=== PATIENT | male | born 1955 | race Caucasian/White ===

== ENCOUNTER 2020-08-16 08:10 | Inpatient (IN) | payer MEDICARE, OTHER ==
[2020-08-16] MEDS ORDERED: SODIUM CHLORIDE 0.9% 1,000 ML IV STA ×2 (08:22)
--- NOTE | 2020-08-16 08:26 | ED ---
General Adult HPI - General Chief complaint: Weakness Stated complaint: Weakness Time Seen by Provider: 08/16/20 08:11 Source: RN notes reviewed, old records reviewed - History of Present Illness Initial comments: 64-year-old male presents to return today for evaluation for progressive weakness. Patient has had significant left leg edema for the past few months and some developing more edema to the right. He states that he is on an unintentional 30 pound weight loss in the past few months. He has had workups including CAT scans colonoscopies ultrasounds with no evidence of possible cancer. He reports he has a significantly poor appetite. Patient states that he is having a difficult time with walking short distances without getting very winded and fatigued. Patient's family called EMS today for further evaluation. Patient and pain besides his legs. He does report some occasional diarrhea recently. - Related Data Home Medications Medication Instructions Recorded Confirmed Zolpidem [Ambien] 5 mg PO HS PRN 08/16/20 08/16/20 Zolpidem [Ambien] 10 mg PO HS PRN 08/16/20 08/16/20 amLODIPine BESYLATE/BENAZEPRIL 1 cap PO DAILY 08/16/20 08/16/20 [amLODIPine BESYLATE/BENAZEPRIL 5-10 MG] Allergies Allergy/AdvReac Type Severity Reaction Status Date / Time No Known Allergies Allergy Verified 08/16/20 08:50 Review of Systems ROS Statement: Those systems with pertinent positive or pertinent negative responses have been documented in the HPI. ROS Other: All systems not noted in ROS Statement are negative. General Exam - General Exam Comments Initial Comments: 64 -year-old male. . General appearance: alert, in no apparent distress Head exam: Present: atraumatic, normocephalic, normal inspection Eye exam: Present: normal appearance, PERRL, EOMI. Absent: scleral icterus, conjunctival injection, periorbital swelling ENT exam: Present: normal exam, mucous membranes moist Neck exam: Present: normal inspection. Absent: tenderness, meningismus, lymphadenopathy Respiratory exam: Present: normal lung sounds bilaterally. Absent: respiratory distress, wheezes, rales, rhonchi, stridor Cardiovascular Exam: Present: regular rate, normal rhythm, normal heart sounds. Absent: systolic murmur, diastolic murmur, rubs, gallop, clicks GI/Abdominal exam: Present: soft, normal bowel sounds. Absent: distended, tenderness, guarding, rebound, rigid Extremities exam: Present: normal inspection, full ROM, normal capillary refill, pedal edema, other (Patient has significant left lower extremity edema.). Absent: tenderness, joint swelling, calf tenderness Back exam: Present: normal inspection, full ROM Neurological exam: Present: alert, oriented X3, CN II-XII intact Psychiatric exam: Present: normal affect, normal mood Skin exam: Present: warm, dry, intact, normal color. Absent: rash Course Vital Signs 08/16/20 08/16/20 08/16/20 08:12 08:13 08:30 Temperature 97.6 F Pulse Rate 117 H 114 H Respiratory 18 16 Rate Blood Pressure 122/87 122/87 122/87 O2 Sat by Pulse 95 96 Oximetry 08/16/20 09:30 Temperature Pulse Rate 112 H Respiratory 14 Rate Blood Pressure 123/86 O2 Sat by Pulse 99 Oximetry Medical Decision Making - Medical Decision Making 64-year-old male presents emergency department today for evaluation for general weakness, left leg swelling. He presents today with unintentional weight loss or past few months of 30 pounds. Patient appears frail and cachectic. Patient at this time Has Acute Renal Failure. has elevated BUN of 93 creatinine 3.5. No previous labs to compare from. Asians on have a mildly elevated troponin 0.047. Denies chest pain. Is likely secondary to acute renal failure. Potassium 5.9. Patient signed be tachycardic. With the left leg swelling ultrasound was completed and shows positive for DVT. Patient cannot receive CT contrast due to renal function but is placed on high-dose heparin at this time. Discussed case with Dr. Coon who will discuss case with patient's PCP Dr. Alcala for admission. We'll have consult to nephrology. - Lab Data Result diagrams: 08/16/20 08:46 08/16/20 08:45 Lab Results 08/16/20 08/16/20 08/16/20 Range/Units 08:45 08:45 08:45 WBC (3.8-10.6) k/uL RBC (4.30-5.90) m/uL Hgb (13.0-17.5) gm/dL Hct (39.0-53.0) % MCV (80.0-100.0) fL MCH (25.0-35.0) pg MCHC (31.0-37.0) g/dL RDW (11.5-15.5) % Plt Count (150-450) k/uL Neutrophils % % Lymphocytes % % Monocytes % % Eosinophils % % Basophils % % Neutrophils # (1.3-7.7) k/uL Lymphocytes # (1.0-4.8) k/uL Monocytes # (0-1.0) k/uL Eosinophils # (0-0.7) k/uL Basophils # (0-0.2) k/uL Sodium 135 L (137-145) mmol/L Potassium 5.9 H (3.5-5.1) mmol/L Chloride 102 (98-107) mmol/L Carbon Dioxide 19 L (22-30) mmol/L Anion Gap 14 mmol/L BUN 93 H (9-20) mg/dL Creatinine 3.55 H (0.66-1.25) mg/dL Est GFR (CKD-EPI)AfAm 20 (>60 ml/min/1.73 sqM) Est GFR (CKD-EPI)NonAf 17 (>60 ml/min/1.73 sqM) Glucose 139 H (74-99) mg/dL Plasma Lactic Acid Vijay 1.7 (0.7-2.0) mmol/L Calcium 10.2 (8.4-10.2) mg/dL Magnesium 2.9 H (1.6-2.3) mg/dL Total Bilirubin 0.6 (0.2-1.3) mg/dL AST 45 (17-59) U/L ALT 31 (4-49) U/L Alkaline Phosphatase 201 H (38-126) U/L Troponin I 0.047 H* (0.000-0.034) ng/mL Total Protein 7.4 (6.3-8.2) g/dL Albumin 3.8 (3.5-5.0) g/dL 08/16/20 Range/Units 08:46 WBC 15.7 H (3.8-10.6) k/uL RBC 4.10 L (4.30-5.90) m/uL Hgb 11.6 L (13.0-17.5) gm/dL Hct 36.3 L (39.0-53.0) % MCV 88.6 (80.0-100.0) fL MCH 28.3 (25.0-35.0) pg MCHC 31.9 (31.0-37.0) g/dL RDW 13.6 (11.5-15.5) % Plt Count 547 H (150-450) k/uL Neutrophils % 92 % Lymphocytes % 4 % Monocytes % 2 % Eosinophils % 1 % Basophils % 0 % Neutrophils # 14.4 H (1.3-7.7) k/uL Lymphocytes # 0.6 L (1.0-4.8) k/uL Monocytes # 0.4 (0-1.0) k/uL Eosinophils # 0.1 (0-0.7) k/uL Basophils # 0.0 (0-0.2) k/uL Sodium (137-145) mmol/L Potassium (3.5-5.1) mmol/L Chloride (98-107) mmol/L Carbon Dioxide (22-30) mmol/L Anion Gap mmol/L BUN (9-20) mg/dL Creatinine (0.66-1.25) mg/dL Est GFR (CKD-EPI)AfAm (>60 ml/min/1.73 sqM) Est GFR (CKD-EPI)NonAf (>60 ml/min/1.73 sqM) Glucose (74-99) mg/dL Plasma Lactic Acid Vijay (0.7-2.0) mmol/L Calcium (8.4-10.2) mg/dL Magnesium (1.6-2.3) mg/dL Total Bilirubin (0.2-1.3) mg/dL AST (17-59) U/L ALT (4-49) U/L Alkaline Phosphatase (38-126) U/L Troponin I (0.000-0.034) ng/mL Total Protein (6.3-8.2) g/dL Albumin (3.5-5.0) g/dL 08/16/20 08:27 EKG shows sinus tachycardia, right atrial enlargement. EKG. Ventricular rate of 118 beats were minute. MN interval is 122 ms. Frustration a 70 ms. QT QTc is 338/473 ms. - Radiology Data Radiology results: report reviewed S x-ray shows correlate for COPD. Findings compatible with acute left lower DVT. Disposition Clinical Impression: ARF (acute renal failure), Left leg DVT, Weight loss, Weakness Disposition: ADMITTED IP TO THIS HOSP Condition: Stable Is patient prescribed a controlled substance at d/c from ED?: No Referrals: Syed Alcala MD [Primary Care Provider] - 1-2 days Time of Disposition: 10:41
[2020-08-16 09:05] LABS: Basophils % (A) 0 %; Eosinophils # (A) 0.1 k/uL (0-0.7); Eosinophils % (A) 1 %; HCT 36.3 % (39.0-53.0); HGB 11.6 gm/dL (13.0-17.5); Lymphocytes # (A) 0.6 k/uL (1.0-4.8); Lymphocytes % (A) 4 %; MCH 28.3 pg (25.0-35.0); MCHC 31.9 g/dL (31.0-37.0); MCV 88.6 fL (80.0-100.0); Mean Platelet Volume 7.9; Monocytes # (A) 0.4 k/uL (0-1.0); Monocytes % (A) 2 %; Neutrophils # (A) 14.4 k/uL (1.3-7.7); Neutrophils % (A) 92 %; Platelet Count 547 k/uL (150-450); RDW 13.6 % (11.5-15.5); WBC 15.7 k/uL (3.8-10.6)
--- NOTE | 2020-08-16 09:11 | XR ---
EXAMINATION TYPE: XR chest 2V DATE OF EXAM: 08/16/2020 COMPARISON: NONE TECHNIQUE: PA and lateral views submitted. HISTORY: Weakness FINDINGS: The lungs are clear and there is no pneumothorax, pleural effusion, or focal pneumonia. Hyperinflati on. Hypertrophic change of the spine. No overt failure. Heart size normal. Atherosclerotic change aor ta. Portions of the right lateral rib cage and lower lung field not entirely included on the exam. IMPRESSION: 1. Correlate for COPD.
[2020-08-16 09:17] LABS: D-Dimer 2.64 mg/L FEU (<0.60); Partial Thromboplastin Time 29.6 sec (22.0-30.0); Prothrombin Time 10.2 sec (9.0-12.0)
[2020-08-16 09:19] LABS: Albumin 3.8 g/dL (3.5-5.0); Calcium 10.2 mg/dL (8.4-10.2); Magnesium 2.9 mg/dL (1.6-2.3); Potassium 5.9 mmol/L (3.5-5.1); Total Bilirubin 0.6 mg/dL (0.2-1.3); Total Protein 7.4 g/dL (6.3-8.2)
--- NOTE | 2020-08-16 10:09 | US ---
EXAMINATION TYPE: US venous doppler duplex LE LT DATE OF EXAM: 08/16/2020 9:53 AM COMPARISON: NONE CLINICAL HISTORY: dvt. Extensive swelling within left leg SIDE PERFORMED: Left TECHNIQUE: The lower extremity deep venous system is examined utilizing real time linear array sonog filomena with graded compression, doppler sonography and color-flow sonography. VESSELS IMAGED: External Iliac Vein (EIV) Common Femoral Vein Deep Femoral Vein Greater Saphenous Vein * Femoral Vein Popliteal Vein Small Saphenous Vein * Proximal Calf Veins (* superficial vessels) Left Leg: Appearance of acute thrombus within proximal calf veins extending up through proximal popi teal veins, internal echoes that are not compressible with no flow, otherwise femoral vein had roulea ux flow seen throughout vessel but they were compressible. IMPRESSION: 1. Findings compatible with acute left lower extremity DVT.
[2020-08-16] MEDS ORDERED: HEPARIN SODIUM,PORCINE 10,000 UNIT/ML 1 ML VIAL IV ONE (10:22)
[2020-08-16] MEDS ORDERED: INSULIN REGULAR 100 UNIT/ML VIAL IV ONE (10:40)
[2020-08-16] MEDS ORDERED: DEXTROSE 50% SYRINGE 50 ML IVP ONE (10:40)
[2020-08-16] MEDS ORDERED: SODIUM POLYSTYRENE SULFONATE 15 GM/60 ML BOTTLE PO ONE (10:40)
[2020-08-16] MEDS ORDERED: ALBUTEROL NEB (CONC) 2.5 MG/0.5 ML INHALATION ONE (10:40)
[2020-08-16] MEDS ORDERED: NALOXONE 0.4 MG/ML 1 ML VIAL IV PRN (10:42)
[2020-08-16] MEDS ORDERED: IBUPROFEN 400 MG TAB PO PRN (10:42)
[2020-08-16] MEDS ORDERED: KETOROLAC 15 MG/ML 1 ML VIAL IVP PRN (10:42)
[2020-08-16] MEDS ORDERED: MORPHINE SULFATE 4 MG/ML SYRINGE IV PRN (10:42)
[2020-08-16] MEDS ORDERED: CALCIUM GLUCONATE 1 GM in SODIUM CHLORIDE 0.9% 100 ML IVPB ONE (11:00)
[2020-08-16] MEDS: HEPARIN SOD,PORK IN 0.45% NACL 25,000 UNIT in 0.45% NACL 1 250ML.BAG IV SCH (11:20)
--- NOTE | 2020-08-16 15:36 | P.CRDCN ---
History of Present Illness Consult date: 08/16/20 Chief complaint: Left leg swelling, shortness of breath History of present illness: This is a pleasant 64-year-old gentleman with history of nicotine dependence, he quit smoking in April, used to smoke about a pack of cigarettes per day, history of hypertension, he is a nondiabetic, no hyperlipidemia, he states that he quit drinking several months ago, he used to drink 5 or 6 beers a day. He presented to the emergency room with significant swelling in his left lower extremity, shortness of breath, and weakness. According to the patient he has lost at least 25-30 pounds in the past 3 months. He also had a colonoscopy performed, was told by the physician that he had a tumor that was not cancerous. We don't have details of this information at present. Patient admits to feeling very short of breath, states he cannot walk to the bathroom without getting extremely short of breath. He is having some pain and discomfort in his left lower extremity. The patient appears extremely frail and thin. His chest x-ray showed COPD. Venous duplex study showed findings compatible with acute left lower extremity DVT. EKG shows a sinus tachycardia. Blood pressure 120/80 with a heart rate in the 1 teens to 120, 97% on 2 L of oxygen. White blood cell count 15.7, hemoglobin 11.6, platelet count 547. D-dimer 2.6, sodium 135, pot assium 5.9, BUN 93, creatinine 3.5. Troponin 0.047, 0.033. Past Medical History Past Medical History: Hypertension History of Any Multi-Drug Resistant Organisms: None Reported Past Surgical History: Appendectomy Past Psychological History: No Psychological Hx Reported Smoking Status: Former smoker Past Alcohol Use History: None Reported Past Drug Use History: Marijuana Medications and Allergies Home Medications Medication Instructions Recorded Confirmed Type Zolpidem [Ambien] 5 mg PO HS PRN 08/16/20 08/16/20 History Zolpidem [Ambien] 10 mg PO HS PRN 08/16/20 08/16/20 History amLODIPine BESYLATE/BENAZEPRIL 1 cap PO DAILY 08/16/20 08/16/20 History [amLODIPine BESYLATE/BENAZEPRIL 5-10 MG] Allergies Allergy/AdvReac Type Severity Reaction Status Date / Time No Known Allergies Allergy Verified 08/16/20 08:50 Physical Exam Vitals: Vital Signs Temp Pulse Resp BP Pulse Ox 08/16/20 15:13 123 H 16 121/84 97 08/16/20 11:29 112 H 16 117/81 95 08/16/20 11:24 95 08/16/20 11:13 92 08/16/20 11:00 110 H 20 133/94 100 08/16/20 10:00 112 H 25 H 138/98 08/16/20 09:30 112 H 14 123/86 99 08/16/20 08:30 114 H 16 122/87 96 08/16/20 08:13 122/87 08/16/20 08:12 97.6 F 117 H 18 122/87 95 Intake and Output 08/16/20 08/16/20 08/16/20 06:59 14:59 22:59 Other: Weight 54.431 kg PHYSICAL EXAMINATION: GENERAL: 64-year-old thin, frail gentleman in no acute distress at the time of my examination HEENT: Head is atraumatic, normocephalic. Pupils equal, round. Sclera anicteric. Conjunctiva are clear. Mucous membranes of the mouth are moist. Neck is supple. There is no elevated jugular venous pressure. No carotid bruit is heard. HEART EXAMINATION: Heart S1, S2 normal. No murmur or gallop heard. CHEST EXAMINATION: Lungs are clear to auscultation and precussion. No chest wall tenderness is noted on palpation or with deep breathing. ABDOMEN: Soft, nontender. Bowel sounds are heard. No organomegaly noted. EXTREMITIES:[ 2+ peripheral pulses with 2-3+ edema to the left lower extremity, 1+ edema to the right lower extremity NEUROLOGIC patient is awake, alert and oriented 3 . Results 08/16/20 08:46 08/16/20 12:02 Cardiac Enzymes 08/16/20 08/16/20 08/16/20 Range/Units 08:45 08:45 12:02 AST 45 (17-59) U/L Troponin I 0.047 H* 0.033 (0.000-0.034) ng/mL Coagulation 08/16/20 Range/Units 08:46 PT 10.2 (9.0-12.0) sec APTT 29.6 (22.0-30.0) sec CBC 08/16/20 Range/Units 08:46 WBC 15.7 H (3.8-10.6) k/uL RBC 4.10 L (4.30-5.90) m/uL Hgb 11.6 L (13.0-17.5) gm/dL Hct 36.3 L (39.0-53.0) % Plt Count 547 H (150-450) k/uL Comprehensive Metabolic Panel 08/16/20 08/16/20 Range/Units 08:45 12:02 Sodium 135 L (137-145) mmol/L Potassium 5.9 H 4.6 (3.5-5.1) mmol/L Chloride 102 (98-107) mmol/L Carbon Dioxide 19 L (22-30) mmol/L BUN 93 H (9-20) mg/dL Creatinine 3.55 H (0.66-1.25) mg/dL Glucose 139 H (74-99) mg/dL Calcium 10.2 (8.4-10.2) mg/dL AST 45 (17-59) U/L ALT 31 (4-49) U/L Alkaline Phosphatase 201 H (38-126) U/L Total Protein 7.4 (6.3-8.2) g/dL Albumin 3.8 (3.5-5.0) g/dL Current Medications Generic Name Dose Route Start Last Admin Trade Name Freq PRN Reason Stop Dose Admin Acetaminophen 650 mg 08/16/20 10:42 Acetaminophen Tab 325 Mg Tab PO Q6HR PRN Mild Pain or Fever > 100.5 Heparin Sodium (Porcine) 0 unit 08/16/20 10:22 Heparin Sodium,Porcine 5,000 Unit/Ml 1 Ml Vial IV PER PROTOCOL PRN Low PTT Protocol Sodium Chloride 1,000 mls @ 130 mls/hr 08/16/20 08:22 08/16/20 08:53 Saline 0.9% IV 08/16/20 16:03 130 mls/hr .Q7H42M STA Administration Heparin Sodium/Sodium Chloride 250 mls @ 9.798 mls/hr 08/16/20 10:30 08/16/20 11:20 25,000 unit/ Sodium Chloride IV 18 units/kg/hr .Q24H XUAN 9.798 mls/hr Administration Protocol 18 UNITS/KG/HR Ibuprofen 400 mg 08/16/20 10:42 Ibuprofen 400 Mg Tab PO Q6HR PRN Mild Pain or Fever > 100.5 Ketorolac Tromethamine 15 mg 08/16/20 10:42 Ketorolac 15 Mg/Ml 1 Ml Vial IVP 08/19/20 10:43 Q6HR PRN Moderate Pain Morphine Sulfate 4 mg 08/16/20 10:42 Morphine Sulfate 4 Mg/Ml Syringe IV Q4HR PRN Severe Pain Naloxone HCl 0.2 mg 08/16/20 10:42 Naloxone 0.4 Mg/Ml 1 Ml Vial IV Q2M PRN Opioid Reversal Pantoprazole Sodium 40 mg 08/17/20 09:00 Pantoprazole 40 Mg/10 Ml Vial IV DAILY XUAN Intake and Output 08/16/20 08/16/20 08/16/20 06:59 14:59 22:59 Other: Weight 54.431 kg Patient Weight 08/17/20 06:59 Weight 54.431 kg 08/16/20 08:46 08/16/20 12:02 EKG Interpretations (text) EKG shows a sinus tachycardia with nonspecific ST-T wave changes Assessment and Plan Plan: Assessment and plan #1 left leg pain and swelling, evidence of acute DVT in the left lower extremity #2 abnormality in troponin, likely secondary to abnormal renal function. EKG shows a sinus tachycardia. Rule out possibility of pulmonary embolism. #3 hypertension #4 history of nicotine dependence #5 history of EtOH use, 5-6 beers a day #6 recent weight loss of 25-30 pounds #7 recent colon mass found on colonoscopy, according to the patient he was told it was benign, consult Dr. henry, obtain results of the colonoscopy #8 acute on chronic renal failure #9 hyperkalemia Plan Patient is currently on IV heparin which we will continue, we will also request a VQ scan to rule out possibility of pulmonary embolism. Obtain echocardiogram with Doppler study. Consult Dr. henry and obtain results of colonoscopy. Further recommendations to follow. DNP note has been reviewed, I agree with a documented findings and plan of care. Patient was seen and examined.
--- NOTE | 2020-08-16 17:22 | ECHOF ---
Referral Reason:abn trop MEASUREMENTS -------- HEIGHT: 170.2 cm WEIGHT: 54.4 kg BP: 121/84 IVSd: 1.0 cm (0.6 - 1.1) LVIDd: 3.3 cm (3.9 - 5.3) LVPWd: 1.1 cm (0.6 - 1.1) IVSs: 1.2 cm LVIDs: 1.9 cm LVPWs: 1.3 cm Ao Diam: 3.1 cm (2.0 - 3.7) AV Cusp: 1.2 cm (1.5 - 2.6) RAP: 5.00 mmHg RVSP: 15.84 mmHg FINDINGS -------- This was a technically difficult study with suboptimal views. Pt. not able to turn due to pain. The left ventricular size is normal. There is mild concentric left ventricular hypertrophy. Overa ll left ventricular systolic function is normal with, an EF between 55 - 60 %. The RV was not well visualized. The left atrium was not well visualized. The right atrium was not well visualized. 5.0mg of Lumason was utilized for enhancement of images The aortic valve was not well visualized. There is no evidence of aortic regurgitation. The mitral valve was not well visualized. No mitral regurgitation. Mild tricuspid regurgitation present. There is no evidence of pulmonary hypertension. The right v entricular systolic pressure, as measured by Doppler, is 15.84mmHg. The pulmonic valve was not well visualized. The aortic root size is normal. IVC Not well visulized. There is a trivial pericardial effusion present. CONCLUSIONS -------- 1. The left ventricular size is normal. 2. There is mild concentric left ventricular hypertrophy. 3. Overall left ventricular systolic function is normal with, an EF between 55 - 60 %. 4. Mild tricuspid regurgitation present. 5. There is a trivial pericardial effusion present. STEAM PIPE FITTER: Jennifer Armenta, IKE
--- NOTE | 2020-08-16 23:07 | P.HPIM ---
History of Present Illness H&P Date: 08/16/20 Chief Complaint: Generalized weakness. This is a history of physical a 64-year-old white male with known history of rectal mass with supposed high-grade dysplasia. Colonoscopy was done recently and he has had increasing weight loss over the last several months totaling at l east 30 pound weight loss. The patient comes in complaining of weeks long history of left lower extremity edema which was getting worse. DVT was then diagnosed on admission and he is hospitalized for this with associated acute renal failure. Question element of hypercoagulable state. Review of Systems Constitutional: Reports fatigue, Reports weakness Eyes: denies blurred vision, denies pain Ears, nose, mouth and throat: Denies headache, Denies sore throat Cardiovascular: Denies chest pain, Denies shortness of breath Respiratory: Denies cough Gastrointestinal: Denies belching, Denies bloating, Denies melena Integumentary: Denies pruritus, Denies rash Neurological: Denies numbness, Denies weakness Past Medical History Past Medical History: Hypertension History of Any Multi-Drug Resistant Organisms: None Reported Past Surgical History: Appendectomy Additional Past Surgical History / Comment(s): colonoscopy 6 weeks ago Past Anesthesia/Blood Transfusion Reactions: No Reported Reaction Past Psychological History: No Psychological Hx Reported Smoking Status: Former smoker Past Alcohol Use History: None Reported Additional Past Alcohol Use History / Comment(s): pt started smoking when he was 15 years old. pt quit smoking 1 month ago. Past Drug Use History: Marijuana Additional Drug Use History / Comment(s): smokes 1-2 joints per day Medications and Allergies Home Medications Medication Instructions Recorded Confirmed Type Zolpidem [Ambien] 5 mg PO HS PRN 08/16/20 08/16/20 History Zolpidem [Ambien] 10 mg PO HS PRN 08/16/20 08/16/20 History amLODIPine BESYLATE/BENAZEPRIL 1 cap PO DAILY 08/16/20 08/16/20 History [amLODIPine BESYLATE/BENAZEPRIL 5-10 MG] Allergies Allergy/AdvReac Type Severity Reaction Status Date / Time No Known Allergies Allergy Verified 08/16/20 08:50 Physical Exam Vitals: Vital Signs Temp Pulse Pulse Resp BP BP Pulse Ox 08/16/20 21:35 97.9 F 114 H 18 145/84 100 08/16/20 21:34 97.9 F 114 H 18 145/84 100 08/16/20 20:43 98.0 F 112 H 18 127/80 97 08/16/20 15:13 123 H 16 121/84 97 08/16/20 11:29 112 H 16 117/81 95 08/16/20 11:24 95 08/16/20 11:13 92 08/16/20 11:00 110 H 20 133/94 100 08/16/20 10:00 112 H 25 H 138/98 08/16/20 09:30 112 H 14 123/86 99 08/16/20 08:30 114 H 16 122/87 96 08/16/20 08:13 122/87 08/16/20 08:12 97.6 F 117 H 18 122/87 95 Intake and Output 08/16/20 08/16/20 08/17/20 14:59 22:59 06:59 Other: Weight 54.431 kg 54.5 kg - Constitutional General appearance: thin - EENT Eyes: no abnormal pupil - Neck Neck: no lymphadenopathy - Respiratory Respiratory: bilateral: diminished - Cardiovascular Rhythm: regular Heart sounds: normal: S1, S2 Abnormal Heart Sounds: no S3 Gallop - Gastrointestinal General gastrointestinal: soft, no tenderness - Musculoskeletal Musculoskeletal: generalized weakness - Psychiatric Psychiatric: A&O x's 3 Results CBC & Chem 7: 08/16/20 08:46 08/16/20 12:02 Labs: Abnormal Lab Results - Last 24 Hours (Table) 08/16/20 08/16/20 08/16/20 Range/Units 08:45 08:45 08:46 WBC 15.7 H (3.8-10.6) k/uL RBC 4.10 L (4.30-5.90) m/uL Hgb 11.6 L (13.0-17.5) gm/dL Hct 36.3 L (39.0-53.0) % Plt Count 547 H (150-450) k/uL Neutrophils # 14.4 H (1.3-7.7) k/uL Lymphocytes # 0.6 L (1.0-4.8) k/uL APTT (22.0-30.0) sec D-Dimer (<0.60) mg/L FEU Sodium 135 L (137-145) mmol/L Potassium 5.9 H (3.5-5.1) mmol/L Carbon Dioxide 19 L (22-30) mmol/L BUN 93 H (9-20) mg/dL Creatinine 3.55 H (0.66-1.25) mg/dL Glucose 139 H (74-99) mg/dL Magnesium 2.9 H (1.6-2.3) mg/dL Alkaline Phosphatase 201 H (38-126) U/L Troponin I 0.047 H* (0.000-0.034) ng/mL 08/16/20 08/16/20 08/16/20 Range/Units 08:46 17:48 17:48 WBC (3.8-10.6) k/uL RBC (4.30-5.90) m/uL Hgb (13.0-17.5) gm/dL Hct (39.0-53.0) % Plt Count (150-450) k/uL Neutrophils # (1.3-7.7) k/uL Lymphocytes # (1.0-4.8) k/uL APTT 64.3 H (22.0-30.0) sec D-Dimer 2.64 H (<0.60) mg/L FEU Sodium (137-145) mmol/L Potassium (3.5-5.1) mmol/L Carbon Dioxide (22-30) mmol/L BUN (9-20) mg/dL Creatinine (0.66-1.25) mg/dL Glucose (74-99) mg/dL Magnesium (1.6-2.3) mg/dL Alkaline Phosphatase (38-126) U/L Troponin I 0.039 H* (0.000-0.034) ng/mL Thrombosis Risk Factor Assmnt - Choose All That Apply Any of the Below Risk Factors Present?: No Other Risk Factors: Yes Each Risk Factor Represents 2 Points: Age 61-74 years, Patient confined to bed Other congenital or acquired thrombophilia - If yes, enter type in comment: No Thrombosis Risk Factor Assessment Total Risk Factor Score: 4 Thrombosis Risk Factor Assessment Level: Moderate Risk Assessment and Plan (1) Rectal mass Current Visit: Yes Status: Acute Code(s): K62.89 - OTHER SPECIFIED DISEASES OF ANUS AND RECTUM SNOMED Code(s): 169179608 (2) ARF (acute renal failure) Current Visit: Yes Status: Acute Code(s): N17.9 - ACUTE KIDNEY FAILURE, UNSPECIFIED SNOMED Code(s): 28676210 (3) Left leg DVT Current Visit: Yes Status: Acute Code(s): I82.402 - ACUTE EMBOLISM AND THOMBOS UNSP DEEP VEINS OF L LOW EXTREM SNOMED Code(s): 295941498 (4) Weakness Current Visit: Yes Status: Acute Code(s): R53.1 - WEAKNESS SNOMED Code(s): 18578697 (5) Weight loss Current Visit: Yes Status: Acute Code(s): R63.4 - ABNORMAL WEIGHT LOSS SNOMED Code(s): 82058463 Plan: Check CBC and CMP in a.m. Appreciate multiple consultants input. I do suspect this rectal mass could be why he is in a hypercoagulable state versus his element of weakness causing DVT. Will await evaluation by the multiple consultants. We will hydrate for renal failure. At this point prognosis is guarded secondary to multiple comorbidities. Time with Patient: Greater than 30
--- NOTE | 2020-08-16 23:49 | P.GSCN ---
History of Present Illness Consult date: 08/16/20 History of present illness: Mr. Cummings is a 64 year old male who is previously known to me. He presented to the ER with a complaint of leg swelling and was found to have DVT. Patient is known to me because I performed a colonoscopy on him over one month ago now 06/21/20. At that time he was found to have a large rectal mass which was highly suspicious for rectal cancer. Multiple biopsies of this mass were taken and the area was tattooed for later surgical removal. The biopsies showed high grade dysplasia. I had lengthy discussions with the patient in the office informing him that this does not mean that he does not have cancer and that he likely has cancer within the tumor. He was informed that he would need a further workup and surgery. Due to location of the tumor being at only 5cm from the anal verge I recommended to him that he be evaluated by a colorectal surgeon. My office actually set him up with an appointment with a colorectal surgeon that same week however the patient declined that appointment and stated he wanted to see the colorectal surgeon in 3-4 weeks instead. I did inform him at that time that I recommend he not wait to see colorectal. Today the patient has lost significant weight. He has DVT and a CT was performed during a workup by vascular surgery earlier this month that showed highly suspicious thickening in the rectum with lymphadenopathy in the pelvis along with suspicious lesions in the liver and hydronephrosis which was suspected to be obstructive. He denies any abdominal pain. He is being worked up by vascular surgery. This likely represents metastatic disease. He denies any pain he denies any nausea and vomiting. He is tolerating his diet. Past Medical History Past Medical History: Hypertension History of Any Multi-Drug Resistant Organisms: None Reported Past Surgical History: Appendectomy Additional Past Surgical History / Comment(s): colonoscopy 6 weeks ago Past Anesthesia/Blood Transfusion Reactions: No Reported Reaction Past Psychological History: No Psychological Hx Reported Smoking Status: Former smoker Past Alcohol Use History: None Reported Additional Past Alcohol Use History / Comment(s): pt started smoking when he was 15 years old. pt quit smoking 1 month ago. Past Drug Use History: Marijuana Additional Drug Use History / Comment(s): smokes 1-2 joints per day Medications and Allergies Home Medications Medication Instructions Recorded Confirmed Type Zolpidem [Ambien] 5 mg PO HS PRN 08/16/20 08/16/20 History Zolpidem [Ambien] 10 mg PO HS PRN 08/16/20 08/16/20 History amLODIPine BESYLATE/BENAZEPRIL 1 cap PO DAILY 08/16/20 08/16/20 History [amLODIPine BESYLATE/BENAZEPRIL 5-10 MG] Allergies Allergy/AdvReac Type Severity Reaction Status Date / Time No Known Allergies Allergy Verified 08/16/20 08:50 Surgical - Exam Osteopathic Statement: *. No significant issues noted on an osteopathic structural exam other than those noted in the History and Physical/Consult. Vital Signs Temp Pulse Resp BP Pulse Ox 97.6 F 117 H 18 122/87 95 08/16/20 08:12 08/16/20 08:12 08/16/20 08:12 08/16/20 08:12 08/16/20 08:12 - General cachectic - Eyes PERRL - Neck no masses, trachea midline - Cardiovascular Rhythm: regular - Abdomen Abdomen: soft, non tender - Psychiatric oriented to time, oriented to person, oriented to place Results - Labs 08/16/20 08:46 08/16/20 12:02 Abnormal Lab Results - Last 24 Hours (Table) 08/16/20 08/16/20 08/16/20 Range/Units 08:45 08:45 08:46 WBC 15.7 H (3.8-10.6) k/uL RBC 4.10 L (4.30-5.90) m/uL Hgb 11.6 L (13.0-17.5) gm/dL Hct 36.3 L (39.0-53.0) % Plt Count 547 H (150-450) k/uL Neutrophils # 14.4 H (1.3-7.7) k/uL Lymphocytes # 0.6 L (1.0-4.8) k/uL APTT (22.0-30.0) sec D-Dimer (<0.60) mg/L FEU Sodium 135 L (137-145) mmol/L Potassium 5.9 H (3.5-5.1) mmol/L Carbon Dioxide 19 L (22-30) mmol/L BUN 93 H (9-20) mg/dL Creatinine 3.55 H (0.66-1.25) mg/dL Glucose 139 H (74-99) mg/dL Magnesium 2.9 H (1.6-2.3) mg/dL Alkaline Phosphatase 201 H (38-126) U/L Troponin I 0.047 H* (0.000-0.034) ng/mL 08/16/20 08/16/20 08/16/20 Range/Units 08:46 17:48 17:48 WBC (3.8-10.6) k/uL RBC (4.30-5.90) m/uL Hgb (13.0-17.5) gm/dL Hct (39.0-53.0) % Plt Count (150-450) k/uL Neutrophils # (1.3-7.7) k/uL Lymphocytes # (1.0-4.8) k/uL APTT 64.3 H (22.0-30.0) sec D-Dimer 2.64 H (<0.60) mg/L FEU Sodium (137-145) mmol/L Potassium (3.5-5.1) mmol/L Carbon Dioxide (22-30) mmol/L BUN (9-20) mg/dL Creatinine (0.66-1.25) mg/dL Glucose (74-99) mg/dL Magnesium (1.6-2.3) mg/dL Alkaline Phosphatase (38-126) U/L Troponin I 0.039 H* (0.000-0.034) ng/mL Diabetes panel 08/16/20 08/16/20 Range/Units 08:45 12:02 Sodium 135 L (137-145) mmol/L Potassium 5.9 H 4.6 (3.5-5.1) mmol/L Chloride 102 (98-107) mmol/L Carbon Dioxide 19 L (22-30) mmol/L BUN 93 H (9-20) mg/dL Creatinine 3.55 H (0.66-1.25) mg/dL Glucose 139 H (74-99) mg/dL Calcium 10.2 (8.4-10.2) mg/dL AST 45 (17-59) U/L ALT 31 (4-49) U/L Alkaline Phosphatase 201 H (38-126) U/L Total Protein 7.4 (6.3-8.2) g/dL Albumin 3.8 (3.5-5.0) g/dL Calcium panel 08/16/20 Range/Units 08:45 Calcium 10.2 (8.4-10.2) mg/dL Albumin 3.8 (3.5-5.0) g/dL Pituitary panel 08/16/20 08/16/20 Range/Units 08:45 12:02 Sodium 135 L (137-145) mmol/L Potassium 5.9 H 4.6 (3.5-5.1) mmol/L Chloride 102 (98-107) mmol/L Carbon Dioxide 19 L (22-30) mmol/L BUN 93 H (9-20) mg/dL Creatinine 3.55 H (0.66-1.25) mg/dL Glucose 139 H (74-99) mg/dL Calcium 10.2 (8.4-10.2) mg/dL Adrenal panel 08/16/20 08/16/20 Range/Units 08:45 12:02 Sodium 135 L (137-145) mmol/L Potassium 5.9 H 4.6 (3.5-5.1) mmol/L Chloride 102 (98-107) mmol/L Carbon Dioxide 19 L (22-30) mmol/L BUN 93 H (9-20) mg/dL Creatinine 3.55 H (0.66-1.25) mg/dL Glucose 139 H (74-99) mg/dL Calcium 10.2 (8.4-10.2) mg/dL Total Bilirubin 0.6 (0.2-1.3) mg/dL AST 45 (17-59) U/L ALT 31 (4-49) U/L Alkaline Phosphatase 201 H (38-126) U/L Total Protein 7.4 (6.3-8.2) g/dL Albumin 3.8 (3.5-5.0) g/dL Assessment and Plan Assessment: DVT, rectal mass highly suspicious for rectal cancer with metastatic disease. Plan: Patient is on anticoagulation per primary and vascular. Unsure of if patient followed up with his colorectal appointment and will attempt to obtain records a s he is unsure of what the outcome of that appointment was. Patient may benefit from metastatic workup with CT chest abdomen and pelvis along with liver biopsy if there is suspicion of liver metastasis.
--- NOTE | 2020-08-17 08:00 | P.PN ---
Subjective Progress Note Date: 08/17/20 Principal diagnosis: Rectal mass and weakness Objective - Vital Signs Vital signs: Vital Signs Temp 98.4 F 08/17/20 03:58 Pulse 116 H 08/17/20 04:00 Resp 16 08/17/20 04:00 BP 124/74 08/17/20 03:58 Pulse Ox 100 08/17/20 03:58 Intake & Output 08/16/20 08/17/20 08/17/20 18:59 06:59 18:59 Intake Total 600 Output Total 100 Balance 500 Weight 54.431 kg 58.8 kg Intake: IV 600 0.9@75ml/hr 600 Output: Urine 100 Other: Voiding Method Urinal # Voids 1 - Constitutional General appearance: Present: thin - EENT Eyes: Absent: abnormal pupil - Neck Neck: Absent: lymphadenopathy - Respiratory Respiratory: bilateral: CTA - Cardiovascular Rhythm: regular Heart sounds: normal: S1, S2 Abnormal Heart Sounds: Absent: S3 Gallop - Gastrointestinal General gastrointestinal: Present: soft - Neurologic Neurologic: Present: CNII-XII intact - Labs CBC & Chem 7: 08/16/20 08:46 08/16/20 12:02 Labs: Abnormal Lab Results - Last 24 Hours (Table) 08/16/20 08/16/20 08/16/20 Range/Units 08:45 08:45 08:46 WBC 15.7 H (3.8-10.6) k/uL RBC 4.10 L (4.30-5.90) m/uL Hgb 11.6 L (13.0-17.5) gm/dL Hct 36.3 L (39.0-53.0) % Plt Count 547 H (150-450) k/uL Neutrophils # 14.4 H (1.3-7.7) k/uL Lymphocytes # 0.6 L (1.0-4.8) k/uL APTT (22.0-30.0) sec D-Dimer (<0.60) mg/L FEU Sodium 135 L (137-145) mmol/L Potassium 5.9 H (3.5-5.1) mmol/L Carbon Dioxide 19 L (22-30) mmol/L BUN 93 H (9-20) mg/dL Creatinine 3.55 H (0.66-1.25) mg/dL Glucose 139 H (74-99) mg/dL Magnesium 2.9 H (1.6-2.3) mg/dL Alkaline Phosphatase 201 H (38-126) U/L Troponin I 0.047 H* (0.000-0.034) ng/mL 08/16/20 08/16/20 08/16/20 Range/Units 08:46 17:48 17:48 WBC (3.8-10.6) k/uL RBC (4.30-5.90) m/uL Hgb (13.0-17.5) gm/dL Hct (39.0-53.0) % Plt Count (150-450) k/uL Neutrophils # (1.3-7.7) k/uL Lymphocytes # (1.0-4.8) k/uL APTT 64.3 H (22.0-30.0) sec D-Dimer 2.64 H (<0.60) mg/L FEU Sodium (137-145) mmol/L Potassium (3.5-5.1) mmol/L Carbon Dioxide (22-30) mmol/L BUN (9-20) mg/dL Creatinine (0.66-1.25) mg/dL Glucose (74-99) mg/dL Magnesium (1.6-2.3) mg/dL Alkaline Phosphatase (38-126) U/L Troponin I 0.039 H* (0.000-0.034) ng/mL 08/17/20 Range/Units 07:04 WBC (3.8-10.6) k/uL RBC (4.30-5.90) m/uL Hgb (13.0-17.5) gm/dL Hct (39.0-53.0) % Plt Count (150-450) k/uL Neutrophils # (1.3-7.7) k/uL Lymphocytes # (1.0-4.8) k/uL APTT 62.7 H (22.0-30.0) sec D-Dimer (<0.60) mg/L FEU Sodium (137-145) mmol/L Potassium (3.5-5.1) mmol/L Carbon Dioxide (22-30) mmol/L BUN (9-20) mg/dL Creatinine (0.66-1.25) mg/dL Glucose (74-99) mg/dL Magnesium (1.6-2.3) mg/dL Alkaline Phosphatase (38-126) U/L Troponin I (0.000-0.034) ng/mL Assessment and Plan (1) Rectal mass Current Visit: Yes Status: Acute Code(s): K62.89 - OTHER SPECIFIED DISEASES OF ANUS AND RECTUM SNOMED Code(s): 540768859 (2) ARF (acute renal failure) Current Visit: Yes Status: Acute Code(s): N17.9 - ACUTE KIDNEY FAILURE, UNSPECIFIED SNOMED Code(s): 60403880 (3) Left leg DVT Current Visit: Yes Status: Acute Code(s): I82.402 - ACUTE EMBOLISM AND THOMBOS UNSP DEEP VEINS OF L LOW EXTREM SNOMED Code(s): 738873881 (4) Weakness Current Visit: Yes Status: Acute Code(s): R53.1 - WEAKNESS SNOMED Code(s): 87167692 (5) Weight loss Current Visit: Yes Status: Acute Code(s): R63.4 - ABNORMAL WEIGHT LOSS SNOMED Code(s): 95217516 Plan: Check CBC and CMP in a.m. Appreciate multiple consultants input. I do suspect this rectal mass could be why he is in a hypercoagulable state versus his element of weakness causing DVT. Will await evaluation by the multiple consultants. We will hydrate for renal failure. At this point prognosis is guarded secondary to multiple comorbidities. I suspect patient will need metastatic workup Time with Patient: Greater than 30
[2020-08-17 08:02] LABS: Basophils % (A) 0 %; Eosinophils # (A) 0.1 k/uL (0-0.7); Eosinophils % (A) 0 %; HCT 31.2 % (39.0-53.0); HGB 10.5 gm/dL (13.0-17.5); Lymphocytes # (A) 0.8 k/uL (1.0-4.8); Lymphocytes % (A) 5 %; MCH 30.3 pg (25.0-35.0); MCHC 33.8 g/dL (31.0-37.0); MCV 89.7 fL (80.0-100.0); Mean Platelet Volume 8.2; Monocytes # (A) 0.5 k/uL (0-1.0); Monocytes % (A) 3 %; Neutrophils # (A) 15.1 k/uL (1.3-7.7); Neutrophils % (A) 91 %; Platelet Count 448 k/uL (150-450); RBC 3.47 m/uL (4.30-5.90); RDW 13.8 % (11.5-15.5); WBC 16.5 k/uL (3.8-10.6)
[2020-08-17 08:09] LABS: Potassium 4.6 mmol/L (3.5-5.1)
[2020-08-17 08:10] LABS: Albumin 3.1 g/dL (3.5-5.0); Calcium 8.9 mg/dL (8.4-10.2); Total Bilirubin 0.5 mg/dL (0.2-1.3); Total Protein 6.3 g/dL (6.3-8.2)
[2020-08-17] MEDS: PANTOPRAZOLE 40 MG/10 ML VIAL IV SCH (08:38)
[2020-08-17] MEDS: HEPARIN SOD,PORK IN 0.45% NACL 25,000 UNIT in 0.45% NACL 1 250ML.BAG IV SCH (12:52)
--- NOTE | 2020-08-17 12:57 | P.PN ---
Subjective Progress Note Date: 08/17/20 This is a pleasant 64-year-old gentleman with history of nicotine dependence, he quit smoking in April, used to smoke about a pack of cigarettes per day, history of hypertension, he is a nondiabetic, no hyperlipidemia, he states that he quit drinking several months ago, he used to drink 5 or 6 beers a day. He presented to the emergency room with significant swelling in his left lower extremity, shortness of breath, and weakness. According to the patient he has lost at least 25-30 pounds in the past 3 months. He also had a colonoscopy performed, was told by the physician that he had a tumor that was not cancerous. We don't have details of this information at present. Patient admits to feeling very short of breath, states he cannot walk to the bathroom without getting extremely short of breath. He is having some pain and discomfort in his left lower extremity. The patient appears extremely frail and thin. His chest x-ray showed COPD. Venous duplex study showed findings compatible with acute left lower extremity DVT. EKG shows a sinus tachycardia. Blood pressure 120/80 with a heart rate in the 1 teens to 120, 97% on 2 L of oxygen. White blood cell count 15.7, hemoglobin 11.6, platelet count 547. D-dimer 2.6, sodium 135, potassium 5.9, BUN 93, creatinine 3.5. Troponin 0.047, 0.033. 08/17/2020 Patient was seen and examined this morning, up ambulating in the room today with physical therapy. He does state overall he's feeling somewhat better. They were unable to do the VQ scan because the patient could not lie flat. The patient was seen in consultation by Dr. henry, who mentioned that the patient had a CT performed by vascular surgery earlier this month which revealed highly suspicious thickening in the rectum with lymphadenopathy in the pelvis along w ith a suspicious lesion in the liver and hydronephrosis which was suspected to be obstructive. Likely representing metastatic disease. Blood pressure 138/80, heart rate 110, afebrile. 100% on room air. White blood cell count 16.5, hemoglobin 10.5, platelet count 448. Sodium 136, potassium 4.6, BUN 88, creatinine 3.4. Echocardiogram with Doppler study revealed an ejection fraction of 55-60%. Objective - Vital Signs Vital signs: Vital Signs Temp 97.5 F L 08/17/20 11:42 Pulse 115 H 08/17/20 11:42 Resp 17 08/17/20 11:42 BP 138/82 08/17/20 11:42 Pulse Ox 100 08/17/20 11:42 Intake & Output 08/16/20 08/17/20 08/17/20 18:59 06:59 18:59 Intake Total 600 Output Total 100 0 Balance 500 0 Weight 54.431 kg 58.8 kg Intake: IV 600 0.9@75ml/hr 600 Output: Urine 100 0 Other: Voiding Method Urinal Urinal # Voids 1 0 - Exam PHYSICAL EXAMINATION: GENERAL: 64-year-old thin, frail gentleman in no acute distress at the time of my examination HEENT: Head is atraumatic, normocephalic. Pupils equal, round. Sclera anicteric. Conjunctiva are clear. Mucous membranes of the mouth are moist. Neck is supple. There is no elevated jugular venous pressure. No carotid bruit is heard. HEART EXAMINATION: Heart S1, S2 normal. No murmur or gallop heard. CHEST EXAMINATION: Lungs are clear to auscultation and precussion. No chest wall tenderness is noted on palpation or with deep breathing. ABDOMEN: Soft, nontender. Bowel sounds are heard. No organomegaly noted. EXTREMITIES:[ 2+ peripheral pulses with 2-3+ edema to the left lower extremity, 1+ edema to the right lower extremity NEUROLOGIC patient is awake, alert and oriented 3 - Labs CBC & Chem 7: 08/17/20 07:04 08/17/20 07:04 Labs: Abnormal Lab Results - Last 24 Hours (Table) 08/16/20 08/16/20 08/17/20 Range/Units 17:48 17:48 07:04 WBC 16.5 H (3.8-10.6) k/uL RBC 3.47 L (4.30-5.90) m/uL Hgb 10.5 L (13.0-17.5) gm/dL Hct 31.2 L (39.0-53.0) % Neutrophils # 15.1 H (1.3-7.7) k/uL Lymphocytes # 0.8 L (1.0-4.8) k/uL APTT 64.3 H (22.0-30.0) sec Sodium (137-145) mmol/L Carbon Dioxide (22-30) mmol/L BUN (9-20) mg/dL Creatinine (0.66-1.25) mg/dL Glucose (74-99) mg/dL Alkaline Phosphatase (38-126) U/L Troponin I 0.039 H* (0.000-0.034) ng/mL Albumin (3.5-5.0) g/dL 08/17/20 08/17/20 Range/Units 07:04 07:04 WBC (3.8-10.6) k/uL RBC (4.30-5.90) m/uL Hgb (13.0-17.5) gm/dL Hct (39.0-53.0) % Neutrophils # (1.3-7.7) k/uL Lymphocytes # (1.0-4.8) k/uL APTT 62.7 H (22.0-30.0) sec Sodium 136 L (137-145) mmol/L Carbon Dioxide 21 L (22-30) mmol/L BUN 88 H (9-20) mg/dL Creatinine 3.46 H (0.66-1.25) mg/dL Glucose 102 H (74-99) mg/dL Alkaline Phosphatase 168 H (38-126) U/L Troponin I (0.000-0.034) ng/mL Albumin 3.1 L (3.5-5.0) g/dL Microbiology - Last 24 Hours (Table) 08/16/20 08:45 Blood Culture - Preliminary Blood No Growth after 24 hours Assessment and Plan Plan: Assessment and plan #1 left leg pain and swelling, evidence of acute DVT in the left lower extremity #2 abnormality in troponin, likely secondary to abnormal renal function. EKG shows a sinus tachycardia. Rule out possibility of pulmonary embolism. #3 hypertension #4 history of nicotine dependence #5 history of EtOH use, 5-6 beers a day #6 recent weight loss of 25-30 pounds #7 recent colon mass found on colonoscopy, according to the patient he was told it was benign, consult Dr. henry, obtain results of the colonoscopy #8 acute on chronic renal failure #9 hyperkalemia Plan Patient is currently on IV heparin which will need to be transitioned over to oral anticoagulation for the DVT, patient was unable to lie flat for the VQ scan. Echocardiogram with Doppler study revealed a normal left ventricular systolic function. DNP note has been reviewed, I agree with a documented findings and plan of care. Patient was seen and examined.
--- NOTE | 2020-08-17 19:45 | CONS ---
CONSULTATION REASON FOR CONSULT: Renal failure. HISTORY OF PRESENT ILLNESS: Patient is a 64-year-old male who was admitted to the hospital yesterday with complaints of weakness and significant edema in his left lower extremity. Patient did have some shortness of breath. He denied any fever or chills. No nausea, vomiting or abdominal pain. Patient has a history of unintentional weight loss. He denies any prior history of kidney diseases. Doppler of the left lower extremity was positive for DVT. Patient's serum creatinine was noted to be 3.5 mg/dL. No previous labs are available for comparison. Currently patient is voiding in a urinal. I do see Toradol on his med list. He was also maintained on IV fluids at 130 mL/hour. At home patient was not on any NSAIDs. I do see INEZ inhibitors on his home medication list. Echocardiogram done this admission shows ejection fraction 55% to 60%. The patient has just returned from a V/Q scan. PAST MEDICAL HISTORY: Significant for hypertension. PAST SURGICAL HISTORY: Appendectomy. SOCIAL HISTORY: Patient is a former smoker. He does have a history of use of marijuana. MEDICATIONS: Medications at home prior to admission included Ambien, amlodipine/benazepril. ALLERGIES: NONE. REVIEW OF SYSTEMS: As per HPI. Other systems negative. PHYSICAL EXAMINATION: Patient is comfortable, awake. He is not in any acute distress. Blood pressure was 138/82, heart rate 115 per minute. Patient is afebrile. EXAMINATION OF THE HEART: S1 and S2. EXAMINATION OF LUNGS: Bilateral breath sounds are heard. Decreased breath sounds at bases. ABDOMEN: Soft, non-tender. Examination of lower extremities shows trace edema, right lower extremity, 2+ edema left lower extremity. [employer] exam is grossly intact. LABS: Labs show sodium 136, potassium 4.6, chloride 105. CO2 is 21, BUN 88, serum creatinine 3.46. Calcium is 8.9. Troponin 0.039. UA is not available. Hemoglobin was 10.5 g/dL. Venous Doppler done yesterday was positive for left lower extremity DVT which is acute. ASSESSMENT: 1. Acute kidney injury versus chronic kidney disease. Etilogy for ANGELICA, NSAIDs. Previous labs not available for comparison. I will discontinue the NSAIDs. Given his advanced renal failure, we need to discontinue the Toradol as well as the Motrin. Check a urinalysis. I will also check a post-void bladder scan. Rule out any underlying urine retention. Patient is maintained on IV fluids, which we can continue for now. 2. Acute left lower extremity deep venous thrombosis. 3. History of rectal mass with high-grade dysplasia. Details not available. 4. Hyperkalemia secondary to ANGELICA, NSAIDs, s/p kayexalate, improved. PLAN: Check urinalysis. Discontinue Toradol. Discontinue Motrin. Check post-void bladder scan. Repeat labs in a.m. Ultrasound of the kidneys was done in May of 2020 with no evidence of hydronephrosis; therefore I will hold off on imaging of the kidneys at this point. Thank you for this consultation. Will continue to follow the patient with you during his hospitalization. MMODL / IJN: [id number] / [email or web address]
[2020-08-18 03:55] LABS: Appearance,Urine Cloudy (Clear); Bacteria,Urine Rare /hpf; Bilirubin,Urine Negative (Negative); Blood,Urine Large (Negative); Color,Urine Yellow; Glucose,Urine (UA) Negative (Negative); Ketones,Urine Negative (Negative); Leukocyte Esterase,Urine Negative (Negative); Nitrite,Urine Negative (Negative); Protein,Urine Trace (Negative); RBC,Urine 18 /hpf (0-5); Specific Gravity,Urine 1.013 (1.001-1.035); Urobilinogen,Urine <2.0 mg/dL (<2.0); WBC,Urine 2 /hpf (0-5)
--- NOTE | 2020-08-18 08:05 | P.PN ---
Subjective Principal diagnosis: Rectal mass and weakness area the patient is complaining of insomnia as well. The patient is a 65-year-old white male essentially admitted for significant weakness. All overt rectal masses noted with left lower 70 DVT. The patient is continued on heparin and appreciate multiple consultants input. Patient states poor sleep yesterday. He also states back pain when trying to lay flat. Objective - Vital Signs Vital signs: Vital Signs Temp 98.5 F 08/18/20 03:50 Pulse 117 H 08/18/20 03:52 Resp 18 08/18/20 03:52 BP 126/62 08/18/20 03:50 Pulse Ox 96 08/18/20 03:50 Intake & Output 08/17/20 08/18/20 08/18/20 18:59 06:59 18:59 Intake Total 370 Output Total 1125 400 Balance -755 -400 Weight 58.8 kg 57.5 kg Intake: Intake, IV Titration 250 Amount Heparin Sod,Pork in 0.45% 250 NaCl 25,000 unit In 0.45 % NaCl 1 250ml.bag @ 18 UNITS/KG/HR 9.798 mls/hr IV .Q24H [facility] Rx#: [id number] Oral 120 Output: Urine 1125 400 Other: Voiding Method Urinal Urinal # Voids 1 # Bowel Movements 1 1 - Constitutional General appearance: Present: thin. Absent: no acute distress - EENT Eyes: Absent: abnormal pupil - Neck Neck: Absent: lymphadenopathy - Respiratory Respiratory: bilateral: diminished - Cardiovascular Rhythm: irregularly irregular Heart sounds: normal: S1, S2 Abnormal Heart Sounds: Absent: S3 Gallop - Gastrointestinal General gastrointestinal: Present: soft. Absent: tenderness - Integumentary Integumentary: Absent: cyanotic - Musculoskeletal Musculoskeletal: Present: generalized weakness - Psychiatric Psychiatric: Present: A&O x's 3 - Labs CBC & Chem 7: 08/17/20 07:04 08/17/20 07:04 Labs: Abnormal Lab Results - Last 24 Hours (Table) 08/17/20 08/17/20 08/18/20 Range/Units 07:04 07:04 03:25 WBC 16.5 H (3.8-10.6) k/uL RBC 3.47 L (4.30-5.90) m/uL Hgb 10.5 L (13.0-17.5) gm/dL Hct 31.2 L (39.0-53.0) % Neutrophils # 15.1 H (1.3-7.7) k/uL Lymphocytes # 0.8 L (1.0-4.8) k/uL Sodium 136 L (137-145) mmol/L Carbon Dioxide 21 L (22-30) mmol/L BUN 88 H (9-20) mg/dL Creatinine 3.46 H (0.66-1.25) mg/dL Glucose 102 H (74-99) mg/dL Alkaline Phosphatase 168 H (38-126) U/L Albumin 3.1 L (3.5-5.0) g/dL Urine Protein Trace H (Negative) Urine Blood Large H (Negative) Urine RBC 18 H (0-5) /hpf Urine Bacteria Rare H (None) /hpf Microbiology - Last 24 Hours (Table) 08/16/20 08:45 Blood Culture - Preliminary Blood No Growth after 24 hours Assessment and Plan (1) Rectal mass Current Visit: Yes Status: Acute Code(s): K62.89 - OTHER SPECIFIED DISEASES OF ANUS AND RECTUM SNOMED Code(s): 848616236 (2) ARF (acute renal failure) Current Visit: Yes Status: Acute Code(s): N17.9 - ACUTE KIDNEY FAILURE, UNSPECIFIED SNOMED Code(s): 52215342 (3) Left leg DVT Current Visit: Yes Status: Acute Code(s): I82.402 - ACUTE EMBOLISM AND THOMBOS UNSP DEEP VEINS OF L LOW EXTREM SNOMED Code(s): 275334235 (4) Weakness Current Visit: Yes Status: Acute Code(s): R53.1 - WEAKNESS SNOMED Code(s): 65529739 (5) Weight loss Current Visit: Yes Status: Acute Code(s): R63.4 - ABNORMAL WEIGHT LOSS SNOMED Code(s): 79306858 Plan: Check CBC and CMP in a.m. Continue DVT treatment We'll go ahead and increase pain medication for worsening back pain. Rectal mass workup is pending. Appreciate multiple consultants input. See orders otherwise
[2020-08-18 08:58] LABS: Basophils % (A) 0 %; Eosinophils # (A) 0.1 k/uL (0-0.7); Eosinophils % (A) 1 %; HCT 33.6 % (39.0-53.0); HGB 10.3 gm/dL (13.0-17.5); Lymphocytes # (A) 0.8 k/uL (1.0-4.8); Lymphocytes % (A) 5 %; MCH 27.9 pg (25.0-35.0); MCHC 30.8 g/dL (31.0-37.0); MCV 90.5 fL (80.0-100.0); Mean Platelet Volume 7.7; Monocytes # (A) 0.4 k/uL (0-1.0); Monocytes % (A) 3 %; Neutrophils % (A) 91 %; Platelet Count 433 k/uL (150-450); RBC 3.71 m/uL (4.30-5.90); RDW 13.8 % (11.5-15.5); WBC 15.3 k/uL (3.8-10.6)
[2020-08-18] MEDS: PANTOPRAZOLE 40 MG/10 ML VIAL IV SCH (09:09)
[2020-08-18 09:25] LABS: Albumin 3.3 g/dL (3.5-5.0); Calcium 9.1 mg/dL (8.4-10.2); Potassium 5.1 mmol/L (3.5-5.1); Total Bilirubin 0.5 mg/dL (0.2-1.3); Total Protein 6.4 g/dL (6.3-8.2)
[2020-08-18] MEDS: HEPARIN SOD,PORK IN 0.45% NACL 25,000 UNIT in 0.45% NACL 1 250ML.BAG IV SCH (11:34)
--- NOTE | 2020-08-18 11:43 | P.PN ---
Subjective Progress Note Date: 08/18/20 This is a pleasant 64-year-old gentleman with history of nicotine dependence, he quit smoking in April, used to smoke about a pack of cigarettes per day, history of hypertension, he is a nondiabetic, no hyperlipidemia, he states that he quit drinking several months ago, he used to drink 5 or 6 beers a day. He presented to the emergency room with significant swelling in his left lower extremity, shortness of breath, and weakness. According to the patient he has lost at least 25-30 pounds in the past 3 months. He also had a colonoscopy performed, was told by the physician that he had a tumor that was not cancerous. We don't have details of this information at present. Patient admits to feeling very short of breath, states he cannot walk to the bathroom without getting extremely short of breath. He is having some pain and discomfort in his left lower extremity. The patient appears extremely frail and thin. His chest x-ray showed COPD. Venous duplex study showed findings compatible with acute left lower extremity DVT. EKG shows a sinus tachycardia. Blood pressure 120/80 with a heart rate in the 1 teens to 120, 97% on 2 L of oxygen. White blood cell count 15.7, hemoglobin 11.6, platelet count 547. D-dimer 2.6, sodium 135, potassium 5.9, BUN 93, creatinine 3.5. Troponin 0.047, 0.033. 08/17/2020 Patient was seen and examined this morning, up ambulating in the room today with physical therapy. He does state overall he's feeling somewhat better. They were unable to do the VQ scan because the patient could not lie flat. The patient was seen in consultation by Dr. henry, who mentioned that the patient had a CT performed by vascular surgery earlier this month which revealed highly suspicious thickening in the rectum with lymphadenopathy in the pelvis along w ith a suspicious lesion in the liver and hydronephrosis which was suspected to be obstructive. Likely representing metastatic disease. Blood pressure 138/80, heart rate 110, afebrile. 100% on room air. White blood cell count 16.5, hemoglobin 10.5, platelet count 448. Sodium 136, potassium 4.6, BUN 88, creatinine 3.4. Echocardiogram with Doppler study revealed an ejection fraction of 55-60%. 08/18/2020 Patient was seen and examined this morning, he states he did not sleep too well through the night last night, breathing is overall stable. He did undergo a CAT scan of the abdomen and pelvis this morning, results of which are yet pending. Blood pressure 108/60 with a heart rate in the 1 teens, 100% on 2 L of oxygen. White blood cell count 15.3, hemoglobin 10.3, platelet count 433. Sodium 134, potassium 5.1, BUN 86, creatinine 3.2. Objective - Vital Signs Vital signs: Vital Signs Temp 98.4 F 08/18/20 11:27 Pulse 120 H 08/18/20 11:27 Resp 15 08/18/20 11:27 BP 108/68 08/18/20 11:27 Pulse Ox 100 08/18/20 11:27 Intake & Output 08/17/20 08/18/20 08/18/20 18:59 06:59 18:59 Intake Total 370 222.415 Output Total 1125 400 Balance -755 -400 222.415 Weight 58.8 kg 57.5 kg Intake: Intake, IV Titration 250 222.415 Amount Heparin Sod,Pork in 0.45% 250 222.415 NaCl 25,000 unit In 0.45 % NaCl 1 250ml.bag @ 18 UNITS/KG/HR 9.798 mls/hr IV .Q24H [facility] Rx#: [id number] Oral 120 Output: Urine 1125 400 Other: Voiding Method Urinal Urinal Urinal # Voids 1 # Bowel Movements 1 1 - Exam PHYSICAL EXAMINATION: GENERAL: 64-year-old thin, frail gentleman in no acute distress at the time of my examination HEENT: Head is atraumatic, normocephalic. Pupils equal, round. Sclera anicteric. Conjunctiva are clear. Mucous membranes of the mouth are moist. Neck is supple. There is no elevated jugular venous pressure. No carotid bruit is heard. HEART EXAMINATION: Heart S1, S2 normal. No murmur or gallop heard. CHEST EXAMINATION: Lungs are clear to auscultation and precussion. No chest wall tenderness is noted on palpation or with deep breathing. ABDOMEN: Soft, nontender. Bowel sounds are heard. No organomegaly noted. EXTREMITIES:[ 2+ peripheral pulses with 1-2+ edema to the left lower extremity, caroline to 1+ edema to the right lower extremity NEUROLOGIC patient is awake, alert and oriented 3 - Labs CBC & Chem 7: 08/18/20 08:25 08/18/20 08:25 Labs: Abnormal Lab Results - Last 24 Hours (Table) 08/18/20 08/18/20 08/18/20 Range/Units 03:25 08:25 08:25 WBC 15.3 H (3.8-10.6) k/uL RBC 3.71 L (4.30-5.90) m/uL Hgb 10.3 L (13.0-17.5) gm/dL Hct 33.6 L (39.0-53.0) % MCHC 30.8 L (31.0-37.0) g/dL Neutrophils # 14.0 H (1.3-7.7) k/uL Lymphocytes # 0.8 L (1.0-4.8) k/uL APTT (22.0-30.0) sec Sodium 134 L (137-145) mmol/L Carbon Dioxide 21 L (22-30) mmol/L BUN 86 H (9-20) mg/dL Creatinine 3.29 H (0.66-1.25) mg/dL Glucose 127 H (74-99) mg/dL Alkaline Phosphatase 184 H (38-126) U/L Albumin 3.3 L (3.5-5.0) g/dL Urine Protein Trace H (Negative) Urine Blood Large H (Negative) Urine RBC 18 H (0-5) /hpf Urine Bacteria Rare H (None) /hpf 08/18/20 Range/Units 08:25 WBC (3.8-10.6) k/uL RBC (4.30-5.90) m/uL Hgb (13.0-17.5) gm/dL Hct (39.0-53.0) % MCHC (31.0-37.0) g/dL Neutrophils # (1.3-7.7) k/uL Lymphocytes # (1.0-4.8) k/uL APTT 61.2 H (22.0-30.0) sec Sodium (137-145) mmol/L Carbon Dioxide (22-30) mmol/L BUN (9-20) mg/dL Creatinine (0.66-1.25) mg/dL Glucose (74-99) mg/dL Alkaline Phosphatase (38-126) U/L Albumin (3.5-5.0) g/dL Urine Protein (Negative) Urine Blood (Negative) Urine RBC (0-5) /hpf Urine Bacteria (None) /hpf Microbiology - Last 24 Hours (Table) 08/16/20 08:45 Blood Culture - Preliminary Blood No Growth after 48 hours Assessment and Plan Plan: Assessment and plan #1 left leg pain and swelling, evidence of acute DVT in the left lower extremity #2 abnormality in troponin, likely secondary to abnormal renal function. EKG shows a sinus tachycardia. Rule out possibility of pulmonary embolism. #3 hypertension #4 history of nicotine dependence #5 history of EtOH use, 5-6 beers a day #6 recent weight loss of 25-30 pounds #7 recent colon mass found on colonoscopy, according to the patient he was told it was benign, consult Dr. henry, obtain results of the colonoscopy #8 acute on chronic renal failure #9 hyperkalemia Plan At this point we will continue the IV heparin, if the patient is not going to undergo any procedures we will discontinue the heparin and transitioned over to oral anticoagulation. DNP note has been reviewed, I agree with a documented findings and plan of care. Patient was seen and examined.
--- NOTE | 2020-08-18 11:49 | CT ---
EXAMINATION TYPE: CT abdomen pelvis wo con DATE OF EXAM: 08/18/2020 COMPARISON: None INDICATION: rectal mass/metastatic workup DLP: 416.9 mGycm, Automated exposure control for dose reduction was used. CONTRAST: 0 mL of Isovue 300. Study performed without Oral Contrast TECHNIQUE: Axial images were obtained from above the diaphragm to the pubic rami in the axial plane a t 5 mm thick sections. Reconstructed images are reviewed on the computer in the coronal plane. FINDINGS: Limited CT sections are obtained the lung bases. There is a 0.6 cm nodule within the right lower lob e laterally on the initial image.. Lung bases are otherwise clear. CT ABDOMEN: Stomach is distended. Moderate fecal debris is through the colon. Appears to be diffuse s ubcutaneous edema present. Liver: Normal Spleen: Normal Pancreas: Normal Adrenal glands: The adrenal glands are normal. Gallbladder: Normal Kidneys: Appear to be at least 8 calcifications scattered within the right kidney measuring 1 to 3 mm each. The largest measuring 0.3 cm is in the medial mid right kidney. Mild hydronephrosis may be pre sent. There is hydroureter to the pelvis. The distal ureters not clearly identified. No obstructing r enal or ureteral stones on the right are evident. There are at least 5 nonobstructing renal stones wi thin the left kidney. The largest measuring 0.5 cm is in the mid anterior pole with additional superi or and inferior pole renal calcifications measuring between 2 and 5 mm. There is a moderate left hydr onephrosis and hydroureter. Hydroureter extends to the pelvic inlet. Distal obstructing renal stone i s not identified. Aorta: Vascular calcification is within the aorta. Inferior vena cava: Normal. CT PELVIS: Loops of bowel within the abdomen and pelvis are normal. This study is without oral contrast limi ting bowel evaluation. Appendix: What appears to be the appendix is Normal as visualized. Urinary bladder: Normal. Genitourinary structures: Prostate is somewhat prominent. Osseous structures: No suspicious lytic or sclerotic lesions. Both: There is an enlarged left inguinal lymph node. Some smaller bilateral inguinal lymphadenopathy may be present. IMPRESSIONS: 1. Multiple nonobstructing bilateral renal stones. 2. Mild left and moderate right hydronephrosis. There is proximal ureteral prominence. Obstructing ur eteral stone however is not identified. 3. Enlarged left inguinal lymphadenopathy. 4. Diffuse subcutaneous edema. Left lower extremity may be swollen compared to the right as well.
--- NOTE | 2020-08-18 17:03 | PN ---
PROGRESS NOTE Patient is seen for followup for acute kidney injury. Patient's renal function is slightly improved, with creatinine down from 3.46 to 3.29. We do not have any previous labs available for comparison. Patient has had good urine output. A post-void residual was not elevated. He is currently not on any IV fluids. Patient was on NSAIDs, which are now discontinued. An abdominal CT was done which shows right renal calcifications and hydroureter. There were also renal stones on the left side with moderate left hydronephrosis and hydroureter. Enlarged left inguinal lymphadenopathy was also noted. Oral intake is fair. PHYSICAL EXAMINATION: On examination today, blood pressure was 108/68, heart rate 120 per minute. He is afebrile. EXAMINATION OF THE HEART: S1 and S2. EXAMINATION OF LUNGS: Bilateral breath sounds are heard. ABDOMEN: Soft, non-tender. Examination of lower extremities shows edema, left leg 2+, and trace edema, right leg. [employer] exam is grossly intact. LABS: Labs show sodium of 134, potassium 5.1, chloride 104. CO2 is 21, BUN 86, serum creatinine 3.29, hemoglobin 10.3 g/dL. UA shows trace protein, large blood, WBCs 2. ASSESSMENT: 1. Acute kidney injury associated with some degree of hypoperfusion as well as obstructive uropathy with CT scan showing bilateral mild to moderate hydronephrosis and bilateral nephrolithiasis. An ultrasound done in May of 2020 did not show any hydronephrosis. Patient was also on NSAIDs, which probably contributed to his acute kidney injury injury as well, and these are now discontinued. 2. Acute left lower extremity deep venous thrombosis. 3. History of rectal mass with high-grade dysplasia. 4. Hyperkalemia associated with acute kidney injury, NSAIDs, status post Kayexalate. PLAN: Continue off of NSAIDs. Consult Urology. Encourage increased oral intake. Add IV fluids if the patient is not eating well. MMODL / IJN: [id number] /
[2020-08-18] MEDS: ZOLPIDEM 5 MG TAB PO PRN (23:10)
--- NOTE | 2020-08-19 07:55 | P.GSCN ---
History of Present Illness Consult date: 08/19/20 History of present illness: The patient is a 65-year-old gentleman who presented to the hospital because of persistent lower leg left swelling. He is found to have a deep venous thrombosis. The patient has a 25 pound weight loss in the last 6 weeks. In this evaluation there is some concern for a rectal carcinoma. He had a colonoscopy that showed a suspicious lesion. He has had bloody stool. During this admission and evaluation is found to have renal insufficiency with a creatinine was 3.65. His repeated at 3.25. The numbers consistent with prerenal disease. The patient had an ultrasound in the summer that did not show any evidence of hydronephrosis. He had a CAT scan yesterday that shows bilateral mild hydronephrosis but a very full bladder at the time of the CAT scan. The patient had a postvoid residual yesterday that was about 75 mL. He denies any urinary tract problems. He denies difficulty voiding. He does have some slowing of stream. There is no incontinence. There is no previous urologic care. He does have tiny stones bilaterally but there is no evidence of ureteral stone and is asymptomatic. Review of Systems - Constitutional Reports anorexia, Reports weight loss - Gastrointestinal Reports abdominal pain, Reports change in bowel habits, Reports hematochezia - Genitourinary Reports as per HPI Past Medical History Past Medical History: Hypertension History of Any Multi-Drug Resistant Organisms: None Reported Past Surgical History: Appendectomy Additional Past Surgical History / Comment(s): colonoscopy 6 weeks ago Past Anesthesia/Blood Transfusion Reactions: No Reported Reaction Past Psychological History: No Psychological Hx Reported Smoking Status: Former smoker Past Alcohol Use History: None Reported Additional Past Alcohol Use History / Comment(s): pt started smoking when he was 15 years old. pt quit smoking 1 month ago. Past Drug Use History: Marijuana Additional Drug Use History / Comment(s): smokes 1-2 joints per day Medications and Allergies Home Medications Medication Instructions Recorded Confirmed Type Zolpidem [Ambien] 5 mg PO HS PRN 08/16/20 08/16/20 History Zolpidem [Ambien] 10 mg PO HS PRN 08/16/20 08/16/20 History amLODIPine BESYLATE/BENAZEPRIL 1 cap PO DAILY 08/16/20 08/16/20 History [amLODIPine BESYLATE/BENAZEPRIL 5-10 MG] Allergies Allergy/AdvReac Type Severity Reaction Status Date / Time No Known Allergies Allergy Verified 08/16/20 08:50 Surgical - Exam Vital Signs Temp Pulse Resp BP Pulse Ox 97.6 F 117 H 18 122/87 95 08/16/20 08:12 08/16/20 08:12 08/16/20 08:12 08/16/20 08:12 08/16/20 08:12 - General well developed, cachectic - Eyes PERRL - ENT no hearing loss - Neck trachea midline - Respiratory normal expansion, normal respiratory effort - Cardiovascular Rhythm: regular - Abdomen Abdomen: soft, non tender - Genitourinary normal penis with no external lesions, testicles non-tender - Integumentary no rash - Neurologic normal coordination, normal sensation - Musculoskeletal normal posture - Psychiatric oriented to time, oriented to person, oriented to place, speech is normal, memory intact Results - Labs 08/18/20 08:25 08/18/20 08:25 Abnormal Lab Results - Last 24 Hours (Table) 08/18/20 08/18/20 08/18/20 Range/Units 08:25 08:25 08:25 WBC 15.3 H (3.8-10.6) k/uL RBC 3.71 L (4.30-5.90) m/uL Hgb 10.3 L (13.0-17.5) gm/dL Hct 33.6 L (39.0-53.0) % MCHC 30.8 L (31.0-37.0) g/dL Neutrophils # 14.0 H (1.3-7.7) k/uL Lymphocytes # 0.8 L (1.0-4.8) k/uL APTT 61.2 H (22.0-30.0) sec Sodium 134 L (137-145) mmol/L Carbon Dioxide 21 L (22-30) mmol/L BUN 86 H (9-20) mg/dL Creatinine 3.29 H (0.66-1.25) mg/dL Glucose 127 H (74-99) mg/dL Alkaline Phosphatase 184 H (38-126) U/L Albumin 3.3 L (3.5-5.0) g/dL Microbiology - Last 24 Hours (Table) 08/16/20 08:45 Blood Culture - Preliminary Blood No Growth after 48 hours Diabetes panel 08/18/20 Range/Units 08:25 Sodium 134 L (137-145) mmol/L Potassium 5.1 (3.5-5.1) mmol/L Chloride 104 (98-107) mmol/L Carbon Dioxide 21 L (22-30) mmol/L BUN 86 H (9-20) mg/dL Creatinine 3.29 H (0.66-1.25) mg/dL Glucose 127 H (74-99) mg/dL Calcium 9.1 (8.4-10.2) mg/dL AST 56 (17-59) U/L ALT 31 (4-49) U/L Alkaline Phosphatase 184 H (38-126) U/L Total Protein 6.4 (6.3-8.2) g/dL Albumin 3.3 L (3.5-5.0) g/dL Calcium panel 08/18/20 Range/Units 08:25 Calcium 9.1 (8.4-10.2) mg/dL Albumin 3.3 L (3.5-5.0) g/dL Pituitary panel 08/18/20 Range/Units 08:25 Sodium 134 L (137-145) mmol/L Potassium 5.1 (3.5-5.1) mmol/L Chloride 104 (98-107) mmol/L Carbon Dioxide 21 L (22-30) mmol/L BUN 86 H (9-20) mg/dL Creatinine 3.29 H (0.66-1.25) mg/dL Glucose 127 H (74-99) mg/dL Calcium 9.1 (8.4-10.2) mg/dL Adrenal panel 08/18/20 Range/Units 08:25 Sodium 134 L (137-145) mmol/L Potassium 5.1 (3.5-5.1) mmol/L Chloride 104 (98-107) mmol/L Carbon Dioxide 21 L (22-30) mmol/L BUN 86 H (9-20) mg/dL Creatinine 3.29 H (0.66-1.25) mg/dL Glucose 127 H (74-99) mg/dL Calcium 9.1 (8.4-10.2) mg/dL Total Bilirubin 0.5 (0.2-1.3) mg/dL AST 56 (17-59) U/L ALT 31 (4-49) U/L Alkaline Phosphatase 184 H (38-126) U/L Total Protein 6.4 (6.3-8.2) g/dL Albumin 3.3 L (3.5-5.0) g/dL - Imaging CT scan - abdomen: report reviewed, image reviewed CT scan - pelvis: report reviewed, image reviewed Assessment and Plan Assessment: Impression: Deep venous thrombosis. Possible rectal mass with metastasis. Bilateral mild hydronephrosis with questionable incomplete bladder emptying. Renal insufficiency with a prerenal pattern. Weight loss or Recommendations: I will repeat his postvoid residual. It is my immediate impression that his hydronephrosis is due to a very full bladder at the time of the CAT scan. I see no evidence of obvious intraluminal obstruction. If the creatinine remains elevated with appropriate hydration and I may have to consider cystoscopy and retrogrades. I will follow this patient with you.
--- NOTE | 2020-08-19 08:26 | P.PN ---
Subjective Principal diagnosis: Rectal mass and weakness. The patient is a 65-year-old white male essentially admitted for significant weakness. All overt rectal masses noted with left lower DVT. The patient is continued on heparin and appreciate multiple consultants input. Patient states poor sleep yesterday. He also states back pain when trying to lay flat. Computed tomography scan without contrast did not show significant metastatic disease however. The patient however has significant hydronephrosis with acute renal failure. The patient will continue to be hydrated but seemingly's seems slightly improved since yesterday. Appreciate multiple consultants input. Objective - Vital Signs Vital signs: Vital Signs Temp 99 F 08/18/20 23:00 Pulse 126 H 08/18/20 23:00 Resp 18 08/18/20 23:00 BP 112/76 08/18/20 23:00 Pulse Ox 96 08/18/20 23:00 Intake & Output 08/18/20 08/19/20 08/19/20 18:59 06:59 18:59 Intake Total 492.415 240 Output Total 0 450 Balance 492.415 -210 Intake: IV 30 0.9 30 Intake, IV Titration 222.415 Amount Heparin Sod,Pork in 0.45% 222.415 NaCl 25,000 unit In 0.45 % NaCl 1 250ml.bag @ 18 UNITS/KG/HR 9.798 mls/hr IV .Q24H [facility] Rx#: [id number] Oral 240 240 Output: Urine 0 450 Other: Voiding Method Urinal # Voids 2 1 # Bowel Movements 1 1 - Constitutional General appearance: Present: thin - EENT Eyes: Absent: abnormal pupil - Respiratory Respiratory: bilateral: CTA - Cardiovascular Heart sounds: normal: S1, S2 Abnormal Heart Sounds: Absent: S3 Gallop - Gastrointestinal General gastrointestinal: Present: soft. Absent: tenderness - Neurologic Neurologic: Present: CNII-XII intact - Musculoskeletal Musculoskeletal: Present: generalized weakness - Psychiatric Psychiatric: Present: A&O x's 3 - Labs CBC & Chem 7: 08/18/20 08:25 08/18/20 08:25 Labs: Abnormal Lab Results - Last 24 Hours (Table) 08/18/20 08/18/20 08/18/20 Range/Units 08:25 08:25 08:25 WBC 15.3 H (3.8-10.6) k/uL RBC 3.71 L (4.30-5.90) m/uL Hgb 10.3 L (13.0-17.5) gm/dL Hct 33.6 L (39.0-53.0) % MCHC 30.8 L (31.0-37.0) g/dL Neutrophils # 14.0 H (1.3-7.7) k/uL Lymphocytes # 0.8 L (1.0-4.8) k/uL APTT 61.2 H (22.0-30.0) sec Sodium 134 L (137-145) mmol/L Carbon Dioxide 21 L (22-30) mmol/L BUN 86 H (9-20) mg/dL Creatinine 3.29 H (0.66-1.25) mg/dL Glucose 127 H (74-99) mg/dL Alkaline Phosphatase 184 H (38-126) U/L Albumin 3.3 L (3.5-5.0) g/dL Microbiology - Last 24 Hours (Table) 08/16/20 08:45 Blood Culture - Preliminary Blood No Growth after 48 hours Assessment and Plan (1) Rectal mass Current Visit: Yes Status: Acute Code(s): K62.89 - OTHER SPECIFIED DISEASES OF ANUS AND RECTUM SNOMED Code(s): 972259242 (2) ARF (acute renal failure) Current Visit: Yes Status: Acute Code(s): N17.9 - ACUTE KIDNEY FAILURE, UNSPECIFIED SNOMED Code(s): 99886179 (3) Left leg DVT Current Visit: Yes Status: Acute Code(s): I82.402 - ACUTE EMBOLISM AND THOMBOS UNSP DEEP VEINS OF L LOW EXTREM SNOMED Code(s): 493015991 (4) Weakness Current Visit: Yes Status: Acute Code(s): R53.1 - WEAKNESS SNOMED Code(s): 94611122 (5) Weight loss Current Visit: Yes Status: Acute Code(s): R63.4 - ABNORMAL WEIGHT LOSS SNOMED Code(s): 39795265 (6) Hydronephrosis Current Visit: Yes Status: Acute Code(s): N13.30 - UNSPECIFIED HYDRONEPHROSIS SNOMED Code(s): 07710154 Plan: Check CBC and CMP in a.m. Continue DVT treatment We'll go ahead and increase pain medication for worsening back pain. Computed tomography scan for metastatic disease did not show significant issue at this time. Appreciate urology, nephrology and cardiology input. See orders otherwise Prognosis is guarded
[2020-08-19] MEDS: PANTOPRAZOLE 40 MG/10 ML VIAL IV SCH (08:32)
[2020-08-19 08:45] LABS: Basophils % (A) 0 %; Eosinophils % (A) 0 %; HCT 30.8 % (39.0-53.0); HGB 10.1 gm/dL (13.0-17.5); Lymphocytes # (A) 0.8 k/uL (1.0-4.8); Lymphocytes % (A) 4 %; MCH 29.4 pg (25.0-35.0); MCHC 32.7 g/dL (31.0-37.0); Mean Platelet Volume 8.8; Monocytes # (A) 0.5 k/uL (0-1.0); Monocytes % (A) 3 %; Neutrophils # (A) 17.6 k/uL (1.3-7.7); Neutrophils % (A) 92 %; Platelet Count 417 k/uL (150-450); RBC 3.43 m/uL (4.30-5.90)
--- NOTE | 2020-08-19 10:51 | P.PN ---
Subjective Progress Note Date: 08/19/20 Today the patient is feeling well, tolerating diet. No complaints Objective - Vital Signs Vital signs: Vital Signs Temp 97.8 F 08/19/20 08:43 Pulse 118 H 08/19/20 08:43 Resp 16 08/19/20 08:43 BP 120/69 08/19/20 08:43 Pulse Ox 98 08/19/20 08:43 Intake & Output 08/18/20 08/19/20 08/19/20 18:59 06:59 18:59 Intake Total 492.415 240 Output Total 0 450 Balance 492.415 -210 Weight 57.5 kg Intake: IV 30 0.9 30 Intake, IV Titration 222.415 Amount Heparin Sod,Pork in 0.45% 222.415 NaCl 25,000 unit In 0.45 % NaCl 1 250ml.bag @ 18 UNITS/KG/HR 9.798 mls/hr IV .Q24H [facility] Rx#: [id number] Oral 240 240 Output: Urine 0 450 Other: Voiding Method Urinal Urinal # Voids 2 1 # Bowel Movements 1 1 - Constitutional General appearance: Present: thin - Cardiovascular Rhythm: regular - Gastrointestinal Gastrointestinal Comment(s): s/nt/nd - Labs CBC & Chem 7: 08/19/20 07:55 08/18/20 08:25 Labs: Abnormal Lab Results - Last 24 Hours (Table) 08/19/20 08/19/20 Range/Units 07:55 07:55 WBC 19.0 H (3.8-10.6) k/uL RBC 3.43 L (4.30-5.90) m/uL Hgb 10.1 L (13.0-17.5) gm/dL Hct 30.8 L (39.0-53.0) % Neutrophils # 17.6 H (1.3-7.7) k/uL Lymphocytes # 0.8 L (1.0-4.8) k/uL APTT 62.7 H (22.0-30.0) sec Microbiology - Last 24 Hours (Table) 08/16/20 08:45 Blood Culture - Preliminary Blood No Growth after 48 hours Assessment and Plan Assessment: DVT, rectal mass highly suspicious for rectal cancer with metastatic disease. Plan: Had a discussion with the patient regarding his workup he states he has seen the colorectal surgeon and was in the process of his workup for surgery when he began experiencing the leg swelling and DVT. No plans for general surgical intervention at this time. He should follow up with colorectal to continue his workup and treatment regarding the rectal lesion that likely represents a cancer.
[2020-08-19 11:32] LABS: Calcium 9.1 mg/dL (8.4-10.2); Potassium 5.7 mmol/L (3.5-5.1)
--- NOTE | 2020-08-19 11:36 | P.PN ---
Subjective Progress Note Date: 08/19/20 Today the patient is feeling well, tolerating diet. No complaints Objective - Vital Signs Vital signs: Vital Signs Temp 97.8 F 08/19/20 08:43 Pulse 118 H 08/19/20 08:43 Resp 16 08/19/20 08:43 BP 120/69 08/19/20 08:43 Pulse Ox 98 08/19/20 08:43 Intake & Output 08/18/20 08/19/20 08/19/20 18:59 06:59 18:59 Intake Total 492.415 240 Output Total 0 450 Balance 492.415 -210 Weight 57.5 kg Intake: IV 30 0.9 30 Intake, IV Titration 222.415 Amount Heparin Sod,Pork in 0.45% 222.415 NaCl 25,000 unit In 0.45 % NaCl 1 250ml.bag @ 18 UNITS/KG/HR 9.798 mls/hr IV .Q24H [facility] Rx#: [id number] Oral 240 240 Output: Urine 0 450 Other: Voiding Method Urinal Urinal # Voids 2 1 # Bowel Movements 1 1 - Constitutional General appearance: Present: cooperative, thin - Cardiovascular Rhythm: regular - Gastrointestinal Gastrointestinal Comment(s): S/NT/ND - Labs CBC & Chem 7: 08/19/20 07:55 08/19/20 10:37 Labs: Abnormal Lab Results - Last 24 Hours (Table) 08/19/20 08/19/20 08/19/20 Range/Units 07:55 07:55 10:37 WBC 19.0 H (3.8-10.6) k/uL RBC 3.43 L (4.30-5.90) m/uL Hgb 10.1 L (13.0-17.5) gm/dL Hct 30.8 L (39.0-53.0) % Neutrophils # 17.6 H (1.3-7.7) k/uL Lymphocytes # 0.8 L (1.0-4.8) k/uL APTT 62.7 H (22.0-30.0) sec Sodium 133 L (137-145) mmol/L Potassium 5.7 H (3.5-5.1) mmol/L Carbon Dioxide 20 L (22-30) mmol/L BUN 93 H (9-20) mg/dL Creatinine 3.29 H (0.66-1.25) mg/dL Microbiology - Last 24 Hours (Table) 08/16/20 08:45 Blood Culture - Preliminary Blood No Growth after 72 hours Assessment and Plan Assessment: DVT, rectal mass highly suspicious for rectal cancer with metastatic disease. Plan: Spoke with the patient again today informing him that his rectal tumor is likely and cancer. He states he has seen the colorectal surgeon and plans on followup with him when he is discharged from hospital. He is still hesitant on the idea of surgery or extensive treatment, I recommended to him that he follow the colorectal recommendations.
--- NOTE | 2020-08-19 14:01 | PN ---
PROGRESS NOTE Patient is seen for followup for acute kidney injury. He is currently sitting up in bed, he is comfortable. Denies any significant complaints. PHYSICAL EXAMINATION: Blood pressure 120/69, heart rate 118 per minute, he is afebrile. Examination of the heart S1, S2. Examination of the lungs, bilateral breath sounds are heard. Abdomen is soft, nontender. Examination of lower extremities shows edema 2+ left lower extremity, 1+ right lower extremity. ACCOUNT ANALYST exam grossly intact. LAB: Show sodium 133, potassium 5.7, chloride 105, CO2 is 20, BUN 93, creatinine 3.29. ASSESSMENT: 1. Acute kidney injury, possible element of hypovolemia along with obstructive uropathy as CT scan showed mild to moderate hydronephrosis with bilateral nephrolithiasis, nonobstructive stone was noted. The patient has been evaluated by Urology and if his renal function does not improve further, he may undergo a cystoscopy. The patient had also been on NSAIDs, which are now discontinued. 2. Acute left lower extremity deep venous thrombosis. 3. Rectal mass with high-grade dysplasia. 4. Hyperkalemia associated with acute kidney injury and NSAIDs status post Kayexalate. 5. Hyperkalemia associated with acute kidney injury and possibly obstructive uropathy as well. No evidence of active gastrointestinal bleed noted at this time. 6. Possible chronic kidney disease. Previous labs not available for comparison. PLAN: Treat hyperkalemia with insulin and D50. Repeat chest x-ray tomorrow morning. Renal function has not improved significantly, therefore, patient will most likely need to proceed with cystoscopy. MMODL / IJN: [id number] /
[2020-08-19] MEDS ORDERED: DEXTROSE 50% SYRINGE 50 ML IVP STA (14:09)
[2020-08-19] MEDS ORDERED: INSULIN REGULAR 100 UNIT/ML VIAL IV ONE (14:09)
--- NOTE | 2020-08-19 14:42 | P.PN ---
Progress Note - Text Progress Note Date: 08/19/20 the pqtient has arf. Cr 3.2 ct bilateral hydro witha full bladder PVR today 300ml Will place a kay to see if his arf improves
[2020-08-19] MEDS: HEPARIN SOD,PORK IN 0.45% NACL 25,000 UNIT in 0.45% NACL 1 250ML.BAG IV SCH ×2 (15:19→19:42)
--- NOTE | 2020-08-19 18:12 | P.CONS ---
History of Present Illness - Reason for Consult Consult date: 08/19/20 Rectal Mass Requesting physician: Syed Alcala - Chief Complaint LLE swelling - History of Present Illness Mr. Cummings is a 64 year old male patient who was originally seen for colonoscopy back in June 2020. At that time a large rectal mass was identified and a high suspicion for rectal cancer was determined. Biopsies were performed although resulted as high grade dysplasia. Patient has lost weight, been having difficulty eating, abdominal pain, changes in bowel habits, and increasing fatigue and weakness over the past 4-5 months. At the time of his colonoscopy he was informed that the tumor was still felt to be cancerous, despite the finalized path report and therefore further diagnostics and tissue was reasonable. He was referred to colorectal surgery, however initially declined this recommendations, despite general surgery (Dr. Cavazos) setting him up with an expedited appointment within a week of findings. Patient apparently waited and did not see a colorectal surgeon until 3-4 weeks later at outside hospital. Unfortunetly he now presents with further significant weight loss, acute renal failure, and new findings of a DVT in LLE. CT scan was performed earlier in the month which revealed suspicious thickening of the rectum, increasing lymphadenopathy within the pelvis and suspicious lesions near the liver. These findings are concerning for a metastatic process. He also presents this admission with what appears to be obstructive hydronephrosis. He was initiated on a heparin drip. He states he is feeling ok except he has had a couple reddish stools since the "IV was started". I did speak with nursing who stated she had not been informed of this as of yet, his hemoglobin is also remaining stable. Although closer monitoring of hemoglobin and stool moving forward was advised. Iron studies were also ordered. He appears to be tolerating diet. Dr. Laird examined patient this afternoon and recommendation was for ultrasound directed imaging of the liver, therefore to assess for possible area to biopsy. This will allow us to possibly stage and obtain malignant tissue. Unfortunately, with his renal function a contrasted exam is not able to be performed. Another consideration to the picture of Mr. Justina francis is his new thrombolic event which appears most consistent with hypercoaguable state of malignancy. If he is having rectal bleeding and anticoagulation is unable to be continued an IVC filter will need to be considered. Review of Systems All systems: negative Constitutional: Reports as per HPI Past Medical History Past Medical History: Hypertension History of Any Multi-Drug Resistant Organisms: None Reported Past Surgical History: Appendectomy Additional Past Surgical History / Comment(s): colonoscopy 6 weeks ago Past Anesthesia/Blood Transfusion Reactions: No Reported Reaction Past Psychological History: No Psychological Hx Reported Smoking Status: Former smoker Past Alcohol Use History: None Reported Additional Past Alcohol Use History / Comment(s): pt started smoking when he was 15 years old. pt quit smoking 1 month ago. Past Drug Use History: Marijuana Additional Drug Use History / Comment(s): smokes 1-2 joints per day Medications and Allergies Home Medications Medication Instructions Recorded Confirmed Type Zolpidem [Ambien] 5 mg PO HS PRN 08/16/20 08/16/20 History Zolpidem [Ambien] 10 mg PO HS PRN 08/16/20 08/16/20 History amLODIPine BESYLATE/BENAZEPRIL 1 cap PO DAILY 08/16/20 08/16/20 History [amLODIPine BESYLATE/BENAZEPRIL 5-10 MG] Allergies Allergy/AdvReac Type Severity Reaction Status Date / Time No Known Allergies Allergy Verified 08/16/20 08:50 Physical Exam Vitals: Vital Signs Temp Pulse Resp BP Pulse Ox 08/19/20 11:55 16 08/19/20 08:43 97.8 F 118 H 16 120/69 98 08/19/20 08:33 18 08/18/20 23:00 99 F 126 H 18 112/76 96 08/18/20 20:00 98.4 F 118 H 18 115/66 100 08/18/20 16:00 98.4 F 123 H 15 115/73 96 Intake and Output 08/18/20 08/19/20 08/19/20 22:59 06:59 14:59 Intake Total 240 Output Total 250 200 300 Balance -10 -200 -300 Intake: Oral 240 Output: Urine 250 200 Post Void Residual 300 Other: Voiding Method Urinal Urinal # Voids 1 1 # Bowel Movements 1 1 Weight 57.5 kg - Constitutional General appearance: cooperative, no acute distress, thin - EENT Eyes: EOMI, PERRLA ENT: NA/AT, normal oropharynx - Neck Neck: normal ROM - Respiratory Respiratory: bilateral: CTA - Cardiovascular Rhythm: regular Heart sounds: normal: S1, S2 leg Peripheral Edema: left: 3+ - Gastrointestinal General gastrointestinal: soft, tenderness - Integumentary Integumentary: pale - Neurologic Non-focal - Musculoskeletal Musculoskeletal: generalized weakness, strength equal bilaterally - Psychiatric Psychiatric: A&O x's 3, appropriate affect, intact judgment & insight Results CBC & Chem 7: 08/19/20 07:55 08/19/20 10:37 Labs: Abnormal Lab Results - Last 24 Hours (Table) 08/19/20 08/19/20 08/19/20 Range/Units 07:55 07:55 10:37 WBC 19.0 H (3.8-10.6) k/uL RBC 3.43 L (4.30-5.90) m/uL Hgb 10.1 L (13.0-17.5) gm/dL Hct 30.8 L (39.0-53.0) % Neutrophils # 17.6 H (1.3-7.7) k/uL Lymphocytes # 0.8 L (1.0-4.8) k/uL APTT 62.7 H (22.0-30.0) sec Sodium 133 L (137-145) mmol/L Potassium 5.7 H (3.5-5.1) mmol/L Carbon Dioxide 20 L (22-30) mmol/L BUN 93 H (9-20) mg/dL Creatinine 3.29 H (0.66-1.25) mg/dL Microbiology - Last 24 Hours (Table) 08/16/20 08:45 Blood Culture - Preliminary Blood No Growth after [address] scan - abdomen: report reviewed CT scan - pelvis: report reviewed Venous US: report reviewed Assessment and Plan (1) ARF (acute renal failure) Current Visit: Yes Status: Acute Code(s): N17.9 - ACUTE KIDNEY FAILURE, UNSPECIFIED SNOMED Code(s): 17310006 (2) Hydronephrosis Current Visit: Yes Status: Acute Code(s): N13.30 - UNSPECIFIED HYDRONEPHROSIS SNOMED Code(s): 66502035 (3) Left leg DVT Current Visit: Yes Status: Acute Code(s): I82.402 - ACUTE EMBOLISM AND THOMBOS UNSP DEEP VEINS OF L LOW EXTREM SNOMED Code(s): 045878437 (4) Rectal mass Current Visit: Yes Status: Acute Code(s): K62.89 - OTHER SPECIFIED DISEASES OF ANUS AND RECTUM SNOMED Code(s): 039384596 (5) Weight loss Current Visit: Yes Status: Acute Code(s): R63.4 - ABNORMAL WEIGHT LOSS SNOMED Code(s): 38710237 Plan: Dr. Laird examined patient this afternoon and recommendation was for ultrasound directed imaging of the liver, therefore to assess for possible area to biopsy. This will allow us to possibly stage and obtain malignant tissue. Unfortunately, with his renal function a contrasted exam is not able to be performed. Another consideration to the picture of Mr. Justina francis is his new thrombolic event which appears most consistent with hypercoaguable state of malignancy. If he is having rectal bleeding and anticoagulation is unable to be continued an IVC filter will need to be considered. Monitor serial CBC - for worsening anemia Directed Ultrasound and possible biopsy of liver lesions, therefore if tolerating AC therapy continue on heparin drip Iron Studies Re-education on importance of adherence to recommendations and concern for picture of health Physician Attest: I have completed the full history and physical and developed the full impression and plan, agree with above dictation. Dictated as a scribe.
[2020-08-19 20:27] LABS: Glucose,Whole Blood 152 mg/dL (75-99)
[2020-08-19] MEDS: ACETAMINOPHEN TAB 325 MG TAB PO PRN (21:21)
[2020-08-19] MEDS: ZOLPIDEM 5 MG TAB PO PRN (23:28)
[2020-08-19 23:34] LABS: Basophils % (A) 0 %; Eosinophils % (A) 0 %; HCT 28.6 % (39.0-53.0); HGB 9.2 gm/dL (13.0-17.5); Lymphocytes # (A) 0.6 k/uL (1.0-4.8); Lymphocytes % (A) 3 %; MCH 28.3 pg (25.0-35.0); MCV 88.3 fL (80.0-100.0); Monocytes # (A) 0.5 k/uL (0-1.0); Monocytes % (A) 3 %; Neutrophils # (A) 16.9 k/uL (1.3-7.7); Neutrophils % (A) 93 %; Platelet Count 350 k/uL (150-450); RBC 3.24 m/uL (4.30-5.90); RDW 13.9 % (11.5-15.5); WBC 18.1 k/uL (3.8-10.6)
[2020-08-20 00:02] LABS: Calcium 8.6 mg/dL (8.4-10.2)
[2020-08-20 00:03] LABS: Potassium 4.7 mmol/L (3.5-5.1)
[2020-08-20 06:18] LABS: HCT 30.3 % (39.0-53.0); HGB 9.5 gm/dL (13.0-17.5); MCHC 31.3 g/dL (31.0-37.0); MCV 89.4 fL (80.0-100.0); Mean Platelet Volume 8.3; Platelet Count 342 k/uL (150-450); RBC 3.39 m/uL (4.30-5.90); RDW 14.1 % (11.5-15.5); WBC 20.7 k/uL (3.8-10.6)
[2020-08-20 06:29] LABS: Albumin 2.8 g/dL (3.5-5.0); Calcium 8.7 mg/dL (8.4-10.2); Potassium 4.2 mmol/L (3.5-5.1); Total Bilirubin 0.6 mg/dL (0.2-1.3); Total Protein 5.8 g/dL (6.3-8.2)
--- NOTE | 2020-08-20 08:45 | US ---
EXAMINATION TYPE: US liver DATE OF EXAM: 08/20/2020 COMPARISON: CT 08/18/2020. CLINICAL HISTORY: dedicated Liver U/S of suspicious lesions . EXAM MEASUREMENTS: Liver Length: 12.9 cm Gallbladder Wall: 0.2 cm CBD: 0.4 cm Right Kidney: 10.6 X 5.1 X 5.6 cm Technically difficult study due to extensive midline bowel gas. Pancreas: not visualized due to midline bowel gas Liver: echogenic lesion anterior right lobe measures 0.7 x 1.0 x 1.0 cm. Gallbladder: multiple echogenic lesions that appear attached to wall. Evidence for sonographic Cheney's sign: No CBD: wnl Right Kidney: mild hydronephrosis noted , cortex appears somewhat echogenic IMPRESSION: Exam is limited technically A single echogenic focus measuring 1 cm is noted, additional lesions are suspected on noncontrast CT, consider liver MRI with and without contrast for better evaluation. There may be adherent stones wit hin the gallbladder versus polyps, follow-up is suggested. Mild right-sided hydronephrosis. Correlate for medical renal disease.
[2020-08-20] MEDS ORDERED: PANTOPRAZOLE 40 MG TABLET PO SCH (09:00)
--- NOTE | 2020-08-20 09:38 | P.PN ---
Subjective patient is seen in follow-up for acute kidney injury. renal function is stable. nonoliguric. Pan catheter placed yesterday. oral intake is fair. No chest pain or shortness of breath. Vital signs are stable. General: The patient appeared well nourished and normally developed. HEENT: Head exam is unremarkable. Neck is without jugular venous distension. LUNGS: Breath sounds decreased. HEART: Rate and Rhythm are regular. ABDOMEN: soft, nontender. EXTREMITITES: 2+ edema left lower extremity. 1+ edema right lower extremity. Objective - Vital Signs Vital signs: Vital Signs Temp 97.9 F 08/19/20 23:00 Pulse 120 H 08/19/20 23:00 Resp 16 08/19/20 23:00 BP 107/68 08/19/20 23:00 Pulse Ox 98 08/19/20 23:00 Intake & Output 08/19/20 08/20/20 08/20/20 18:59 06:59 18:59 Intake Total 350 282.621 Output Total 600 800 Balance -250 -517.379 Weight 57.5 kg Intake: Intake, IV Titration 250 42.621 Amount Heparin Sod,Pork in 0.45% 250 42.621 NaCl 25,000 unit In 0.45 % NaCl 1 250ml.bag @ 18 UNITS/KG/HR 9.798 mls/hr IV .Q24H [facility] Rx#: [id number] Oral 100 240 Output: Urine 300 800 Uretheral (Pan) 300 Post Void Residual 300 Other: Voiding Method Urinal Indwelling Catheter # Bowel Movements 1 - Labs CBC & Chem 7: 08/20/20 06:00 08/20/20 06:00 Labs: Abnormal Lab Results - Last 24 Hours (Table) 08/19/20 08/19/20 08/19/20 Range/Units 10:37 20:26 23:08 WBC 18.1 H (3.8-10.6) k/uL RBC 3.24 L (4.30-5.90) m/uL Hgb 9.2 L (13.0-17.5) gm/dL Hct 28.6 L (39.0-53.0) % Neutrophils # 16.9 H (1.3-7.7) k/uL Lymphocytes # 0.6 L (1.0-4.8) k/uL APTT (22.0-30.0) sec Sodium 133 L (137-145) mmol/L Potassium 5.7 H (3.5-5.1) mmol/L Carbon Dioxide 20 L (22-30) mmol/L BUN 93 H (9-20) mg/dL Creatinine 3.29 H (0.66-1.25) mg/dL Glucose (74-99) mg/dL POC Glucose (mg/dL) 152 H (75-99) mg/dL AST (17-59) U/L ALT (4-49) U/L Alkaline Phosphatase (38-126) U/L Total Protein (6.3-8.2) g/dL Albumin (3.5-5.0) g/dL 08/19/20 08/19/20 08/20/20 Range/Units 23:08 23:08 06:00 WBC (3.8-10.6) k/uL RBC (4.30-5.90) m/uL Hgb (13.0-17.5) gm/dL Hct (39.0-53.0) % Neutrophils # (1.3-7.7) k/uL Lymphocytes # (1.0-4.8) k/uL APTT 60.5 H (22.0-30.0) sec Sodium 130 L 133 L (137-145) mmol/L Potassium (3.5-5.1) mmol/L Carbon Dioxide 17 L (22-30) mmol/L BUN 98 H 98 H (9-20) mg/dL Creatinine 3.01 H 3.19 H (0.66-1.25) mg/dL Glucose 115 H (74-99) mg/dL POC Glucose (mg/dL) (75-99) mg/dL AST 116 H (17-59) U/L ALT 50 H (4-49) U/L Alkaline Phosphatase 238 H (38-126) U/L Total Protein 5.8 L (6.3-8.2) g/dL Albumin 2.8 L (3.5-5.0) g/dL 08/20/20 Range/Units 06:00 WBC 20.7 H (3.8-10.6) k/uL RBC 3.39 L (4.30-5.90) m/uL Hgb 9.5 L (13.0-17.5) gm/dL Hct 30.3 L (39.0-53.0) % Neutrophils # (1.3-7.7) k/uL Lymphocytes # (1.0-4.8) k/uL APTT (22.0-30.0) sec Sodium (137-145) mmol/L Potassium (3.5-5.1) mmol/L Carbon Dioxide (22-30) mmol/L BUN (9-20) mg/dL Creatinine (0.66-1.25) mg/dL Glucose (74-99) mg/dL POC Glucose (mg/dL) (75-99) mg/dL AST (17-59) U/L ALT (4-49) U/L Alkaline Phosphatase (38-126) U/L Total Protein (6.3-8.2) g/dL Albumin (3.5-5.0) g/dL Microbiology - Last 24 Hours (Table) 08/16/20 08:45 Blood Culture - Preliminary Blood No Growth after 72 hours Assessment and Plan Plan: assessment: 1. Acute kidney injury secondary to obstructive uropathy. Creatinine stable at 3.19 today. 2. Bilateral hydronephrosis and nephrolithiasis. Pan catheter placed. Potential cystoscopy and stent placement this admission. Urology following. 3. Acute left lower extremity DVT. 4. hyperkalemia secondary to acute kidney injury, obstructive uropathy and metabolic acidosis. better. 5. rectal mass. Oncology following. Liver lesion noted on ultrasound. 6. Rule out chronic kidney disease. Unknown baseline renal function. plan: Maintain Pan catheter. Await further recommendations from urology. Encourage oral intake. Avoid nephrotoxins. Continue to monitor renal function and urine output.
[2020-08-20] MEDS: PANTOPRAZOLE 40 MG/10 ML VIAL IVP SCH ×2 (09:50→20:00)
[2020-08-20 09:55] LABS: % Iron Saturation 9.44 (15.00-50.00)
--- NOTE | 2020-08-20 10:37 | P.PN ---
Subjective Progress Note Date: 08/20/20 A catheter was placed last night for possible return retention and renal insufficiency. The creatinine did not change much this morning. I spoken with Dr. Cullen of nephrology. My plan is to repeat the creatinine in 24 hours. If it does not change significantly he'll need cystoscopy and retrograde pyelograms to assess for ureteral obstruction which is highly probable given the probable metastatic rectal carcinoma. This has been discussed with the patient. He is quite reluctant and doubtful to this scenario. Objective - Vital Signs Vital signs: Vital Signs Temp 97.9 F 08/19/20 23:00 Pulse 120 H 08/19/20 23:00 Resp 16 08/19/20 23:00 BP 107/68 08/19/20 23:00 Pulse Ox 98 08/19/20 23:00 Intake & Output 08/19/20 08/20/20 08/20/20 18:59 06:59 18:59 Intake Total 350 282.621 Output Total 600 800 Balance -250 -517.379 Weight 57.5 kg Intake: Intake, IV Titration 250 42.621 Amount Heparin Sod,Pork in 0.45% 250 42.621 NaCl 25,000 unit In 0.45 % NaCl 1 250ml.bag @ 18 UNITS/KG/HR 9.798 mls/hr IV .Q24H [facility] Rx#: [id number] Oral 100 240 Output: Urine 300 800 Uretheral (Pan) 300 Post Void Residual 300 Other: Voiding Method Urinal Indwelling Catheter # Bowel Movements 1 - Labs CBC & Chem 7: 08/20/20 06:00 08/20/20 06:00 Labs: Abnormal Lab Results - Last 24 Hours (Table) 08/19/20 08/19/20 08/19/20 Range/Units 10:37 20:26 23:08 WBC 18.1 H (3.8-10.6) k/uL RBC 3.24 L (4.30-5.90) m/uL Hgb 9.2 L (13.0-17.5) gm/dL Hct 28.6 L (39.0-53.0) % Neutrophils # 16.9 H (1.3-7.7) k/uL Lymphocytes # 0.6 L (1.0-4.8) k/uL APTT (22.0-30.0) sec Sodium 133 L (137-145) mmol/L Potassium 5.7 H (3.5-5.1) mmol/L Carbon Dioxide 20 L (22-30) mmol/L BUN 93 H (9-20) mg/dL Creatinine 3.29 H (0.66-1.25) mg/dL Glucose (74-99) mg/dL POC Glucose (mg/dL) 152 H (75-99) mg/dL Iron (65-175) ug/dL TIBC (228-460) ug/dL % Saturation (15.00-50.00) AST (17-59) U/L ALT (4-49) U/L Alkaline Phosphatase (38-126) U/L Total Protein (6.3-8.2) g/dL Albumin (3.5-5.0) g/dL 08/19/20 08/19/20 08/20/20 Range/Units 23:08 23:08 06:00 WBC (3.8-10.6) k/uL RBC (4.30-5.90) m/uL Hgb (13.0-17.5) gm/dL Hct (39.0-53.0) % Neutrophils # (1.3-7.7) k/uL Lymphocytes # (1.0-4.8) k/uL APTT 60.5 H (22.0-30.0) sec Sodium 130 L 133 L (137-145) mmol/L Potassium (3.5-5.1) mmol/L Carbon Dioxide 17 L (22-30) mmol/L BUN 98 H 98 H (9-20) mg/dL Creatinine 3.01 H 3.19 H (0.66-1.25) mg/dL Glucose 115 H (74-99) mg/dL POC Glucose (mg/dL) (75-99) mg/dL Iron 17 L (65-175) ug/dL TIBC 180 L (228-460) ug/dL % Saturation 9.44 L (15.00-50.00) AST 116 H (17-59) U/L ALT 50 H (4-49) U/L Alkaline Phosphatase 238 H (38-126) U/L Total Protein 5.8 L (6.3-8.2) g/dL Albumin 2.8 L (3.5-5.0) g/dL 08/20/20 Range/Units 06:00 WBC 20.7 H (3.8-10.6) k/uL RBC 3.39 L (4.30-5.90) m/uL Hgb 9.5 L (13.0-17.5) gm/dL Hct 30.3 L (39.0-53.0) % Neutrophils # (1.3-7.7) k/uL Lymphocytes # (1.0-4.8) k/uL APTT (22.0-30.0) sec Sodium (137-145) mmol/L Potassium (3.5-5.1) mmol/L Carbon Dioxide (22-30) mmol/L BUN (9-20) mg/dL Creatinine (0.66-1.25) mg/dL Glucose (74-99) mg/dL POC Glucose (mg/dL) (75-99) mg/dL Iron (65-175) ug/dL TIBC (228-460) ug/dL % Saturation (15.00-50.00) AST (17-59) U/L ALT (4-49) U/L Alkaline Phosphatase (38-126) U/L Total Protein (6.3-8.2) g/dL Albumin (3.5-5.0) g/dL Microbiology - Last 24 Hours (Table) 08/16/20 08:45 Blood Culture - Preliminary Blood No Growth after 72 hours
[2020-08-20 10:54] LABS: Ferritin 15245.5 ng/mL (22.0-322.0)
--- NOTE | 2020-08-20 12:05 | CONS ---
CONSULTATION DATE OF DICTATION: August 20, 2020 REQUESTING PHYSICIAN: Dr. Alcala. REASON FOR CONSULTATION: Rectal bleeding. HISTORY OF PRESENT ILLNESS: The patient is a 65-year-old white male who was diagnosed with rectal mass on colonoscopy in the first week of July by Dr. Cavazos. Subsequently, the patient was referred to a colorectal surgeon, but he did not follow up. In the meantime, he was admitted to the hospital because of acute lower extremity DVT and was started on anticoagulation. Last night he had significant amount of bright red blood per rectum and hence we are consulted because of this issue. As per the nursing staff, the patient had no further episodes of bleeding since last night. Prior to that, he was having intermittent rectal bleeding once or twice a week since the diagnosis of rectal mass. He reports no abdominal pain. No nausea, no vomiting. He had an ultrasound of the abdomen done today to evaluate liver lesions noted on noncontrast CT of the abdomen for possible liver biopsy. PAST MEDICAL HISTORY: Significant for newly diagnosed rectal mass. Biopsies revealed high-grade dysplasia by Dr. Cavazos 3 weeks ago; history of hypertension. MEDICATIONS: At home, Ambien, benazepril. SOCIAL HISTORY: No smoking. No alcohol use. FAMILY HISTORY: Unremarkable. ALLERGIES: None. REVIEW OF SYSTEMS: CARDIOPULMONARY: No chest pain or shortness of breath. no dysuria or hematuria. MUSCULOSKELETAL: Complains of lower extremity pain. NEUROLOGY unremarkable. PSYCHIATRIC unremarkable. ENT/VISION: Unremarkable. CONSTITUTIONAL: Weight loss of 30 pounds. No fever, chills, night sweats. PHYSICAL EXAMINATION: He appears comfortable. Appears cachectic. VITAL SIGNS: Stable. Blood pressure is 107/68, pulse rate 120, temperature 97.9. HEENT examination unremarkable. Conjunctivae pink. Sclerae anicteric. Oral cavity no lesions. NECK: No JVD or lymph node enlargement. CHEST was clear to auscultation. HEART: Regular rate and rhythm. ABDOMEN was soft. It was nontender, nondistended. Bowel sounds are positive. No organomegaly. EXTREMITIES: 2+ pedal edema. NEURO: He is alert and oriented x3. No focal deficits. LABS: From today WBC is 20.7, hemoglobin 9.5, platelets normal. Basic metabolic panel showed a BUN of 98 and creatinine 3.190. AST and ALT are 116 and 50 respectively, alkaline phosphatase 238. Stool occult blood was positive. IMPRESSION: 1. One episode of rectal bleeding last night in this patient who was recently diagnosed with rectal mass by Dr. Cavazos and colonoscopy about 3 weeks ago. Biopsies of which revealed high-grade dysplasia, but highly suspicious for cancer. Most likely the bleeding is related to the rectal mass. The patient is on IV heparin for newly diagnosed deep vein thrombosis. He had no further episodes of rectal bleeding since last night. Hemoglobin remains stable at 9.5 g/dL. 2. Acute deep vein thrombosis, left lower extremity. Presently on IV heparin. 3. Questionable lesions in the liver for which he had ultrasound of the liver done this morning, results of which are still pending. 4. History of hypertension. RECOMMENDATIONS: 1. Since there is no further bleeding, continue with IV heparin for now. 2. Monitor CBC on a daily basis. 3. If the bleeding recurs, we can hold off on IV heparin for a day. 4. No need for any endoscopic intervention at the present time. 5. We will follow with you closely. Thank you for this consultation. MMODL / IJN: [id number] /
--- NOTE | 2020-08-20 12:19 | P.PN ---
Subjective Progress Note Date: 08/20/20 The patient is symptomatically stable. He still having some loose bowel movements which is occasionally red tinged. No fever/chills/nausea/vomiting Objective - Vital Signs Vital signs: Vital Signs Temp 97.9 F 08/19/20 23:00 Pulse 120 H 08/19/20 23:00 Resp 16 08/19/20 23:00 BP 107/68 08/19/20 23:00 Pulse Ox 98 08/19/20 23:00 Intake & Output 08/19/20 08/20/20 08/20/20 18:59 06:59 18:59 Intake Total 350 282.621 Output Total 600 800 Balance -250 -517.379 Weight 57.5 kg Intake: Intake, IV Titration 250 42.621 Amount Heparin Sod,Pork in 0.45% 250 42.621 NaCl 25,000 unit In 0.45 % NaCl 1 250ml.bag @ 18 UNITS/KG/HR 9.798 mls/hr IV .Q24H [facility] Rx#: [id number] Oral 100 240 Output: Urine 300 800 Uretheral (Pan) 300 Post Void Residual 300 Other: Voiding Method Urinal Indwelling Catheter # Bowel Movements 1 - Constitutional General appearance: Present: no acute distress - EENT Eyes: Present: EOMI ENT: Present: hearing grossly normal, normal oropharynx - Respiratory Respiratory: bilateral: CTA - Cardiovascular Rhythm: regular Heart sounds: normal: S1, S2 - Gastrointestinal General gastrointestinal: Present: normal bowel sounds, soft - Integumentary Integumentary: Present: normal - Neurologic Neurologic: Present: CNII-XII intact - Musculoskeletal Musculoskeletal: Present: generalized weakness, strength equal bilaterally - Labs CBC & Chem 7: 08/20/20 06:00 08/20/20 06:00 Labs: Abnormal Lab Results - Last 24 Hours (Table) 08/19/20 08/19/20 08/19/20 Range/Units 20:26 23:08 23:08 WBC 18.1 H (3.8-10.6) k/uL RBC 3.24 L (4.30-5.90) m/uL Hgb 9.2 L (13.0-17.5) gm/dL Hct 28.6 L (39.0-53.0) % Neutrophils # 16.9 H (1.3-7.7) k/uL Lymphocytes # 0.6 L (1.0-4.8) k/uL APTT 60.5 H (22.0-30.0) sec Sodium (137-145) mmol/L Carbon Dioxide (22-30) mmol/L BUN (9-20) mg/dL Creatinine (0.66-1.25) mg/dL Glucose (74-99) mg/dL POC Glucose (mg/dL) 152 H (75-99) mg/dL Iron (65-175) ug/dL TIBC (228-460) ug/dL % Saturation (15.00-50.00) Ferritin (22.0-322.0) ng/mL AST (17-59) U/L ALT (4-49) U/L Alkaline Phosphatase (38-126) U/L Total Protein (6.3-8.2) g/dL Albumin (3.5-5.0) g/dL 08/19/20 08/20/20 08/20/20 Range/Units 23:08 06:00 06:00 WBC 20.7 H (3.8-10.6) k/uL RBC 3.39 L (4.30-5.90) m/uL Hgb 9.5 L (13.0-17.5) gm/dL Hct 30.3 L (39.0-53.0) % Neutrophils # (1.3-7.7) k/uL Lymphocytes # (1.0-4.8) k/uL APTT (22.0-30.0) sec Sodium 130 L 133 L (137-145) mmol/L Carbon Dioxide 17 L (22-30) mmol/L BUN 98 H 98 H (9-20) mg/dL Creatinine 3.01 H 3.19 H (0.66-1.25) mg/dL Glucose 115 H (74-99) mg/dL POC Glucose (mg/dL) (75-99) mg/dL Iron 17 L (65-175) ug/dL TIBC 180 L (228-460) ug/dL % Saturation 9.44 L (15.00-50.00) Ferritin 43242.5 H (22.0-322.0) ng/mL AST 116 H (17-59) U/L ALT 50 H (4-49) U/L Alkaline Phosphatase 238 H (38-126) U/L Total Protein 5.8 L (6.3-8.2) g/dL Albumin 2.8 L (3.5-5.0) g/dL Microbiology - Last 24 Hours (Table) 08/16/20 08:45 Blood Culture - Preliminary Blood No Growth after 96 hours Assessment and Plan (1) Rectal mass Narrative/Plan: It was again discussed with the patient that the mass most likely represents malignancy even though the biopsy showed high-grade dysplasia. He was again advised that in these situations the malignancy may be a deeper levels and the biopsy is essentially considered nondiagnostic. In addition there is concern for metastatic disease based on CT scans done at [facility] which was a contrast study. The patient had a liver ultrasound to see if he had lesions that could be targeted with a biopsy, which would serve the dual purpose of giving us a pathologic diagnosis as well as proving metastatic disease and thus confirming staging. Ultrasound of the abdomen showed 1 somewhat nonspecific lesion. However the report states that the noncontrast computed tomography scan appear to indicate other suspicious lesions. At this time the patient is not a candidate for a contrast study, because of persistently low renal function. I will discuss with radiology if the patient can have a biopsy using a contrast scan that was done at [facility]. If so then liver biopsy will be ordered. If not on the other option would be to repeat lower endoscopy with repeat biopsy. If this were positive the patient can then have a PET scan as an outpatient for completion of staging. - CEA was ordered and is pending. - Watch for any major bleeding. Continue to monitor hemoglobin Current Visit: Yes Status: Acute Code(s): K62.89 - OTHER SPECIFIED DISEASES OF ANUS AND RECTUM SNOMED Code(s): 557761177 (2) Left leg DVT Narrative/Plan: Ralls to be related to underlying malignancy. Continue patient on IV heparin as he may need additional invasive procedures in the next few days. Monitor for any significant bleeding from the tumor site. If that occurs and the patient will need an IVC filter Current Visit: Yes Status: Acute Code(s): I82.402 - ACUTE EMBOLISM AND THOMBOS UNSP DEEP VEINS OF L LOW EXTREM SNOMED Code(s): 229373388 (3) ARF (acute renal failure) Narrative/Plan: Creatinine today is essentially similar to yesterday despite placement of the urinary catheter. Urology note reviewed Current Visit: Yes Status: Acute Code(s): N17.9 - ACUTE KIDNEY FAILURE, UNSP ECIFIED SNOMED Code(s): 43728532
[2020-08-20] MEDS: ACETAMINOPHEN TAB 325 MG TAB PO PRN ×2 (12:58→19:06)
[2020-08-20] MEDS: HEPARIN SOD,PORK IN 0.45% NACL 25,000 UNIT in 0.45% NACL 1 250ML.BAG IV SCH (19:07)
[2020-08-20] MEDS: ZOLPIDEM 5 MG TAB PO PRN (23:26)
[2020-08-21 06:55] LABS: Albumin 2.6 g/dL (3.5-5.0); Calcium 8.6 mg/dL (8.4-10.2); Magnesium 2.2 mg/dL (1.6-2.3); Total Bilirubin 0.6 mg/dL (0.2-1.3); Total Protein 5.5 g/dL (6.3-8.2)
[2020-08-21] MEDS: PANTOPRAZOLE 40 MG/10 ML VIAL IVP SCH ×2 (07:42→20:24)
[2020-08-21 08:01] LABS: Basophils % (A) 0 %; Eosinophils % (A) 0 %; HCT 28.5 % (39.0-53.0); HGB 9.1 gm/dL (13.0-17.5); Lymphocytes # (A) 0.4 k/uL (1.0-4.8); Lymphocytes % (A) 1 %; MCH 28.8 pg (25.0-35.0); MCHC 31.9 g/dL (31.0-37.0); MCV 90.5 fL (80.0-100.0); Mean Platelet Volume 9.8; Monocytes # (A) 0.7 k/uL (0-1.0); Monocytes % (A) 3 %; Neutrophils % (A) 95 %; Platelet Count 360 k/uL (150-450); RBC 3.15 m/uL (4.30-5.90); RDW 14.2 % (11.5-15.5); WBC 26.2 k/uL (3.8-10.6)
--- NOTE | 2020-08-21 10:24 | P.PN ---
Subjective Progress Note Date: 08/21/20 the patient is in the hospital with new onset hydronephrosis, acute renal failure with creatinine at 3. Bilateral hydronephrosis. I question whether this is due to incomplete bladder emptying. A Pan for 36 hours is not changed his creatinine. 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 This is being evaluated. The patient will undergo cystoscopy, bilateral retrograde pyelograms with probable double-J catheters tomorrow. This is been discussed and understood and accepted by the patient. He understands the reason is to improve the kidney function while being evaluated and treated for the other problem. Objective - Vital Signs Vital signs: Vital Signs Temp 98.1 F 08/21/20 07:00 Pulse 123 H 08/21/20 07:00 Resp 18 08/21/20 07:00 BP 97/50 08/21/20 07:00 Pulse Ox 96 08/21/20 07:00 Intake & Output 08/20/20 08/21/20 08/21/20 18:59 06:59 18:59 Intake Total 420 Output Total 650 150 Balance -650 270 Intake: Intake, IV Titration 0 Amount Heparin Sod,Pork in 0.45% 0 NaCl 25,000 unit In 0.45 % NaCl 1 250ml.bag @ 18 UNITS/KG/HR 9.798 mls/hr IV .Q24H [facility] Rx#: [id number] Oral 420 Output: Urine 650 150 Other: Voiding Method Indwelling Catheter Indwelling Catheter Indwelling Catheter # Bowel Movements 1 1 - Labs CBC & Chem 7: 08/21/20 06:21 08/21/20 06:21 Labs: Abnormal Lab Results - Last 24 Hours (Table) 08/20/20 08/20/20 08/21/20 Range/Units 06:00 06:00 01:10 WBC (3.8-10.6) k/uL RBC (4.30-5.90) m/uL Hgb (13.0-17.5) gm/dL Hct (39.0-53.0) % Neutrophils # (1.3-7.7) k/uL Lymphocytes # (1.0-4.8) k/uL APTT 53.9 H (22.0-30.0) sec Sodium (137-145) mmol/L Carbon Dioxide (22-30) mmol/L BUN (9-20) mg/dL Creatinine (0.66-1.25) mg/dL Glucose (74-99) mg/dL Ferritin 86620.5 H (22.0-322.0) ng/mL AST (17-59) U/L Alkaline Phosphatase (38-126) U/L Total Protein (6.3-8.2) g/dL Albumin (3.5-5.0) g/dL Carcinoembryonic Ag 597.7 H (0.0-4.9) ng/mL 08/21/20 08/21/20 08/21/20 Range/Units 06:21 06:21 06:21 WBC 26.2 H (3.8-10.6) k/uL RBC 3.15 L (4.30-5.90) m/uL Hgb 9.1 L (13.0-17.5) gm/dL Hct 28.5 L (39.0-53.0) % Neutrophils # 25.0 H (1.3-7.7) k/uL Lymphocytes # 0.4 L (1.0-4.8) k/uL APTT 41.2 H (22.0-30.0) sec Sodium 132 L (137-145) mmol/L Carbon Dioxide 21 L (22-30) mmol/L BUN 92 H (9-20) mg/dL Creatinine 2.99 H (0.66-1.25) mg/dL Glucose 119 H (74-99) mg/dL Ferritin (22.0-322.0) ng/mL AST 66 H (17-59) U/L Alkaline Phosphatase 239 H (38-126) U/L Total Protein 5.5 L (6.3-8.2) g/dL Albumin 2.6 L (3.5-5.0) g/dL Carcinoembryonic Ag (0.0-4.9) ng/mL Microbiology - Last 24 Hours (Table) 08/16/20 08:45 Blood Culture - Preliminary Blood No Growth after 96 hours
--- NOTE | 2020-08-21 10:52 | P.PN ---
Subjective patient is seen in follow-up for acute kidney injury. renal function slightly better. nonoliguric. Pan catheter placed August 19. oral intake is fair. No chest pain or shortness of breath. Vital signs are stable. General: The patient appeared well nourished and normally developed. HEENT: Head exam is unremarkable. Neck is without jugular venous distension. LUNGS: Breath sounds decreased. HEART: Rate and Rhythm are regular. ABDOMEN: soft, nontender. EXTREMITITES: 2+ edema left lower extremity. 1+ edema right lower extremity. Objective - Vital Signs Vital signs: Vital Signs Temp 98.1 F 08/21/20 07:00 Pulse 123 H 08/21/20 07:00 Resp 18 08/21/20 07:00 BP 97/50 08/21/20 07:00 Pulse Ox 96 08/21/20 07:00 Intake & Output 08/20/20 08/21/20 08/21/20 18:59 06:59 18:59 Intake Total 420 Output Total 650 150 Balance -650 270 Intake: Intake, IV Titration 0 Amount Heparin Sod,Pork in 0.45% 0 NaCl 25,000 unit In 0.45 % NaCl 1 250ml.bag @ 18 UNITS/KG/HR 9.798 mls/hr IV .Q24H [facility] Rx#: [id number] Oral 420 Output: Urine 650 150 Other: Voiding Method Indwelling Catheter Indwelling Catheter Indwelling Catheter # Bowel Movements 1 1 - Labs CBC & Chem 7: 08/21/20 06:21 08/21/20 06:21 Labs: Abnormal Lab Results - Last 24 Hours (Table) 08/20/20 08/20/20 08/21/20 Range/Units 06:00 06:00 01:10 WBC (3.8-10.6) k/uL RBC (4.30-5.90) m/uL Hgb (13.0-17.5) gm/dL Hct (39.0-53.0) % Neutrophils # (1.3-7.7) k/uL Lymphocytes # (1.0-4.8) k/uL APTT 53.9 H (22.0-30.0) sec Sodium (137-145) mmol/L Carbon Dioxide (22-30) mmol/L BUN (9-20) mg/dL Creatinine (0.66-1.25) mg/dL Glucose (74-99) mg/dL Ferritin 09183.5 H (22.0-322.0) ng/mL AST (17-59) U/L Alkaline Phosphatase (38-126) U/L Total Protein (6.3-8.2) g/dL Albumin (3.5-5.0) g/dL Carcinoembryonic Ag 597.7 H (0.0-4.9) ng/mL 08/21/20 08/21/20 08/21/20 Range/Units 06:21 06:21 06:21 WBC 26.2 H (3.8-10.6) k/uL RBC 3.15 L (4.30-5.90) m/uL Hgb 9.1 L (13.0-17.5) gm/dL Hct 28.5 L (39.0-53.0) % Neutrophils # 25.0 H (1.3-7.7) k/uL Lymphocytes # 0.4 L (1.0-4.8) k/uL APTT 41.2 H (22.0-30.0) sec Sodium 132 L (137-145) mmol/L Carbon Dioxide 21 L (22-30) mmol/L BUN 92 H (9-20) mg/dL Creatinine 2.99 H (0.66-1.25) mg/dL Glucose 119 H (74-99) mg/dL Ferritin (22.0-322.0) ng/mL AST 66 H (17-59) U/L Alkaline Phosphatase 239 H (38-126) U/L Total Protein 5.5 L (6.3-8.2) g/dL Albumin 2.6 L (3.5-5.0) g/dL Carcinoembryonic Ag (0.0-4.9) ng/mL Microbiology - Last 24 Hours (Table) 08/16/20 08:45 Blood Culture - Preliminary Blood No Growth after 96 hours Assessment and Plan Plan: assessment: 1. Acute kidney injury secondary to obstructive uropathy. renal function mildly improved. Creatinine 2.99 today. 2. Bilateral hydronephrosis and nephrolithiasis. Pan catheter placed. Pote ntial cystoscopy and stent placement this admission. Urology following. 3. Acute left lower extremity DVT maintained on IV heparin. 4. hyperkalemia secondary to acute kidney injury, obstructive uropathy and metabolic acidosis. better. 5. rectal mass. Oncology following. Liver lesion noted on ultrasound. high suspicion for metastatic disease. 6. Rule out chronic kidney disease. Unknown baseline renal function. 7. Anemia. Iron deficiency noted. Ferritin level 25770. plan: Maintain Pan catheter. cystoscopy with stent placement scheduled for tomorrow. Encourage oral intake. Avoid nephrotoxins. Continue to monitor renal function and urine output.
--- NOTE | 2020-08-21 11:25 | PN ---
PROGRESS NOTE DATE OF DICTATION: August 21, 2020 Patient is a 65-year-old white male who recently diagnosed with rectal mass 3 weeks ago, admitted to hospital with DVT. He is presently on IV heparin. He had an episode of moderate amount of rectal bleeding 2 nights ago. He continues to remain on IV heparin. He did not have any further episodes of bleeding. He denies any abdominal pain. No nausea, vomiting. The patient is followed by Urology and he is scheduled for a cystoscopy tomorrow. He denies any new symptoms. PHYSICAL EXAMINATION: Appears comfortable. VITAL SIGNS: Stable. Blood pressure 97/50, pulse rate 123, temperature 98.1. HEENT examination unremarkable. Conjunctivae pink. Sclerae anicteric. Oral cavity no lesions. NECK no JVD or lymph node enlargement. CHEST was clear to auscultation. HEART: Regular rate and rhythm. ABDOMEN was cachectic, scaphoid. Bowel sounds are positive. No organomegaly. EXTREMITIES: No pedal edema. NEURO: He is awake, alert and oriented x3. LABS: From today WBC 26.2, hemoglobin 9.1, platelets normal. PTT 41.2, BUN 92, creatinine 2.99, CEA 597. IMPRESSION: 1. Rectal bleeding times one two days ago and no recurrence. The patient recently had a colonoscopy by Dr. Cavazos and has a large rectal mass which appears to be the source of bleeding. Presently on IV heparin for deep vein thrombosis. Hemoglobin stable at 9.5 g/dL. 2. Deep vein thrombosis, on IV heparin. 3. Elevated BUN and creatinine secondary to obstructive uropathy and Dr. Deleon following the patient closely. 4. Elevated CEA. RECOMMENDATIONS: 1. Continue with IV heparin. 2. Monitor CBC daily. 3. No need for any endoscopic intervention. 4. We will follow with you closely. Thank you for this consultation. MMODL / IJN: [id number] /
--- NOTE | 2020-08-21 17:24 | P.PN ---
Subjective Progress Note Date: 08/20/20 Principal diagnosis: Rectal mass Acute renal failure/ hydronephrosis Left lower extremity DVT Weight loss Objective - Vital Signs Vital signs: Vital Signs Temp 97.9 F 08/19/20 23:00 Pulse 120 H 08/19/20 23:00 Resp 16 08/19/20 23:00 BP 107/68 08/19/20 23:00 Pulse Ox 98 08/19/20 23:00 Intake & Output 08/19/20 08/20/20 08/20/20 18:59 06:59 18:59 Intake Total 350 282.621 Output Total 600 800 Balance -250 -517.379 Weight 57.5 kg Intake: Intake, IV Titration 250 42.621 Amount Heparin Sod,Pork in 0.45% 250 42.621 NaCl 25,000 unit In 0.45 % NaCl 1 250ml.bag @ 18 UNITS/KG/HR 9.798 mls/hr IV .Q24H [facility] Rx#: [id number] Oral 100 240 Output: Urine 300 800 Uretheral (Pan) 300 Post Void Residual 300 Other: Voiding Method Urinal Indwelling Catheter # Bowel Movements 1 - Exam General: The patient appeared well nourished and normally developed. HEENT: Head exam is unremarkable. Neck is without jugular venous distension. LUNGS: Breath sounds decreased. HEART: Rate and Rhythm are regular. ABDOMEN: soft, nontender. EXTREMITITES: 2+ edema left lower extremity. 1+ edema right lower extremity. - Labs CBC & Chem 7: 08/21/20 06:21 08/21/20 06:21 Labs: Abnormal Lab Results - Last 24 Hours (Table) 08/19/20 08/19/20 08/19/20 Range/Units 20:26 23:08 23:08 WBC 18.1 H (3.8-10.6) k/uL RBC 3.24 L (4.30-5.90) m/uL Hgb 9.2 L (13.0-17.5) gm/dL Hct 28.6 L (39.0-53.0) % Neutrophils # 16.9 H (1.3-7.7) k/uL Lymphocytes # 0.6 L (1.0-4.8) k/uL APTT 60.5 H (22.0-30.0) sec Sodium (137-145) mmol/L Carbon Dioxide (22-30) mmol/L BUN (9-20) mg/dL Creatinine (0.66-1.25) mg/dL Glucose (74-99) mg/dL POC Glucose (mg/dL) 152 H (75-99) mg/dL Iron (65-175) ug/dL TIBC (228-460) ug/dL % Saturation (15.00-50.00) Ferritin (22.0-322.0) ng/mL AST (17-59) U/L ALT (4-49) U/L Alkaline Phosphatase (38-126) U/L Total Protein (6.3-8.2) g/dL Albumin (3.5-5.0) g/dL 08/19/20 08/20/20 08/20/20 Range/Units 23:08 06:00 06:00 WBC 20.7 H (3.8-10.6) k/uL RBC 3.39 L (4.30-5.90) m/uL Hgb 9.5 L (13.0-17.5) gm/dL Hct 30.3 L (39.0-53.0) % Neutrophils # (1.3-7.7) k/uL Lymphocytes # (1.0-4.8) k/uL APTT (22.0-30.0) sec Sodium 130 L 133 L (137-145) mmol/L Carbon Dioxide 17 L (22-30) mmol/L BUN 98 H 98 H (9-20) mg/dL Creatinine 3.01 H 3.19 H (0.66-1.25) mg/dL Glucose 115 H (74-99) mg/dL POC Glucose (mg/dL) (75-99) mg/dL Iron 17 L (65-175) ug/dL TIBC 180 L (228-460) ug/dL % Saturation 9.44 L (15.00-50.00) Ferritin 61185.5 H (22.0-322.0) ng/mL AST 116 H (17-59) U/L ALT 50 H (4-49) U/L Alkaline Phosphatase 238 H (38-126) U/L Total Protein 5.8 L (6.3-8.2) g/dL Albumin 2.8 L (3.5-5.0) g/dL Microbiology - Last 24 Hours (Table) 08/16/20 08:45 Blood Culture - Preliminary Blood No Growth after 96 hours Assessment and Plan Assessment: 1. Acute renal injury; secondary to obstructive uropathy; continue with slow IV fluid hydration; monitor strict MERCY's, daily weights, renal function and electrolytes; avoid hypotension and nephrotoxins 2. Bilateral hydronephrosis/nephrolithiasis; patient does have [address]; urology is consulted and recommending to monitor creatinine closely with plans to repeat in 24 hours and cystoscopy and retrograde pyelogram to assess for ureteral obstruction probably due to metastatic rectal cancer if creatinine does not improve in next 24 hours 3. Acute DVT left lower extremity; patient remains on anticoagulation with IV heparin; switch to oral once stable 4. Hyperkalemia; secondary to renal failure; resolved 5. Rectal mass; patient did have biopsy of the rectal mass which showed high- grade dysplasia; oncology on board and remains suspicious for malignancy; liver ultrasound has also shown a lesion which could be targeted with biopsy DVT prophylaxis; SCDs only due to rectal bleed CODE STATUS; full code
--- NOTE | 2020-08-21 17:28 | P.PN ---
Subjective Progress Note Date: 08/21/20 Principal diagnosis: Rectal mass Acute renal failure/ hydronephrosis Left lower extremity DVT Weight loss 64 year old male patient who was originally seen for colonoscopy back in June 2020. At that time a large rectal mass was identified and a high suspicion for rectal cancer was determined. Biopsies were performed although resulted as high grade dysplasia. Patient has lost weight, been having difficulty eating, abdominal pain, changes in bowel habits, and increasing fatigue and weakness over the past 4-5 months. At the time of his colonoscopy he was informed that the tumor was still felt to be cancerous, despite the finalized path report and therefore further diagnostics and tissue was reasonable. He was referred to colorectal surgery, however initially declined this recommendations, despite general surgery (Dr. Cavazos) setting him up with an expedited appointment within a week of findings. Patient apparently waited and did not see a colorectal surgeon until 3-4 weeks later at outside hospital. Unfortunetly he now presents with further significant weight loss, acute renal failure, and new findings of a DVT in LLE. CT scan was performed earlier in the month which revealed suspicious thickening of the rectum, increasing lymphadenopathy within the pelvis and suspicious lesions near the liver. These findings are concerning for a meta static process. He also presents this admission with what appears to be obstructive hydronephrosis. He was initiated on a heparin drip. 08/21/2020 Patient is seen and evaluated resting comfortably in bed; denies any specific complaints; reports slightly improved oral intake Vital signs are stable with a temperature of 98.1 pulse 101 respiration 18 and blood pressure of 97/50 Lab review shows a white blood count of 26.2, hemoglobin of 9.1 and hematocrit of 28.5; sodium of 132, BUN/creatinine of 92/2.99; we will consult ID for persistent leukocytosis Nephrology is following and recommending to continue with Pan catheter; patient is scheduled for cystoscopy with stent placement tomorrow; continue with current plan of care Objective - Vital Signs Vital signs: Vital Signs Temp 98.3 F 08/21/20 14:17 Pulse 77 08/21/20 14:17 Resp 16 08/21/20 14:17 BP 112/69 08/21/20 14:17 Pulse Ox 99 08/21/20 14:17 Intake & Output 08/20/20 08/21/20 08/21/20 18:59 06:59 18:59 Intake Total 420 400 Output Total 650 150 Balance -650 270 400 Intake: Intake, IV Titration 0 Amount Heparin Sod,Pork in 0.45% 0 NaCl 25,000 unit In 0.45 % NaCl 1 250ml.bag @ 18 UNITS/KG/HR 9.798 mls/hr IV .Q24H [facility] Rx#: [id number] Oral 420 400 Output: Urine 650 150 Other: Voiding Method Indwelling Catheter Indwelling Catheter Indwelling Catheter # Bowel Movements 1 1 - Exam General: The patient appeared well nourished and normally developed. HEENT: Head exam is unremarkable. Neck is without jugular venous distension. LUNGS: Breath sounds decreased. HEART: Rate and Rhythm are regular. ABDOMEN: soft, nontender. EXTREMITITES: 2+ edema left lower extremity. 1+ edema right lower extremity. - Labs CBC & Chem 7: 08/21/20 06:21 08/21/20 06:21 Labs: Abnormal Lab Results - Last 24 Hours (Table) 08/21/20 08/21/20 08/21/20 Range/Units 01:10 06:21 06:21 WBC (3.8-10.6) k/uL RBC (4.30-5.90) m/uL Hgb (13.0-17.5) gm/dL Hct (39.0-53.0) % Neutrophils # (1.3-7.7) k/uL Lymphocytes # (1.0-4.8) k/uL APTT 53.9 H 41.2 H (22.0-30.0) sec Sodium 132 L (137-145) mmol/L Carbon Dioxide 21 L (22-30) mmol/L BUN 92 H (9-20) mg/dL Creatinine 2.99 H (0.66-1.25) mg/dL Glucose 119 H (74-99) mg/dL AST 66 H (17-59) U/L Alkaline Phosphatase 239 H (38-126) U/L Total Protein 5.5 L (6.3-8.2) g/dL Albumin 2.6 L (3.5-5.0) g/dL 08/21/20 Range/Units 06:21 WBC 26.2 H (3.8-10.6) k/uL RBC 3.15 L (4.30-5.90) m/uL Hgb 9.1 L (13.0-17.5) gm/dL Hct 28.5 L (39.0-53.0) % Neutrophils # 25.0 H (1.3-7.7) k/uL Lymphocytes # 0.4 L (1.0-4.8) k/uL APTT (22.0-30.0) sec Sodium (137-145) mmol/L Carbon Dioxide (22-30) mmol/L BUN (9-20) mg/dL Creatinine (0.66-1.25) mg/dL Glucose (74-99) mg/dL AST (17-59) U/L Alkaline Phosphatase (38-126) U/L Total Protein (6.3-8.2) g/dL Albumin (3.5-5.0) g/dL Microbiology - Last 24 Hours (Table) 08/16/20 08:45 Blood Culture - Preliminary Blood No Growth after 120 hours Assessment and Plan Assessment: 1. Acute renal injury; secondary to obstructive uropathy; continue with slow IV fluid hydration; monitor strict MERCY's, daily weights, renal function and electrolytes; avoid hypotension and nephrotoxins 2. Bilateral hydronephrosis/nephrolithiasis; patient does have [address]; urology is consulted and recommending to monitor creatinine closely with plans to repeat in 24 hours and cystoscopy and retrograde pyelogram to assess for ureteral obstruction probably due to metastatic rectal cancer if creatinine does not improve in next 24 hours 3. Acute DVT left lower extremity; patient remains on anticoagulation with IV heparin; switch to oral once stable 4. Hyperkalemia; secondary to renal failure; resolved 5. Rectal mass; patient did have biopsy of the rectal mass which showed high- grade dysplasia; oncology on board and remains suspicious for malignancy; liver ultrasound has also shown a lesion which could be targeted with biopsy DVT prophylaxis; SCDs only due to rectal bleed CODE STATUS; full code
[2020-08-21] MEDS: HEPARIN SOD,PORK IN 0.45% NACL 25,000 UNIT in 0.45% NACL 1 250ML.BAG IV SCH (19:17)
[2020-08-21] MEDS: ZOLPIDEM 5 MG TAB PO PRN (22:00)
[2020-08-21 22:18] LABS: Appearance,Urine Cloudy (Clear); Bacteria,Urine Occasional /hpf; Bilirubin,Urine Negative (Negative); Blood,Urine Large (Negative); Color,Urine Yellow; Glucose,Urine (UA) Negative (Negative); Ketones,Urine Negative (Negative); Leukocyte Esterase,Urine Large (Negative); Mucus,Urine Rare /hpf; Nitrite,Urine Negative (Negative); Protein,Urine 1+ (Negative); RBC,Urine 117 /hpf (0-5); Specific Gravity,Urine 1.015 (1.001-1.035); Squamous Epithelial Cell,Urine 1 /hpf (0-4); Urobilinogen,Urine <2.0 mg/dL (<2.0); WBC,Urine 117 /hpf (0-5)
--- NOTE | 2020-08-22 08:05 | P.PN ---
Subjective Principal diagnosis: Rectal mass and weakness. The patient is a 65-year-old white male essentially admitted for significant weakness. All overt rectal masses noted with left lower DVT. The patient is continued on heparin and appreciate multiple consultants input. Patient states poor sleep yesterday. He also states back pain when trying to lay flat. Computed tomography scan without contrast did not show significant metastatic disease however. The patient however has significant hydronephrosis with acute renal failure. The patient will continue to be hydrated but seemingly's seems slightly improved since yesterday. Appreciate multiple consultants input. The patient does have element of neuropathy. The patient is scheduled for catheter today Objective - Vital Signs Vital signs: Vital Signs Temp 98.8 F 08/22/20 07:00 Pulse 135 H 08/22/20 07:00 Resp 17 08/22/20 07:00 BP 102/56 08/22/20 07:00 Pulse Ox 95 08/22/20 07:00 Intake & Output 08/21/20 08/22/20 08/22/20 18:59 06:59 18:59 Intake Total 400 336.785 Output Total 1100 Balance 400 -763.215 Intake: Intake, IV Titration 236.785 Amount Heparin Sod,Pork in 0.45% 236.785 NaCl 25,000 unit In 0.45 % NaCl 1 250ml.bag @ 18 UNITS/KG/HR 9.798 mls/hr IV .Q24H [facility] Rx#: [id number] Oral 400 100 Output: Urine 1100 Other: Voiding Method Indwelling Catheter Indwelling Catheter - Constitutional General appearance: Present: thin - EENT Eyes: Absent: abnormal pupil - Respiratory Respiratory: bilateral: CTA - Cardiovascular Rhythm: regular Heart sounds: normal: S1, S2 Abnormal Heart Sounds: Absent: S3 Gallop - Gastrointestinal General gastrointestinal: Present: soft. Absent: tenderness - Labs CBC & Chem 7: 08/21/20 06:21 08/21/20 06:21 Labs: Abnormal Lab Results - Last 24 Hours (Table) 08/21/20 08/21/20 08/21/20 Range/Units 06:21 19:49 21:30 WBC 26.2 H (3.8-10.6) k/uL RBC 3.15 L (4.30-5.90) m/uL Hgb 9.1 L (13.0-17.5) gm/dL Hct 28.5 L (39.0-53.0) % Neutrophils # 25.0 H (1.3-7.7) k/uL Lymphocytes # 0.4 L (1.0-4.8) k/uL APTT (22.0-30.0) sec C-Reactive Protein 334.2 H (<10.0) mg/L Urine Protein 1+ H (Negative) Urine Blood Large H (Negative) Ur Leukocyte Esterase Large H (Negative) Urine RBC 117 H (0-5) /hpf Urine WBC 117 H (0-5) /hpf Urine Bacteria Occasional H (None) /hpf Urine Mucus Rare H (None) /hpf 08/22/20 Range/Units 06:12 WBC (3.8-10.6) k/uL RBC (4.30-5.90) m/uL Hgb (13.0-17.5) gm/dL Hct (39.0-53.0) % Neutrophils # (1.3-7.7) k/uL Lymphocytes # (1.0-4.8) k/uL APTT 43.3 H (22.0-30.0) sec C-Reactive Protein (<10.0) mg/L Urine Protein (Negative) Urine Blood (Negative) Ur Leukocyte Esterase (Negative) Urine RBC (0-5) /hpf Urine WBC (0-5) /hpf Urine Bacteria (None) /hpf Urine Mucus (None) /hpf Microbiology - Last 24 Hours (Table) 08/16/20 08:45 Blood Culture - Preliminary Blood No Growth after 120 hours Assessment and Plan (1) Rectal mass Current Visit: Yes Status: Acute Code(s): K62.89 - OTHER SPECIFIED DISEASES OF ANUS AND RECTUM SNOMED Code(s): 799334091 (2) ARF (acute renal failure) Current Visit: Yes Status: Acute Code(s): N17.9 - ACUTE KIDNEY FAILURE, UNSPECIFIED SNOMED Code(s): 78572449 (3) Left leg DVT Current Visit: Yes Status: Acute Code(s): I82.402 - ACUTE EMBOLISM AND THOMBOS UNSP DEEP VEINS OF L LOW EXTREM SNOMED Code(s): 617312971 (4) Weakness Current Visit: Yes Status: Acute Code(s): R53.1 - WEAKNESS SNOMED Code(s): 88925574 (5) Weight loss Current Visit: Yes Status: Acute Code(s): R63.4 - ABNORMAL WEIGHT LOSS SNOMED Code(s): 27428140 (6) Hydronephrosis Current Visit: Yes Status: Acute Code(s): N13.30 - UNSPECIFIED HYDRONEPHROSI S SNOMED Code(s): 93208067 Plan: Check CBC and CMP in a.m. Urology with cystoscopy and retrograde pyelogram. Prognosis is guarded secondary rectal cancer. See orders otherwise.
--- NOTE | 2020-08-22 08:12 | P.CONS ---
History of Present Illness - Reason for Consult Consult date: 08/21/20 Leukocytosis Requesting physician: Crow Zelaya - Chief Complaint Generalized weakness and left leg swelling x days - History of Present Illness Patient is a 64-year-old male presenting to the ER at [facility] on 08/16/2020 for evaluation of progressive weakness and also complaining of significant left leg edema for the past few months and not devel oping edema to the right leg along with unintentional 30 pound weight loss with these symptoms the patient was evaluated by the ER physician on arrival to the ER the patient was afebrile and no fever has been recorded during this admission, patient did have a white count of 16.5 that showed a gradual upward trend and is up to 26.2 thousand. That probably this infection disease consultation, patient did have CT of abdominal pelvis on admission with tissue as well as multiple nonobstructive bilateral renal stones by left and moderate right hydronephrosis patient has been evaluated by urology and is pending for cystoscopy and bilateral ureteral stent placement tomorrow, patient also have left lower extremity ultrasound was positive for DVT and patient has been anticoagulated, on today's visit that is 08/21/2020 the patient denies having any fever or any chills denies having any headache or URI symptoms no chest pain shortness of breath or cough no nausea no vomiting, however history of having diarrhea yesterday and did have multiple loose stools per the nursing staff Review of Systems Positive point has been mentioned in the HPI rest of the systems are negative Past Medical History Past Medical History: Hypertension History of Any Multi-Drug Resistant Organisms: None Reported Past Surgical History: Appendectomy Additional Past Surgical History / Comment(s): colonoscopy 6 weeks ago Past Anesthesia/Blood Transfusion Reactions: No Reported Reaction Past Psychological History: No Psychological Hx Reported Smoking Status: Former smoker Past Alcohol Use History: None Reported Additional Past Alcohol Use History / Comment(s): pt started smoking when he was 15 years old. pt quit smoking 1 month ago. Past Drug Use History: Marijuana Additional Drug Use History / Comment(s): smokes 1-2 joints per day Medications and Allergies Home Medications Medication Instructions Recorded Confirmed Type Zolpidem [Ambien] 5 mg PO HS PRN 08/16/20 08/16/20 History Zolpidem [Ambien] 10 mg PO HS PRN 08/16/20 08/16/20 History amLODIPine BESYLATE/BENAZEPRIL 1 cap PO DAILY 08/16/20 08/16/20 History [amLODIPine BESYLATE/BENAZEPRIL 5-10 MG] Allergies Allergy/AdvReac Type Severity Reaction Status Date / Time No Known Allergies Allergy Verified 08/16/20 08:50 Physical Exam Vitals: Vital Signs Temp Pulse Resp BP Pulse Ox 08/21/20 14:17 98.3 F 77 16 112/69 99 08/21/20 07:00 98.1 F 123 H 18 97/50 96 08/21/20 05:21 127 H 08/21/20 04:55 98.1 F 127 H 17 110/57 99 08/20/20 23:00 99.2 F 125 H 16 102/55 98 08/20/20 20:43 98.9 F 127 H 16 103/58 99 Intake and Output 08/21/20 08/21/20 08/21/20 06:59 14:59 22:59 Intake Total 240 400 Output Total 150 Balance 90 400 Intake: Oral 240 400 Output: Urine 150 Other: Voiding Method Indwelling Catheter Indwelling Catheter GENERAL DESCRIPTION: Elderly male lying in bed, no distress. No tachypnea or accessory muscle of respiration use. HEENT: Shows Pallor , no scleral icterus. Oral mucous membrane is dry. No pharyngeal erythema or thrush NECK: Trachea central, no thyromegaly. LUNGS: Unlabored breathing. Clear to auscultation anteriorly. No wheeze or crackle. HEART: S1, S2, regular rate and rhythm. No loud murmur ABDOMEN: Soft, no tenderness , guarding or rigidity, no organomegaly EXTREMITIES: Left leg swelling but no redness no open wound or drainage SKIN: No rash, no masses palpable. NEUROLOGICAL: The patient is awake, alert, oriented x3, mood and affect normal. Results CBC & Chem 7: 08/21/20 06:21 08/21/20 06:21 Labs: Abnormal Lab Results - Last 24 Hours (Table) 08/21/20 08/21/20 08/21/20 Range/Units 01:10 06:21 06:21 WBC (3.8-10.6) k/uL RBC (4.30-5.90) m/uL Hgb (13.0-17.5) gm/dL Hct (39.0-53.0) % Neutrophils # (1.3-7.7) k/uL Lymphocytes # (1.0-4.8) k/uL APTT 53.9 H 41.2 H (22.0-30.0) sec Sodium 132 L (137-145) mmol/L Carbon Dioxide 21 L (22-30) mmol/L BUN 92 H (9-20) mg/dL Creatinine 2.99 H (0.66-1.25) mg/dL Glucose 119 H (74-99) mg/dL AST 66 H (17-59) U/L Alkaline Phosphatase 239 H (38-126) U/L Total Protein 5.5 L (6.3-8.2) g/dL Albumin 2.6 L (3.5-5.0) g/dL 08/21/20 Range/Units 06:21 WBC 26.2 H (3.8-10.6) k/uL RBC 3.15 L (4.30-5.90) m/uL Hgb 9.1 L (13.0-17.5) gm/dL Hct 28.5 L (39.0-53.0) % Neutrophils # 25.0 H (1.3-7.7) k/uL Lymphocytes # 0.4 L (1.0-4.8) k/uL APTT (22.0-30.0) sec Sodium (137-145) mmol/L Carbon Dioxide (22-30) mmol/L BUN (9-20) mg/dL Creatinine (0.66-1.25) mg/dL Glucose (74-99) mg/dL AST (17-59) U/L Alkaline Phosphatase (38-126) U/L Total Protein (6.3-8.2) g/dL Albumin (3.5-5.0) g/dL Microbiology - Last 24 Hours (Table) 08/16/20 08:45 Blood Culture - Preliminary Blood No Growth after 120 hours Assessment and Plan Assessment: 1- patient with leukocytosis with progressive worsening source likely urinary in this patient who did have a bilateral hydronephrosis more on the right side versus C. diff colitis in this patient did have a multiple loose stools over the last 2 days (1) Leukocytosis Current Visit: Yes Status: Acute Code(s): D72.829 - ELEVATED WHITE BLOOD CELL COUNT, UNSPECIFIED SNOMED Code(s): 273360896 Plan: 1- we will repeat a UA and cultures and check a stool for C. diff 2-check blood culture and CRP 3-empirically add Rocephin 2 g daily We will follow on clinical condition and cultures to further adjust medication if needed Thank you for this consultation will follow this patient with you Time with Patient: Greater than 30
[2020-08-22] MEDS: PANTOPRAZOLE 40 MG/10 ML VIAL IVP SCH ×2 (09:26→20:33)
[2020-08-22] MEDS: HEPARIN SODIUM,PORCINE 5,000 UNIT/ML 1 ML VIAL IV PRN ×2 (10:01→23:27)
--- NOTE | 2020-08-22 10:21 | P.PN ---
Subjective patient is seen in follow-up for acute kidney injury. morning labs pending. nonoliguric. Pan catheter placed August 19. oral intake is fair. No chest pain or shortness of breath. Vital signs are stable. General: The patient appeared well nourished and normally developed. HEENT: Head exam is unremarkable. Neck is without jugular venous distension. LUNGS: Breath sounds decreased. HEART: Rate and Rhythm are regular. ABDOMEN: soft, nontender. EXTREMITITES: 2+ edema left lower extremity. trace edema right lower extremity. Objective - Vital Signs Vital signs: Vital Signs Temp 98.8 F 08/22/20 07:00 Pulse 135 H 08/22/20 07:00 Resp 17 08/22/20 07:00 BP 102/56 08/22/20 07:00 Pulse Ox 95 08/22/20 07:00 Intake & Output 08/21/20 08/22/20 08/22/20 18:59 06:59 18:59 Intake Total 400 336.785 144.847 Output Total 1100 Balance 400 -763.215 144.847 Intake: Intake, IV Titration 236.785 144.847 Amount Heparin Sod,Pork in 0.45% 236.785 144.847 NaCl 25,000 unit In 0.45 % NaCl 1 250ml.bag @ 18 UNITS/KG/HR 9.798 mls/hr IV .Q24H [facility] Rx#: [id number] Oral 400 100 Output: Urine 1100 Other: Voiding Method Indwelling Catheter Indwelling Catheter - Labs CBC & Chem 7: 08/21/20 06:21 08/21/20 06:21 Labs: Abnormal Lab Results - Last 24 Hours (Table) 08/21/20 08/21/20 08/22/20 Range/Units 19:49 21:30 06:12 APTT 43.3 H (22.0-30.0) sec C-Reactive Protein 334.2 H (<10.0) mg/L Urine Protein 1+ H (Negative) Urine Blood Large H (Negative) Ur Leukocyte Esterase Large H (Negative) Urine RBC 117 H (0-5) /hpf Urine WBC 117 H (0-5) /hpf Urine Bacteria Occasional H (None) /hpf Urine Mucus Rare H (None) /hpf Microbiology - Last 24 Hours (Table) 08/16/20 08:45 Blood Culture - Preliminary Blood No Growth after 120 hours Assessment and Plan Plan: assessment: 1. Acute kidney injury secondary to obstructive uropathy. renal function mildly improved. Creatinine 2.99 as of yesterday. 2. Bilateral hydronephrosis and nephrolithiasis. Pan catheter placed. scheduled for cystoscopy with possible ureteral stent placement today. Urology following. 3. Acute left lower extremity DVT maintained on IV heparin. 4. hyperkalemia secondary to acute kidney injury, obstructive uropathy and metabolic acidosis. better. 5. rectal mass. Oncology following. Liver lesion noted on ultrasound. high suspicion for metastatic disease. 6. Rule out chronic kidney disease. Unknown baseline renal function. 7. Anemia. Iron deficiency noted. Ferritin level 56515. plan: Maintain Pan catheter. cystoscopy with stent placement scheduled for today. Encourage oral intake. Avoid nephrotoxins. Continue to monitor renal function and urine output.
[2020-08-22 11:05] LABS: African American GFR (CKD) 25.2 (60.0-200.0); Anion Gap 10.2 mmol/L (4.00-12.00); BUN/Creat Ratio 33.1 Ratio (12.00-20.00); Calcium 8.2 mg/dL (8.7-10.3); Carbon Dioxide 19.8 mmol/L (21.6-31.8); Magnesium 1.9 mg/dL (1.5-2.4); Non-African American GFR(CKD) 21.7 (60.0-200.0); Potassium 3.9 mmol/L (3.5-5.5)
--- NOTE | 2020-08-22 11:54 | CDI ---
Documentation Clarification Form Date: 08/22/2020 11:22:05 AM From: Sonam Polk Admit Date: 08/19/2020 12:47:00 PM Patient Name: Ludwin Cummings Visit Number: [id number] Discharge Date: ATTENTION: The Clinical Documentation Specialists (CDI) and [facility] Coding Staff appreciate your assistance in clarifying documentation. Please respond to the clarification below the line at the bottom and electronically sign. The CDI & [facility] Coding staff will review the response and follow-up if needed. Please note: Queries are made part of the Legal Health Record. If you have any questions, please contact the author of this message via ITS. Dr. Syed Alcala He has had increasing weight loss over the last several months totaling at least 30-pound weight loss. Documented in H&P 08/16 History/Risk Factors: 65-year-old male presents to the ED for evaluation for progressive weakness. Medical History: HTN; Rectal mass on colonoscopy June 2020. Patient admitted with Acute Renal Injury, Weakness and DVT Clinical Indicators: 08/19 Labs: Wbc 15.3, Bun 86, Cr 3.29, GFR 19 Current BMI: 19.9 Appetite - Fair, Regular diet, Nutrition assessment: intake fair; 25-50% consumed. Physical findings Stage 2 pressure injury/coccyx poa. BMI classification Underweight, Weight (IBW) 85%; weight loss of 25 pounds. Intake: Increase nutrient needs protein. Diagnosis Related to: metabolic demand for wound healing stage 2 Pressure injury/coccyx. Treatment: Daily weights, Wound care. Dietary Consult: See above Supplements: Enlive BID; Yogurt daily; Regular diet, Monitor oral supplement intake. Lab monitoring: Daily chemistry and Wbc In your professional opinion, can you please clarify if these findings signify one of the following conditions? * Moderate Protein-Calorie Malnutrition * Severe Protein-Calorie Malnutrition-this is the correct diagnosis * Other condition, please specify - MTDD
--- NOTE | 2020-08-22 12:36 | CDI ---
Documentation Clarification Form Date: 08/22/2020 11:58:00 AM From: Sonam Polk RN CCDS Admit Date: 08/19/2020 12:47:00 PM Patient Name: Ludwin Cummings Visit Number: [id number] Discharge Date: ATTENTION: The Clinical Documentation Specialists (CDI) and [facility] Coding Staff appreciate your assistance in clarifying documentation. Please respond to the clarification below the line at the bottom and electronically sign. The CDI & [facility] Coding staff will review the response and follow-up if needed. Please note: Queries are made part of the Legal Health Record. If you have any questions, please contact the author of this message via ITS. Dr. Syed Granger Stage II pressure injury/coccyx was documented in the Dietary on 08/19 History/Risk Factors: 65-year-old male presents to the ED for evaluation for progressive weakness. Medical History: HTN; Rectal mass on colonoscopy June 2020. Patient admitted with Acute Renal Injury, Weakness and DVT Clinical Indicators: Location: coccyx Wound description: Temp warm; Moist; Skin colon: pink erythema Documented in H&P 08/16 He has had increasing weight loss over the last several months totaling at least 30-pound weight loss. Treatment: Enlive oral supplement BID, yogurt daily, Optifoam gentle liquid and barrier cream Elements for accurate and compliant documentation of an ulcer: *The location/laterality of the ulcer *Etiology (decubitus/pressure, diabetic, PVD) *Stage I-IV, Unstageable, Suspected Deep Tissue Injury (To the deepest stage) *If the ulcer was present at admission (POA) or occurred after admission In your professional opinion, can you please clarify the diagnosis, location, laterality and whether present on admission (POA): Stage 2 Pressure/Decubitus Ulcer Coccyx (Partial thickness, loss of dermis, pink wound bed)-this is the correct diagnosis related to cachexia/malnutrition related to cancer Other condition, please specify Unable to determine Please indicate etiology of pressure ulcer (if known). (Last Revision: August 2017) MTDD
[2020-08-22] MEDS ORDERED: SODIUM CHLORIDE 0.9% 1,000 ML IV ONE ×2 (12:47→15:26)
[2020-08-22] MEDS ORDERED: ONDANSETRON 4 MG/2 ML VIAL ONE (13:05)
[2020-08-22] MEDS ORDERED: DEXAMETHASONE SOD PHOSPHATE 10 MG/ML 1 ML VIAL IV ONE (13:07)
[2020-08-22] MEDS ORDERED: ONDANSETRON 4 MG/2 ML VIAL IVP ONE (13:07)
[2020-08-22] MEDS ORDERED: SUCCINYLCHOLINE CHLORIDE 100 MG/5 ML SYR IV ONE (13:39)
[2020-08-22] MEDS ORDERED: ETOMIDATE 2 MG/ML 10 ML VIAL ONE (13:39)
[2020-08-22] MEDS ORDERED: PHENYLEPHRINE-0.9% NACL SYG 1 MG/10 ML SYRINGE ONE (13:39)
[2020-08-22] MEDS ORDERED: fentaNYL (PF) 50 MCG/ML 2 ML AMP ONE (13:39)
--- NOTE | 2020-08-22 13:42 | P.PN ---
Subjective Progress Note Date: 08/22/20 Principal diagnosis: Rectal bleeding The patient was seen and examined at the bedside. The patient is on a heparin drip for a acute left lower extremity DVT. Patient is scheduled for a cystoscopy with urology today. He is denying any abdominal pain, nausea, or vomiting. He states he had a bowel movement late yesterday evening without any blood noted. Denies any other rectal bleeding at this time. He states he has had no fevers or chills through the night. Speaking with the nurse the patient is getting transferred to selective care unit for tachycardia and hypotension. Objective - Vital Signs Vital signs: Vital Signs Temp 98.8 F 08/22/20 07:00 Pulse 135 H 08/22/20 07:00 Resp 17 08/22/20 07:00 BP 102/56 08/22/20 07:00 Pulse Ox 95 08/22/20 07:00 Intake & Output 08/21/20 08/22/20 08/22/20 18:59 06:59 18:59 Intake Total 400 336.785 144.847 Output Total 1100 Balance 400 -763.215 144.847 Intake: Intake, IV Titration 236.785 144.847 Amount Heparin Sod,Pork in 0.45% 236.785 144.847 NaCl 25,000 unit In 0.45 % NaCl 1 250ml.bag @ 18 UNITS/KG/HR 9.798 mls/hr IV .Q24H [facility] Rx#: [id number] Oral 400 100 Output: Urine 1100 Other: Voiding Method Indwelling Catheter Indwelling Catheter - Exam General appearance: The patient is alert, oriented, in no acute distress. HET: Head is normocephalic and atraumatic. Conjunctiva pink. Sclera and icteric. Neck: Supple without lymphadenopathy. Abdomen: Soft, nontender, nondistended with bowel sounds. No guarding or rigidity. Extremities: Normal skin color and turgor. No pedal edema Neurological: No focal deficits. Alert and oriented 3. - Labs CBC & Chem 7: 08/21/20 06:21 08/22/20 06:12 Labs: Abnormal Lab Results - Last 24 Hours (Table) 08/21/20 08/21/20 08/22/20 Range/Units 19:49 21:30 06:12 APTT 43.3 H (22.0-30.0) sec C-Reactive Protein 334.2 H (<10.0) mg/L Urine Protein 1+ H (Negative) Urine Blood Large H (Negative) Ur Leukocyte Esterase Large H (Negative) Urine RBC 117 H (0-5) /hpf Urine WBC 117 H (0-5) /hpf Urine Bacteria Occasional H (None) /hpf Urine Mucus Rare H (None) /hpf Microbiology - Last 24 Hours (Table) 08/16/20 08:45 Blood Culture - Preliminary Blood No Growth after 120 hours Assessment and Plan (1) Rectal bleeding Narrative/Plan: The patient had rectal bleeding 13 days ago with no recurrence. The patient recently had a colonoscopy with Dr. henry and has a large rectal mass which appears to be the source of bleeding. He is presently on IV heparin for deep vein thrombosis. Hemoglobin stable at 9.1. He also has an elevated CEA. Current Visit: Yes Status: Acute Code(s): K62.5 - HEMORRHAGE OF ANUS AND REC DEISI SNOMED Code(s): 16871779 (2) Left leg DVT Current Visit: Yes Status: Acute Code(s): I82.402 - ACUTE EMBOLISM AND THOMBOS UNSP DEEP VEINS OF L LOW EXTREM SNOMED Code(s): 933168049 (3) Rectal mass Current Visit: Yes Status: Acute Code(s): K62.89 - OTHER SPECIFIED DISEASES OF ANUS AND RECTUM SNOMED Code(s): 426456271 (4) ARF (acute renal failure) Narrative/Plan: Nephrology and urology consult. Patient to undergo cystoscopy and retrograde pyelogram to assess for ureteral obstruction. Current Visit: Yes Status: Acute Code(s): N17.9 - ACUTE KIDNEY FAILURE, UNSPECIFIED SNOMED Code(s): 43957538 (5) Hydronephrosis Current Visit: Yes Status: Acute Code(s): N13.30 - UNSPECIFIED HYDRONEPHROSIS SNOMED Code(s): 50765442 Plan: 1. May continue with IV heparin 2. Monitor CBC closely 3. No need for any endoscopic intervention 4. Follow recommendations per nephrology, urology, hematology, and surgery. 4. We will sign off at this time. If any future concerns arise please do not hesitate to contact us. The impression and plan of care has been dictated as directed. I performed a history and examination of this patient, discussed the same with the dictator. I agree with the dictator's note ,documented as a scribe. Any additional findings or plans will be noted.
[2020-08-22] MEDS ORDERED: SODIUM CHLORIDE 0.9% 50 ML with ceFAZolin 1,000 MG IV ONE ×2 (13:55)
[2020-08-22] MEDS ORDERED: IOPAMIDOL-370 50ML BTL IRRIGATION ONE (14:13)
--- NOTE | 2020-08-22 14:48 | P.OP ---
Date of Procedure: 08/22/20 Preoperative Diagnosis: Bilateral hydronephrosis probable rectal carcinoma renal insufficiency secondary to hydronephrosis Postoperative Diagnosis: Same secondary to invasive cancer Procedure(s) Performed: Cystoscopy, biopsy of trigone and floor bladder, failed retrograde pyelograms and ureteroscopy Anesthesia: LAUREANO Surgeon: Mohsen Deleon Pathology: other Condition: stable (Latter biopsy) Disposition: PACU Indications for Procedure: The patient is 65. He came in the hospital with a DVT. He has had a 30 pound weight loss over the last couple months. He has had recent colonoscopy that showed a rectal mass that was biopsy for high-grade dysplasia. He is having increasing lymphadenopathy as well as possible suspicious lesions near the liver. It is suspicious that he has a rectal carcinoma causing obstruction to the ureters. The patient had normal ultrasound the kidneys 3 months ago but now was hydronephrotic. I question urinary retention on the CAT scan and the catheters placed for 36 hours but his creatinine did not change. He'll undergo cystoscopy retrograde pyelograms and hopeful stents today. Description of Procedure: The patient is brought to the operating suite. He is given general anesthesia. He's placed lithotomy position with sterile prep and drape. Cystoscopy identifies a normal urethra. The prostate sent obstructing. Upon entering the bladder there is marked cobblestoning throughout the trigone in particular on the left side in the left lateral wall. This is obviously tumor. With cup biopsies I do several biopsies and collect specimen to try to get a better idea as to whether this is invasive bladder cancer into the rectum or vice versa. It has more the appearance of a rectal cancer into the bladder. Raquel then spent about an hour looking for the ureteral orifice his but I'm unable to do so. Even passed the ureteroscope and cannot find any orifice ease. I thus the drain the bladder the patient's awake and returned recovery room good condition Impression ureteral obstruction due to invasive carcinoma whether this is pr imary bladder or primary rectal origin is indeterminate. A rectal examination under anesthesia identifies a distinct pelvic mass with bimanual but I cannot feel anything at the tip of my finger. The patient will probably need nephrostomy tubes which can be arranged in the next 24-48 hours.
--- NOTE | 2020-08-22 14:58 | FL ---
EXAMINATION TYPE: FL urography retrograde DATE OF EXAM: 08/22/2020 COMPARISON: NONE HISTORY: Fluoroscopy time TECHNIQUE: Fluoroscopy. FINDINGS: Fluoroscopy of 45 seconds provided. IMPRESSION: As Above.
[2020-08-22] MEDS ORDERED: LACTATED RINGERS 1,000 ML IV ONE (15:26)
--- NOTE | 2020-08-22 21:01 | P.PN ---
Subjective Progress Note Date: 08/22/20 Objective - Vital Signs Vital signs: Vital Signs Temp 97.6 F 08/22/20 15:00 Pulse 120 H 08/22/20 15:15 Resp 16 08/22/20 15:15 BP 119/70 08/22/20 15:15 Pulse Ox 92 L 08/22/20 15:15 Intake & Output 08/22/20 08/22/20 08/23/20 06:59 18:59 06:59 Intake Total 462.193 3538.847 Output Total 1100 800 Balance -763.215 394.847 Intake: IV 1050 Intake, IV Titration 236.785 144.847 Amount Heparin Sod,Pork in 0.45% 236.785 144.847 NaCl 25,000 unit In 0.45 % NaCl 1 250ml.bag @ 18 UNITS/KG/HR 9.798 mls/hr IV .Q24H [facility] Rx#: [id number] Oral 100 Output: Urine 1100 800 Estimated Blood Loss 0 Other: Voiding Method Indwelling Catheter Indwelling Catheter # Voids 1 - Exam - Constitutional General appearance: Present: no acute distress - EENT Eyes: Present: EOMI ENT: Present: hearing grossly normal, normal oropharynx - Respiratory Respiratory: bilateral: CTA - Cardiovascular Rhythm: regular Heart sounds: normal: S1, S2 - Gastrointestinal General gastrointestinal: Present: normal bowel sounds, soft - Integumentary Integumentary: Present: normal - Neurologic Neurologic: Present: CNII-XII intact - Musculoskeletal Musculoskeletal: Present: generalized weakness, strength equal bilaterally - Labs CBC & Chem 7: 08/21/20 06:21 08/22/20 06:12 Labs: Abnormal Lab Results - Last 24 Hours (Table) 08/21/20 08/21/20 08/21/20 Range/Units 19:49 19:49 21:30 APTT (22.0-30.0) sec Carbon Dioxide (21.6-31.8) mmol/L BUN (9.0-27.0) mg/dL Creatinine (0.6-1.5) mg/dL Est GFR (CKD-EPI)AfAm (60.0-200.0) Est GFR (CKD-EPI)NonAf (60.0-200.0) BUN/Creatinine Ratio (12.00-20.00) Ratio Glucose (70-110) mg/dL Calcium (8.7-10.3) mg/dL C-Reactive Protein 334.2 H (<10.0) mg/L Procalcitonin 1.45 H (0.02-0.09) ng/mL Urine Protein 1+ H (Negative) Urine Blood Large H (Negative) Ur Leukocyte Esterase Large H (Negative) Urine RBC 117 H (0-5) /hpf Urine WBC 117 H (0-5) /hpf Urine Bacteria Occasional H (None) /hpf Urine Mucus Rare H (None) /hpf 08/22/20 08/22/20 Range/Units 06:12 06:12 APTT 43.3 H (22.0-30.0) sec Carbon Dioxide 19.8 L (21.6-31.8) mmol/L BUN 96.0 H (9.0-27.0) mg/dL Creatinine 2.9 H (0.6-1.5) mg/dL Est GFR (CKD-EPI)AfAm 25.2 L (60.0-200.0) Est GFR (CKD-EPI)NonAf 21.7 L (60.0-200.0) BUN/Creatinine Ratio 33.10 H (12.00-20.00) Ratio Glucose 116 H (70-110) mg/dL Calcium 8.2 L (8.7-10.3) mg/dL C-Reactive Protein (<10.0) mg/L Procalcitonin (0.02-0.09) ng/mL Urine Protein (Negative) Urine Blood (Negative) Ur Leukocyte Esterase (Negative) Urine RBC (0-5) /hpf Urine WBC (0-5) /hpf Urine Bacteria (None) /hpf Urine Mucus (None) /hpf Microbiology - Last 24 Hours (Table) 08/21/20 21:30 Urine Culture - Preliminary Urine,Voided 08/16/20 08:45 Blood Culture - Final Blood No Growth after 144 hours Assessment and Plan (1) ARF (acute renal failure) Current Visit: Yes Status: Acute Code(s): N17.9 - ACUTE KIDNEY FAILURE, UNSPECIFIED SNOMED Code(s): 27674878 (2) Hydronephrosis Current Visit: Yes Status: Acute Code(s): N13.30 - UNSPECIFIED HYDRONEPHROSIS SNOMED Code(s): 53306508 (3) Left leg DVT Current Visit: Yes Status: Acute Code(s): I82.402 - ACUTE EMBOLISM AND THOMBOS UNSP DEEP VEINS OF L LOW EXTREM SNOMED Code(s): 346196644 (4) Rectal mass Current Visit: Yes Status: Acute Code(s): K62.89 - OTHER SPECIFIED DISEASES OF ANUS AND RECTUM SNOMED Code(s): 064811608 (5) Weight loss Current Visit: Yes Status: Acute Code(s): R63.4 - ABNORMAL WEIGHT LOSS SNOMED Code(s): 00379067 Plan: Assessment and Plan Rectal mass - Patient is aware that the mass most likely represents malignancy even though the biopsy showed high-grade dysplasia. He was again advised that in these situations the malignancy may be a deeper levels and the biopsy is essentially considered nondiagnostic. In addition there is concern for metastatic disease based on CT scans done at [facility] which was a contrast study. - The patient had a liver ultrasound to see if he had lesions that could be targeted with a biopsy, which would serve the dual purpose of giving us a pathologic diagnosis as well as proving metastatic disease and thus confirming staging. Ultrasound of the abdomen showed 1 somewhat nonspecific lesion. However the report states that the non-contrast computed tomography scan appear to indicate other suspicious lesions. - At this time the patient is not a candidate for a contrast study, because of persistently low renal function. - Discussion with radiology jil review CT from earlier in month when abnormality for potential metastatic disease was identified and biopsy using a contrast scan that was done at [facility]. If so then liver biopsy will be ordered. If not on the other option would be to repeat lower endoscopy with repeat biopsy. - If this were positive the patient can then have a PET scan as an outpatient for completion of staging. - CEA is elevated 597 which is concerning for a metastatic picture Left leg DVT - Mr. Justina francis is his new thrombolic event which appears most consistent with hypercoaguable state of malignancy. If he is having rectal bleeding and anticoagulation is unable to be continued an IVC filter will need to be considered. - Continue patient on IV heparin as he may need additional invasive procedures in the next few days. - Monitor for any significant bleeding from the tumor site. If that occurs and the patient will need an IVC filter ARF (acute renal failure) - Creatinine today is2.9, same as yesterday - Cystoscopy and stent placement today - Recheck in am PLan 08/22/20: Monitor serial CBC - for worsening anemia MOnitor for bleeding at tumor site COntinue IV heparin Radiology to review CT prior in for abnormality in liver for potential biopsy
[2020-08-22] MEDS: HEPARIN SOD,PORK IN 0.45% NACL 25,000 UNIT in 0.45% NACL 1 250ML.BAG IV SCH (23:23)
--- NOTE | 2020-08-23 00:09 | PN ---
PROGRESS NOTE DATE OF SERVICE: 08/22/2020 REASON FOR FOLLOWUP: Elevated white count, possible urinary source. INTERVAL HISTORY: The patient is currently afebrile. The patient is status post cystoscopy, biopsy of the trigone and floor with failed retrograde pyelogram and ureteroscopy. The patient has tolerated the procedure. The patient denies having any chest pain, no shortness of breath or cough. No nausea, no vomiting. No abdominal pain or diarrhea. PHYSICAL EXAMINATION: Blood pressure 109/65 with pulse of 127, temperature 98.7. He is 98% on room air. General description is a middle-aged male lying in bed in no distress. RESPIRATORY SYSTEM: Unlabored breathing, clear to auscultation anteriorly. HEART: S1, S2. Regular rate and rhythm. ABDOMEN: Soft, no tenderness. LABS: Creatinine is 2.9. Urine was positive, .Urine culture is currently pending. DIAGNOSTIC IMPRESSION AND PLAN: Patient with elevated white count source is likely urinary in this patient who did have bilateral hydronephrosis with cystoscopy today. The patient was started on Rocephin yesterday that will be continued and white count will be monitored closely. Continue supportive care. MMODL / IJN: [id number] /
[2020-08-23 05:05] LABS: Basophils % (A) 0 %; Eosinophils # (A) 0.1 k/uL (0-0.7); Eosinophils % (A) 0 %; HCT 27.4 % (39.0-53.0); HGB 8.7 gm/dL (13.0-17.5); Hypochromasia Slight; Lymphocytes # (A) 0.5 k/uL (1.0-4.8); Lymphocytes % (A) 2 %; MCH 28.9 pg (25.0-35.0); MCHC 31.8 g/dL (31.0-37.0); MCV 91.2 fL (80.0-100.0); Mean Platelet Volume 9.8; Monocytes # (A) 0.6 k/uL (0-1.0); Monocytes % (A) 2 %; Neutrophils # (A) 26.4 k/uL (1.3-7.7); Neutrophils % (A) 96 %; Platelet Count 310 k/uL (150-450); RBC 3.01 m/uL (4.30-5.90); RDW 14.7 % (11.5-15.5); WBC 27.7 k/uL (3.8-10.6)
[2020-08-23 05:09] LABS: Albumin 2.5 g/dL (3.5-5.0); Calcium 8.4 mg/dL (8.4-10.2); Magnesium 2.2 mg/dL (1.6-2.3); Potassium 4.4 mmol/L (3.5-5.1); Total Bilirubin 0.3 mg/dL (0.2-1.3); Total Protein 5.3 g/dL (6.3-8.2)
[2020-08-23 06:00] LABS: Toxic Granulation Present; Toxic Vacuolation Present
[2020-08-23 06:01] LABS: Anisocytosis (M) Present
[2020-08-23 06:02] LABS: Poikilocytosis (M) Present
--- NOTE | 2020-08-23 07:05 | P.PN ---
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 I couldnt do retrogrades due to the inability to identify the ureteral orifices. The patient will need nephrostomy tubes in order to proceed with treatment for his cancer regardless of primary. I spoke with him about N tubes. He seems to understand the concept. I will set this up for him Objective - Vital Signs Vital signs: Vital Signs Temp 97.7 F 08/23/20 00:00 Pulse 118 H 08/23/20 04:00 Resp 18 08/23/20 04:00 BP 133/77 08/23/20 04:00 Pulse Ox 97 08/23/20 04:00 Intake & Output 08/22/20 08/23/20 08/23/20 18:59 06:59 18:59 Intake Total 1194.847 183.589 Output Total 800 300 Balance 394.847 -116.411 Weight 61.5 kg Intake: IV 1050 Intake, IV Titration 144.847 183.589 Amount Heparin Sod,Pork in 0.45% 144.847 183.589 NaCl 25,000 unit In 0.45 % NaCl 1 250ml.bag @ 18 UNITS/KG/HR 9.798 mls/hr IV .Q24H [facility] Rx#: [id number] Output: Urine 800 300 Estimated Blood Loss 0 Other: Voiding Method Indwelling Catheter Urinal # Voids 1 0 # Bowel Movements 0 - Labs CBC & Chem 7: 08/23/20 04:21 08/23/20 04:21 Labs: Abnormal Lab Results - Last 24 Hours (Table) 08/21/20 08/22/20 08/22/20 Range/Units 19:49 06:12 22:16 WBC (3.8-10.6) k/uL RBC (4.30-5.90) m/uL Hgb (13.0-17.5) gm/dL Hct (39.0-53.0) % Neutrophils # (1.3-7.7) k/uL Lymphocytes # (1.0-4.8) k/uL APTT 36.9 H (22.0-30.0) sec Sodium (137-145) mmol/L Chloride (98-107) mmol/L Carbon Dioxide 19.8 L (21.6-31.8) mmol/L BUN 96.0 H (9.0-27.0) mg/dL Creatinine 2.9 H (0.6-1.5) mg/dL Est GFR (CKD-EPI)AfAm 25.2 L (60.0-200.0) Est GFR (CKD-EPI)NonAf 21.7 L (60.0-200.0) BUN/Creatinine Ratio 33.10 H (12.00-20.00) Ratio Glucose 116 H (70-110) mg/dL Calcium 8.2 L (8.7-10.3) mg/dL Alkaline Phosphatase (38-126) U/L Total Protein (6.3-8.2) g/dL Albumin (3.5-5.0) g/dL Procalcitonin 1.45 H (0.02-0.09) ng/mL 08/23/20 08/23/20 08/23/20 Range/Units 04:21 04:21 04:21 WBC 27.7 H (3.8-10.6) k/uL RBC 3.01 L (4.30-5.90) m/uL Hgb 8.7 L (13.0-17.5) gm/dL Hct 27.4 L (39.0-53.0) % Neutrophils # 26.4 H (1.3-7.7) k/uL Lymphocytes # 0.5 L (1.0-4.8) k/uL APTT 43.3 H (22.0-30.0) sec Sodium 132 L (137-145) mmol/L Chloride 109 H (98-107) mmol/L Carbon Dioxide 16 L (21.6-31.8) mmol/L BUN 89 H (9.0-27.0) mg/dL Creatinine 2.66 H (0.6-1.5) mg/dL Est GFR (CKD-EPI)AfAm (60.0-200.0) Est GFR (CKD-EPI)NonAf (60.0-200.0) BUN/Creatinine Ratio (12.00-20.00) Ratio Glucose 140 H (70-110) mg/dL Calcium (8.7-10.3) mg/dL Alkaline Phosphatase 216 H (38-126) U/L Total Protein 5.3 L (6.3-8.2) g/dL Albumin 2.5 L (3.5-5.0) g/dL Procalcitonin (0.02-0.09) ng/mL Microbiology - Last 24 Hours (Table) 08/21/20 19:49 Blood Culture - Preliminary Blood No Growth after 24 hours 08/21/20 21:30 Urine Culture - Preliminary Urine,Voided 08/16/20 08:45 Blood Culture - Final Blood No Growth after 144 hours
--- NOTE | 2020-08-23 07:50 | P.PN ---
Subjective Principal diagnosis: Rectal mass and weakness. The patient is a 65-year-old white male essentially admitted for significant weakness. All overt rectal masses noted with left lower DVT. The patient is continued on heparin and appreciate multiple consultants input. Patient states poor sleep yesterday. He also states back pain when trying to lay flat. Computed tomography scan without contrast did not show significant metastatic disease however. The patient however has significant hydronephrosis with acute renal failure. The patient will continue to be hydrated but seemingly's seems slightly improved since yesterday. Appreciate multiple consultants input. Unfortunately, bladder floor tumor was noted and now nephrostomy tubes are scheduled for today. Objective - Vital Signs Vital signs: Vital Signs Temp 97.7 F 08/23/20 00:00 Pulse 118 H 08/23/20 04:00 Resp 18 08/23/20 04:00 BP 133/77 08/23/20 04:00 Pulse Ox 97 08/23/20 04:00 Intake & Output 08/22/20 08/23/20 08/23/20 18:59 06:59 18:59 Intake Total 1194.847 183.589 15.458 Output Total 800 300 Balance 394.847 -116.411 15.458 Weight 61.5 kg Intake: IV 1050 Intake, IV Titration 144.847 183.589 15.458 Amount Heparin Sod,Pork in 0.45% 144.847 183.589 15.458 NaCl 25,000 unit In 0.45 % NaCl 1 250ml.bag @ 18 UNITS/KG/HR 9.798 mls/hr IV .Q24H [facility] Rx#: [id number] Output: Urine 800 300 Estimated Blood Loss 0 Other: Voiding Method Indwelling Catheter Urinal # Voids 1 0 # Bowel Movements 0 - Constitutional General appearance: Present: no acute distress, thin - EENT Eyes: Absent: abnormal pupil - Respiratory Respiratory: bilateral: CTA - Cardiovascular Rhythm: regular Heart sounds: normal: S1, S2 Abnormal Heart Sounds: Absent: S3 Gallop - Gastrointestinal General gastrointestinal: Present: soft. Absent: tenderness - Integumentary Integumentary: Absent: rash - Neurologic Neurologic: Present: CNII-XII intact - Labs CBC & Chem 7: 08/23/20 04:21 08/23/20 04:21 Labs: Abnormal Lab Results - Last 24 Hours (Table) 08/21/20 08/22/20 08/22/20 Range/Units 19:49 06:12 22:16 WBC (3.8-10.6) k/uL RBC (4.30-5.90) m/uL Hgb (13.0-17.5) gm/dL Hct (39.0-53.0) % Neutrophils # (1.3-7.7) k/uL Lymphocytes # (1.0-4.8) k/uL APTT 36.9 H (22.0-30.0) sec Sodium (137-145) mmol/L Chloride (98-107) mmol/L Carbon Dioxide 19.8 L (21.6-31.8) mmol/L BUN 96.0 H (9.0-27.0) mg/dL Creatinine 2.9 H (0.6-1.5) mg/dL Est GFR (CKD-EPI)AfAm 25.2 L (60.0-200.0) Est GFR (CKD-EPI)NonAf 21.7 L (60.0-200.0) BUN/Creatinine Ratio 33.10 H (12.00-20.00) Ratio Glucose 116 H (70-110) mg/dL Calcium 8.2 L (8.7-10.3) mg/dL Alkaline Phosphatase (38-126) U/L Total Protein (6.3-8.2) g/dL Albumin (3.5-5.0) g/dL Procalcitonin 1.45 H (0.02-0.09) ng/mL 08/23/20 08/23/20 08/23/20 Range/Units 04:21 04:21 04:21 WBC 27.7 H (3.8-10.6) k/uL RBC 3.01 L (4.30-5.90) m/uL Hgb 8.7 L (13.0-17.5) gm/dL Hct 27.4 L (39.0-53.0) % Neutrophils # 26.4 H (1.3-7.7) k/uL Lymphocytes # 0.5 L (1.0-4.8) k/uL APTT 43.3 H (22.0-30.0) sec Sodium 132 L (137-145) mmol/L Chloride 109 H (98-107) mmol/L Carbon Dioxide 16 L (21.6-31.8) mmol/L BUN 89 H (9.0-27.0) mg/dL Creatinine 2.66 H (0.6-1.5) mg/dL Est GFR (CKD-EPI)AfAm (60.0-200.0) Est GFR (CKD-EPI)NonAf (60.0-200.0) BUN/Creatinine Ratio (12.00-20.00) Ratio Glucose 140 H (70-110) mg/dL Calcium (8.7-10.3) mg/dL Alkaline Phosphatase 216 H (38-126) U/L Total Protein 5.3 L (6.3-8.2) g/dL Albumin 2.5 L (3.5-5.0) g/dL Procalcitonin (0.02-0.09) ng/mL Microbiology - Last 24 Hours (Table) 08/21/20 19:49 Blood Culture - Preliminary Blood No Growth after 24 hours 08/21/20 21:30 Urine Culture - Preliminary Urine,Voided 08/16/20 08:45 Blood Culture - Final Blood No Growth after 144 hours Assessment and Plan (1) Rectal mass Current Visit: Yes Status: Acute Code(s): K62.89 - OTHER SPECIFIED DISEASES OF ANUS AND RECTUM SNOMED Code(s): 738781629 (2) ARF (acute renal failure) Current Visit: Yes Status: Acute Code(s): N17.9 - ACUTE KIDNEY FAILURE, UNSPECIFIED SNOMED Code(s): 09229796 (3) Left leg DVT Current Visit: Yes Status: Acute Code(s): I82.402 - ACUTE EMBOLISM AND THOMBOS UNSP DEEP VEINS OF L LOW EXTREM SNOMED Code(s): 673730936 (4) Weakness Current Visit: Yes Status: Acute Code(s): R53.1 - WEAKNESS SNOMED Code(s): 23117896 (5) Weight loss Current Visit: Yes Status: Acute Code(s): R63.4 - ABNORMAL WEIGHT LOSS SNOMED Code(s): 60025023 (6) Hydronephrosis Current Visit: Yes Status: Acute Code(s): N13.30 - UNSPECIFIED HYDRONEPHROSIS SNOMED Code(s): 20516235 (7) Bladder neoplasm Current Visit: Yes Status: Acute Code(s): D49.4 - NEOPLASM OF UNSPECIFIED BEHAVIOR OF BLADDER SNOMED Code(s): 007835806 Plan: Nephrostomy tubes scheduled today. Prognosis is guarded secondary to multiple comorbidities. I had a long discussion with the patient as far as prognostic indicators. See orders otherwise Time with Patient: Greater than 30
[2020-08-23] MEDS: PANTOPRAZOLE 40 MG/10 ML VIAL IVP SCH ×2 (08:46→21:13)
--- NOTE | 2020-08-23 10:04 | P.PN ---
Subjective Progress Note Date: 08/23/20 Today the patient is feeling well, no complaints overnight Objective - Vital Signs Vital signs: Vital Signs Temp 97.5 F L 08/23/20 08:51 Pulse 112 H 08/23/20 08:51 Resp 18 08/23/20 08:51 BP 129/80 08/23/20 08:51 Pulse Ox 97 08/23/20 08:51 Intake & Output 08/22/20 08/23/20 08/23/20 18:59 06:59 18:59 Intake Total 1194.847 183.589 15.458 Output Total 800 300 Balance 394.847 -116.411 15.458 Weight 61.5 kg Intake: IV 1050 Intake, IV Titration 144.847 183.589 15.458 Amount Heparin Sod,Pork in 0.45% 144.847 183.589 15.458 NaCl 25,000 unit In 0.45 % NaCl 1 250ml.bag @ 18 UNITS/KG/HR 9.798 mls/hr IV .Q24H [facility] Rx#: [id number] Output: Urine 800 300 Estimated Blood Loss 0 Other: Voiding Method Indwelling Catheter Urinal Urinal # Voids 1 0 # Bowel Movements 0 - Constitutional General appearance: Present: cooperative, thin - Cardiovascular Rhythm: regular - Gastrointestinal Gastrointestinal Comment(s): S/NT/ND - Labs CBC & Chem 7: 08/23/20 04:21 08/23/20 04:21 Labs: Abnormal Lab Results - Last 24 Hours (Table) 08/21/20 08/22/20 08/22/20 Range/Units 19:49 06:12 22:16 WBC (3.8-10.6) k/uL RBC (4.30-5.90) m/uL Hgb (13.0-17.5) gm/dL Hct (39.0-53.0) % Neutrophils # (1.3-7.7) k/uL Lymphocytes # (1.0-4.8) k/uL APTT 36.9 H (22.0-30.0) sec Sodium (137-145) mmol/L Chloride (98-107) mmol/L Carbon Dioxide 19.8 L (21.6-31.8) mmol/L BUN 96.0 H (9.0-27.0) mg/dL Creatinine 2.9 H (0.6-1.5) mg/dL Est GFR (CKD-EPI)AfAm 25.2 L (60.0-200.0) Est GFR (CKD-EPI)NonAf 21.7 L (60.0-200.0) BUN/Creatinine Ratio 33.10 H (12.00-20.00) Ratio Glucose 116 H (70-110) mg/dL Calcium 8.2 L (8.7-10.3) mg/dL Alkaline Phosphatase (38-126) U/L Total Protein (6.3-8.2) g/dL Albumin (3.5-5.0) g/dL Procalcitonin 1.45 H (0.02-0.09) ng/mL 08/23/20 08/23/20 08/23/20 Range/Units 04:21 04:21 04:21 WBC 27.7 H (3.8-10.6) k/uL RBC 3.01 L (4.30-5.90) m/uL Hgb 8.7 L (13.0-17.5) gm/dL Hct 27.4 L (39.0-53.0) % Neutrophils # 26.4 H (1.3-7.7) k/uL Lymphocytes # 0.5 L (1.0-4.8) k/uL APTT 43.3 H (22.0-30.0) sec Sodium 132 L (137-145) mmol/L Chloride 109 H (98-107) mmol/L Carbon Dioxide 16 L (21.6-31.8) mmol/L BUN 89 H (9.0-27.0) mg/dL Creatinine 2.66 H (0.6-1.5) mg/dL Est GFR (CKD-EPI)AfAm (60.0-200.0) Est GFR (CKD-EPI)NonAf (60.0-200.0) BUN/Creatinine Ratio (12.00-20.00) Ratio Glucose 140 H (70-110) mg/dL Calcium (8.7-10.3) mg/dL Alkaline Phosphatase 216 H (38-126) U/L Total Protein 5.3 L (6.3-8.2) g/dL Albumin 2.5 L (3.5-5.0) g/dL Procalcitonin (0.02-0.09) ng/mL Microbiology - Last 24 Hours (Table) 08/21/20 19:49 Blood Culture - Preliminary Blood No Growth after 24 hours 08/21/20 21:30 Urine Culture - Preliminary Urine,Voided 08/16/20 08:45 Blood Culture - Final Blood No Growth after 144 hours Assessment and Plan Assessment: DVT rectal mass highly suspicious for rectal cancer with metastatic disease, suspi cious liver mass seen on US bladder tumor Plan: It appears that patient also has a bladder tumor vs extension of rectal tumor into bladder. Follow up urology recs and biopsy of bladder tumor. I did contact colorectal surgeon who stated that he did see the patient and had ordered a metastatic workup however the patient had not followed up with him since his initial visit. No plans for immediate general surgical intervention. I would recommend continued follow up with colorectal surgery Dr. Marlena Donato after this admission.
--- NOTE | 2020-08-23 10:14 | P.PN ---
Subjective patient is seen in follow-up for acute kidney injury. Renal function improving. nonoliguric. Oral intake fair. No vomiting or diarrhea. Scheduled for nephrostomy tubes placement today. Vital signs are stable. General: The patient appeared well nourished and normally developed. HEENT: Head exam is unremarkable. Neck is without jugular venous distension. LUNGS: Breath sounds decreased. HEART: Rate and Rhythm are regular. ABDOMEN: soft, nontender. EXTREMITITES: 2+ edema left lower extremity. trace edema right lower extremity. Objective - Vital Signs Vital signs: Vital Signs Temp 97.5 F L 08/23/20 08:51 Pulse 112 H 08/23/20 08:51 Resp 18 08/23/20 08:51 BP 129/80 08/23/20 08:51 Pulse Ox 97 08/23/20 08:51 Intake & Output 08/22/20 08/23/20 08/23/20 18:59 06:59 18:59 Intake Total 1194.847 183.589 15.458 Output Total 800 300 Balance 394.847 -116.411 15.458 Weight 61.5 kg Intake: IV 1050 Intake, IV Titration 144.847 183.589 15.458 Amount Heparin Sod,Pork in 0.45% 144.847 183.589 15.458 NaCl 25,000 unit In 0.45 % NaCl 1 250ml.bag @ 18 UNITS/KG/HR 9.798 mls/hr IV .Q24H [facility] Rx#: [id number] Output: Urine 800 300 Estimated Blood Loss 0 Other: Voiding Method Indwelling Catheter Urinal Urinal # Voids 1 0 # Bowel Movements 0 - Labs CBC & Chem 7: 08/23/20 04:21 08/23/20 04:21 Labs: Abnormal Lab Results - Last 24 Hours (Table) 08/21/20 08/22/20 08/22/20 Range/Units 19:49 06:12 22:16 WBC (3.8-10.6) k/uL RBC (4.30-5.90) m/uL Hgb (13.0-17.5) gm/dL Hct (39.0-53.0) % Neutrophils # (1.3-7.7) k/uL Lymphocytes # (1.0-4.8) k/uL APTT 36.9 H (22.0-30.0) sec Sodium (137-145) mmol/L Chloride (98-107) mmol/L Carbon Dioxide 19.8 L (21.6-31.8) mmol/L BUN 96.0 H (9.0-27.0) mg/dL Creatinine 2.9 H (0.6-1.5) mg/dL Est GFR (CKD-EPI)AfAm 25.2 L (60.0-200.0) Est GFR (CKD-EPI)NonAf 21.7 L (60.0-200.0) BUN/Creatinine Ratio 33.10 H (12.00-20.00) Ratio Glucose 116 H (70-110) mg/dL Calcium 8.2 L (8.7-10.3) mg/dL Alkaline Phosphatase (38-126) U/L Total Protein (6.3-8.2) g/dL Albumin (3.5-5.0) g/dL Procalcitonin 1.45 H (0.02-0.09) ng/mL 08/23/20 08/23/20 08/23/20 Range/Units 04:21 04:21 04:21 WBC 27.7 H (3.8-10.6) k/uL RBC 3.01 L (4.30-5.90) m/uL Hgb 8.7 L (13.0-17.5) gm/dL Hct 27.4 L (39.0-53.0) % Neutrophils # 26.4 H (1.3-7.7) k/uL Lymphocytes # 0.5 L (1.0-4.8) k/uL APTT 43.3 H (22.0-30.0) sec Sodium 132 L (137-145) mmol/L Chloride 109 H (98-107) mmol/L Carbon Dioxide 16 L (21.6-31.8) mmol/L BUN 89 H (9.0-27.0) mg/dL Creatinine 2.66 H (0.6-1.5) mg/dL Est GFR (CKD-EPI)AfAm (60.0-200.0) Est GFR (CKD-EPI)NonAf (60.0-200.0) BUN/Creatinine Ratio (12.00-20.00) Ratio Glucose 140 H (70-110) mg/dL Calcium (8.7-10.3) mg/dL Alkaline Phosphatase 216 H (38-126) U/L Total Protein 5.3 L (6.3-8.2) g/dL Albumin 2.5 L (3.5-5.0) g/dL Procalcitonin (0.02-0.09) ng/mL Microbiology - Last 24 Hours (Table) 08/21/20 19:49 Blood Culture - Preliminary Blood No Growth after 24 hours 08/21/20 21:30 Urine Culture - Preliminary Urine,Voided 08/16/20 08:45 Blood Culture - Final Blood No Growth after 144 hours Assessment and Plan Plan: assessment: 1. Acute kidney injury secondary to obstructive uropathy. renal function mildly improved. Creatinine 2.66 today. 2. Bilateral hydronephrosis and nephrolithiasis. Status post cystoscopy August 22. Scheduled for nephrostomy tubes placement today. 3. Acute left lower extremity DVT maintained on IV heparin. 4. hyperkalemia secondary to acute kidney injury, obstructive uropathy and metabolic acidosis. better. 5. rectal mass. Oncology following. Liver lesion noted on ultrasound. high suspicion for metastatic disease. Also noted to have bladder cancer on cystoscopy. 6. Rule out chronic kidney disease. Unknown baseline renal function. 7. Anemia. Iron deficiency noted. Ferritin level 54544. 8. Metabolic acidosis secondary to acute kidney injury and IV fluids. plan: Nephrostomy tubes today. Normal saline at 50 mL an hour. Add oral sodium bicarbonate. Encourage oral intake. Avoid nephrotoxins. Continue to monitor renal function and urine output.
[2020-08-23] MEDS: SODIUM BICARBONATE TAB 650 MG TAB PO SCH ×2 (11:42→21:13)
[2020-08-23] MEDS ORDERED: SODIUM CHLORIDE 0.9% 500 ML 500 ML IV ONE (13:25)
[2020-08-23] MEDS ORDERED: fentaNYL (PF) 50 MCG/ML 2 ML AMP ONE (13:27)
[2020-08-23] MEDS: fentaNYL (PF) 50 MCG/ML 2 ML AMP IVP ONE ×2 (13:27→13:42)
[2020-08-23] MEDS: LIDOCAINE 1% INJ 10MG/ML (20 ML MDV) SQ ONE ×3 (13:29→13:54)
[2020-08-23] MEDS ORDERED: IOPAMIDOL-370 50ML BTL INJ ONE (14:15)
--- NOTE | 2020-08-23 14:50 | US ---
ULTRASOUND GUIDED ACCESS INTO THE LEFT KIDNEY FOR PERCUTANEOUS NEPHROSTOMY: CLINICAL HISTORY: Left hydronephrosis FINDINGS: The procedure was explained to the patient. The risks, complications, benefits and alternatives were discussed and any questions were answered. Informed consent was obtained. Patient was placed supin e on the ultrasound table and prepped and draped in the usual sterile fashion. Utilizing a 22 gauge needle, a single pass was made into a posterior mid pole calyx. Contrast was administered into the re nal pelvis under fluoroscopy demonstrating ideal placement of the needle and filling of the renal pel vis and ureter. IMPRESSION: 1. Somewhat guidance provided for percutaneous nephrostomy tube access.
--- NOTE | 2020-08-23 16:33 | P.PN ---
Subjective Progress Note Date: 08/23/20 Principal diagnosis: Malignancy Status Post Cystoscopy with identification of Bladder lesion. Biopsy is now pending and status post stent placement Objective - Vital Signs Vital signs: Vital Signs Temp 97.5 F L 08/23/20 15:51 Pulse 121 H 08/23/20 16:00 Resp 16 08/23/20 15:51 BP 132/82 08/23/20 16:00 Pulse Ox 96 08/23/20 15:51 Intake & Output 08/22/20 08/23/20 08/23/20 18:59 06:59 18:59 Intake Total 1194.847 183.589 140.458 Output Total 800 300 450 Balance 394.847 -116.411 -309.542 Weight 61.5 kg 61.5 kg Intake: IV 1050 125 Intake, IV Titration 144.847 183.589 15.458 Amount Heparin Sod,Pork in 0.45% 144.847 183.589 15.458 NaCl 25,000 unit In 0.45 % NaCl 1 250ml.bag @ 18 UNITS/KG/HR 9.798 mls/hr IV .Q24H [facility] Rx#: [id number] Output: Urine 800 300 450 Estimated Blood Loss 0 Other: Voiding Method Indwelling Catheter Urinal Urinal # Voids 1 0 2 # Bowel Movements 0 - Exam - Constitutional General appearance: Present: no acute distress - EENT Eyes: Present: EOMI ENT: Present: hearing grossly normal, normal oropharynx - Respiratory Respiratory: bilateral: CTA - Cardiovascular Rhythm: regular Heart sounds: normal: S1, S2 - Gastrointestinal General gastrointestinal: Present: normal bowel sounds, soft - Integumentary Integumentary: Present: normal - Neurologic Neurologic: Present: CNII-XII intact - Musculoskeletal Musculoskeletal: Present: generalized weakness, strength equal bilaterally - Labs CBC & Chem 7: 08/23/20 04:21 08/23/20 04:21 Labs: Abnormal Lab Results - Last 24 Hours (Table) 08/22/20 08/23/20 08/23/20 Range/Units 22:16 04:21 04:21 WBC 27.7 H (3.8-10.6) k/uL RBC 3.01 L (4.30-5.90) m/uL Hgb 8.7 L (13.0-17.5) gm/dL Hct 27.4 L (39.0-53.0) % Neutrophils # 26.4 H (1.3-7.7) k/uL Lymphocytes # 0.5 L (1.0-4.8) k/uL APTT 36.9 H (22.0-30.0) sec Sodium 132 L (137-145) mmol/L Chloride 109 H (98-107) mmol/L Carbon Dioxide 16 L (22-30) mmol/L BUN 89 H (9-20) mg/dL Creatinine 2.66 H (0.66-1.25) mg/dL Glucose 140 H (74-99) mg/dL Alkaline Phosphatase 216 H (38-126) U/L Total Protein 5.3 L (6.3-8.2) g/dL Albumin 2.5 L (3.5-5.0) g/dL 08/23/20 Range/Units 04:21 WBC (3.8-10.6) k/uL RBC (4.30-5.90) m/uL Hgb (13.0-17.5) gm/dL Hct (39.0-53.0) % Neutrophils # (1.3-7.7) k/uL Lymphocytes # (1.0-4.8) k/uL APTT 43.3 H (22.0-30.0) sec Sodium (137-145) mmol/L Chloride (98-107) mmol/L Carbon Dioxide (22-30) mmol/L BUN (9-20) mg/dL Creatinine (0.66-1.25) mg/dL Glucose (74-99) mg/dL Alkaline Phosphatase (38-126) U/L Total Protein (6.3-8.2) g/dL Albumin (3.5-5.0) g/dL Microbiology - Last 24 Hours (Table) 08/21/20 21:30 Urine Culture - Final Urine,Voided 08/21/20 19:49 Blood Culture - Preliminary Blood No Growth after 24 hours Assessment and Plan (1) ARF (acute renal failure) Current Visit: Yes Status: Acute Code(s): N17.9 - ACUTE KIDNEY FAILURE, UNSPECIFIED SNOMED Code(s): 21684186 (2) Hydronephrosis Current Visit: Yes Status: Acute Code(s): N13.30 - UNSPECIFIED HYDRONEPHROSIS SNOMED Code(s): 50460711 (3) Left leg DVT Current Visit: Yes Status: Acute Code(s): I82.402 - ACUTE EMBOLISM AND THOMBOS UNSP DEEP VEINS OF L LOW EXTREM SNOMED Code(s): 785780378 (4) Rectal mass Current Visit: Yes Status: Acute Code(s): K62.89 - OTHER SPECIFIED DISEASES OF ANUS AND RECTUM SNOMED Code(s): 056835726 (5) Weight loss Current Visit: Yes Status: Acute Code(s): R63.4 - ABNORMAL WEIGHT LOSS SNOMED Code(s): 92975745 Plan: Assessment and Plan Rectal mass - Patient is aware that the mass most likely represents malignancy even though the biopsy showed high-grade dysplasia. He was again advised that in these situations the malignancy may be a deeper levels and the biopsy is essentially considered nondiagnostic. In addition there is concern for metastatic disease based on CT scans done at [facility] which was a contrast study. - The patient had a liver ultrasound to see if he had lesions that could be targeted with a biopsy, which would serve the dual purpose of giving us a pathologic diagnosis as well as proving metastatic disease and thus confirming staging. Ultrasound of the abdomen showed 1 somewhat nonspecific lesion. However the report states that the non-contrast computed tomography scan appear to indicate other suspicious lesions. - At this time the patient is not a candidate for a contrast study, because of persistently low renal function. - Discussion with radiology jil review CT from earlier in month when abnormality for potential metastatic disease was identified and biopsy using a contrast scan that was done at [facility]. originally ordered Liver biopsy, although with new findings of bladder wall lesion and status post cystoscopy liver biopsy is not needed at this time. - If this were positive the patient can then have a PET scan as an outpatient for completion of staging. - CEA is elevated 597 which is concerning for a metastatic picture Left leg DVT - Mr. Justina francis is his new thrombolic event which appears most consistent with hypercoaguable state of malignancy. If he is having rectal bleeding and anticoagulation is unable to be continued an IVC filter will need to be considered. - Continue patient on IV heparin as he may need additional invasive procedures in the next few days. - Monitor for any significant bleeding from the tumor site. If that occurs and the patient will need an IVC filter ARF (acute renal failure) - Creatinine today is 2.6,mild decrease - Status Post Cystoscopy and stent placement 08/22 - Recheck in am Plan 08/23/20: - Await Bladder Pathology (possible two cancers versus metastatic cancer) - Re-education to patient and plan for diagnostics work-up and importance of adherence. Physician Attest" I have completed the full history and physical and agree with above dictation, dictated as a scribe.
[2020-08-23] MEDS: HEPARIN SOD,PORK IN 0.45% NACL 25,000 UNIT in 0.45% NACL 1 250ML.BAG IV SCH ×2 (16:59→22:12)
[2020-08-23] MEDS ORDERED: HEPARIN SODIUM,PORCINE 5,000 UNIT/ML 1 ML VIAL IV PRN (17:07)
--- NOTE | 2020-08-23 17:10 | PN ---
PROGRESS NOTE DATE OF SERVICE: 08/23/2020 REASON FOR FOLLOWUP: Leukocytosis, complicated UTI. INTERVAL HISTORY: Patient is status post left nephrostomy tube placement. The patient tolerated the procedure, denies having any chest pain. No shortness of breath, no cough. No nausea, no vomiting, no abdominal pain, no diarrhea. PHYSICAL EXAMINATION: Blood pressure 132/82 with a pulse of 121, temperature is 97.5. He is 96% on room air. General description is an elderly male, lying in bed in no distress. RESPIRATORY SYSTEM: Unlabored breathing, clear to auscultation anteriorly. HEART: S1, S2. Regular rate and rhythm. ABDOMEN: Soft, no tenderness. LABS: Urine culture came back negative. Blood cultures are negative. Creatinine is 2.66. DIAGNOSTIC IMPRESSION/PLAN: Elevated white count which is multifactorial in this patient who did have a rectal muscle with high-grade dysplasia. Also evidence of mild hydronephrosis at the level with the right in this patient with edematous stump and stent base percent versus viral abscess status post left ostomy tube. His urine was significantly positive and he was started on Rocephin; however, white count has shown improvement with slight worsening. Will add Diflucan to cover for the Sarah, likely responsible for this elevated white count and see clinical response. If spike any fever, cultures will be repeated. Antibiotic will be adjusted further. MMODL / IJN: [id number] /
[2020-08-23] MEDS: ZOLPIDEM 5 MG TAB PO PRN (22:20)
[2020-08-24 05:34] LABS: HCT 30.1 % (39.0-53.0); HGB 9.5 gm/dL (13.0-17.5); Hypochromasia Slight; MCH 29.2 pg (25.0-35.0); MCHC 31.6 g/dL (31.0-37.0); MCV 92.3 fL (80.0-100.0); Mean Platelet Volume 8.2; Platelet Count 333 k/uL (150-450); RBC 3.26 m/uL (4.30-5.90); RDW 14.8 % (11.5-15.5); WBC 24.5 k/uL (3.8-10.6)
[2020-08-24 05:43] LABS: Albumin 2.5 g/dL (3.5-5.0); Calcium 8.5 mg/dL (8.4-10.2); Magnesium 2.1 mg/dL (1.6-2.3); Potassium 4.7 mmol/L (3.5-5.1); Total Bilirubin 0.3 mg/dL (0.2-1.3); Total Protein 5.3 g/dL (6.3-8.2)
[2020-08-24] MEDS: PANTOPRAZOLE 40 MG/10 ML VIAL IVP SCH ×2 (07:35→20:05)
[2020-08-24] MEDS: SODIUM BICARBONATE TAB 650 MG TAB PO SCH ×2 (07:35→20:05)
--- NOTE | 2020-08-24 08:21 | P.PN ---
Subjective Principal diagnosis: Rectal mass and weakness. The patient is a 65-year-old white male essentially admitted for significant weakness. All overt rectal masses noted with left lower DVT. The patient is continued on heparin and appreciate multiple consultants input. Patient states poor sleep yesterday. He also states back pain when trying to lay flat. Computed tomography scan without contrast did not show significant metastatic disease however. The patient however has significant hydronephrosis with acute renal failure. The patient will continue to be hydrated but seemingly's seems slightly improved since yesterday. Appreciate multiple consultants input. patient is now doing better since having nephrostomy tube. Objective - Vital Signs Vital signs: Vital Signs Temp 98.0 F 08/24/20 04:00 Pulse 110 H 08/24/20 04:00 Resp 18 08/24/20 04:00 BP 126/84 08/24/20 04:00 Pulse Ox 93 L 08/24/20 04:00 Intake & Output 08/23/20 08/24/20 08/24/20 18:59 06:59 18:59 Intake Total 980.458 585.686 360 Output Total 450 850 Balance 530.458 -264.314 360 Weight 61.5 kg 62 kg Intake: IV 125 Intake, IV Titration 15.458 345.686 Amount Heparin Sod,Pork in 0.45% 95.686 NaCl 25,000 unit In 0.45 % NaCl 1 250ml.bag @ 18 UNITS/KG/HR 11.07 mls/hr IV .[id number] [facility] Rx#: [id number] Heparin Sod,Pork in 0.45% 15.458 NaCl 25,000 unit In 0.45 % NaCl 1 250ml.bag @ 18 UNITS/KG/HR 9.798 mls/hr IV .Q24H [facility] Rx#: [id number] Sodium Chloride 0.9% 50 200 ml @ 0 mls/hr IV .STK-MED ONE with ceFAZolin 1,000 mg Rx#:[id number] cefTRIAXone 2 gm In 50 Sodium Chloride 0.9% 50 ml @ 100 mls/hr IVPB Q24H [facility] Rx#:[id number] Oral 840 240 360 Output: Drainage 100 Left 100 Urine 450 750 Other: Voiding Method Urinal Urinal # Voids 2 1 - Constitutional General appearance: Present: thin - Neck Neck: Absent: lymphadenopathy - Respiratory Respiratory: bilateral: diminished - Cardiovascular Rhythm: irregularly irregular Heart sounds: normal: S1, S2 Abnormal Heart Sounds: Absent: S3 Gallop - Gastrointestinal General gastrointestinal: Present: soft. Absent: tenderness - Neurologic Neurologic: Present: CNII-XII intact. Absent: focal deficits - Labs CBC & Chem 7: 08/24/20 05:15 08/24/20 05:15 Labs: Abnormal Lab Results - Last 24 Hours (Table) 08/24/20 08/24/20 08/24/20 Range/Units 05:15 05:15 05:15 WBC 24.5 H (3.8-10.6) k/uL RBC 3.26 L (4.30-5.90) m/uL Hgb 9.5 L (13.0-17.5) gm/dL Hct 30.1 L (39.0-53.0) % APTT 33.1 H (22.0-30.0) sec Sodium 136 L (137-145) mmol/L Chloride 108 H (98-107) mmol/L BUN 86 H (9-20) mg/dL Creatinine 2.70 H (0.66-1.25) mg/dL Glucose 123 H (74-99) mg/dL AST 65 H (17-59) U/L ALT 52 H (4-49) U/L Alkaline Phosphatase 236 H (38-126) U/L Total Protein 5.3 L (6.3-8.2) g/dL Albumin 2.5 L (3.5-5.0) g/dL Microbiology - Last 24 Hours (Table) 08/21/20 19:49 Blood Culture - Preliminary Blood No Growth after 48 hours 08/21/20 21:30 Urine Culture - Final Urine,Voided Assessment and Plan (1) Rectal mass Current Visit: Yes Status: Acute Code(s): K62.89 - OTHER SPECIFIED DISEASES OF ANUS AND RECTUM SNOMED Code(s): 399367100 (2) ARF (acute renal failure) Current Visit: Yes Status: Acute Code(s): N17.9 - ACUTE KIDNEY FAILURE, UNSPECIFIED SNOMED Code(s): 41136170 (3) Left leg DVT Current Visit: Yes Status: Acute Code(s): I82.402 - ACUTE EMBOLISM AND THOMBOS UNSP DEEP VEINS OF L LOW EXTREM SNOMED Code(s): 679283326 (4) Weakness Current Visit: Yes Status: Acute Code(s): R53.1 - WEAKNESS SNOMED Code(s): 72581352 (5) Weight loss Current Visit: Yes Status: Acute Code(s): R63.4 - ABNORMAL WEIGHT LOSS SNOMED Code(s): 32928080 (6) Hydronephrosis Current Visit: Yes Status: Acute Code(s): N13.30 - UNSPECIFIED HYDRONEPHROSIS SNOMED Code(s): 97825136 (7) Bladder neoplasm Current Visit: Yes Status: Acute Code(s): D49.4 - NEOPLASM OF UNSPECIFIED BEHAVIOR OF BLADDER SNOMED Code(s): 127569938 Plan: postop day known for nephrostomy tubes. Bladder for tumor with rectal cancer. Prognosis is guarded secondary to multiple comorbidities. I had a long discussion with the patient as far as prognostic indicators. See orders otherwise discharge planning.
--- NOTE | 2020-08-24 10:20 | P.PN ---
Subjective patient is seen in follow-up for acute kidney injury. Renal function improving. nonoliguric. Oral intake fair. No vomiting or diarrhea. status post left sided nephrostomy tube placement on August 23. Vital signs are stable. General: The patient appeared well nourished and normally developed. HEENT: Head exam is unremarkable. Neck is without jugular venous distension. LUNGS: Breath sounds decreased. HEART: Rate and Rhythm are regular. ABDOMEN: soft, nontender. EXTREMITITES: 2+ edema left lower extremity. trace edema right lower extremity. Objective - Vital Signs Vital signs: Vital Signs Temp 98.0 F 08/24/20 04:00 Pulse 110 H 08/24/20 04:00 Resp 18 08/24/20 04:00 BP 126/84 08/24/20 04:00 Pulse Ox 93 L 08/24/20 04:00 Intake & Output 08/23/20 08/24/20 08/24/20 18:59 06:59 18:59 Intake Total 980.458 585.686 360 Output Total 450 850 Balance 530.458 -264.314 360 Weight 61.5 kg 62 kg Intake: IV 125 Intake, IV Titration 15.458 345.686 Amount Heparin Sod,Pork in 0.45% 95.686 NaCl 25,000 unit In 0.45 % NaCl 1 250ml.bag @ 18 UNITS/KG/HR 11.07 mls/hr IV .[id number] [facility] Rx#: [id number] Heparin Sod,Pork in 0.45% 15.458 NaCl 25,000 unit In 0.45 % NaCl 1 250ml.bag @ 18 UNITS/KG/HR 9.798 mls/hr IV .Q24H [facility] Rx#: [id number] Sodium Chloride 0.9% 50 200 ml @ 0 mls/hr IV .STK-MED ONE with ceFAZolin 1,000 mg Rx#:[id number] cefTRIAXone 2 gm In 50 Sodium Chloride 0.9% 50 ml @ 100 mls/hr IVPB Q24H [facility] Rx#:[id number] Oral 840 240 360 Output: Drainage 100 Left 100 Urine 450 750 Other: Voiding Method Urinal Urinal # Voids 2 1 - Labs CBC & Chem 7: 08/24/20 05:15 08/24/20 05:15 Labs: Abnormal Lab Results - Last 24 Hours (Table) 08/24/20 08/24/20 08/24/20 Range/Units 05:15 05:15 05:15 WBC 24.5 H (3.8-10.6) k/uL RBC 3.26 L (4.30-5.90) m/uL Hgb 9.5 L (13.0-17.5) gm/dL Hct 30.1 L (39.0-53.0) % APTT 33.1 H (22.0-30.0) sec Sodium 136 L (137-145) mmol/L Chloride 108 H (98-107) mmol/L BUN 86 H (9-20) mg/dL Creatinine 2.70 H (0.66-1.25) mg/dL Glucose 123 H (74-99) mg/dL AST 65 H (17-59) U/L ALT 52 H (4-49) U/L Alkaline Phosphatase 236 H (38-126) U/L Total Protein 5.3 L (6.3-8.2) g/dL Albumin 2.5 L (3.5-5.0) g/dL Microbiology - Last 24 Hours (Table) 08/21/20 19:49 Blood Culture - Preliminary Blood No Growth after 48 hours 08/21/20 21:30 Urine Culture - Final Urine,Voided Assessment and Plan Plan: assessment: 1. Acute kidney injury secondary to obstructive uropathy. renal function stable. Creatinine 2.7 today. 2. Bilateral hydronephrosis and nephrolithiasis. Status post cystoscopy August 22. left-sided nephrostomy tube placed August 23. 3. Acute left lower extremity DVT maintained on IV heparin. 4. hyperkalemia secondary to acute kidney injury, obstructive uropathy and metabolic acidosis. better. 5. rectal mass. Oncology following. Liver lesion noted on ultrasound. high suspicion for metastatic disease. Also noted to have bladder cancer on cystoscopy. 6. Rule out chronic kidney disease. Unknown baseline renal function. 7. Anemia. Iron deficiency noted. Ferritin level [address]. 8. Metabolic acidosis secondary to acute kidney injury and IV fluids. better. maintained on oral bicarbonate. plan: Normal saline at 50 mL an hour. Encourage oral intake. Avoid nephrotoxins. Continue to monitor renal function and urine output.
--- NOTE | 2020-08-24 10:40 | P.PN ---
Subjective Progress Note Date: 08/24/20 The patient is in the hospital with a dvt most likely due to lymphatic obstruction from presumed metastatic rectal ca. He was found to have left sided hydro and a cr at 3 that didnt change with a kay catheter. The patient had a left sided n tube yesterday the right side wasnt done because he was too uncomfortable He iw still passing urine intp the bladder from right kidney.. The n tube is drain very light pink urine His creatinine is 2.7 I will watch the creatinine. The biopsy I did from the bladder is pending. Objective - Vital Signs Vital signs: Vital Signs Temp 97.9 F 08/24/20 08:00 Pulse 95 08/24/20 08:00 Resp 16 08/24/20 08:00 BP 157/91 08/24/20 08:00 Pulse Ox 95 08/24/20 08:00 Intake & Output 08/23/20 08/24/20 08/24/20 18:59 06:59 18:59 Intake Total 980.458 585.686 360 Output Total 450 850 Balance 530.458 -264.314 360 Weight 61.5 kg 62 kg Intake: IV 125 Intake, IV Titration 15.458 345.686 Amount Heparin Sod,Pork in 0.45% 95.686 NaCl 25,000 unit In 0.45 % NaCl 1 250ml.bag @ 18 UNITS/KG/HR 11.07 mls/hr IV .[id number] [facility] Rx#: [id number] Heparin Sod,Pork in 0.45% 15.458 NaCl 25,000 unit In 0.45 % NaCl 1 250ml.bag @ 18 UNITS/KG/HR 9.798 mls/hr IV .Q24H [facility] Rx#: [id number] Sodium Chloride 0.9% 50 200 ml @ 0 mls/hr IV .STK-MED ONE with ceFAZolin 1,000 mg Rx#:[id number] cefTRIAXone 2 gm In 50 Sodium Chloride 0.9% 50 ml @ 100 mls/hr IVPB Q24H [facility] Rx#:[id number] Oral 840 240 360 Output: Drainage 100 Left 100 Urine 450 750 Other: Voiding Method Urinal Urinal Urinal # Voids 2 1 - Labs CBC & Chem 7: 08/24/20 05:15 08/24/20 05:15 Labs: Abnormal Lab Results - Last 24 Hours (Table) 08/24/20 08/24/20 08/24/20 Range/Units 05:15 05:15 05:15 WBC 24.5 H (3.8-10.6) k/uL RBC 3.26 L (4.30-5.90) m/uL Hgb 9.5 L (13.0-17.5) gm/dL Hct 30.1 L (39.0-53.0) % APTT 33.1 H (22.0-30.0) sec Sodium 136 L (137-145) mmol/L Chloride 108 H (98-107) mmol/L BUN 86 H (9-20) mg/dL Creatinine 2.70 H (0.66-1.25) mg/dL Glucose 123 H (74-99) mg/dL AST 65 H (17-59) U/L ALT 52 H (4-49) U/L Alkaline Phosphatase 236 H (38-126) U/L Total Protein 5.3 L (6.3-8.2) g/dL Albumin 2.5 L (3.5-5.0) g/dL Microbiology - Last 24 Hours (Table) 08/21/20 19:49 Blood Culture - Preliminary Blood No Growth after 48 hours 08/21/20 21:30 Urine Culture - Final Urine,Voided
[2020-08-24] MEDS ORDERED: ALPRAZolam 0.5 MG TAB PO PRN (13:13)
[2020-08-24] MEDS: SERTRALINE 50 MG TAB PO SCH (13:23)
[2020-08-24] MEDS: HEPARIN SOD,PORK IN 0.45% NACL 25,000 UNIT in 0.45% NACL 1 250ML.BAG IV SCH (18:31)
[2020-08-24] MEDS ORDERED: FLUCONAZOLE 100 MG TAB PO ONE (21:45)
--- NOTE | 2020-08-24 22:23 | P.PN ---
Subjective Progress Note Date: 08/24/20 Principal diagnosis: Malignancy Pathology from bladder lesion resulted High grade carcinoma consistent with adenocarcinoma colon primary. Therefore this appears to be metastatic colon cancer. Objective - Vital Signs Vital signs: Vital Signs Temp 97.7 F 08/24/20 20:00 Pulse 115 H 08/24/20 20:00 Resp 20 08/24/20 20:00 BP 134/70 08/24/20 20:00 Pulse Ox 95 08/24/20 20:00 Intake & Output 08/24/20 08/24/20 08/25/20 06:59 18:59 06:59 Intake Total 018.508 7520.314 Output Total 850 645 Balance -264.314 840.314 Weight 62 kg Intake: IV 720 0.9 720 Intake, IV Titration 345.686 165.314 Amount Heparin Sod,Pork in 0.45% 95.686 165.314 NaCl 25,000 unit In 0.45 % NaCl 1 250ml.bag @ 18 UNITS/KG/HR 11.07 mls/hr IV .[id number] [facility] Rx#: [id number] Sodium Chloride 0.9% 50 200 ml @ 0 mls/hr IV .STK-MED ONE with ceFAZolin 1,000 mg Rx#:[id number] cefTRIAXone 2 gm In 50 Sodium Chloride 0.9% 50 ml @ 100 mls/hr IVPB Q24H [facility] Rx#:[id number] Oral 240 600 Output: Drainage 100 120 Left 100 120 Urine 750 525 Other: Voiding Method Urinal Urinal Urinal # Voids 1 - Exam - Constitutional General appearance: Present: no acute distress - EENT Eyes: Present: EOMI ENT: Present: hearing grossly normal, normal oropharynx - Respiratory Respiratory: bilateral: CTA - Cardiovascular Rhythm: regular Heart sounds: normal: S1, S2 - Gastrointestinal General gastrointestinal: Present: normal bowel sounds, soft - Integumentary Integumentary: Present: normal - Neurologic Neurologic: Present: CNII-XII intact - Musculoskeletal Musculoskeletal: Present: generalized weakness, strength equal bilaterally - Labs CBC & Chem 7: 08/24/20 05:15 08/24/20 05:15 Labs: Abnormal Lab Results - Last 24 Hours (Table) 08/24/20 08/24/20 08/24/20 Range/Units 05:15 05:15 05:15 WBC 24.5 H (3.8-10.6) k/uL RBC 3.26 L (4.30-5.90) m/uL Hgb 9.5 L (13.0-17.5) gm/dL Hct 30.1 L (39.0-53.0) % APTT 33.1 H (22.0-30.0) sec Sodium 136 L (137-145) mmol/L Chloride 108 H (98-107) mmol/L BUN 86 H (9-20) mg/dL Creatinine 2.70 H (0.66-1.25) mg/dL Glucose 123 H (74-99) mg/dL AST 65 H (17-59) U/L ALT 52 H (4-49) U/L Alkaline Phosphatase 236 H (38-126) U/L Total Protein 5.3 L (6.3-8.2) g/dL Albumin 2.5 L (3.5-5.0) g/dL 08/24/20 08/24/20 Range/Units 11:37 19:42 WBC (3.8-10.6) k/uL RBC (4.30-5.90) m/uL Hgb (13.0-17.5) gm/dL Hct (39.0-53.0) % APTT 41.9 H 46.4 H (22.0-30.0) sec Sodium (137-145) mmol/L Chloride (98-107) mmol/L BUN (9-20) mg/dL Creatinine (0.66-1.25) mg/dL Glucose (74-99) mg/dL AST (17-59) U/L ALT (4-49) U/L Alkaline Phosphatase (38-126) U/L Total Protein (6.3-8.2) g/dL Albumin (3.5-5.0) g/dL Microbiology - Last 24 Hours (Table) 08/21/20 19:49 Blood Culture - Preliminary Blood No Growth after 48 hours Assessment and Plan (1) ARF (acute renal failure) Current Visit: Yes Status: Acute Code(s): N17.9 - ACUTE KIDNEY FAILURE, UNSPECIFIED SNOMED Code(s): 26223091 (2) Hydronephrosis Current Visit: Yes Status: Acute Code(s): N13.30 - UNSPECIFIED HYDRONEPHROSIS SNOMED Code(s): 76867983 (3) Left leg DVT Current Visit: Yes Status: Acute Code(s): I82.402 - ACUTE EMBOLISM AND THOMBOS UNSP DEEP VEINS OF L LOW EXTREM SNOMED Code(s): 955636065 (4) Rectal mass Current Visit: Yes Status: Acute Code(s): K62.89 - OTHER SPECIFIED DISEASES OF ANUS AND RECTUM SNOMED Code(s): 075646992 (5) Weight loss Current Visit: Yes Status: Acute Code(s): R63.4 - ABNORMAL WEIGHT LOSS SNOMED Code(s): 23327071 Plan: Assessment and Plan Rectal mass - Patient is aware that the mass most likely represents malignancy even though the biopsy showed high-grade dysplasia. He was again advised that in these situations the malignancy may be a deeper levels and the biopsy is essentially considered nondiagnostic. In addition there is concern for metastatic disease based on CT scans done at [facility] which was a contrast study. - The patient had a liver ultrasound to see if he had lesions that could be targeted with a biopsy, which would serve the dual purpose of giving us a pathologic diagnosis as well as proving metastatic disease and thus confirming staging. Ultrasound of the abdomen showed 1 somewhat nonspecific lesion. However the report states that the non-contrast computed tomography scan appear to indicate other suspicious lesions. - At this time the patient is not a candidate for a contrast study, because of persistently low renal function. - Discussion with radiology jil review CT from earlier in month when abnormality for potential metastatic disease was identified and biopsy using a contrast scan that was done at [facility]. originally ordered Liver biopsy, although with new findings of bladder wall lesion and status post cystoscopy liver biopsy is not needed at this time. - If this were positive the patient can then have a PET scan as an outpatient for completion of staging. - CEA is elevated 597 which is concerning for a metastatic picture Left leg DVT - Mr. Justina francis is his new thrombolic event which appears most consistent with hypercoaguable state of malignancy. If he is having rectal bleeding and anticoagulation is unable to be continued an IVC filter will need to be considered. - Continue patient on IV heparin as he may need additional invasive procedures in the next few days. - Monitor for any significant bleeding from the tumor site. If that occurs and the patient will need an IVC filter ARF (acute renal failure) - Creatinine today is 2.6,mild decrease - Status Post Cystoscopy and stent placement 08/22 - Recheck in am Plan 08/24/20 - Path consistent with high grade poorly differentiated carcinoma, adenocarcinoma of the colon. - Re-education to patient and plan for diagnostics work-up and importance of adherence. - Plan for PET scan as outpatient. Biopsy of liver is not needed since a confirmatory diagnosis has been made. - Will discuss results and treatment plan in more detail with patient tomorrow and after PET - See Dr. Laird in 1-2 weeks in office Physician Attest" I have completed the full history and physical and agree with above dictation, dictated as a scribe.
--- NOTE | 2020-08-24 22:44 | PN ---
PROGRESS NOTE DATE OF SERVICE: 08/24/2020 REASON FOR FOLLOWUP: Leukocytosis, likely urinary source. INTERVAL HISTORY: The patient is currently afebrile. The patient is breathing comfortably. Denies having any chest pain or shortness of breath or cough. No nausea. No vomiting. No abdominal pain or diarrhea. PHYSICAL EXAMINATION: Blood pressure 139/79 with a pulse of 120, temperature 98, 94% on 2 L nasal cannula. General description is an elderly male lying in bed in no distress. RESPIRATORY SYSTEM: Unlabored breathing with decreased breath sounds at the base. No wheeze. HEART: S1, S2. Regular rate and rhythm ABDOMEN: Soft. No tenderness. LABS: Hemoglobin is 9.5, white count 24.5. BUN of 86, creatinine 2.70. DIAGNOSTIC IMPRESSION AND PLAN: Patient with leukocytosis, likely urinary in this patient did have urinary outflow obstruction requiring left nephrostomy tube placement. White count is showing a slightly downward trend. Repeat urine will be ordered. Rocephin and Diflucan to continue and continue with supportive care. MMODL / IJN: [id number] /
[2020-08-25 07:45] LABS: Calcium 8.2 mg/dL (8.4-10.2); Magnesium 1.9 mg/dL (1.6-2.3); Potassium 4.6 mmol/L (3.5-5.1)
--- NOTE | 2020-08-25 07:50 | P.PN ---
Subjective Principal diagnosis: Rectal mass and weakness. The patient is a 65-year-old white male essentially admitted for significant weakness. All overt rectal masses noted with left lower DVT. The patient is continued on heparin and appreciate multiple consultants input. Patient states poor sleep yesterday. He also states back pain when trying to lay flat. Computed tomography scan without contrast did not show significant metastatic disease however. The patient however has significant hydronephrosis with acute renal failure. The patient will continue to be hydrated but seemingly's seems slightly improved since yesterday. Appreciate multiple consultants input. patient is now doing better since having nephrostomy tube. there is some element of depression. 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 We will go ahead and anticipate transfer to [facility]. Objective - Vital Signs Vital signs: Vital Signs Temp 98.3 F 08/25/20 04:00 Pulse 110 H 08/25/20 04:00 Resp 20 08/25/20 04:00 BP 116/71 08/25/20 04:00 Pulse Ox 95 08/25/20 04:00 Intake & Output 08/24/20 08/25/20 08/25/20 18:59 06:59 18:59 Intake Total 1485.314 240 Output Total 645 475 Balance 840.314 -235 Weight 59.5 kg Intake: IV 720 0.9 720 Intake, IV Titration 165.314 Amount Heparin Sod,Pork in 0.45% 165.314 NaCl 25,000 unit In 0.45 % NaCl 1 250ml.bag @ 18 UNITS/KG/HR 11.07 mls/hr IV .[id number] [facility] Rx#: [id number] Oral 600 240 Output: Drainage 120 125 Left 120 125 Urine 525 350 Other: Voiding Method Urinal Urinal # Voids 2 - Constitutional General appearance: Present: thin - EENT Eyes: Absent: abnormal pupil - Neck Neck: Absent: lymphadenopathy - Respiratory Respiratory: bilateral: CTA - Cardiovascular Rhythm: regular Heart sounds: normal: S1, S2 Abnormal Heart Sounds: Absent: S3 Gallop - Gastrointestinal General gastrointestinal: Present: soft. Absent: tenderness - Integumentary Integumentary: Present: normal - Labs CBC & Chem 7: 08/24/20 05:15 08/25/20 06:55 Labs: Abnormal Lab Results - Last 24 Hours (Table) 08/24/20 08/24/20 08/25/20 Range/Units 11:37 19:42 06:55 APTT 41.9 H 46.4 H (22.0-30.0) sec Sodium 136 L (137-145) mmol/L Chloride 109 H (98-107) mmol/L Carbon Dioxide 20 L (22-30) mmol/L BUN 83 H (9-20) mg/dL Creatinine 2.21 H (0.66-1.25) mg/dL Calcium 8.2 L (8.4-10.2) mg/dL Microbiology - Last 24 Hours (Table) 08/21/20 19:49 Blood Culture - Preliminary Blood No Growth after 72 hours Assessment and Plan (1) Rectal mass Current Visit: Yes Status: Acute Code(s): K62.89 - OTHER SPECIFIED DISEASES OF ANUS AND RECTUM SNOMED Code(s): 082776255 (2) ARF (acute renal failure) Current Visit: Yes Status: Acute Code(s): N17.9 - ACUTE KIDNEY FAILURE, UNSPECIFIED SNOMED Code(s): 00053652 (3) Left leg DVT Current Visit: Yes Status: Acute Code(s): I82.402 - ACUTE EMBOLISM AND THOMBOS UNSP DEEP VEINS OF L LOW EXTREM SNOMED Code(s): 455759556 (4) Weakness Current Visit: Yes Status: Acute Code(s): R53.1 - WEAKNESS SNOMED Code(s): 54868406 (5) Weight loss Current Visit: Yes Status: Acute Code(s): R63.4 - ABNORMAL WEIGHT LOSS SNOMED Code(s): 07418642 (6) Hydronephrosis Current Visit: Yes Status: Acute Code(s): N13.30 - UNSPECIFIED HYDRONEPHROSIS SNOMED Code(s): 27868423 (7) Bladder neoplasm Current Visit: Yes Status: Acute Code(s): D49.4 - NEOPLASM OF UNSPECIFIED BEHAVIOR OF BLADDER SNOMED Code(s): 540986734 Plan: postop day known for nephrostomy tubes. metastatic rectal cancer Prognosis is guarded secondary to multiple comorbidities. I had a long discussion with the patient as far as prognostic indicators. See orders otherwise anticipate transfer to [facility].
[2020-08-25] MEDS ORDERED: APIXABAN 5 MG TAB PO SCH (09:00)
[2020-08-25] MEDS: PANTOPRAZOLE 40 MG/10 ML VIAL IVP SCH ×2 (10:07→21:26)
[2020-08-25] MEDS: SODIUM BICARBONATE TAB 650 MG TAB PO SCH ×2 (10:07→21:26)
[2020-08-25] MEDS: FLUCONAZOLE 100 MG TAB PO SCH (10:07)
[2020-08-25] MEDS: SERTRALINE 50 MG TAB PO SCH (10:08)
[2020-08-25] MEDS: HYDROcodone/APAP 7.5-325MG 1 EACH TAB PO PRN (10:10)
--- NOTE | 2020-08-25 10:40 | P.PN ---
Subjective Progress Note Date: 08/25/20 patient in the hospital with arf. Cr down to 2.2 with n tube. 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 Objective - Vital Signs Vital signs: Vital Signs Temp 97.9 F 08/25/20 10:00 Pulse 109 H 08/25/20 10:00 Resp 20 08/25/20 10:00 BP 109/57 08/25/20 10:00 Pulse Ox 99 08/25/20 10:00 Intake & Output 08/24/20 08/25/20 08/25/20 18:59 06:59 18:59 Intake Total 1485.314 240 120 Output Total 645 475 Balance 840.314 -235 120 Weight 59.5 kg Intake: IV 720 0.9 720 Intake, IV Titration 165.314 Amount Heparin Sod,Pork in 0.45% 165.314 NaCl 25,000 unit In 0.45 % NaCl 1 250ml.bag @ 18 UNITS/KG/HR 11.07 mls/hr IV .[id number] [facility] Rx#: [id number] Oral 600 240 120 Output: Drainage 120 125 Left 120 125 Urine 525 350 Other: Voiding Method Urinal Urinal Urinal # Voids 2 0 - Labs CBC & Chem 7: 08/24/20 05:15 08/25/20 06:55 Labs: Abnormal Lab Results - Last 24 Hours (Table) 08/24/20 08/24/20 08/25/20 Range/Units 11:37 19:42 06:55 APTT 41.9 H 46.4 H (22.0-30.0) sec Sodium 136 L (137-145) mmol/L Chloride 109 H (98-107) mmol/L Carbon Dioxide 20 L (22-30) mmol/L BUN 83 H (9-20) mg/dL Creatinine 2.21 H (0.66-1.25) mg/dL Calcium 8.2 L (8.4-10.2) mg/dL Microbiology - Last 24 Hours (Table) 08/21/20 19:49 Blood Culture - Preliminary Blood No Growth after 72 hours
--- NOTE | 2020-08-25 10:43 | P.PN ---
Subjective patient is seen in follow-up for acute kidney injury. Renal function improving. nonoliguric. Oral intake fair. No vomiting or diarrhea. status post left sided nephrostomy tube placement on August 23. no changes overnight. No active complaints. Vital signs are stable. General: The patient appeared well nourished and normally developed. HEENT: Head exam is unremarkable. Neck is without jugular venous distension. LUNGS: Breath sounds decreased. HEART: Rate and Rhythm are regular. ABDOMEN: soft, nontender. EXTREMITITES: 2+ edema left lower extremity. trace edema right lower extremity. Objective - Vital Signs Vital signs: Vital Signs Temp 97.9 F 08/25/20 10:00 Pulse 109 H 08/25/20 10:00 Resp 20 08/25/20 10:00 BP 109/57 08/25/20 10:00 Pulse Ox 99 08/25/20 10:00 Intake & Output 08/24/20 08/25/20 08/25/20 18:59 06:59 18:59 Intake Total 1485.314 240 120 Output Total 645 475 Balance 840.314 -235 120 Weight 59.5 kg Intake: IV 720 0.9 720 Intake, IV Titration 165.314 Amount Heparin Sod,Pork in 0.45% 165.314 NaCl 25,000 unit In 0.45 % NaCl 1 250ml.bag @ 18 UNITS/KG/HR 11.07 mls/hr IV .[id number] [facility] Rx#: [id number] Oral 600 240 120 Output: Drainage 120 125 Left 120 125 Urine 525 350 Other: Voiding Method Urinal Urinal Urinal # Voids 2 0 - Labs CBC & Chem 7: 08/24/20 05:15 08/25/20 06:55 Labs: Abnormal Lab Results - Last 24 Hours (Table) 08/24/20 08/24/20 08/25/20 Range/Units 11:37 19:42 06:55 APTT 41.9 H 46.4 H (22.0-30.0) sec Sodium 136 L (137-145) mmol/L Chloride 109 H (98-107) mmol/L Carbon Dioxide 20 L (22-30) mmol/L BUN 83 H (9-20) mg/dL Creatinine 2.21 H (0.66-1.25) mg/dL Calcium 8.2 L (8.4-10.2) mg/dL Microbiology - Last 24 Hours (Table) 08/21/20 19:49 Blood Culture - Preliminary Blood No Growth after 72 hours Assessment and Plan Plan: assessment: 1. Acute kidney injury secondary to obstructive uropathy. renal function improving. Creatinine 2.21 today. 2. Bilateral hydronephrosis and nephrolithiasis. Status post cystoscopy August 22. left-sided nephrostomy tube placed August 23. 3. Acute left lower extremity DVT maintained on anticoagulation. 4. hyperkalemia secondary to acute kidney injury, obstructive uropathy and metabolic acidosis. better. 5. rectal mass. Oncology following. Liver lesion noted on ultrasound. high suspicion for metastatic disease. Also noted to have bladder cancer on cystoscopy. 6. Rule out chronic kidney disease. Unknown baseline renal function. 7. Anemia. Iron deficiency noted. Ferritin level 57180. 8. Metabolic acidosis secondary to acute kidney injury and IV fluids. better. maintained on oral bicarbonate. plan: Encouraged oral intake. Avoid nephrotoxins. Continue to monitor renal function and urine output. anticipate discharge soon. Follow up outpatient in 7-10 days.
--- NOTE | 2020-08-25 11:10 | XR ---
EXAMINATION TYPE: XR chest 1V portable DATE OF EXAM: 08/25/2020 CLINICAL HISTORY: Shortness of breath, abnormal physical exam TECHNIQUE: Single AP portable frontal upright view of the chest is obtained. COMPARISON: Chest x-ray August 16, 2020 FINDINGS: There is Small left pleural effusion and associated left basilar atelectasis. New right apical opacity. No me diastinal shift. The cardiac silhouette size remains within normal limits with atherosclerotic change thoracic aorta. The osseous structures are intact. IMPRESSION: New right apical consolidation/atelectasis. New small left pleural effusion with associat ed left basilar atelectasis.
--- NOTE | 2020-08-25 12:50 | P.PN ---
Subjective Progress Note Date: 08/25/20 Today the patient is feeling well, no complaints overnight Objective - Vital Signs Vital signs: Vital Signs Temp 97.9 F 08/25/20 10:00 Pulse 109 H 08/25/20 10:00 Resp 20 08/25/20 10:00 BP 109/57 08/25/20 10:00 Pulse Ox 99 08/25/20 10:00 Intake & Output 08/24/20 08/25/20 08/25/20 18:59 06:59 18:59 Intake Total 1485.314 240 120 Output Total 645 475 Balance 840.314 -235 120 Weight 59.5 kg Intake: IV 720 0.9 720 Intake, IV Titration 165.314 Amount Heparin Sod,Pork in 0.45% 165.314 NaCl 25,000 unit In 0.45 % NaCl 1 250ml.bag @ 18 UNITS/KG/HR 11.07 mls/hr IV .[id number] [facility] Rx#: [id number] Oral 600 240 120 Output: Drainage 120 125 Left 120 125 Urine 525 350 Other: Voiding Method Urinal Urinal Urinal # Voids 2 0 - Labs CBC & Chem 7: 08/24/20 05:15 08/25/20 06:55 Labs: Abnormal Lab Results - Last 24 Hours (Table) 08/24/20 08/25/20 Range/Units 19:42 06:55 APTT 46.4 H (22.0-30.0) sec Sodium 136 L (137-145) mmol/L Chloride 109 H (98-107) mmol/L Carbon Dioxide 20 L (22-30) mmol/L BUN 83 H (9-20) mg/dL Creatinine 2.21 H (0.66-1.25) mg/dL Calcium 8.2 L (8.4-10.2) mg/dL Microbiology - Last 24 Hours (Table) 08/21/20 19:49 Blood Culture - Preliminary Blood No Growth after 72 hours Assessment and Plan Assessment: DVT Rectal CA with extension into bladder Plan: Mediport placement has been requested, patient is currently taking eliquis and needs to be off that for 48 hours prior to surgery. Likely the next available date for mediport placement will be Saturday if patient is medically cleared to come off his anticoagulation given his recent acute DVT. He could be bridged on heparin if he is cleared to come off that for 24 hour perioperative timeframe
[2020-08-25] MEDS: HEPARIN SOD,PORK IN 0.45% NACL 25,000 UNIT in 0.45% NACL 1 250ML.BAG IV SCH (14:20)
[2020-08-25] MEDS: ALBUTEROL NEBULIZED 2.5 MG/3 ML INHALATION SCH ×2 (15:21→19:32)
--- NOTE | 2020-08-25 15:24 | P.PN ---
Subjective Progress Note Date: 08/25/20 Principal diagnosis: Malignancy Reviewed pathology with patient and plan for PET scan as outpatient and need for mediport placement. In light of his new acute DVT, it is felt this would be best performed after heparin infusion rather than hold of DOAC for 48 hours. We will consult his surgeon to evaluate for inpatient port placement. Objective - Vital Signs Vital signs: Vital Signs Temp 97.4 F L 08/25/20 12:43 Pulse 113 H 08/25/20 12:43 Resp 20 08/25/20 12:43 BP 97/53 08/25/20 12:43 Pulse Ox 97 08/25/20 12:43 Intake & Output 08/24/20 08/25/20 08/25/20 18:59 06:59 18:59 Intake Total 1485.314 240 370 Output Total 645 475 Balance 840.314 -235 370 Weight 59.5 kg Intake: IV 720 0.9 720 Intake, IV Titration 165.314 250 Amount Heparin Sod,Pork in 0.45% 165.314 250 NaCl 25,000 unit In 0.45 % NaCl 1 250ml.bag @ 18 UNITS/KG/HR 11.07 mls/hr IV .[id number] [facility] Rx#: [id number] Oral 600 240 120 Output: Drainage 120 125 Left 120 125 Urine 525 350 Other: Voiding Method Urinal Urinal Urinal # Voids 2 0 - Exam - Constitutional General appearance: Present: no acute distress - EENT Eyes: Present: EOMI ENT: Present: hearing grossly normal, normal oropharynx - Respiratory Respiratory: bilateral: CTA - Cardiovascular Rhythm: regular Heart sounds: normal: S1, S2 - Gastrointestinal General gastrointestinal: Present: normal bowel sounds, soft - Integumentary Integumentary: Present: normal - Neurologic Neurologic: Present: CNII-XII intact - Musculoskeletal Musculoskeletal: Present: generalized weakness, strength equal bilaterally - Labs CBC & Chem 7: 08/24/20 05:15 08/25/20 06:55 Labs: Abnormal Lab Results - Last 24 Hours (Table) 08/24/20 08/25/20 Range/Units 19:42 06:55 APTT 46.4 H (22.0-30.0) sec Sodium 136 L (137-145) mmol/L Chloride 109 H (98-107) mmol/L Carbon Dioxide 20 L (22-30) mmol/L BUN 83 H (9-20) mg/dL Creatinine 2.21 H (0.66-1.25) mg/dL Calcium 8.2 L (8.4-10.2) mg/dL Microbiology - Last 24 Hours (Table) 08/21/20 19:49 Blood Culture - Preliminary Blood No Growth after 72 hours Assessment and Plan (1) ARF (acute renal failure) Current Visit: Yes Status: Acute Code(s): N17.9 - ACUTE KIDNEY FAILURE, UNSPECIFIED SNOMED Code(s): 63949988 (2) Hydronephrosis Current Visit: Yes Status: Acute Code(s): N13.30 - UNSPECIFIED HYDRONEPHROSIS SNOMED Code(s): 85123896 (3) Left leg DVT Current Visit: Yes Status: Acute Code(s): I82.402 - ACUTE EMBOLISM AND THOMBOS UNSP DEEP VEINS OF L LOW EXTREM SNOMED Code(s): 276391683 (4) Rectal mass Current Visit: Yes Status: Acute Code(s): K62.89 - OTHER SPECIFIED DISEASES OF ANUS AND RECTUM SNOMED Code(s): 155130560 (5) Weight loss Current Visit: Yes Status: Acute Code(s): R63.4 - ABNORMAL WEIGHT LOSS SNOMED Code(s): 36552456 Plan: Assessment and Plan Rectal mass - Patient is aware that the mass most likely represents malignancy even though the biopsy showed high-grade dysplasia. He was again advised that in these situations the malignancy may be a deeper levels and the biopsy is essentially considered nondiagnostic. In addition there is concern for metastatic disease based on CT scans done at [facility] which was a contrast study. - The patient had a liver ultrasound to see if he had lesions that could be targeted with a biopsy, which would serve the dual purpose of giving us a pathologic diagnosis as well as proving metastatic disease and thus confirming staging. Ultrasound of the abdomen showed 1 somewhat nonspecific lesion. However the report states that the non-contrast computed tomography scan appear to indicate other suspicious lesions. - At this time the patient is not a candidate for a contrast study, because of persistently low renal function. - Discussion with radiology jil review CT from earlier in month when abnormality for potential metastatic disease was identified and biopsy using a contrast scan that was done at [facility]. originally ordered Liver biopsy, although with new findings of bladder wall lesion and status post cystoscopy liver biopsy is not needed at this time. - If this were positive the patient can then have a PET scan as an outpatient for completion of staging. - CEA is elevated 597 which is concerning for a metastatic picture Left leg DVT - Mr. Justina francis is his new thrombolic event which appears most consistent with hypercoaguable state of malignancy. If he is having rectal bleeding and anticoagulation is unable to be continued an IVC filter will need to be considered. - Continue patient on IV heparin as he may need additional invasive procedures in the next few days. - Monitor for any significant bleeding from the tumor site. If that occurs and the patient will need an IVC filter ARF (acute renal failure) - Creatinine today is 2.6,mild decrease - Status Post Cystoscopy and stent placement 08/22 - Recheck in am Plan 08/25/20 - Reviewed pathology with patient and plan for PET scan as outpatient and need for mediport placement. In light of his new acute DVT, it is felt this would be best performed after heparin infusion rather than hold of DOAC for 48 hours. We will consult his surgeon to evaluate for inpatient port placement. 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 - Re-education to patient and plan for diagnostics work-up and importance of adherence. - Plan for PET scan as outpatient. Biopsy of liver is not needed since a confirmatory diagnosis has been made. - Will discuss results and treatment plan in more detail with patient tomorrow and after PET - See Dr. Laird in 1-2 weeks in office Physician Attest" I have completed the full history and physical and agree with above dictation, dictated as a scribe.
[2020-08-25] MEDS: PIPERACILLIN-TAZOBACTAM 3.375 GM in SODIUM CHLORIDE 0.9% 100 ML IVPB SCH (16:27)
[2020-08-25] MEDS: RIVAROXABAN 15 MG TAB PO SCH (16:29)
--- NOTE | 2020-08-25 22:24 | PN ---
PROGRESS NOTE DATE OF SERVICE: 08/25/2020 REASON FOR FOLLOWUP: Leukocytosis, possible urinary source, and a question of pneumonia. INTERVAL HISTORY: The patient is currently afebrile. The patient is breathing comfortably. Denies having any chest pain or shortness of breath. Minimal cough. No nausea, no vomiting. No abdominal pain or diarrhea. PHYSICAL EXAMINATION: Blood pressure is 99/57 with a pulse of 130, temperature 98.4. He is 98% on room air. General description is an elderly male up in the chair in no distress. RESPIRATORY SYSTEM: Unlabored breathing with decreased intensity of breath sounds. No wheeze. HEART: S1, S2. Regular rate and rhythm. ABDOMEN: Soft. No tenderness. LABS/IMAGING: BUN of 83, creatinine 2.21. No CBC was done today. The patient did have a chest x-ray that reported new right apical consolidation. DIAGNOSTIC IMPRESSION AND PLAN: Patient with leukocytosis, multifactorial, possible urinary source in this patient who did have bilateral ureteral obstruction, status post left nephrostomy tubes, now with evidence of right upper lobe consolidation. The patient did have significant respiratory symptoms suspicious for pneumonia. Antibiotic was adjusted to Zosyn. Discontinue Rocephin. Continue with Diflucan. Repeat CBC tomorrow and monitor his clinical course closely. MMODL / IJN: [id number] /
[2020-08-26] MEDS: PIPERACILLIN-TAZOBACTAM 3.375 GM in SODIUM CHLORIDE 0.9% 100 ML IVPB SCH ×4 (00:12→22:46)
[2020-08-26] MEDS: ALBUTEROL NEBULIZED 2.5 MG/3 ML INHALATION SCH ×4 (07:59→19:30)
--- NOTE | 2020-08-26 08:20 | P.PN ---
Subjective Principal diagnosis: Rectal mass and weakness. The patient is a 65-year-old white male essentially admitted for significant weakness. All overt rectal masses noted with left lower DVT. The patient is continued on heparin and appreciate multiple consultants input. Patient states poor sleep yesterday. He also states back pain when trying to lay flat. Computed tomography scan without contrast did not show significant metastatic disease however. The patient however has significant hydronephrosis with acute renal failure. The patient will continue to be hydrated but seemingly's seems slightly improved since yesterday. Appreciate multiple consultants input. patient is now doing better since having nephrostomy tube. there is some element of depression. 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 We will go ahead and anticipate transfer to [facility]. the patient wants to be transferred soon. We have discussed possible hospice options. The patient states that there is possibility of second nephrostomy. Nursing staff is also stated Mediport placement for treatment. Objective - Vital Signs Vital signs: Vital Signs Temp 97.6 F 08/26/20 04:00 Pulse 130 H 08/26/20 08:09 Resp 16 08/26/20 04:00 BP 93/63 08/26/20 04:00 Pulse Ox 99 08/26/20 04:00 Intake & Output 08/25/20 08/26/20 08/26/20 18:59 06:59 18:59 Intake Total 610 700 Output Total 1000 Balance -390 700 Weight 58.4 kg Intake: Intake, IV Titration 250 100 Amount Heparin Sod,Pork in 0.45% 250 NaCl 25,000 unit In 0.45 % NaCl 1 250ml.bag @ 18 UNITS/KG/HR 11.07 mls/hr IV .[id number] [facility] Rx#: [id number] Piperacillin-Tazobactam 3 100 .375 gm In Sodium Chloride 0.9% 100 ml @ 25 mls/hr IVPB Q8HR [facility] Rx# :[id number] Oral 360 600 Output: Urine 1000 Other: Voiding Method Urinal Urinal # Voids 0 - Constitutional General appearance: Present: thin - EENT Eyes: Absent: abnormal pupil - Neck Neck: Absent: lymphadenopathy - Respiratory Respiratory: bilateral: CTA - Cardiovascular Rhythm: regular Heart sounds: normal: S1, S2 Abnormal Heart Sounds: Absent: S3 Gallop - Gastrointestinal General gastrointestinal: Present: soft. Absent: tenderness - Integumentary Integumentary Comment(s): lower some edema bilaterally - Musculoskeletal Musculoskeletal: Present: generalized weakness - Labs CBC & Chem 7: 08/24/20 05:15 08/25/20 06:55 Labs: Abnormal Lab Results - Last 24 Hours (Table) 08/25/20 Range/Units 19:26 APTT 30.2 H (22.0-30.0) sec Microbiology - Last 24 Hours (Table) 08/21/20 19:49 Blood Culture - Preliminary Blood No Growth after 96 hours Assessment and Plan (1) Rectal mass Current Visit: Yes Status: Acute Code(s): K62.89 - OTHER SPECIFIED DISEASES OF ANUS AND RECTUM SNOMED Code(s): 989894753 (2) ARF (acute renal failure) Current Visit: Yes Status: Acute Code(s): N17.9 - ACUTE KIDNEY FAILURE, UNSPECIFIED SNOMED Code(s): 51781709 (3) Left leg DVT Current Visit: Yes Status: Acute Code(s): I82.402 - ACUTE EMBOLISM AND THOMBOS UNSP DEEP VEINS OF L LOW EXTREM SNOMED Code(s): 303593070 (4) Weakness Current Visit: Yes Status: Acute Code(s): R53.1 - WEAKNESS SNOMED Code(s): 34599754 (5) Weight loss Current Visit: Yes Status: Acute Code(s): R63.4 - ABNORMAL WEIGHT LOSS SN OMED Code(s): 25623374 (6) Hydronephrosis Current Visit: Yes Status: Acute Code(s): N13.30 - UNSPECIFIED HYDRONEPHROSIS SNOMED Code(s): 74248753 (7) Bladder neoplasm Current Visit: Yes Status: Acute Code(s): D49.4 - NEOPLASM OF UNSPECIFIED BEHAVIOR OF BLADDER SNOMED Code(s): 136037048 Plan: postop day known for nephrostomy tubes. metastatic rectal cancer Prognosis is guarded secondary to multiple comorbidities. I had a long discussion with the patient as far as prognostic indicators. See orders otherwise anticipate transfer to [facility]. the patient and I had discussed options due to his prognosis for possible hospice. We'll discharge when cleared by consultants.
[2020-08-26] MEDS: SERTRALINE 50 MG TAB PO SCH (08:33)
[2020-08-26] MEDS: SODIUM BICARBONATE TAB 650 MG TAB PO SCH ×2 (08:33→19:48)
[2020-08-26] MEDS: PANTOPRAZOLE 40 MG/10 ML VIAL IVP SCH (08:33)
[2020-08-26] MEDS: RIVAROXABAN 15 MG TAB PO SCH ×3 (08:33→19:48)
[2020-08-26] MEDS: FLUCONAZOLE 100 MG TAB PO SCH (08:33)
--- NOTE | 2020-08-26 08:54 | P.PN ---
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 The tumor is in the bladder It has obstructed both ureters but the left more than the right. He had a nephrostomy tube palced the other day and his creatinine is coming down He is still making urine so therefore the right isnt significantly blocked. the patient needs the left ntube converted to an internal stent but per Dr Ricci of radiology the patient was extremely anxious and uncomfortable during the procedure. He probably would need an anesthetic before the ntube was converted to an antegrade stent. He probably would benefit from the same on the right until the presumed chemotherapy he would need controls the disease. This has been discussed with the patient. If he goes home over the weekend I need to see him within 1 -2 weeks Objective - Vital Signs Vital signs: Vital Signs Temp 97.8 F 08/26/20 08:29 Pulse 134 H 08/26/20 08:40 Resp 16 08/26/20 08:40 BP 107/70 08/26/20 08:29 Pulse Ox 94 L 08/26/20 08:29 Intake & Output 08/25/20 08/26/20 08/26/20 18:59 06:59 18:59 Intake Total 610 700 240 Output Total 1000 Balance -390 700 240 Weight 58.4 kg Intake: Intake, IV Titration 250 100 Amount Heparin Sod,Pork in 0.45% 250 NaCl 25,000 unit In 0.45 % NaCl 1 250ml.bag @ 18 UNITS/KG/HR 11.07 mls/hr IV .[id number] [facility] Rx#: [id number] Piperacillin-Tazobactam 3 100 .375 gm In Sodium Chloride 0.9% 100 ml @ 25 mls/hr IVPB Q8HR [facility] Rx# :[id number] Oral 360 600 240 Output: Urine 1000 Other: Voiding Method Urinal Urinal Urinal # Voids 0 - Labs CBC & Chem 7: 08/24/20 05:15 08/25/20 06:55 Labs: Abnormal Lab Results - Last 24 Hours (Table) 08/25/20 Range/Units 19:26 APTT 30.2 H (22.0-30.0) sec Microbiology - Last 24 Hours (Table) 08/21/20 19:49 Blood Culture - Preliminary Blood No Growth after 96 hours
[2020-08-26] MEDS ORDERED: FUROSEMIDE 10 MG/ML 4 ML VIAL IV STA (10:00)
--- NOTE | 2020-08-26 10:40 | P.PN ---
Subjective patient is seen in follow-up for acute kidney injury. Renal function improving. nonoliguric. Oral intake fair. No vomiting or diarrhea. status post left sided nephrostomy tube placement on August 23. lower extremities more swollen and weeping today. Vital signs are stable. General: The patient appeared well nourished and normally developed. HEENT: Head exam is unremarkable. Neck is without jugular venous distension. LUNGS: Breath sounds decreased. HEART: Rate and Rhythm are regular. ABDOMEN: soft, nontender. EXTREMITITES: 2+ edema bilateral lower extremities Objective - Vital Signs Vital signs: Vital Signs Temp 97.8 F 08/26/20 08:29 Pulse 134 H 08/26/20 08:40 Resp 16 08/26/20 08:40 BP 107/70 08/26/20 08:29 Pulse Ox 94 L 08/26/20 08:29 Intake & Output 08/25/20 08/26/20 08/26/20 18:59 06:59 18:59 Intake Total 610 700 490 Output Total 1000 160 Balance -390 700 330 Weight 58.4 kg Intake: Intake, IV Titration 250 100 Amount Heparin Sod,Pork in 0.45% 250 NaCl 25,000 unit In 0.45 % NaCl 1 250ml.bag @ 18 UNITS/KG/HR 11.07 mls/hr IV .[id number] [facility] Rx#: [id number] Piperacillin-Tazobactam 3 100 .375 gm In Sodium Chloride 0.9% 100 ml @ 25 mls/hr IVPB Q8HR [facility] Rx# :[id number] Oral 360 600 490 Output: Urine 1000 160 Other: Voiding Method Urinal Urinal Urinal # Voids 0 - Labs CBC & Chem 7: 08/24/20 05:15 08/25/20 06:55 Labs: Abnormal Lab Results - Last 24 Hours (Table) 08/25/20 Range/Units 19:26 APTT 30.2 H (22.0-30.0) sec Microbiology - Last 24 Hours (Table) 08/21/20 19:49 Blood Culture - Preliminary Blood No Growth after 96 hours Assessment and Plan Plan: assessment: 1. Acute kidney injury secondary to obstructive uropathy. renal function improving. Creatinine 2.21 as of yesterday. 2. Bilateral hydronephrosis and nephrolithiasis. Status post cystoscopy August 22. left-sided nephrostomy tube placed August 23. 3. Acute left lower extremity DVT maintained on anticoagulation. 4. hyperkalemia secondary to acute kidney injury, obstructive uropathy and metabolic acidosis. better. 5. rectal mass. Oncology following. Liver lesion noted on ultrasound. high suspicion for metastatic disease. Also noted to have bladder cancer on cystoscopy. 6. Rule out chronic kidney disease. Unknown baseline renal function. 7. Anemia. Iron deficiency noted. Ferritin level [id number]. 8. Metabolic acidosis secondary to acute kidney injury and IV fluids. better. maintained on oral bicarbonate. 9. Volume overload. plan: Lasix 40 mg IV once today - change to 40 mg orally once daily upon discharge. Encouraged oral intake. Avoid nephrotoxins. Continue to monitor renal function and urine output. anticipate discharge soon. Follow up outpatient in 7-10 days.
--- NOTE | 2020-08-26 10:57 | P.PN ---
<Maria Eugenia Costa - Last Filed: 08/26/20 14:39> Subjective Progress Note Date: 08/26/20 Principal diagnosis: Malignancy patient will need chemotherapy rufino given his already delay due to non-adherence to follow-up. His disease appears to have penetrated to urinary bladder as positive pathology, treatment would require treatment with a FOLFOX regimen requiring a central line for slow home infusion of chemo. Discussed in detail with surgery yesterday, although since patient on heparin they wanted to hold anticoagulation for greater than 24 hours, which in the situation with a new DVT is not recommended. Heparin to be held 4-6 hours prior and restarted after line placement. It does however appear he was switched and recieved one dose of xarelto this am, I have since held this. Will confirm with nursing if given. May require to be placed back on heparin and then help during picc line. Consult for picc line placed. 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 No xarelto given this am. Spoke to nephrology who clear for picc in dominant arm Objective - Vital Signs Vital signs: Vital Signs Temp 97.8 F 08/26/20 08:29 Pulse 134 H 08/26/20 08:40 Resp 16 08/26/20 08:40 BP 107/70 08/26/20 08:29 Pulse Ox 94 L 08/26/20 08:29 Intake & Output 08/25/20 08/26/20 08/26/20 18:59 06:59 18:59 Intake Total 610 700 490 Output Total 1000 160 Balance -390 700 330 Weight 58.4 kg Intake: Intake, IV Titration 250 100 Amount Heparin Sod,Pork in 0.45% 250 NaCl 25,000 unit In 0.45 % NaCl 1 250ml.bag @ 18 UNITS/KG/HR 11.07 mls/hr IV .[id number] [facility] Rx#: [id number] Piperacillin-Tazobactam 3 100 .375 gm In Sodium Chloride 0.9% 100 ml @ 25 mls/hr IVPB Q8HR [facility] Rx# :[id number] Oral 360 600 490 Output: Urine 1000 160 Other: Voiding Method Urinal Urinal Urinal # Voids 0 - Exam - Constitutional General appearance: Present: no acute distress - EENT Eyes: Present: EOMI ENT: Present: hearing grossly normal, normal oropharynx - Respiratory Respiratory: bilateral: CTA - Cardiovascular Rhythm: regular Heart sounds: normal: S1, S2 - Gastrointestinal General gastrointestinal: Present: normal bowel sounds, soft - Integumentary Integumentary: Present: normal - Neurologic Neurologic: Present: CNII-XII intact - Musculoskeletal Musculoskeletal: Present: generalized weakness, strength equal bilaterally - Labs CBC & Chem 7: 08/24/20 05:15 08/25/20 06:55 Labs: Abnormal Lab Results - Last 24 Hours (Table) 08/25/20 Range/Units 19:26 APTT 30.2 H (22.0-30.0) sec Microbiology - Last 24 Hours (Table) 08/21/20 19:49 Blood Culture - Preliminary Blood No Growth after 96 hours Assessment and Plan (1) ARF (acute renal failure) Current Visit: Yes Status: Acute Code(s): N17.9 - ACUTE KIDNEY FAILURE, UNSPECIFIED SNOMED Code(s): 67586160 (2) Hydronephrosis Current Visit: Yes Status: Acute Code(s): N13.30 - UNSPECIFIED HYDRONEP HROSIS SNOMED Code(s): 29317986 (3) Left leg DVT Current Visit: Yes Status: Acute Code(s): I82.402 - ACUTE EMBOLISM AND THOMBOS UNSP DEEP VEINS OF L LOW EXTREM SNOMED Code(s): 309908518 (4) Rectal mass Current Visit: Yes Status: Acute Code(s): K62.89 - OTHER SPECIFIED DISEASES OF ANUS AND RECTUM SNOMED Code(s): 813892787 (5) Weight loss Current Visit: Yes Status: Acute Code(s): R63.4 - ABNORMAL WEIGHT LOSS SNO MED Code(s): 68045039 Plan: Assessment and Plan Rectal mass with invasion to Bladder - Path on 08/22 - Positive for high grade poorly differentiated carcinoma, adenocarcinoma of the colon. - PET as outpatient - Would like to begin treatment rufino, although anticipate delay secondary to ne ed for rehab, family working on home plan to shorten interval needed for rehab. - CEA is elevated 597 which is concerning for a metastatic picture Left leg DVT - Recommend Eliquis with underlying renal function and anticipation of chemotherapy ARF (acute renal failure) - Creatinine today is 2.6,mild decrease - Status Post Cystoscopy and stent placement 08/22 - Recheck in am Plan 08/26/20 - Patient will need central line prior to discharge for chemotherapy - Unable to receive port per surgery heparin drip would need to be off 24-48 hours. With New acute DVT this would not be recommended. Therefore plan for Picc line with IR. - Restart DOAC after Picc placement - Recommend Eliquis for underlying renal function. - Concern for further delay with rehab, discuss with patient and will dw family - Long discussion with daughter regarding full events, current status. They would like him to start treatment rufino, although with being admitted to rehab there would be a delay, this could negatively impact and result with further progression. [facility]la in [employer] [place] is checking with family as they would like him home with home care, and able to start systemic palliative treatment. If we could have a goal of 7 days at rehab, and then continuing increasing performance at home while having treatment this may be most beneficial. - Recheck CBC and CMP prior to discharge for more accurate baseline - Last 08/24 Physician Attest" I have completed the full history and physical and agree with above dictation, dictated as a scribe. <Denny Laird - Last Filed: 08/26/20 15:49> Objective - Vital Signs Vital signs: Vital Signs Temp 98.1 F 08/26/20 12:20 Pulse 126 H 08/26/20 12:20 Resp 20 08/26/20 12:20 BP 107/71 08/26/20 12:20 Pulse Ox 98 08/26/20 12:20 Intake & Output 08/25/20 08/26/20 08/26/20 18:59 06:59 18:59 Intake Total 610 700 580 Output Total 1000 160 Balance -390 700 420 Weight 58.4 kg 58.4 kg Intake: Intake, IV Titration 250 100 Amount Heparin Sod,Pork in 0.45% 250 NaCl 25,000 unit In 0.45 % NaCl 1 250ml.bag @ 18 UNITS/KG/HR 11.07 mls/hr IV .[id number] [facility] Rx#: [id number] Piperacillin-Tazobactam 3 100 .375 gm In Sodium Chloride 0.9% 100 ml @ 25 mls/hr IVPB Q8HR [facility] Rx# :[id number] Oral 360 600 580 Output: Urine 1000 160 Other: Voiding Method Urinal Urinal Urinal # Voids 0 - Labs CBC & Chem 7: 08/26/20 15:06 08/26/20 15:06 Labs: Abnormal Lab Results - Last 24 Hours (Table) 08/25/20 08/26/20 08/26/20 Range/Units 19:26 15:06 15:06 WBC 28.0 H (3.8-10.6) k/uL RBC 2.98 L (4.30-5.90) m/uL Hgb 8.6 L (13.0-17.5) gm/dL Hct 28.0 L (39.0-53.0) % MCHC 30.5 L (31.0-37.0) g/dL Neutrophils # (Manual) 26.60 H (1.3-7.7) k/uL APTT 30.2 H (22.0-30.0) sec Chloride 108 H (98-107) mmol/L Carbon Dioxide 21 L (22-30) mmol/L BUN 87 H (9-20) mg/dL Creatinine 2.51 H (0.66-1.25) mg/dL Glucose 136 H (74-99) mg/dL Alkaline Phosphatase 214 H (38-126) U/L Total Protein 5.5 L (6.3-8.2) g/dL Albumin 2.6 L (3.5-5.0) g/dL Microbiology - Last 24 Hours (Table) 08/21/20 19:49 Blood Culture - Preliminary Blood No Growth after 96 hours Assessment and Plan (1) Rectal mass Current Visit: Yes Status: Acute Code(s): K62.89 - OTHER SPECIFIED DISEASES OF ANUS AND RECTUM SNOMED Code(s): 370563890 (2) Left leg DVT Current Visit: Yes Status: Acute Code(s): I82.402 - ACUTE EMBOLISM AND THOMBOS UNSP DEEP VEINS OF L LOW EXTREM SNOMED Code(s): 861481875 (3) ARF (acute renal failure) Current Visit: Yes Status: Acute Code(s): N17.9 - ACUTE KIDNEY FAILURE, UNSPECIFIED SNOMED Code(s): 62827216 Plan: As above. Will also need PET as outpt
[2020-08-26] MEDS ORDERED: LIDOCAINE 1% INJ 10MG/ML (20 ML MDV) SQ ONE (13:13)
[2020-08-26] MEDS ORDERED: RIVAROXABAN 15 MG TAB PO SCH (13:27)
--- NOTE | 2020-08-26 14:13 | IR ---
EXAMINATION TYPE: IR cvc insert >=5 years DATE OF EXAM: 08/26/2020 COMPARISON: NONE CLINICAL HISTORY: Cancer Needs long-term intravenous access for therapy. PROCEDURE: Hand hygiene obtained with soap and water and alcohol-based hand rub. After informed consent, the skin overlying the right brachial vein was localized with ultrasound and noted to be compressible and patent. An ultrasound image was obtained and submitted on the patient's chart. The overlying skin was prepped and draped and Lidocaine was used for local anesthesia. A sk in pavan was made with a scalpel. Access was gained to the vein under ultrasound guidance with a 21 g auge needle and a 0.018 inch wire was advanced. Access site was dilated with Peel-Away sheath and ca theter tailored to the appropriate length and advanced such that the distal tip is at the cavoatrial junction. Spot image was obtained verifying placement. Catheter was fixed to the skin and a sterile dressing was placed following hemostasis. Catheter was aspirated and flushed with saline. Patient was discharged in stable condition without complication.Maximal barrier technique is utilized. Ultra sound image is documented on the chart. Ultrasound used with sterile technique. Fluoro time and fluoroscopic images submitted to document procedure: 100 intraoperative images, 0.3 m inutes fluoroscopy time IMPRESSION: STATUS POST ULTRASOUND AND FLUOROSCOPIC GUIDED PICC LINE PLACEMENT, READY FOR USE. THIS PROCEDURE WAS PERFORMED BY THE UNDERSIGNED.
[2020-08-26 15:14] LABS: HGB 8.6 gm/dL (13.0-17.5); Hypochromasia Moderate; MCH 28.7 pg (25.0-35.0); MCHC 30.5 g/dL (31.0-37.0); MCV 93.8 fL (80.0-100.0); Mean Platelet Volume 8.3; Platelet Count 330 k/uL (150-450); RBC 2.98 m/uL (4.30-5.90); RDW 14.8 % (11.5-15.5)
[2020-08-26 15:24] LABS: Lymphocytes # (M) 1.12 k/uL (1.0-4.8); Monocytes # (M) 0.28 k/uL (0-1.0); Neutrophils % (M) 95 %; Nucleated Red Blood Cells 0 /100 WBC (0-0); Total Cells Counted 100
[2020-08-26 15:29] LABS: Albumin 2.6 g/dL (3.5-5.0); Calcium 8.5 mg/dL (8.4-10.2); Potassium 4.3 mmol/L (3.5-5.1); Total Bilirubin 0.3 mg/dL (0.2-1.3); Total Protein 5.5 g/dL (6.3-8.2)
--- NOTE | 2020-08-26 17:16 | PN ---
PROGRESS NOTE DATE OF SERVICE: 08/26/2020 REASON FOR FOLLOWUP: Complicated urinary tract infection and possible aspiration pneumonia. INTERVAL HISTORY: The patient is currently afebrile. The patient is breathing comfortably. Patient denies having any chest pain or shortness of breath. Minimal cough. No nausea, no vomiting. No abdominal pain, no diarrhea. PHYSICAL EXAMINATION: Blood pressure 110/68 with a pulse of 121, temperature 98.6, 99% on room air. General description is an elderly male, lying in bed in no distress. RESPIRATORY SYSTEM: Unlabored breathing, clear to auscultation anteriorly. HEART: S1, S2. Regular rate and rhythm. ABDOMEN: Soft, no tenderness. LABS: Hemoglobin 8.4, white count 28,000, BUN of 27, creatinine is 2.51. Urine repeat has been negative. DIAGNOSTIC IMPRESSION AND PLAN: Patient with elevated white count persistently. This patient did have a complicated UTI and also requiring nephrostomy tube on left side. White count remains to be significantly elevated despite broad antibiotic and antifungal coverage. Cultures will be repeated. Antibiotic adjusted on the basis of these report. Continue supportive care. MMODL / IJN: [id number] /
[2020-08-26] MEDS: PANTOPRAZOLE 40 MG TABLET PO SCH (17:53)
[2020-08-26] MEDS: ZOLPIDEM 5 MG TAB PO PRN (22:46)
[2020-08-27] MEDS: PANTOPRAZOLE 40 MG TABLET PO SCH ×2 (06:27→17:11)
[2020-08-27] MEDS: RIVAROXABAN 15 MG TAB PO SCH ×2 (06:27→17:13)
[2020-08-27] MEDS: ALBUTEROL NEBULIZED 2.5 MG/3 ML INHALATION SCH ×4 (07:49→19:41)
[2020-08-27] MEDS: PIPERACILLIN-TAZOBACTAM 3.375 GM in SODIUM CHLORIDE 0.9% 100 ML IVPB SCH ×2 (08:45→16:09)
[2020-08-27] MEDS: SODIUM BICARBONATE TAB 650 MG TAB PO SCH ×2 (08:46→21:12)
[2020-08-27] MEDS: FLUCONAZOLE 100 MG TAB PO SCH (08:46)
[2020-08-27] MEDS: SERTRALINE 50 MG TAB PO SCH (08:46)
[2020-08-27] MEDS: FUROSEMIDE 40 MG TAB PO SCH (08:46)
[2020-08-27] MEDS ORDERED: HYDROmorphone 0.5 MG/0.5 ML SYRINGE IVP PRN (11:34)
--- NOTE | 2020-08-27 11:38 | P.PN ---
Subjective patient is being treated for her tract infection,patient has bilateral nephrostomies Aleah has rectal cancer on chemotherapy patient is also being balta ated for the acute renal failure presently on IV Lasix patient has bilateral pedal edema.patient's creatinine creatinine is still high but fairly stable at that level. Patient still has bilateral pedal edema. Patient on IV Lasix at this timepatient does have DVTs and PE for which patient is on Xarelto. Constitutional: Denied any fatigue denied any fever. Cardio vascular: denied any chest pain, palpitations Gastrointestinal denied any nausea vomiting Pulmonary: Denied any shortness of breath cough Neurologic denied any new focal deficits All inpatient medications were reviewed and appropriate changes in these medications as dictated in the interval history and assessment and plan. Objective - Vital Signs Vital signs: Vital Signs Temp 97.8 F 08/27/20 08:00 Pulse 129 H 08/27/20 08:00 Resp 17 08/27/20 08:00 BP 114/71 08/27/20 08:00 Pulse Ox 97 08/27/20 08:00 Intake & Output 08/26/20 08/27/20 08/27/20 18:59 06:59 18:59 Intake Total 1000 200 90 Output Total 460 335 Balance 540 -135 90 Weight 58.4 kg 56.5 kg Intake: Intake, IV Titration 100 Amount Piperacillin-Tazobactam 3 100 .375 gm In Sodium Chloride 0.9% 100 ml @ 25 mls/hr IVPB Q8HR [facility] Rx# :[id number] Oral 1000 100 90 Output: Drainage 110 Left 110 Urine 460 225 Other: Voiding Method Urinal Urinal Urinal - Exam PHYSICAL EXAMINATION: GENERAL: The patient is alert and oriented x3, not in any acute distress. Well developed, well nourished. HEENT: Pupils are round and equally reacting to light. EOMI. No scleral icterus. No conjunctival pallor. Normocephalic, atraumatic. No pharyngeal erythema. No thyromegaly. CARDIOVASCULAR: S1 and S2 present. No murmurs, rubs, or gallops. PULMONARY: Chest is clear to auscultation, no wheezing or crackles. ABDOMEN: Soft, nontender, nondistended, normoactive bowel sounds. No palpable organomegaly. MUSCULOSKELETAL: No joint swelling or deformity. EXTREMITIES: No cyanosis, clubbing,bilateral pedal edema pitting NEUROLOGICAL: Gross neurological examination did not reveal any focal deficits. SKIN: No rashes. - Labs CBC & Chem 7: 08/26/20 15:06 08/26/20 15:06 Labs: Abnormal Lab Results - Last 24 Hours (Table) 08/26/20 08/26/20 Range/Units 15:06 15:06 WBC 28.0 H (3.8-10.6) k/uL RBC 2.98 L (4.30-5.90) m/uL Hgb 8.6 L (13.0-17.5) gm/dL Hct 28.0 L (39.0-53.0) % MCHC 30.5 L (31.0-37.0) g/dL Neutrophils # (Manual) 26.60 H (1.3-7.7) k/uL Chloride 108 H (98-107) mmol/L Carbon Dioxide 21 L (22-30) mmol/L BUN 87 H (9-20) mg/dL Creatinine 2.51 H (0.66-1.25) mg/dL Glucose 136 H (74-99) mg/dL Alkaline Phosphatase 214 H (38-126) U/L Total Protein 5.5 L (6.3-8.2) g/dL Albumin 2.6 L (3.5-5.0) g/dL Microbiology - Last 24 Hours (Table) 08/21/20 19:49 Blood Culture - Preliminary Blood No Growth after 120 hours Assessment and Plan Plan: -UTI bilateral hydronephrosis patient has nephrostomies and patient is on broad- spectrum antibiotics Zosyn which will be continued -Bilateral hydronephrosis and nephrolithiasis -acute renal failure secondary to obstructive uropathy. -Left lower limb DVT and patient is an above-mentioned anticoagulation -Rectal mass for which oncology is following the patient -Anemia of chronic disease. -Volume overload for which patient is receiving Lasix
--- NOTE | 2020-08-27 13:41 | P.PN ---
Subjective Progress Note Date: 08/27/20 Today the patient is feeling well, no complaints overnight, PICC in place Objective - Vital Signs Vital signs: Vital Signs Temp 97.8 F 08/27/20 08:00 Pulse 129 H 08/27/20 08:00 Resp 17 08/27/20 08:00 BP 114/71 08/27/20 08:00 Pulse Ox 97 08/27/20 08:00 Intake & Output 08/26/20 08/27/20 08/27/20 18:59 06:59 18:59 Intake Total 1000 200 90 Output Total 460 335 100 Balance 540 -135 -10 Weight 58.4 kg 56.5 kg Intake: Intake, IV Titration 100 Amount Piperacillin-Tazobactam 3 100 .375 gm In Sodium Chloride 0.9% 100 ml @ 25 mls/hr IVPB Q8HR [facility] Rx# :[id number] Oral 1000 100 90 Output: Drainage 110 Left 110 Urine 460 225 100 Other: Voiding Method Urinal Urinal Urinal - Constitutional General appearance: Present: cooperative, thin - Cardiovascular Rhythm: regular - Gastrointestinal Gastrointestinal Comment(s): S/NT/ND - Labs CBC & Chem 7: 08/26/20 15:06 08/26/20 15:06 Labs: Abnormal Lab Results - Last 24 Hours (Table) 08/26/20 08/26/20 Range/Units 15:06 15:06 WBC 28.0 H (3.8-10.6) k/uL RBC 2.98 L (4.30-5.90) m/uL Hgb 8.6 L (13.0-17.5) gm/dL Hct 28.0 L (39.0-53.0) % MCHC 30.5 L (31.0-37.0) g/dL Neutrophils # (Manual) 26.60 H (1.3-7.7) k/uL Chloride 108 H (98-107) mmol/L Carbon Dioxide 21 L (22-30) mmol/L BUN 87 H (9-20) mg/dL Creatinine 2.51 H (0.66-1.25) mg/dL Glucose 136 H (74-99) mg/dL Alkaline Phosphatase 214 H (38-126) U/L Total Protein 5.5 L (6.3-8.2) g/dL Albumin 2.6 L (3.5-5.0) g/dL Microbiology - Last 24 Hours (Table) 08/21/20 19:49 Blood Culture - Preliminary Blood No Growth after 120 hours Assessment and Plan Assessment: DVT Rectal CA with extension into bladder Plan: No plans for any general surgical intervention at this time. PICC in place, when patient is able to come off anticoagulation and medically stable for port it can be placed as an outpatient. Recommend following up with his colorectal surgeon after discharge.
--- NOTE | 2020-08-27 14:22 | PN ---
PROGRESS NOTE Patient is seen for followup for acute kidney injury. Patient's renal function had improved with creatinine going down to about 2.2 from 2.7, but today it is back up to 2.5 mg/dL. The patient has been voiding on his own. He is currently maintained on oral Lasix. No IV fluids on board. The patient has significant lower extremity edema. PHYSICAL EXAMINATION: On examination today, blood pressure was 114/71, heart rate 102 per minute, he is afebrile. Examination of the heart S1, S2. Examination of lungs, decreased breath sounds at bases. Abdomen is soft and nontender. Examination of lower extremities shows edema 2+ bilaterally. FLORIST exam shows patient is moving all four extremities. He appears to be somewhat confused on and off. LABS SHOW: Sodium 137, potassium 4.3, chloride 108, CO2 is 21, BUN 87, creatinine 2.51, hemoglobin 8.6 g/dL. Stool for occult blood was positive. ASSESSMENT: 1. Acute kidney injury associated with obstructive uropathy with bilateral hydronephrosis and nephrolithiasis status post cystoscopy on August 22 and left nephrostomy tube placement on August 23. Renal function had been improving. Today, the serum creatinine is higher than yesterday. The patient has had urine output from both the kidneys. He is maintained on oral Lasix which I will continue for now. Blood pressure is slightly on the lower side but not below 100. No nephrotoxic medications on board. 2. Metabolic acidosis associated with renal failure, maintained on oral sodium bicarb. 3. Bilateral hydronephrosis and nephrolithiasis, status post cystoscopy and left-sided nephrostomy tube placement August 23. 4. Acute left lower extremity deep venous thrombosis. 5. Rectal mass with high suspicion for metastatic disease along with a bladder cancer noted on cystoscopy. 6. Volume overload. PLAN: Continue with the p.o. Lasix for now. Encourage increased oral intake. Overall prognosis is guarded. Continue to avoid nephrotoxic medications. MMODL / IJN: [id number] /
--- NOTE | 2020-08-27 20:33 | PN ---
PROGRESS NOTE DATE OF SERVICE: 08/27/2020 REASON FOR FOLLOWUP: Complicated urinary tract infection, possible pneumonia and persistent elevated white count. INTERVAL HISTORY: Patient is currently afebrile. The patient is breathing comfortably on room air. The patient denies having any chest pain or shortness of breath. Minimal cough. No nausea. No vomiting. No abdominal pain and no diarrhea. PHYSICAL EXAMINATION: Blood pressure is 124/71 with a pulse of 84, temperature of 97.9. He is 96% on room air. General description: The patient is an elderly male lying in bed in no distress. Respiratory system: Unlabored breathing, decreased breath sounds in the bases, no wheeze. Heart S1, S2. Regular rate and rhythm. ABDOMEN: Soft. No tenderness. LABS: Hemoglobin 8.6, white count 28, BUN of 8, creatinine is 2.51. Blood and urine has been negative so far. DIAGNOSTIC IMPRESSION AND PLAN: Patient with elevated white count with concern for complicated urinary tract infection in this patient have bilateral hydronephrosis and ureteral obstruction status post left nephrostomy tube. However, the white count showing upward trend despite being on Zosyn and Diflucan, will obtain urine culture from the left nephrostomy tube and repeat CBC tomorrow. May need to adjust antibiotic further. Continue supportive care. MMODL / IJN: [id number] /
[2020-08-27] MEDS: METOPROLOL TARTRATE 25 MG TAB PO SCH (21:12)
[2020-08-27] MEDS: ZOLPIDEM 5 MG TAB PO PRN (21:12)
[2020-08-28] MEDS: PIPERACILLIN-TAZOBACTAM 3.375 GM in SODIUM CHLORIDE 0.9% 100 ML IVPB SCH ×4 (00:46→23:31)
[2020-08-28 07:23] LABS: Basophils # (A) 0.1 k/uL (0-0.2); Basophils % (A) 1 %; Eosinophils # (A) 0.2 k/uL (0-0.7); Eosinophils % (A) 1 %; HCT 31.2 % (39.0-53.0); HGB 9.7 gm/dL (13.0-17.5); Hypochromasia Moderate; Lymphocytes # (A) 0.5 k/uL (1.0-4.8); Lymphocytes % (A) 2 %; MCH 29.4 pg (25.0-35.0); MCHC 30.9 g/dL (31.0-37.0); Monocytes # (A) 0.4 k/uL (0-1.0); Monocytes % (A) 2 %; Neutrophils # (A) 18.9 k/uL (1.3-7.7); Neutrophils % (A) 94 %; Platelet Count 393 k/uL (150-450); RBC 3.29 m/uL (4.30-5.90); RDW 14.9 % (11.5-15.5); WBC 20.1 k/uL (3.8-10.6)
[2020-08-28 08:05] LABS: Appearance,Urine Clear (Clear); Bacteria,Urine Rare /hpf; Bilirubin,Urine Negative (Negative); Blood,Urine Moderate (Negative); Color,Urine Light Yellow; Glucose,Urine (UA) Negative (Negative); Hyaline Casts,Urine 1 /lpf (0-2); Ketones,Urine Negative (Negative); Leukocyte Esterase,Urine Negative (Negative); Mucus,Urine Rare /hpf; Nitrite,Urine Negative (Negative); PH, Urine 5.5 (5.0-8.0); Protein,Urine Trace (Negative); RBC,Urine 2 /hpf (0-5); Specific Gravity,Urine 1.011 (1.001-1.035); Urobilinogen,Urine <2.0 mg/dL (<2.0); WBC,Urine 4 /hpf (0-5)
[2020-08-28] MEDS: ALBUTEROL NEBULIZED 2.5 MG/3 ML INHALATION SCH ×4 (08:08→18:45)
[2020-08-28] MEDS: FLUCONAZOLE 100 MG TAB PO SCH (09:25)
[2020-08-28] MEDS: METOPROLOL TARTRATE 25 MG TAB PO SCH ×2 (09:25→20:30)
[2020-08-28] MEDS: PANTOPRAZOLE 40 MG TABLET PO SCH ×2 (09:26→16:49)
[2020-08-28] MEDS: SERTRALINE 50 MG TAB PO SCH (09:26)
[2020-08-28] MEDS: FUROSEMIDE 40 MG TAB PO SCH (09:26)
[2020-08-28] MEDS: SODIUM BICARBONATE TAB 650 MG TAB PO SCH ×2 (09:28→20:32)
[2020-08-28] MEDS: RIVAROXABAN 15 MG TAB PO SCH ×2 (09:29→16:50)
--- NOTE | 2020-08-28 11:50 | P.PN ---
Subjective Progress Note Date: 08/28/20 patient is being treated for her tract infection,patient has bilateral nephrostomies Aleah has rectal cancer on chemotherapy patient is also being treated for the acute renal failure presently on IV Lasix patient has bilateral pedal edema.patient's creatinine creatinine is still high but fairly stable at that level. Patient still has bilateral pedal edema. Patient on IV Lasix at this timepatient does have DVTs and PE for which patient is on Xarelto. 08/28/2020 Patient seen on follow-up resting in bed comfortably, sitting antimicrobial therapy with Zosyn, there is currently no growth to urine culture. Having no fever WBC trended down to 20. Anticoagulative Xarelto for left lower extremity on room air saturating above 90%, hemodynamically stable. DVT. Constitutional: Denied any fatigue denied any fever. Cardio vascular: denied any chest pain, palpitations Gastrointestinal denied any nausea vomiting Pulmonary: Denied any shortness of breath cough Neurologic denied any new focal deficits Objective - Vital Signs Vital signs: Vital Signs Temp 97.3 F L 08/28/20 07:51 Pulse 99 08/28/20 07:51 Resp 16 08/28/20 07:51 BP 131/80 08/28/20 07:51 Pulse Ox 98 08/28/20 07:51 Intake & Output 08/27/20 08/28/20 08/28/20 18:59 06:59 18:59 Intake Total 90 Output Total 150 150 Balance -60 -150 Weight 62 kg Intake: Oral 90 Output: Drainage 50 150 Left 50 150 Urine 100 Other: Voiding Method Urinal - Exam PHYSICAL EXAMINATION: GENERAL: The patient is alert and oriented x3, not in any acute distress. Well developed, well nourished. HEENT: Pupils are round and equally reacting to light. EOMI. No scleral icterus. No conjunctival pallor. Normocephalic, atraumatic. No pharyngeal erythema. No thyromegaly. CARDIOVASCULAR: S1 and S2 present. No murmurs, rubs, or gallops. PULMONARY: Chest is clear to auscultation, no wheezing or crackles. ABDOMEN: Soft, nontender, nondistended, normoactive bowel sounds. No palpable organomegaly. MUSCULOSKELETAL: No joint swelling or deformity. EXTREMITIES: No cyanosis, clubbing,bilateral pedal edema pitting NEUROLOGICAL: Gross neurological examination did not reveal any focal deficits. SKIN: No rashes. - Labs CBC & Chem 7: 08/28/20 06:30 08/26/20 15:06 Labs: Abnormal Lab Results - Last 24 Hours (Table) 08/28/20 08/28/20 Range/Units 06:30 07:50 WBC 20.1 H (3.8-10.6) k/uL RBC 3.29 L (4.30-5.90) m/uL Hgb 9.7 L (13.0-17.5) gm/dL Hct 31.2 L (39.0-53.0) % MCHC 30.9 L (31.0-37.0) g/dL Neutrophils # 18.9 H (1.3-7.7) k/uL Lymphocytes # 0.5 L (1.0-4.8) k/uL Urine Protein Trace H (Negative) Urine Blood Moderate H (Negative) Urine Bacteria Rare H (None) /hpf Urine Mucus Rare H (None) /hpf Microbiology - Last 24 Hours (Table) 08/21/20 19:49 Blood Culture - Final Blood No Growth after 144 hours Assessment and Plan Plan: Plan: -UTI bilateral hydronephrosis patient has left-sided nephrostomy and patient is on broad-spectrum antibiotics Zosyn -Bilateral hydronephrosis and nephrolithiasis -acute renal failure secondary to obstructive uropathy. -Left lower limb DVT and patient is anticoagulated with Xarelto -Rectal mass for which oncology is following the patient -Anemia of chronic disease. -Volume overload for which patient is receiving Lasix 40 oral daily, monitor BMP
[2020-08-28 11:54] LABS: African American GFR (CKD) 28.7 (60.0-200.0); Albumin 3.1 g/dL (3.80-4.90); Albumin/Globulin Ratio 1.19 (1.60-3.17); Anion Gap 12.9 mmol/L (4.00-12.00); BUN/Creat Ratio 36.15 Ratio (12.00-20.00); Carbon Dioxide 24.1 mmol/L (21.6-31.8); Globulin 2.6 g/dL (1.6-3.3); Non-African American GFR(CKD) 24.8 (60.0-200.0); Potassium 4.8 mmol/L (3.5-5.5); Total Bilirubin 0.3 mg/dL (0.3-1.2); Total Protein 5.7 g/dL (6.2-8.2)
--- NOTE | 2020-08-28 15:18 | PN ---
PROGRESS NOTE Patient is seen for follow up for acute kidney injury. His serum creatinine continues to edge up over the last couple of days. The patient is currently voiding and he also has a left nephrostomy tube. The patient has bilateral hydronephrosis associated with underlying malignancy which is metastatic colon cancer with evidence of tumor in the bladder as well. Patient is currently maintained on a small dose of oral Lasix. He has significant edema. He is not on any IV fluids. Oral intake is not that great. PHYSICAL EXAMINATION: On examination today, blood pressure was 131/80, heart rate 99 per minute, he is afebrile. Examination of the heart S1, S2. Examination of the lungs, bilateral breath sounds are heard. Abdomen is soft, nontender. Examination of lower extremities shows significant edema about 3+ bilaterally. [employer] exam grossly intact. LAB: Show hemoglobin 9.7 sodium 144, potassium 4.8, BUN 94, serum creatinine 2.6. ASSESSMENT: 1. Acute kidney injury associated with obstructive uropathy with bilateral hydronephrosis status post left nephrostomy tube, which needs to be converted to an intraureteral stent. The patient will likely need a stent on the right side too as his serum creatinine continues to increase over the last couple of days. 2. Metabolic acidosis associated with renal failure, started on oral sodium bicarb. 3. Acute left lower extremity deep venous thrombosis. 4. Rectal mass with metastatic colon cancer with evidence of tumor in the bladder as well causing bilateral ureteral obstruction. 5. Volume overload. PLAN: Continue with current dose of Lasix. Follow up with Urology with plans for possible placement of stent on the right side as well down the road. MMODL / IJN: [id number] /
--- NOTE | 2020-08-29 02:20 | PN ---
PROGRESS NOTE DATE OF SERVICE: 08/28/2020 REASON FOR FOLLOWUP: Complicated UTI and a question of pneumonia. INTERVAL HISTORY: The patient is currently afebrile. The patient is breathing comfortably. Denies having any chest pain. No shortness of breath or cough. No nausea, no vomiting. No abdominal pain or diarrhea. PHYSICAL EXAMINATION: Blood pressure 102/67 with pulse of 55, temperature 97.7. He is 96% on room air. General description is an elderly male lying in bed in no distress. RESPIRATORY SYSTEM: Unlabored breathing, decreased breath sounds at the bases, no wheeze. HEART: S1, S2. Regular rate and rhythm. ABDOMEN: Soft, no tenderness. LABS: Hemoglobin 9.7, white count 20,000. BUN of 94, creatinine is 2.6. Repeat urine not significantly positive. DIAGNOSTIC IMPRESSION AND PLAN: Patient with elevated white count which is multifactorial in this patient with a component of urinary tract infection plus-minus pneumonia and oropharyngeal candidiasis. The patient's white count responded to addition of Diflucan will continue while waiting for the culture to finalize. The patient antibiotics. Continue with supportive care. MMODL / IJN: [id number] /
[2020-08-29] MEDS: HYDROcodone/APAP 7.5-325MG 1 EACH TAB PO PRN (02:23)
--- NOTE | 2020-08-29 06:40 | P.CONS ---
History of Present Illness - Chief Complaint medical debility - History of Present Illness I had the opportunity to see patient for inpatient rehab consultation with regard to medical debility. He was admitted to [facility] August 19 with acute kidney failure, left lowerleg edema with wound and a rectal mass. Seen by Dr. Martin for the rectal mass. Seen by Dr. henry but patient reports she has her own colorectal surgeon. Seen by cardiology for tachycardia, non-specific ST-T wave change and hypertension. Seen by Dr. Sam. Seen by Dr. Arita for leukocytosis. Chest x-rays followed and now demonstrate right apical consolidation versus atelectasis as well as small left lower lobe pleural effusion and atelectasis. PT reports minimal moderate assistance for bed mobility 2 person minimal assistance to stand and ambulate 2 feet with roller walker. OT prescribed. Previous functional history as elicited from patient: 65-year-old right-handed white male who is single lives in one floor home alone. Retired. Describes independent with own cooking, laundry, driving, standing shower and gait without device. PMD Dr. Alcala. Is a smoker and apparently just quit. Quit alcohol. Family history of mother with PA. Review of Systems Skin: see pictures for wounds. General: thin build and comfortable appearance. Head: Normocephalic, atraumatic. Eyes: Symmetric. Pupils equal round. Ears: Symmetric. Hearing within normal limits. Mouth: Clear. Neck: Supple. Carotid without bruit. Cardiac: Regular rate and rhythm. Lungs: Clear anteriorly and posteriorly. Abdomen: Soft active nontender. Extremities: Normal tone.thin limbs. Neurological: Mental status: Alert, cooperative, pleasant. Cranial nerves: Symmetric facial tone and trapezius. Motor: can move all 4 limbs.arms about antigravity in legs less than antigravity. Sensation: Intact throughout. DTRs: Symmetric and equal throughout. Mobility: requires physical assist for bed mobility. Past Medical History Past Medical History: Hypertension History of Any Multi-Drug Resistant Organisms: None Reported Past Surgical History: Appendectomy Additional Past Surgical History / Comment(s): colonoscopy 6 weeks ago Past Anesthesia/Blood Transfusion Reactions: No Reported Reaction Past Psychological History: No Psychological Hx Reported Smoking Status: Former smoker Past Alcohol Use History: None Reported Additional Past Alcohol Use History / Comment(s): pt started smoking when he was 15 years old. pt quit smoking 1 month ago. Past Drug Use History: Marijuana Additional Drug Use History / Comment(s): smokes 1-2 joints per day Medications and Allergies Home Medications Medication Instructions Recorded Confirmed Type Zolpidem [Ambien] 5 mg PO HS PRN 08/16/20 08/16/20 History Zolpidem [Ambien] 10 mg PO HS PRN 08/16/20 08/16/20 History amLODIPine BESYLATE/BENAZEPRIL 1 cap PO DAILY 08/16/20 08/16/20 History [amLODIPine BESYLATE/BENAZEPRIL 5-10 MG] Allergies Allergy/AdvReac Type Severity Reaction Status Date / Time No Known Allergies Allergy Verified 08/16/20 08:50 Physical Exam Vitals: Vital Signs Temp Pulse Pulse Resp BP Pulse Ox 08/29/20 02:40 97.4 F L 116 H 17 94/57 95 08/28/20 19:35 97.7 F 55 L 18 102/67 96 08/28/20 18:53 90 16 08/28/20 18:45 92 16 08/28/20 15:00 98.3 F 93 16 100/67 97 08/28/20 07:51 97.3 F L 99 16 131/80 98 Intake and Output 08/28/20 08/28/20 08/29/20 14:59 22:59 06:59 Output Total 300 150 50 Balance -300 -150 -50 Output: Drainage 150 50 Left 150 50 Urine 300 Other: # Voids 3 # Bowel Movements 1 Weight 64 kg Results CBC & Chem 7: 08/28/20 06:30 08/28/20 06:30 Labs: Abnormal Lab Results - Last 24 Hours (Table) 08/28/20 08/28/20 08/28/20 Range/Units 06:30 06:30 07:50 WBC 20.1 H (3.8-10.6) k/uL RBC 3.29 L (4.30-5.90) m/uL Hgb 9.7 L (13.0-17.5) gm/dL Hct 31.2 L (39.0-53.0) % MCHC 30.9 L (31.0-37.0) g/dL Neutrophils # 18.9 H (1.3-7.7) k/uL Lymphocytes # 0.5 L (1.0-4.8) k/uL Anion Gap 12.90 H (4.00-12.00) mmol/L BUN 94.0 H (9.0-27.0) mg/dL Creatinine 2.6 H (0.6-1.5) mg/dL Est GFR (CKD-EPI)AfAm 28.7 L (60.0-200.0) Est GFR (CKD-EPI)NonAf 24.8 L (60.0-200.0) BUN/Creatinine Ratio 36.15 H (12.00-20.00) Ratio AST 46 H (14-35) U/L ALT 64 H (10-49) U/L Alkaline Phosphatase 269 H (41-126) U/L Total Protein 5.7 L (6.2-8.2) g/dL Albumin 3.10 L (3.80-4.90) g/dL Albumin/Globulin Ratio 1.19 L (1.60-3.17) g/dL Urine Protein Trace H (Negative) Urine Blood Moderate H (Negative) Urine Bacteria Rare H (None) /hpf Urine Mucus Rare H (None) /hpf Assessment and Plan (1) ARF (acute renal failure) Current Visit: Yes Status: Acute Code(s): N17.9 - ACUTE KIDNEY FAILURE, UNSPECIFIED SNOMED Code(s): 05628671 (2) Left leg DVT Current Visit: Yes Status: Acute Code(s): I82.402 - ACUTE EMBOLISM AND THOMBOS UNSP DEEP VEINS OF L LOW EXTREM SNOMED Code(s): 119904249 (3) Rectal mass Current Visit: Yes Status: Acute Code(s): K62.89 - OTHER SPECIFIED DISEASES OF ANUS AND RECTUM SNOMED Code(s): 264752374 Plan: impression: 1. Medical debility. 2. Acute kidney failure. 3. Rectal mass. 4. Left leg DVT. 5. Hypertension. Comments and plan: At this time PT and OT are ongoing. We'll await therapy notes for today. Endurance appears to be limited unsure patient to tolerate a full inpatient rehab program.
[2020-08-29] MEDS: PIPERACILLIN-TAZOBACTAM 3.375 GM in SODIUM CHLORIDE 0.9% 100 ML IVPB SCH ×2 (08:18→15:27)
[2020-08-29] MEDS: FUROSEMIDE 40 MG TAB PO SCH (08:19)
[2020-08-29] MEDS: SODIUM BICARBONATE TAB 650 MG TAB PO SCH ×2 (08:19→20:41)
[2020-08-29] MEDS: PANTOPRAZOLE 40 MG TABLET PO SCH ×2 (08:19→16:53)
[2020-08-29] MEDS: RIVAROXABAN 15 MG TAB PO SCH ×2 (08:20→16:53)
[2020-08-29] MEDS: FLUCONAZOLE 100 MG TAB PO SCH (08:20)
[2020-08-29] MEDS: METOPROLOL TARTRATE 25 MG TAB PO SCH ×2 (08:20→20:41)
[2020-08-29] MEDS: SERTRALINE 50 MG TAB PO SCH (08:20)
--- NOTE | 2020-08-29 08:25 | P.PN ---
Subjective Progress Note Date: 08/29/20 the patient is in the hospital with renal failure. He has apparent metastatic rectal carcinoma the bladder. He had a left nephrostomy tube placed for significant hydronephrosis. I was unable to place ureteral catheters due to invasion of the cancer into the trigone of the bladder. Due to the patient's pain and anxiety the left nephrostomy tube placement was difficult. The right tube placement was aborted temporarily. The patient's creatinine is only improved to 2.6. He continues to make urine which is consistent with not a complete obstruction on the right side. The plan is that he goes to rehab and then gets chemotherapy and eventual surgery if possible. The right kidney needs to be addressed a. Ideally he would require a nephrostomy tube. He seems to be in better mental status mind such that he could tolerate it. He was not able to tolerate the left side very well. This could be done as an outpatient. He had have to be off there is are alto a few days before this was undertaken. I will speak with about the timing of this. Objective - Vital Signs Vital signs: Vital Signs Temp 97.4 F L 08/29/20 02:40 Pulse 116 H 08/29/20 02:40 Resp 17 08/29/20 02:40 BP 94/57 08/29/20 02:40 Pulse Ox 95 08/29/20 02:40 Intake & Output 08/28/20 08/29/20 08/29/20 18:59 06:59 18:59 Output Total 450 50 Balance -450 -50 Weight 64 kg Output: Drainage 150 50 Left 150 50 Urine 300 Other: Voiding Method Urinal # Voids 3 # Bowel Movements 1 - Labs CBC & Chem 7: 08/28/20 06:30 08/28/20 06:30 Labs: Abnormal Lab Results - Last 24 Hours (Table) 08/28/20 Range/Units 06:30 Anion Gap 12.90 H (4.00-12.00) mmol/L BUN 94.0 H (9.0-27.0) mg/dL Creatinine 2.6 H (0.6-1.5) mg/dL Est GFR (CKD-EPI)AfAm 28.7 L (60.0-200.0) Est GFR (CKD-EPI)NonAf 24.8 L (60.0-200.0) BUN/Creatinine Ratio 36.15 H (12.00-20.00) Ratio AST 46 H (14-35) U/L ALT 64 H (10-49) U/L Alkaline Phosphatase 269 H (41-126) U/L Total Protein 5.7 L (6.2-8.2) g/dL Albumin 3.10 L (3.80-4.90) g/dL Albumin/Globulin Ratio 1.19 L (1.60-3.17) g/dL
[2020-08-29] MEDS: ALBUTEROL NEBULIZED 2.5 MG/3 ML INHALATION SCH ×4 (09:10→20:49)
[2020-08-29 10:35] LABS: African American GFR (CKD) 28.7 (60.0-200.0); Anion Gap 13.4 mmol/L (4.00-12.00); BUN/Creat Ratio 38.85 Ratio (12.00-20.00); Calcium 8.5 mg/dL (8.7-10.3); Carbon Dioxide 21.6 mmol/L (21.6-31.8); Non-African American GFR(CKD) 24.8 (60.0-200.0); Potassium 3.8 mmol/L (3.5-5.5)
--- NOTE | 2020-08-29 12:15 | PN ---
PROGRESS NOTE Patient is seen for followup for acute kidney injury. Patient has metastatic colon cancer with invasion into the bladder and bilateral hydronephrosis. He has a left nephrostomy tube with good urine output. The right nephrostomy tube insertion was aborted and patient will need a nephrostomy tube down the road as well. His renal function is stable with creatinine staying at about 2.5-2.6 mg/dL which is down from 3.5 on initial admission. This morning patient is comfortable, awake, he is not in any acute distress. He has just had a bowel movement and needs help. PHYSICAL EXAMINATION: Blood pressure is 111/65, heart rate 116 per minute, he is afebrile. Examination of the heart S1, S2. Examination of lungs, bilateral breath sounds are heard. Abdomen is soft, nontender. Examination of the lower extremities shows edema 1+ bilaterally more in the left leg. LABS: Show sodium 140, potassium 3.8, chloride 105, CO2 is 21.6, BUN 101, serum creatinine 2.6 mg/dL. ASSESSMENT: 1. Acute kidney injury, obstructive uropathy with bilateral hydronephrosis, currently status post left nephrostomy tube placement with plans for right nephrostomy tube placement or left intraureteral stent placement down the road as outpatient. 2. Metabolic acidosis, maintained on oral sodium bicarb. 3. Volume overload, currently improved. 4. Metastatic rectal cancer with invasion into the bladder. 5. Acute left lower extremity deep venous thrombosis. PLAN: Hold Lasix. Continue with the IV oral bicarb. Follow up with Urology as outpatient. Encourage increased oral intake. The patient will need follow up with Nephrology as well post discharge. MMODL / IJN: [id number] /
--- NOTE | 2020-08-29 15:47 | P.PN ---
Subjective Progress Note Date: 08/29/20 patient is being treated for her tract infection,patient has bilateral nephrostomies Aleah has rectal cancer on chemotherapy patient is also being treated for the acute renal failure presently on IV Lasix patient has bilateral pedal edema.patient's creatinine creatinine is still high but fairly stable at that level. Patient still has bilateral pedal edema. Patient on IV Lasix at this timepatient does have DVTs and PE for which patient is on Xarelto. 08/28/2020 Patient seen on follow-up resting in bed comfortably, sitting antimicrobial therapy with Zosyn, there is currently no growth to urine culture. Having no fever WBC trended down to 20. Anticoagulative Xarelto for left lower extremity on room air saturating above 90%, hemodynamically stable. DVT. 08/29/2020 patient seen in follow-up,IV diuretics have been discontinued due to azotemia, BUN 101.is continued on antimicrobial therapy of Zosyn. Urology following, patient may require right nephrostomy tube2 other side.remains anticoagulated with several toe for lower extremity DVT, no plans for surgical intervention regarding metastatic rectal cancer invading the bladder. Constitutional: Denied any fatigue denied any fever. Cardio vascular: denied any chest pain, palpitations Gastrointestinal denied any nausea vomiting Pulmonary: Denied any shortness of breath cough Neurologic denied any new focal deficits Objective - Vital Signs Vital signs: Vital Signs Temp 97.5 F L 08/29/20 15:00 Pulse 92 08/29/20 15:10 Resp 20 08/29/20 15:00 BP 97/63 08/29/20 15:00 Pulse Ox 95 08/29/20 15:00 Intake & Output 08/28/20 08/29/20 08/29/20 18:59 06:59 18:59 Output Total 450 50 325 Balance -450 -50 -325 Weight 64 kg 64 kg Output: Drainage 150 50 Left 150 50 Urine 300 325 Other: Voiding Method Urinal # Voids 3 1 # Bowel Movements 1 - Exam PHYSICAL EXAMINATION: GENERAL: The patient is alert and oriented x3, not in any acute distress. Well developed, well nourished. HEENT: Pupils are round and equally reacting to light. EOMI. No scleral icterus. No conjunctival pallor. Normocephalic, atraumatic. No pharyngeal erythema. No thyromegaly. CARDIOVASCULAR: S1 and S2 present. No murmurs, rubs, or gallops. PULMONARY: Chest is clear to auscultation, no wheezing or crackles. ABDOMEN: Soft, nontender, nondistended, normoactive bowel sounds. No palpable organomegaly. MUSCULOSKELETAL: No joint swelling or deformity. EXTREMITIES: No cyanosis, clubbing,bilateral pedal edema pitting NEUROLOGICAL: Gross neurological examination did not reveal any focal deficits. SKIN: No rashes. - Labs CBC & Chem 7: 08/28/20 06:30 08/29/20 05:44 Labs: Abnormal Lab Results - Last 24 Hours (Table) 08/29/20 Range/Units 05:44 Anion Gap 13.40 H (4.00-12.00) mmol/L BUN 101.0 H* (9.0-27.0) mg/dL Creatinine 2.6 H (0.6-1.5) mg/dL Est GFR (CKD-EPI)AfAm 28.7 L (60.0-200.0) Est GFR (CKD-EPI)NonAf 24.8 L (60.0-200.0) BUN/Creatinine Ratio 38.85 H (12.00-20.00) Ratio Calcium 8.5 L (8.7-10.3) mg/dL Assessment and Plan Plan: Plan: -UTI bilateral hydronephrosis patient has left-sided nephrostomy, may require right-sided nephrostomy, remains on antimicrobial therapy with Zosyn -Bilateral hydronephrosis and nephrolithiasis, possible right-sided nephrostomy -acute renal failure secondary to obstructive uropathy.IV diuretics discontinued, nephrology following. -Left lower limb DVT and patient is anticoagulated with Xarelto -Rectal mass for which oncology is following the patient, per surgery, no plans for surgical intervention. -Anemia of chronic disease. -Volume overload, Lasix discontinued, currently euvolemic
[2020-08-30] MEDS: PIPERACILLIN-TAZOBACTAM 3.375 GM in SODIUM CHLORIDE 0.9% 100 ML IVPB SCH ×3 (00:46→17:29)
--- NOTE | 2020-08-30 02:06 | PN ---
PROGRESS NOTE DATE OF SERVICE: 08/29/2020 REASON FOR FOLLOWUP: Leukocytosis in this patient who did complicated UTI with elevated white count. INTERVAL HISTORY: The patient is currently afebrile. Has been breathing comfortably. Feeling better. Denies having any chest pain, shortness of breath or cough. No abdominal pain or diarrhea. PHYSICAL EXAMINATION: Blood pressure 95/61 with a pulse of 103, temperature is 97.4. He is 99% on room air. General description is an elderly male up in the bed in no distress. RESPIRATORY SYSTEM: Unlabored breathing, decreased breath sounds in the bases. No wheeze. HEART: S1, S2. Regular rate and rhythm. ABDOMEN: Soft, no tenderness. LABS: UA is currently negative. No CBC was done today. DIAGNOSTIC IMPRESSION AND PLAN: Patient with elevated white count, multifactorial in this patient who did have a complicated urinary tract infection with bilateral obstruction status post left nephrostomy tube placement. White count seemed to have shown a downward trend. Will repeat tomorrow and should repeat a chest x-ray and continue with Zosyn and Diflucan at this point. Continue with supportive care. MMODL / IJN: [id number] /
[2020-08-30 06:27] LABS: Basophils # (A) 0.1 k/uL (0-0.2); Basophils % (A) 0 %; Eosinophils # (A) 0.1 k/uL (0-0.7); Eosinophils % (A) 0 %; HGB 9.2 gm/dL (13.0-17.5); Hypochromasia Slight; Lymphocytes # (A) 0.5 k/uL (1.0-4.8); Lymphocytes % (A) 3 %; MCH 29.8 pg (25.0-35.0); MCHC 31.7 g/dL (31.0-37.0); Mean Platelet Volume 8.7; Monocytes # (A) 0.4 k/uL (0-1.0); Monocytes % (A) 2 %; Neutrophils # (A) 17.8 k/uL (1.3-7.7); Neutrophils % (A) 94 %; Platelet Count 382 k/uL (150-450); RBC 3.08 m/uL (4.30-5.90); RDW 14.9 % (11.5-15.5)
--- NOTE | 2020-08-30 07:46 | XR ---
EXAMINATION TYPE: XR chest 2V DATE OF EXAM: 08/30/2020 COMPARISON: 08/25/2020 HISTORY: Shortness of breath TECHNIQUE: Frontal and lateral views of the chest are obtained. FINDINGS: Scattered senescent parenchymal changes noted. Hyperinflation compatible with COPD. Right apical infiltrate redemonstrated. Possible areas of cavitation. PICC line is again noted to be in place. Suspect small left-sided pleural effusion. Heart size is stable. Mediastinal structures are stable and grossly unremarkable. No evidence for hilar prominence. Degenerative changes dorsal spine. IMPRESSION: 1. Right apical infiltrate redemonstrated. Possible areas of cavitation.
--- NOTE | 2020-08-30 07:58 | P.PN ---
Subjective Principal diagnosis: Rectal mass and weakness. The patient is a 65-year-old white male essentially admitted for significant weakness. All overt rectal masses noted with left lower DVT. The patient is continued on heparin and appreciate multiple consultants input. Patient states poor sleep yesterday. He also states back pain when trying to lay flat. Computed tomography scan without contrast did not show significant metastatic disease however. The patient however has significant hydronephrosis with acute renal failure. The patient will continue to be hydrated but seemingly's seems slightly improved since yesterday. Appreciate multiple consultants input. patient is now doing better since having nephrostomy tube. there is some element of depression. 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 We will go ahead and anticipate transfer to [facility]. the patient wants to be transferred soon. We have discussed possible hospice options. The patient states that there is possibility of second nephrostomy. The patient continues to be on Zosyn for pneumonia. Objective - Vital Signs Vital signs: Vital Signs Temp 97.4 F L 08/30/20 00:45 Pulse 86 08/30/20 00:45 Resp 14 08/30/20 00:45 BP 105/68 08/30/20 00:45 Pulse Ox 99 08/29/20 19:19 Intake & Output 08/29/20 08/30/20 08/30/20 18:59 06:59 18:59 Intake Total 200 Output Total 325 545 Balance -325 -345 Weight 64 kg 65 kg Intake: Oral 200 Output: Drainage 45 Left 45 Urine 325 500 Other: Voiding Method Urinal Urinal # Voids 1 1 - Constitutional General appearance: Present: thin - EENT Eyes: Absent: abnormal pupil - Neck Neck: Absent: lymphadenopathy - Respiratory Respiratory: bilateral: diminished - Cardiovascular Rhythm: regular Heart sounds: normal: S1, S2 Abnormal Heart Sounds: Absent: S3 Gallop - Gastrointestinal General gastrointestinal: Present: soft. Absent: tenderness - Integumentary Integumentary: Absent: cellulitis - Neurologic Neurologic: Present: CNII-XII intact - Labs CBC & Chem 7: 08/30/20 05:56 08/29/20 05:44 Labs: Abnormal Lab Results - Last 24 Hours (Table) 08/29/20 08/30/20 Range/Units 05:44 05:56 WBC 19.0 H (3.8-10.6) k/uL RBC 3.08 L (4.30-5.90) m/uL Hgb 9.2 L (13.0-17.5) gm/dL Hct 29.0 L (39.0-53.0) % Neutrophils # 17.8 H (1.3-7.7) k/uL Lymphocytes # 0.5 L (1.0-4.8) k/uL Anion Gap 13.40 H (4.00-12.00) mmol/L BUN 101.0 H* (9.0-27.0) mg/dL Creatinine 2.6 H (0.6-1.5) mg/dL Est GFR (CKD-EPI)AfAm 28.7 L (60.0-200.0) Est GFR (CKD-EPI)NonAf 24.8 L (60.0-200.0) BUN/Creatinine Ratio 38.85 H (12.00-20.00) Ratio Calcium 8.5 L (8.7-10.3) mg/dL Assessment and Plan (1) Rectal mass Current Visit: Yes Status: Acute Code(s): K62.89 - OTHER SPECIFIED DISEASES OF ANUS AND RECTUM SNOMED Code(s): 242287493 (2) ARF (acute renal failure) Current Visit: Yes Status: Acute Code(s): N17.9 - ACUTE KIDNEY FAILURE, UNSPECIFIED SNOMED Code(s): 64845972 (3) Left leg DVT Current Visit: Yes Status: Acute Code(s): I82.402 - ACUTE EMBOLISM AND THOMBOS UNSP DEEP VEINS OF L LOW EXTREM SNOMED Code(s): 427817754 (4) Weakness Current Visit: Yes Status: Acute Code(s): R53.1 - WEAKNESS SNOMED Code(s): 60842484 (5) Weight loss Current Visit: Yes Status: Acute Code(s): R63.4 - ABNORMAL WEIGHT LOSS SNOMED Code(s): 05506490 (6) Hydronephrosis Current Visit: Yes Status: Acute Code(s): N13.30 - UNSPECIFIED HYDRONEPHR OSIS SNOMED Code(s): 95669906 (7) Bladder neoplasm Current Visit: Yes Status: Acute Code(s): D49.4 - NEOPLASM OF UNSPECIFIED BEHAVIOR OF BLADDER SNOMED Code(s): 353667774 Plan: postop day known for nephrostomy tubes. metastatic rectal cancer Prognosis is guarded secondary to multiple comorbidities. I had a long discussion with the patient as far as prognostic indicators. See orders otherwise anticipate transfer to ECF. Although, inpatient rehab evaluation has been done. We'll discharge when cleared by consultants.
[2020-08-30] MEDS: ALBUTEROL NEBULIZED 2.5 MG/3 ML INHALATION SCH ×4 (08:21→19:27)
[2020-08-30] MEDS: FLUCONAZOLE 100 MG TAB PO SCH (08:23)
[2020-08-30] MEDS: PANTOPRAZOLE 40 MG TABLET PO SCH ×2 (08:23→17:30)
[2020-08-30] MEDS: METOPROLOL TARTRATE 25 MG TAB PO SCH ×2 (08:23→21:08)
[2020-08-30] MEDS: RIVAROXABAN 15 MG TAB PO SCH ×2 (08:23→17:30)
[2020-08-30] MEDS: SERTRALINE 50 MG TAB PO SCH (08:23)
[2020-08-30] MEDS: SODIUM BICARBONATE TAB 650 MG TAB PO SCH ×2 (08:23→21:08)
[2020-08-30 10:02] LABS: African American GFR (CKD) 26.2 (60.0-200.0); BUN/Creat Ratio 37.86 Ratio (12.00-20.00); C Reactive Protein 8.7 mg/dL (0.0-0.8); Calcium 8.4 mg/dL (8.7-10.3); Potassium 3.7 mmol/L (3.5-5.5)
[2020-08-30 10:19] LABS: Non-African American GFR(CKD) 22.6 (60.0-200.0)
--- NOTE | 2020-08-30 12:52 | P.PN ---
Subjective Progress Note Date: 08/30/20 Principal diagnosis: Malignancy Discharge is anticipated today, there is concern of further delay in treatment with patient in ECF. Discussed in detail with family and if able to go home with 24 hour home care from family and home PT/OT and nursing this would be in best interest for treatment of cancer, although safety clearance for this would need to be felt reasonable. IPR did evaluate and unclear at this time if this was an option. Long discussion with patient and overview of options. Patient is too weak to go home with care at this time. He will need some sort of rehab (whether IPR versus ECF) the benefit of IPR is closer monitoring of renal function, more intense therapy, and potentially not delaying treatment. A major component of his declining performance is the disease itself. Patient states understanding and he is willing to work at whatever he has to do to be able to attempt control of disease and symptoms. Discussed with case management and PT today. Objective - Vital Signs Vital signs: Vital Signs Temp 97.5 F L 08/30/20 07:00 Pulse 88 08/30/20 08:41 Resp 17 08/30/20 07:00 BP 116/69 08/30/20 07:00 Pulse Ox 92 L 08/30/20 08:22 Intake & Output 08/29/20 08/30/20 08/30/20 18:59 06:59 18:59 Intake Total 200 Output Total 325 545 125 Balance -325 -345 -125 Weight 64 kg 65 kg Intake: Oral 200 Output: Drainage 45 50 Left 45 50 Urine 325 500 75 Other: Voiding Method Urinal Urinal Urinal # Voids 1 1 - Exam - Constitutional General appearance: Present: no acute distress - EENT Eyes: Present: EOMI ENT: Present: hearing grossly normal, normal oropharynx - Respiratory Respiratory: bilateral: CTA - Cardiovascular Rhythm: regular Heart sounds: normal: S1, S2 - Gastrointestinal General gastrointestinal: Present: normal bowel sounds, soft - Integumentary Integumentary: Present: normal - Neurologic Neurologic: Present: CNII-XII intact - Musculoskeletal Musculoskeletal: Present: generalized weakness, strength equal bilaterally - Labs CBC & Chem 7: 08/30/20 19:07 08/30/20 05:56 Labs: Abnormal Lab Results - Last 24 Hours (Table) 08/30/20 08/30/20 Range/Units 05:56 05:56 WBC 19.0 H (3.8-10.6) k/uL RBC 3.08 L (4.30-5.90) m/uL Hgb 9.2 L (13.0-17.5) gm/dL Hct 29.0 L (39.0-53.0) % Neutrophils # 17.8 H (1.3-7.7) k/uL Lymphocytes # 0.5 L (1.0-4.8) k/uL Anion Gap 13.00 H (4.00-12.00) mmol/L BUN 106.0 H* (9.0-27.0) mg/dL Creatinine 2.8 H (0.6-1.5) mg/dL Est GFR (CKD-EPI)AfAm 26.2 L (60.0-200.0) Est GFR (CKD-EPI)NonAf 22.6 L (60.0-200.0) BUN/Creatinine Ratio 37.86 H (12.00-20.00) Ratio Calcium 8.4 L (8.7-10.3) mg/dL C-Reactive Protein 8.7 H (0.0-0.8) mg/dL Assessment and Plan (1) ARF (acute renal failure) Current Visit: Yes Status: Acute Code(s): N17.9 - ACUTE KIDNEY FAILURE, UNSPECIFIED SNOMED Code(s): 46924318 (2) Hydronephrosis Current Visit: Yes Status: Acute Code(s): N13.30 - UNSPECIFIED HYD RONEPHROSIS SNOMED Code(s): 11238176 (3) Left leg DVT Current Visit: Yes Status: Acute Code(s): I82.402 - ACUTE EMBOLISM AND THOMBOS UNSP DEEP VEINS OF L LOW EXTREM SNOMED Code(s): 756462035 (4) Rectal mass Current Visit: Yes Status: Acute Code(s): K62.89 - OTHER SPECIFIED DISEASES OF ANUS AND RECTUM SNOMED Code(s): 134944313 (5) Weight loss Current Visit: Yes Status: Acute Code(s): R63.4 - ABNORMAL WEIGHT LOSS SNOMED Code(s): 24563556 Plan: Assessment and Plan Rectal mass with invasion to Bladder - Path on 08/22 - Positive for high grade poorly differentiated carcinoma, adenocarcinoma of the colon. - PET as outpatient - Would like to begin treatment rufino, although anticipate delay secondary to need for rehab, family working on home plan to shorten interval needed for rehab. - CEA is elevated 597 which is concerning for a metastatic picture Left leg DVT - Recommend Eliquis with underlying renal function and anticipation of chemotherapy ARF (acute renal failure) - Creatinine today is 2.6,mild decrease - Status Post Cystoscopy and stent placement 08/22 Plan 08/30/20: - Cleared from Onc Standpoint for discharge, Recommendation for IPR for monitoring and potentially treatment, performance decline secondary to underlying metastatic disease, need for treatment to control disease and symptoms and palliative intent - recheck Renal and liver function prior to discharge. (LFTs increased from likely metastatic disease earlier this week)
--- NOTE | 2020-08-30 17:03 | PN ---
PROGRESS NOTE Patient is seen for followup for acute kidney injury, mostly obstructive uropathy. He has a left nephrostomy tube. A 24 hour urine output shows about 200 mL from the nephrostomy tube and patient had voided another 300 mL. He is currently not on any IV fluids. Patient is lying in bed. Physical therapy will be working with him. No complaints of chest pains or shortness of breath. PHYSICAL EXAMINATION: On examination today, blood pressure was 116/69, heart rate 88 per minute, he is afebrile. Examination of the heart S1, S2. Examination of the lungs, bilateral breath sounds are heard. Abdomen is soft, nontender. Examination of the lower extremities shows edema 2+ bilaterally. [employer] exam grossly intact. LABS: Show hemoglobin 9.2, sodium 143, potassium 3.7, BUN 106, serum creatinine 2.8. ASSESSMENT: 1. Acute kidney injury, obstructive uropathy with bilateral hydronephrosis, status post left nephrostomy tube. Renal function had improved initially; however, it continues to worsen. Therefore, I have discussed with Urology for placement of the right nephrostomy tube as well. Overall prognosis is guarded. 2. Metastatic colon cancer with tumor invasion into the bladder and ureteral obstruction. 3. Metabolic acidosis maintained on oral sodium bicarb. 4. Volume overload currently off IV fluids. 5. Acute left lower extremity DVT. PLAN: Continue to encourage increased oral intake. Proceed with right nephrostomy tube placement. Hold off on the anticoagulation for now. I would avoid IV fluids as patient has significant edema. Chest x-ray from today does not show any evidence of CHF. MMODL / IJN: [id number] /
[2020-08-30 17:42] LABS: Albumin 2.8 g/dL (3.80-4.90); Albumin/Globulin Ratio 1.17 (1.60-3.17); Globulin 2.4 g/dL (1.6-3.3); Total Bilirubin 0.2 mg/dL (0.2-1.2); Total Protein 5.2 g/dL (6.2-8.2)
[2020-08-30] MEDS ORDERED: HEPARIN SODIUM,PORCINE 10,000 UNIT/ML 1 ML VIAL IV ONE (18:59)
[2020-08-30] MEDS ORDERED: HEPARIN SODIUM,PORCINE 5,000 UNIT/ML 1 ML VIAL IV PRN (18:59)
[2020-08-30 19:39] LABS: Basophils # (A) 0.1 k/uL (0-0.2); Basophils % (A) 0 %; Eosinophils # (A) 0.1 k/uL (0-0.7); Eosinophils % (A) 1 %; HCT 26.8 % (39.0-53.0); HGB 8.5 gm/dL (13.0-17.5); Hypochromasia Moderate; Lymphocytes # (A) 0.5 k/uL (1.0-4.8); Lymphocytes % (A) 3 %; MCH 30.1 pg (25.0-35.0); MCHC 31.8 g/dL (31.0-37.0); MCV 94.7 fL (80.0-100.0); Mean Platelet Volume 8.9; Monocytes # (A) 0.3 k/uL (0-1.0); Monocytes % (A) 2 %; Neutrophils # (A) 17.7 k/uL (1.3-7.7); Neutrophils % (A) 94 %; Platelet Count 385 k/uL (150-450); RBC 2.83 m/uL (4.30-5.90); RDW 14.8 % (11.5-15.5); WBC 18.8 k/uL (3.8-10.6)
[2020-08-30 19:51] LABS: INR 1.2 (<1.2); Partial Thromboplastin Time 30.7 sec (22.0-30.0); Prothrombin Time 11.7 sec (9.0-12.0)
[2020-08-30] MEDS: HEPARIN SOD,PORK IN 0.45% NACL 25,000 UNIT in 0.45% NACL 1 250ML.BAG IV SCH (21:09)
[2020-08-31] MEDS: PIPERACILLIN-TAZOBACTAM 3.375 GM in SODIUM CHLORIDE 0.9% 100 ML IVPB SCH ×4 (00:10→23:49)
--- NOTE | 2020-08-31 00:31 | PN ---
PROGRESS NOTE DATE OF SERVICE: 08/30/2020 REASON FOR FOLLOWUP: Leukocytosis with complicated UTI and question of pneumonia. INTERVAL HISTORY: The patient is currently afebrile. Patient is breathing more comfortably. The patient denies having any chest pain or shortness of breath or cough. No nausea, no vomiting. No abdominal pain or diarrhea. PHYSICAL EXAMINATION: Blood pressure 108/63 with a pulse of 102, temperature is 97.7. He is 95% on room air. General description is an elderly male lying in bed in no distress. RESPIRATORY SYSTEM: Unlabored breathing, decreased breath sounds at the bases. No wheeze. HEART: S1, S2. Regular rate and rhythm. ABDOMEN: Soft, no tenderness. LABS: Hemoglobin 8.5, white count 18.8, creatinine is 2.8. Chest x-ray repeat right apical area infiltrate, possibly area of cavitation. DIAGNOSTIC IMPRESSION AND PLAN: Patient with leukocytosis multifactorial in this patient who did have a rectal mass with invasion to the bladder, now with cavitated lesion in the right apical area with concern for possible metastasis. This will be discussed further with Hematology/Oncology. Patient is covered with Zosyn and Diflucan. White count showing a downward trend and continue with supportive care. MMODL / IJN: [id number] /
[2020-08-31 06:17] LABS: Basophils % (A) 0 %; Eosinophils # (A) 0.1 k/uL (0-0.7); Eosinophils % (A) 1 %; HCT 28.9 % (39.0-53.0); HGB 9.1 gm/dL (13.0-17.5); Hypochromasia Moderate; Lymphocytes # (A) 0.7 k/uL (1.0-4.8); Lymphocytes % (A) 3 %; MCH 29.8 pg (25.0-35.0); MCHC 31.4 g/dL (31.0-37.0); MCV 95.2 fL (80.0-100.0); Mean Platelet Volume 8.6; Monocytes # (A) 0.4 k/uL (0-1.0); Monocytes % (A) 2 %; Neutrophils # (A) 17.6 k/uL (1.3-7.7); Neutrophils % (A) 93 %; Platelet Count 367 k/uL (150-450); RBC 3.04 m/uL (4.30-5.90); RDW 14.8 % (11.5-15.5)
--- NOTE | 2020-08-31 07:43 | P.PN ---
Subjective Progress Note Date: 08/31/20 Principal diagnosis: I am trying to make arrangements to place a right nephrostomy tube on Saturday. His anticoagulation has been changed temporarily. Hopefully this will improve h is renal function to allow further treatment of his rectal cancer. Objective - Vital Signs Vital signs: Vital Signs Temp 97.9 F 08/31/20 02:11 Pulse 89 08/31/20 02:11 Resp 18 08/31/20 03:32 BP 105/65 08/31/20 02:11 Pulse Ox 95 08/31/20 02:11 Intake & Output 08/30/20 08/31/20 08/31/20 18:59 06:59 18:59 Intake Total 85.605 Output Total 150 345 Balance -150 -259.395 Weight 65.5 kg Intake: Intake, IV Titration 85.605 Amount Heparin Sod,Pork in 0.45% 85.605 NaCl 25,000 unit In 0.45 % NaCl 1 250ml.bag @ 18 UNITS/KG/HR 11.7 mls/hr IV .[id number] [facility] Rx#: [id number] Output: Drainage 75 45 Left 75 45 Urine 75 300 Other: Voiding Method Urinal Urinal # Voids 2 # Bowel Movements 1 - Labs CBC & Chem 7: 08/31/20 05:53 08/30/20 05:56 Labs: Abnormal Lab Results - Last 24 Hours (Table) 08/30/20 08/30/20 08/30/20 Range/Units 05:56 19:07 19:07 WBC 18.8 H (3.8-10.6) k/uL RBC 2.83 L (4.30-5.90) m/uL Hgb 8.5 L (13.0-17.5) gm/dL Hct 26.8 L (39.0-53.0) % Neutrophils # 17.7 H (1.3-7.7) k/uL Lymphocytes # 0.5 L (1.0-4.8) k/uL INR 1.2 H (<1.2) APTT 30.7 H (22.0-30.0) sec Anion Gap 13.00 H (4.00-12.00) mmol/L BUN 106.0 H* (9.0-27.0) mg/dL Creatinine 2.8 H (0.6-1.5) mg/dL Est GFR (CKD-EPI)AfAm 26.2 L (60.0-200.0) Est GFR (CKD-EPI)NonAf 22.6 L (60.0-200.0) BUN/Creatinine Ratio 37.86 H (12.00-20.00) Ratio Calcium 8.4 L (8.7-10.3) mg/dL Alkaline Phosphatase 188 H (41-126) U/L C-Reactive Protein 8.7 H (0.0-0.8) mg/dL Total Protein 5.2 L (6.2-8.2) g/dL Albumin 2.80 L (3.80-4.90) g/dL Albumin/Globulin Ratio 1.17 L (1.60-3.17) g/dL 08/31/20 08/31/20 Range/Units 02:50 05:53 WBC 19.0 H (3.8-10.6) k/uL RBC 3.04 L (4.30-5.90) m/uL Hgb 9.1 L (13.0-17.5) gm/dL Hct 28.9 L (39.0-53.0) % Neutrophils # 17.6 H (1.3-7.7) k/uL Lymphocytes # 0.7 L (1.0-4.8) k/uL INR (<1.2) APTT 67.0 H (22.0-30.0) sec Anion Gap (4.00-12.00) mmol/L BUN (9.0-27.0) mg/dL Creatinine (0.6-1.5) mg/dL Est GFR (CKD-EPI)AfAm (60.0-200.0) Est GFR (CKD-EPI)NonAf (60.0-200.0) BUN/Creatinine Ratio (12.00-20.00) Ratio Calcium (8.7-10.3) mg/dL Alkaline Phosphatase (41-126) U/L C-Reactive Protein (0.0-0.8) mg/dL Total Protein (6.2-8.2) g/dL Albumin (3.80-4.90) g/dL Albumin/Globulin Ratio (1.60-3.17) g/dL
--- NOTE | 2020-08-31 08:13 | P.PN ---
Subjective Principal diagnosis: Rectal mass and weakness. The patient is a 65-year-old white male essentially admitted for significant weakness. All overt rectal masses noted with left lower DVT. The patient is continued on heparin and appreciate multiple consultants input. Patient states poor sleep yesterday. He also states back pain when trying to lay flat. Computed tomography scan without contrast did not show significant metastatic disease however. The patient however has significant hydronephrosis with acute renal failure. The patient will continue to be hydrated but seemingly's seems slightly improved since yesterday. Appreciate multiple consultants input. The patient is scheduled for nephrostomy tube is Saturday. Pain control seems nominal. Objective - Vital Signs Vital signs: Vital Signs Temp 97.6 F 08/31/20 07:00 Pulse 87 08/31/20 07:00 Resp 18 08/31/20 07:00 BP 106/78 08/31/20 07:00 Pulse Ox 95 08/31/20 02:11 Intake & Output 08/30/20 08/31/20 08/31/20 18:59 06:59 18:59 Intake Total 85.605 Output Total 150 345 Balance -150 -259.395 Weight 65.5 kg Intake: Intake, IV Titration 85.605 Amount Heparin Sod,Pork in 0.45% 85.605 NaCl 25,000 unit In 0.45 % NaCl 1 250ml.bag @ 18 UNITS/KG/HR 11.7 mls/hr IV .[id number] [facility] Rx#: [id number] Output: Drainage 75 45 Left 75 45 Urine 75 300 Other: Voiding Method Urinal Urinal # Voids 2 # Bowel Movements 1 - Constitutional General appearance: Present: thin - EENT Eyes: Absent: abnormal pupil - Respiratory Respiratory: bilateral: diminished - Cardiovascular Rhythm: regular Heart sounds: normal: S1, S2 Abnormal Heart Sounds: Absent: S3 Gallop - Gastrointestinal General gastrointestinal: Present: soft. Absent: tenderness - Integumentary Integumentary: Absent: cellulitis - Psychiatric Psychiatric: Present: A&O x's 3 - Labs CBC & Chem 7: 08/31/20 05:53 08/30/20 05:56 Labs: Abnormal Lab Results - Last 24 Hours (Table) 08/30/20 08/30/20 08/30/20 Range/Units 05:56 19:07 19:07 WBC 18.8 H (3.8-10.6) k/uL RBC 2.83 L (4.30-5.90) m/uL Hgb 8.5 L (13.0-17.5) gm/dL Hct 26.8 L (39.0-53.0) % Neutrophils # 17.7 H (1.3-7.7) k/uL Lymphocytes # 0.5 L (1.0-4.8) k/uL INR 1.2 H (<1.2) APTT 30.7 H (22.0-30.0) sec Anion Gap 13.00 H (4.00-12.00) mmol/L BUN 106.0 H* (9.0-27.0) mg/dL Creatinine 2.8 H (0.6-1.5) mg/dL Est GFR (CKD-EPI)AfAm 26.2 L (60.0-200.0) Est GFR (CKD-EPI)NonAf 22.6 L (60.0-200.0) BUN/Creatinine Ratio 37.86 H (12.00-20.00) Ratio Calcium 8.4 L (8.7-10.3) mg/dL Alkaline Phosphatase 188 H (41-126) U/L C-Reactive Protein 8.7 H (0.0-0.8) mg/dL Total Protein 5.2 L (6.2-8.2) g/dL Albumin 2.80 L (3.80-4.90) g/dL Albumin/Globulin Ratio 1.17 L (1.60-3.17) g/dL 08/31/20 08/31/20 Range/Units 02:50 05:53 WBC 19.0 H (3.8-10.6) k/uL RBC 3.04 L (4.30-5.90) m/uL Hgb 9.1 L (13.0-17.5) gm/dL Hct 28.9 L (39.0-53.0) % Neutrophils # 17.6 H (1.3-7.7) k/uL Lymphocytes # 0.7 L (1.0-4.8) k/uL INR (<1.2) APTT 67.0 H (22.0-30.0) sec Anion Gap (4.00-12.00) mmol/L BUN (9.0-27.0) mg/dL Creatinine (0.6-1.5) mg/dL Est GFR (CKD-EPI)AfAm (60.0-200.0) Est GFR (CKD-EPI)NonAf (60.0-200.0) BUN/Creatinine Ratio (12.00-20.00) Ratio Calcium (8.7-10.3) mg/dL Alkaline Phosphatase (41-126) U/L C-Reactive Protein (0.0-0.8) mg/dL Total Protein (6.2-8.2) g/dL Albumin (3.80-4.90) g/dL Albumin/Globulin Ratio (1.60-3.17) g/dL Assessment and Plan (1) Rectal mass Current Visit: Yes Status: Acute Code(s): K62.89 - OTHER SPECIFIED DISEASES OF ANUS AND RECTUM SNOMED Code(s): 542268783 (2) ARF (acute renal failure) Current Visit: Yes Status: Acute Code(s): N17.9 - ACUTE KIDNEY FAILURE, UNSPECIFIED SNOMED Code(s): 76966500 (3) Left leg DVT Current Visit: Yes Status: Acute Code(s): I82.402 - ACUTE EMBOLISM AND THOMBOS UNSP DEEP VEINS OF L LOW EXTREM SNOMED Code(s): 806810871 (4) Weakness Current Visit: Yes Status: Acute Code(s): R53.1 - WEAKNESS SNOMED Code(s): 28557241 (5) Weight loss Current Visit: Yes Status: Acute Code(s): R63.4 - ABNORMAL WEIGHT LOSS SNOMED Code(s): 85139177 (6) Hydronephrosis Current Visit: Yes Status: Acute Code(s): N13.30 - UNSPECIFIED HYDRONEPHROSIS SNOMED Code(s): 28603870 (7) Bladder neoplasm Current Visit: Yes Status: Acute Code(s): D49.4 - NEOPLASM OF UNSPECIFIED BEHAVIOR OF BLADDER SNOMED Code(s): 058640094 Plan: continued treatment for acute renal failure with nephrostomy tube. Check CBC and CMP in a.m. Prognosis is guarded given his metastatic disease. Placement to ECF once cleared by consultants.
[2020-08-31] MEDS: ALBUTEROL NEBULIZED 2.5 MG/3 ML INHALATION SCH ×4 (08:53→19:56)
[2020-08-31] MEDS: FLUCONAZOLE 100 MG TAB PO SCH (08:55)
[2020-08-31] MEDS: SODIUM BICARBONATE TAB 650 MG TAB PO SCH ×2 (08:55→21:34)
[2020-08-31] MEDS: PANTOPRAZOLE 40 MG TABLET PO SCH ×2 (08:55→17:46)
[2020-08-31] MEDS: SERTRALINE 50 MG TAB PO SCH (08:55)
[2020-08-31] MEDS: METOPROLOL TARTRATE 25 MG TAB PO SCH ×2 (08:55→21:34)
--- NOTE | 2020-08-31 11:39 | US ---
EXAMINATION TYPE: US kidneys/renal and bladder DATE OF EXAM: 08/31/2020 COMPARISON: CT abdomen pelvis 08/18/2020. IR nephrostomy 08/23/2020. CLINICAL HISTORY: Ultrasound right kidney for hydronephrosis. Left percutaneous nephrostomy tube. EXAM MEASUREMENTS: Right Kidney: 10.7 x 5.0 x 5.2 cm Left Kidney: 10.1 x 5.1 x 5.5 cm Right Kidney: No hydronephrosis or masses seen. Left Kidney: Mild hydronephrosis. No masses seen Bladder: There is nodular irregularity of the superior posterior bladder wall. Layering echogenic lik dawna debris posteriorly. Bilateral Jets seen: NO 1.0 cm well-circumscribed round hyperechoic lesion of the right liver most likely represents benign h emangioma. Trace ascites. Right pleural effusion. IMPRESSION: 1. Mild left hydronephrosis. 2. No right hydronephrosis. 3. Irregular nodularity of the bladder wall may represent mass. Recommend correlation with cystoscopy . Small amount of layering debris within the urinary bladder. 4. Trace ascites. 5. Right pleural effusion.
--- NOTE | 2020-08-31 11:54 | IR ---
EXAMINATION TYPE: IR nephrostomy DATE OF EXAM: 08/29/2020 COMPARISON: NONE HISTORY: Left hydronephrosis request for left percutaneous nephrostomy tube Procedure had been discussed with the patient risks, benefits, alternatives, were discussed and any q uestions were answered. Informed consent was obtained. The patient was in a semiprone position prep ped and draped on the OR table in the usual sterile fashion. Utilizing a 15 cm length Chiba needle a single pass was made into a mid pole posterior calyx under fluoroscopic guidance. An 0.018 guidewir e is passed through the needle and there was placement of a 6-Peruvian catheter sheath system. There w as conversion to a 0.035 system was performed with passage of a guidewire and subsequent dilation to 8 Peruvian with placement 8 Peruvian drainage catheter. Patient was stable throughout procedure and marlen ined stable upon discharge. IMPRESSION: 1. Successful left percutaneous nephrostomy tube insertion.
--- NOTE | 2020-08-31 12:38 | P.PN ---
Subjective Progress Note Date: 08/31/20 the patient is in the hospital with metastatic rectal cancer. The tumor is invading the trigone of his bladder. He had left-sided hydronephrosis. A nephrostomy tube was placed and his creatinine only went from 3-0.6. Nephrology asked us to place a right-sided nephrostomy tube. This was set up to be done tomorrow or Saturday. We have stopped his is a xarelto and placed him on heparinimpression perforation of this. I spoke with radiolog and they stated that the first nephrostomy tube was very difficult. They requested a repeat ultrasound which was done today and there is no hydronephrosis on the right side. In light of that a nephrostomy tube will not be placed as it will not be of benefit to his renal function at this point in time. He will continue with a left-sided nephrostomy tube until we clarify further the status of his cancer and the treatment options available to him. Eventually this can be converted to an antegrade stent. I thus notified the floor that he can resume his an ticoagulation and that the rightnephrostomy tube will be answered. Objective - Vital Signs Vital signs: Vital Signs Temp 97.6 F 08/31/20 07:00 Pulse 93 08/31/20 09:32 Resp 18 08/31/20 07:00 BP 107/72 08/31/20 09:32 Pulse Ox 95 08/31/20 02:11 Intake & Output 08/30/20 08/31/20 08/31/20 18:59 06:59 18:59 Intake Total 85.605 Output Total 150 345 150 Balance -150 -259.395 -150 Weight 65.5 kg Intake: Intake, IV Titration 85.605 Amount Heparin Sod,Pork in 0.45% 85.605 NaCl 25,000 unit In 0.45 % NaCl 1 250ml.bag @ 18 UNITS/KG/HR 11.7 mls/hr IV .[id number] Rx#: [id number] Output: Drainage 75 45 Left 75 45 Urine 75 300 150 Other: Voiding Method Urinal Urinal Urinal # Voids 2 1 # Bowel Movements 1 1 - Labs CBC & Chem 7: 08/31/20 05:53 08/30/20 05:56 Labs: Abnormal Lab Results - Last 24 Hours (Table) 08/30/20 08/30/20 08/30/20 Range/Units 05:56 19:07 19:07 WBC 18.8 H (3.8-10.6) k/uL RBC 2.83 L (4.30-5.90) m/uL Hgb 8.5 L (13.0-17.5) gm/dL Hct 26.8 L (39.0-53.0) % Neutrophils # 17.7 H (1.3-7.7) k/uL Lymphocytes # 0.5 L (1.0-4.8) k/uL INR 1.2 H (<1.2) APTT 30.7 H (22.0-30.0) sec Anion Gap 13.00 H (4.00-12.00) mmol/L BUN 106.0 H* (9.0-27.0) mg/dL Creatinine 2.8 H (0.6-1.5) mg/dL Est GFR (CKD-EPI)AfAm 26.2 L (60.0-200.0) Est GFR (CKD-EPI)NonAf 22.6 L (60.0-200.0) BUN/Creatinine Ratio 37.86 H (12.00-20.00) Ratio Calcium 8.4 L (8.7-10.3) mg/dL Alkaline Phosphatase 188 H (41-126) U/L C-Reactive Protein 8.7 H (0.0-0.8) mg/dL Total Protein 5.2 L (6.2-8.2) g/dL Albumin 2.80 L (3.80-4.90) g/dL Albumin/Globulin Ratio 1.17 L (1.60-3.17) g/dL 08/31/20 08/31/20 08/31/20 Range/Units 02:50 05:53 11:55 WBC 19.0 H (3.8-10.6) k/uL RBC 3.04 L (4.30-5.90) m/uL Hgb 9.1 L (13.0-17.5) gm/dL Hct 28.9 L (39.0-53.0) % Neutrophils # 17.6 H (1.3-7.7) k/uL Lymphocytes # 0.7 L (1.0-4.8) k/uL INR (<1.2) APTT 67.0 H 70.3 H (22.0-30.0) sec Anion Gap (4.00-12.00) mmol/L BUN (9.0-27.0) mg/dL Creatinine (0.6-1.5) mg/dL Est GFR (CKD-EPI)AfAm (60.0-200.0) Est GFR (CKD-EPI)NonAf (60.0-200.0) BUN/Creatinine Ratio (12.00-20.00) Ratio Calcium (8.7-10.3) mg/dL Alkaline Phosphatase (41-126) U/L C-Reactive Protein (0.0-0.8) mg/dL Total Protein (6.2-8.2) g/dL Albumin (3.80-4.90) g/dL Albumin/Globulin Ratio (1.60-3.17) g/dL
[2020-08-31 13:52] LABS: African American GFR (CKD) 21 (>60 ml/min/1.73 sqM); Anion Gap 15 mmol/L; Calcium 8.8 mg/dL (8.4-10.2); Carbon Dioxide 20 mmol/L (22-30); Chloride 111 mmol/L (98-107); Glucose 105 mg/dL (74-99); Non-African American GFR(CKD) 18 (>60 ml/min/1.73 sqM); Potassium 4.1 mmol/L (3.5-5.1); Sodium 146 mmol/L (137-145)
[2020-08-31 14:05] LABS: Blood Urea Nitrogen 107 mg/dL (9-20)
--- NOTE | 2020-08-31 14:17 | PN ---
PROGRESS NOTE DATE OF SERVICE: 08/31/2020 REASON FOR FOLLOWUP: Leukocytosis, multifactorial, complicated UTI. INTERVAL HISTORY: The patient is currently afebrile. The patient is breathing comfortably. Denies having any chest pain. No shortness of breath or cough. No nausea, no abdominal pain, no diarrhea. PHYSICAL EXAMINATION: Blood pressure is 100/73 with a pulse of 93, temperature is 97.3. General description is an elderly male, lying in bed in no distress. RESPIRATORY SYSTEM: Unlabored breathing, decreased breath sounds in the base, with no wheeze. HEART: S1, S2. Regular rate and rhythm. ABDOMEN: Soft, no tenderness. Examination of sacral area did have unstageable pressure ulcer but no cellulitis. LABS: Hemoglobin of 9.1, white count of 19,000, creatinine is 2.8 as of yesterday. DIAGNOSTIC IMPRESSION AND PLAN: Patient with metastatic rectal cancer admitted drying on Bishnu's bladder with hydronephrosis status post nephrostomy tube placement in this patient did have urine culture so far negative, question of pneumonia. However, this pneumonia showed a lytic lesion could lead to his metastatic cancer. Patient is covered with Zosyn and Diflucan. White count still elevated. Some of it could be coming from his sacral pressure ulcer. Will treat with Medihoney followed by moist dressing. Keep the area off the pressure and use air mattress. Continue Zosyn, Diflucan and monitor clinical course closely. MMODL / IJN: [id number] /
--- NOTE | 2020-08-31 14:40 | P.PN ---
Subjective Progress Note Date: 08/31/20 Principal diagnosis: Malignancy Renal Function worsening today. Review of Urology note and feel at this time placement of stent will not improve renal function as recent ultrasound without hydronephrosis on opposite side. He continues to work with PT, and still weak. Objective - Vital Signs Vital signs: Vital Signs Temp 97.7 F 08/31/20 13:00 Pulse 90 08/31/20 13:00 Resp 16 08/31/20 13:00 BP 90/65 08/31/20 13:00 Pulse Ox 95 08/31/20 02:11 Intake & Output 08/30/20 08/31/20 08/31/20 18:59 06:59 18:59 Intake Total 85.605 93.427 Output Total 150 345 150 Balance -150 -259.395 -56.573 Weight 65.5 kg Intake: Intake, IV Titration 85.605 93.427 Amount Heparin Sod,Pork in 0.45% 85.605 93.427 NaCl 25,000 unit In 0.45 % NaCl 1 250ml.bag @ 18 UNITS/KG/HR 11.7 mls/hr IV .[id number] [facility] Rx#: [id number] Output: Drainage 75 45 Left 75 45 Urine 75 300 150 Other: Voiding Method Urinal Urinal Urinal # Voids 2 1 # Bowel Movements 1 1 - Exam - Constitutional General appearance: Present: no acute distress - EENT Eyes: Present: EOMI ENT: Present: hearing grossly normal, normal oropharynx - Respiratory Respiratory: bilateral: CTA - Cardiovascular Rhythm: regular Heart sounds: normal: S1, S2 - Gastrointestinal General gastrointestinal: Present: normal bowel sounds, soft # plus Edema in LLE, 2+ RLE Weakness in LLE 2/4 - Integumentary Integumentary: Present: normal - Neurologic Neurologic: Present: CNII-XII intact - Musculoskeletal Musculoskeletal: Present: generalized weakness, strength equal bilaterally - Labs CBC & Chem 7: 08/31/20 14:44 08/31/20 11:55 Labs: Abnormal Lab Results - Last 24 Hours (Table) 08/30/20 08/30/20 08/30/20 Range/Units 05:56 19:07 19:07 WBC 18.8 H (3.8-10.6) k/uL RBC 2.83 L (4.30-5.90) m/uL Hgb 8.5 L (13.0-17.5) gm/dL Hct 26.8 L (39.0-53.0) % Neutrophils # 17.7 H (1.3-7.7) k/uL Lymphocytes # 0.5 L (1.0-4.8) k/uL INR 1.2 H (<1.2) APTT 30.7 H (22.0-30.0) sec Sodium (137-145) mmol/L Chloride (98-107) mmol/L Carbon Dioxide (22-30) mmol/L Anion Gap 13.00 H (4.00-12.00) mmol/L BUN 106.0 H* (9.0-27.0) mg/dL Creatinine 2.8 H (0.6-1.5) mg/dL Est GFR (CKD-EPI)AfAm 26.2 L (60.0-200.0) Est GFR (CKD-EPI)NonAf 22.6 L (60.0-200.0) BUN/Creatinine Ratio 37.86 H (12.00-20.00) Ratio Glucose (74-99) mg/dL Calcium 8.4 L (8.7-10.3) mg/dL Alkaline Phosphatase 188 H (41-126) U/L C-Reactive Protein 8.7 H (0.0-0.8) mg/dL Total Protein 5.2 L (6.2-8.2) g/dL Albumin 2.80 L (3.80-4.90) g/dL Albumin/Globulin Ratio 1.17 L (1.60-3.17) g/dL 08/31/20 08/31/20 08/31/20 Range/Units 02:50 05:53 11:55 WBC 19.0 H (3.8-10.6) k/uL RBC 3.04 L (4.30-5.90) m/uL Hgb 9.1 L (13.0-17.5) gm/dL Hct 28.9 L (39.0-53.0) % Neutrophils # 17.6 H (1.3-7.7) k/uL Lymphocytes # 0.7 L (1.0-4.8) k/uL INR (<1.2) APTT 67.0 H 70.3 H (22.0-30.0) sec Sodium (137-145) mmol/L Chloride (98-107) mmol/L Carbon Dioxide (22-30) mmol/L Anion Gap (4.00-12.00) mmol/L BUN (9.0-27.0) mg/dL Creatinine (0.6-1.5) mg/dL Est GFR (CKD-EPI)AfAm (60.0-200.0) Est GFR (CKD-EPI)NonAf (60.0-200.0) BUN/Creatinine Ratio (12.00-20.00) Ratio Glucose (74-99) mg/dL Calcium (8.7-10.3) mg/dL Alkaline Phosphatase (41-126) U/L C-Reactive Protein (0.0-0.8) mg/dL Total Protein (6.2-8.2) g/dL Albumin (3.80-4.90) g/dL Albumin/Globulin Ratio (1.60-3.17) g/dL 08/31/20 Range/Units 11:55 WBC (3.8-10.6) k/uL RBC (4.30-5.90) m/uL Hgb (13.0-17.5) gm/dL Hct (39.0-53.0) % Neutrophils # (1.3-7.7) k/uL Lymphocytes # (1.0-4.8) k/uL INR (<1.2) APTT (22.0-30.0) sec Sodium 146 H (137-145) mmol/L Chloride 111 H (98-107) mmol/L Carbon Dioxide 20 L (22-30) mmol/L Anion Gap (4.00-12.00) mmol/L BUN 107 H* (9.0-27.0) mg/dL Creatinine 3.39 H (0.6-1.5) mg/dL Est GFR (CKD-EPI)AfAm (60.0-200.0) Est GFR (CKD-EPI)NonAf (60.0-200.0) BUN/Creatinine Ratio (12.00-20.00) Ratio Glucose 105 H (74-99) mg/dL Calcium (8.7-10.3) mg/dL Alkaline Phosphatase (41-126) U/L C-Reactive Protein (0.0-0.8) mg/dL Total Protein (6.2-8.2) g/dL Albumin (3.80-4.90) g/dL Albumin/Globulin Ratio (1.60-3.17) g/dL Assessment and Plan (1) ARF (acute renal failure) Current Visit: Yes Status: Acute Code(s): N17.9 - ACUTE KIDNEY FAILURE, UNSPECIFIED SNOMED Code(s): 19545730 (2) Hydronephrosis Current Visit: Yes Status: Acute Code(s): N13.30 - UNSPECIFIED HY DRONEPHROSIS SNOMED Code(s): 62473583 (3) Left leg DVT Current Visit: Yes Status: Acute Code(s): I82.402 - ACUTE EMBOLISM AND THOMBOS UNSP DEEP VEINS OF L LOW EXTREM SNOMED Code(s): 802805669 (4) Rectal mass Current Visit: Yes Status: Acute Code(s): K62.89 - OTHER SPECIFIED DISEASES OF ANUS AND RECTUM SNOMED Code(s): 016669856 (5) Weight loss Current Visit: Yes Status: Acute Code(s): R63.4 - ABNORMAL WEIGHT LOSS SNOMED Code(s): 40368542 Plan: Assessment and Plan Rectal mass with invasion to Bladder - Path on 08/22 - Positive for high grade poorly differentiated carcinoma, adenocarcinoma of the colon. - PET as outpatient - Would like to begin treatment rufino, although anticipate delay secondary to need for rehab, family working on home plan to shorten interval needed for rehab. - CEA is elevated 597 which is concerning for a metastatic picture Left leg DVT - Recommend Eliquis with underlying renal function and anticipation of chemotherapy ARF (acute renal failure) - Creatinine today increased as well as BUN - Status Post Cystoscopy and stent placement 08/22 LLE Swelling and Weakness. Plan 08/31/20: - Nephrology to re-evaluate regarding increased creatinine - Check Uric acid level today and will give rasburicase if indicated - Patient's performance slowly improving - Will discuss with Dr. Laird regarding plan for systemic treatment with consideration of other worsening issues at this time. - Unable to assess contrasted studies, thoracic lumbar spine and CT head with increased unilateral weakness and headache
[2020-08-31 15:24] LABS: Basophils % (A) 0 %; Eosinophils # (A) 0.1 k/uL (0-0.7); Eosinophils % (A) 0 %; HCT 29.4 % (39.0-53.0); HGB 9.3 gm/dL (13.0-17.5); Hypochromasia Moderate; Lymphocytes # (A) 0.6 k/uL (1.0-4.8); Lymphocytes % (A) 3 %; MCHC 31.5 g/dL (31.0-37.0); MCV 95.2 fL (80.0-100.0); Monocytes # (A) 0.4 k/uL (0-1.0); Monocytes % (A) 2 %; Neutrophils # (A) 17.8 k/uL (1.3-7.7); Neutrophils % (A) 94 %; Platelet Count 361 k/uL (150-450); RBC 3.09 m/uL (4.30-5.90); RDW 14.9 % (11.5-15.5)
[2020-08-31 15:31] LABS: Reticulocyte % 3.6 % (0.5-2.0)
--- NOTE | 2020-08-31 15:56 | PN ---
PROGRESS NOTE Patient is seen for followup for acute kidney injury, mostly obstructive uropathy. No labs available from today. However, patient has a left nephrostomy and plan was to proceed with a right nephrostomy during his hospitalization as his labs have not been improving. Review of chart shows patient was evaluated by Urology and upon further discussion with Radiology since the right nephrostomy tube was very difficult to placement initially attempted, a repeat ultrasound was done which did not show significant hydronephrosis. Therefore, the procedure will not be performed. Patient denies any complaints this morning. PHYSICAL EXAMINATION: On examination, blood pressure was 107/72, heart rate 93 per minute, he is afebrile. Examination of the heart S1, S2. Examination of the lungs, decreased breath sounds at bases. Abdomen is soft, nontender. Examination of the lower extremities shows edema 2+ bilaterally. 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 LABS: Not available from today. ASSESSMENT: 1. Acute kidney injury with some improvement in renal function, status post left nephrostomy tube. However, serum creatinine has been slowly increasing again with significantly elevated BUN. Therefore, there was discussion regarding placement of the right nephrostomy tube as well; however, since a repeat ultrasound did not show any significant hydronephrosis. Therefore, the procedure will not be performed now. Patient is not on any nephrotoxic medications. He has output from the left nephrostomy tube about 120 mL and total output documented at about 500 mL, if this is accurate. Blood pressure is on the lower side. Patient is not on any significant antihypertensive medications. I will add midodrine to help with his perfusion. 2. Colon cancer with invasion into the bladder, obstructive uropathy. 3. Mild metabolic acidosis, maintained on oral sodium bicarb. PLAN: Repeat labs. Add midodrine and continue to encourage increased oral intake. Overall prognosis is guarded. If renal function continues to worsen, we will need to discuss renal replacement therapy down the road. MMODL / IJN: [id number] /
--- NOTE | 2020-08-31 16:08 | CT ---
EXAMINATION TYPE: CT brain wo con DATE OF EXAM: 08/31/2020 COMPARISON: none HISTORY: left leg weakness, decreased range of motion CT DLP: 2408.[address] of the brain was performed. The ventricles, basal cisterns and sulci overlying the cerebral convexities demonstrate mild enlargem ent. There is no evidence for intracranial hemorrhage or sulcal effacement. There is decreased attenuation about the periventricular white matter and deep white matter of both c erebral hemispheres, compatible with chronic small vessel ischemia. Differential diagnosis does inclu de demyelination. No mass effects are seen.No midline shift. Osseous calvarium is intact. If symptoms persist consider MRI. IMPRESSION: 1. Age related atrophic and chronic small vessel ischemic change without acute intracranial process s een at this time.
--- NOTE | 2020-08-31 16:27 | CT ---
EXAMINATION TYPE: CT thor lumbar spine wo con DATE OF EXAM: 08/31/2020 COMPARISON: None HISTORY: back pain, left leg weakness CT DLP: 931.[address] of the thoracic and lumbar spine was performed. Bone and soft tissue window settings a re submitted as well as coronal and sagittal reconstructions. There is cavitary mass identified within the right upper lobe which may reflect cavitary infection. N eoplasm is not excluded. CT of the chest is recommended if this has not been performed. Masslike area measures 6.9 x 6.8 cm. The right lower lobe pulmonary nodule measures 1.2 cm. Please note the entire ty of the lungs are not included on the examination. Large left-sided pleural effusion measuring 6.2 cm AP dimension while on the right measures approximately 2.1 cm. There is bilateral nephrolithiasis with hydronephrosis and probable hemorrhage within the left renal collecting system. Percutaneous catheter resides outside of the left kidney. There is mild scattered degenerative change of the thoracolumbar spine greatest at L5-S1. There is po sterior disc bulge noted at this level. No herniation or central stenosis. No bony destructive proces s. No evidence for fracture or malalignment. IMPRESSION: 1. Scattered degenerative changes of the thoracolumbar spine as noted without evidence for obvious di sc herniation or central stenosis. 2. Masslike density right upper lobe with multiple cavitations likely related to infection however un derlying neoplasm is not excluded. Additional nodular density right lower lobe. Bilateral pleural eff usions. CT recommended for further characterization. 3. Bilateral hydronephrosis. Left percutaneous nephrostomy tube resides outside of the confines of th e left kidney. Hyperdense debris within the left renal collecting system likely reflects hemorrhage.
[2020-08-31] MEDS: MIDODRINE 5 MG TAB PO SCH (17:46)
[2020-08-31] MEDS: RIVAROXABAN 15 MG TAB PO SCH (17:47)
[2020-08-31] MEDS: HEPARIN SOD,PORK IN 0.45% NACL 25,000 UNIT in 0.45% NACL 1 250ML.BAG IV SCH (21:45)
[2020-09-01 05:05] LABS: Folate, Serum 8.1 ng/mL
[2020-09-01 07:16] LABS: Basophils % (A) 0 %; Eosinophils # (A) 0.1 k/uL (0-0.7); Eosinophils % (A) 1 %; HCT 27.1 % (39.0-53.0); HGB 8.1 gm/dL (13.0-17.5); Hypochromasia Slight; Lymphocytes # (A) 0.7 k/uL (1.0-4.8); Lymphocytes % (A) 4 %; MCH 28.5 pg (25.0-35.0); MCHC 30.1 g/dL (31.0-37.0); MCV 94.6 fL (80.0-100.0); Monocytes # (A) 0.4 k/uL (0-1.0); Monocytes % (A) 2 %; Neutrophils # (A) 16.3 k/uL (1.3-7.7); Neutrophils % (A) 93 %; Platelet Count 356 k/uL (150-450); RBC 2.86 m/uL (4.30-5.90); RDW 15.4 % (11.5-15.5); WBC 17.5 k/uL (3.8-10.6)
[2020-09-01] MEDS: SODIUM BICARBONATE TAB 650 MG TAB PO SCH ×2 (07:38→21:34)
[2020-09-01] MEDS: PANTOPRAZOLE 40 MG TABLET PO SCH ×2 (07:38→17:16)
[2020-09-01] MEDS: FLUCONAZOLE 100 MG TAB PO SCH (07:38)
[2020-09-01] MEDS: MIDODRINE 5 MG TAB PO SCH ×3 (07:39→17:16)
[2020-09-01] MEDS: METOPROLOL TARTRATE 25 MG TAB PO SCH ×2 (07:39→21:34)
[2020-09-01] MEDS: SERTRALINE 50 MG TAB PO SCH (07:39)
--- NOTE | 2020-09-01 07:39 | P.PN ---
Subjective Progress Note Date: 09/01/20 the patient has metastatic rectal cancer. He had left-sided hydronephrosis due to obstruction of the ureter from the tumor. His creatinine normally improved to a degree and started to worsen so the question is whether a right nephrostomy tube would be of benefit. A renal ultrasound yesterday showed no evidence of hydronephrosis on the right side therefore making the need for this necessary. Right-sided nephrostomy tube would not benefit the patient. The patient did not have hydronephrosis on the left side either signaling that the left-sided hydronephrosis has been relieved. From a urologic standpoint there is nothing further that I can offer. I would leave the nephrostomy tube until later date at which time we can convert this to an internal stent once the clarification of his cancer treatment has been outlined.this has been discussed with the patient. Objective - Vital Signs Vital signs: Vital Signs Temp 97.9 F 09/01/20 00:18 Pulse 88 09/01/20 00:18 Resp 16 09/01/20 04:05 BP 102/53 09/01/20 00:18 Pulse Ox 98 09/01/20 00:18 Intake & Output 08/31/20 09/01/20 09/01/20 18:59 06:59 18:59 Intake Total 93.427 Output Total 270 660 Balance -176.573 -660 Weight 65 kg Intake: Intake, IV Titration 93.427 Amount Heparin Sod,Pork in 0.45% 93.427 NaCl 25,000 unit In 0.45 % NaCl 1 250ml.bag @ 18 UNITS/KG/HR 11.7 mls/hr IV .[id number] [facility] Rx#: [id number] Output: Drainage 10 Left 10 Urine 270 650 Other: Voiding Method Urinal Urinal # Voids 1 2 # Bowel Movements 1 1 - Labs CBC & Chem 7: 09/01/20 06:49 08/31/20 11:55 Labs: Abnormal Lab Results - Last 24 Hours (Table) 08/31/20 08/31/20 08/31/20 Range/Units 11:55 11:55 14:44 WBC 19.0 H (3.8-10.6) k/uL RBC 3.09 L (4.30-5.90) m/uL Hgb 9.3 L (13.0-17.5) gm/dL Hct 29.4 L (39.0-53.0) % MCHC (31.0-37.0) g/dL Neutrophils # 17.8 H (1.3-7.7) k/uL Lymphocytes # 0.6 L (1.0-4.8) k/uL Retic Count (0.5-2.0) % APTT 70.3 H (22.0-30.0) sec Sodium 146 H (137-145) mmol/L Chloride 111 H (98-107) mmol/L Carbon Dioxide 20 L (22-30) mmol/L BUN 107 H* (9-20) mg/dL Creatinine 3.39 H (0.66-1.25) mg/dL Glucose 105 H (74-99) mg/dL Uric Acid (3.7-8.7) mg/dL Vitamin B12 (200.0-944.0) pg/mL 08/31/20 08/31/20 08/31/20 Range/Units 14:44 14:44 19:18 WBC (3.8-10.6) k/uL RBC (4.30-5.90) m/uL Hgb (13.0-17.5) gm/dL Hct (39.0-53.0) % MCHC (31.0-37.0) g/dL Neutrophils # (1.3-7.7) k/uL Lymphocytes # (1.0-4.8) k/uL Retic Count 3.6 H (0.5-2.0) % APTT 62.1 H (22.0-30.0) sec Sodium (137-145) mmol/L Chloride (98-107) mmol/L Carbon Dioxide (22-30) mmol/L BUN (9-20) mg/dL Creatinine (0.66-1.25) mg/dL Glucose (74-99) mg/dL Uric Acid 10.0 H (3.7-8.7) mg/dL Vitamin B12 1131.0 H (200.0-944.0) pg/mL 09/01/20 Range/Units 06:49 WBC 17.5 H (3.8-10.6) k/uL RBC 2.86 L (4.30-5.90) m/uL Hgb 8.1 L (13.0-17.5) gm/dL Hct 27.1 L (39.0-53.0) % MCHC 30.1 L (31.0-37.0) g/dL Neutrophils # 16.3 H (1.3-7.7) k/uL Lymphocytes # 0.7 L (1.0-4.8) k/uL Retic Count (0.5-2.0) % APTT (22.0-30.0) sec Sodium (137-145) mmol/L Chloride (98-107) mmol/L Carbon Dioxide (22-30) mmol/L BUN (9-20) mg/dL Creatinine (0.66-1.25) mg/dL Glucose (74-99) mg/dL Uric Acid (3.7-8.7) mg/dL Vitamin B12 (200.0-944.0) pg/mL
[2020-09-01] MEDS: RIVAROXABAN 15 MG TAB PO SCH ×2 (07:44→17:16)
[2020-09-01] MEDS: PIPERACILLIN-TAZOBACTAM 3.375 GM in SODIUM CHLORIDE 0.9% 100 ML IVPB SCH ×2 (08:03→18:09)
[2020-09-01] MEDS: ALBUTEROL NEBULIZED 2.5 MG/3 ML INHALATION SCH ×4 (08:06→19:23)
--- NOTE | 2020-09-01 08:15 | P.PN ---
Subjective Principal diagnosis: Rectal mass and weakness. The patient is a 65-year-old white male essentially admitted for significant weakness. All overt rectal masses noted with left lower DVT. The patient is continued on heparin and appreciate multiple consultants input. Patient states poor sleep yesterday. He also states back pain when trying to lay flat. Computed tomography scan without contrast did not show significant metastatic disease however. The patient however has significant hydronephrosis with acute renal failure. The patient will continue to be hydrated but seemingly's seems slightly improved since yesterday. Appreciate multiple consultants input. The patient was scheduled for nephrostomy tube but this has been stopped secondary to no hydronephrosis on the right side. Pain control seems nominal. The patient had a long discussion about his multiple comorbidities. He has had rectal bleeding and we will check serial CBC today it has been trending down. I did tell him the difficulty given the fact that he has on anticoagulation related to DVT Objective - Vital Signs Vital signs: Vital Signs Temp 97.9 F 09/01/20 00:18 Pulse 92 09/01/20 08:07 Resp 16 09/01/20 04:05 BP 102/53 09/01/20 00:18 Pulse Ox 98 09/01/20 00:18 Intake & Output 08/31/20 09/01/20 09/01/20 18:59 06:59 18:59 Intake Total 93.427 Output Total 270 660 Balance -176.573 -660 Weight 65 kg Intake: Intake, IV Titration 93.427 Amount Heparin Sod,Pork in 0.45% 93.427 NaCl 25,000 unit In 0.45 % NaCl 1 250ml.bag @ 18 UNITS/KG/HR 11.7 mls/hr IV .[id number] [facility] Rx#: [id number] Output: Drainage 10 Left 10 Urine 270 650 Other: Voiding Method Urinal Urinal # Voids 1 2 # Bowel Movements 1 1 - Constitutional General appearance: Present: thin - Neck Neck: Absent: lymphadenopathy - Respiratory Respiratory: bilateral: diminished - Cardiovascular Rhythm: regular Heart sounds: normal: S1, S2 Abnormal Heart Sounds: Absent: S3 Gallop - Gastrointestinal General gastrointestinal: Present: soft. Absent: tenderness - Integumentary Integumentary: Absent: cellulitis - Neurologic Neurologic: Present: CNII-XII intact. Absent: focal deficits - Labs CBC & Chem 7: 09/01/20 06:49 10/14/20 11:55 Labs: Abnormal Lab Results - Last 24 Hours (Table) 08/31/20 08/31/20 08/31/20 Range/Units 11:55 11:55 14:44 WBC 19.0 H (3.8-10.6) k/uL RBC 3.09 L (4.30-5.90) m/uL Hgb 9.3 L (13.0-17.5) gm/dL Hct 29.4 L (39.0-53.0) % MCHC (31.0-37.0) g/dL Neutrophils # 17.8 H (1.3-7.7) k/uL Lymphocytes # 0.6 L (1.0-4.8) k/uL Retic Count (0.5-2.0) % APTT 70.3 H (22.0-30.0) sec Sodium 146 H (137-145) mmol/L Chloride 111 H (98-107) mmol/L Carbon Dioxide 20 L (22-30) mmol/L BUN 107 H* (9-20) mg/dL Creatinine 3.39 H (0.66-1.25) mg/dL Glucose 105 H (74-99) mg/dL Uric Acid (3.7-8.7) mg/dL Vitamin B12 (200.0-944.0) pg/mL 08/31/20 08/31/20 08/31/20 Range/Units 14:44 14:44 19:18 WBC (3.8-10.6) k/uL RBC (4.30-5.90) m/uL Hgb (13.0-17.5) gm/dL Hct (39.0-53.0) % MCHC (31.0-37.0) g/dL Neutrophils # (1.3-7.7) k/uL Lymphocytes # (1.0-4.8) k/uL Retic Count 3.6 H (0.5-2.0) % APTT 62.1 H (22.0-30.0) sec Sodium (137-145) mmol/L Chloride (98-107) mmol/L Carbon Dioxide (22-30) mmol/L BUN (9-20) mg/dL Creatinine (0.66-1.25) mg/dL Glucose (74-99) mg/dL Uric Acid 10.0 H (3.7-8.7) mg/dL Vitamin B12 1131.0 H (200.0-944.0) pg/mL 09/01/20 Range/Units 06:49 WBC 17.5 H (3.8-10.6) k/uL RBC 2.86 L (4.30-5.90) m/uL Hgb 8.1 L (13.0-17.5) gm/dL Hct 27.1 L (39.0-53.0) % MCHC 30.1 L (31.0-37.0) g/dL Neutrophils # 16.3 H (1.3-7.7) k/uL Lymphocytes # 0.7 L (1.0-4.8) k/uL Retic Count (0.5-2.0) % APTT (22.0-30.0) sec Sodium (137-145) mmol/L Chloride (98-107) mmol/L Carbon Dioxide (22-30) mmol/L BUN (9-20) mg/dL Creatinine (0.66-1.25) mg/dL Glucose (74-99) mg/dL Uric Acid (3.7-8.7) mg/dL Vitamin B12 (200.0-944.0) pg/mL Assessment and Plan (1) Rectal mass Current Visit: Yes Status: Acute Code(s): K62.89 - OTHER SPECIFIED DISEASES OF ANUS AND RECTUM SNOMED Code(s): 076225307 (2) ARF (acute renal failure) Current Visit: Yes Status: Acute Code(s): N17.9 - ACUTE KIDNEY FAILURE, UNSPECIFIED SNOMED Code(s): 95187606 (3) Left leg DVT Current Visit: Yes Status: Acute Code(s): I82.402 - ACUTE EMBOLISM AND THOMBOS UNSP DEEP VEINS OF L LOW EXTREM SNOMED Code(s): 709629867 (4) Weakness Current Visit: Yes Status: Acute Code(s): R53.1 - WEAKNESS SNOMED Code(s): 50504620 (5) Weight loss Current Visit: Yes Status: Acute Code(s): R63.4 - ABNORMAL WEIGHT LOSS SNOMED Code(s): 08491681 (6) Hydronephrosis Current Visit: Yes Status: Acute Code(s): N13.30 - UNSPECIFIED HYDRONEPHROSIS SNOMED Code(s): 50107638 (7) Bladder neoplasm Current Visit: Yes Status: Acute Code(s): D49.4 - NEOPLASM OF UNSPECIFIED BEHAVIOR OF BLADDER SNOMED Code(s): 938577002 Plan: Multiple comorbidities making the case quite difficult. Acute renal failure which is worsening-appreciate nephrology and neurology input. Rectal mass with possible metastatic disease. Concurrent pneumonia versus metastatic mass on the right lobe area. Appreciate ID and oncology input. Overall prognosis is relatively poor
[2020-09-01 11:26] LABS: African American GFR (CKD) 24.1 (60.0-200.0); Albumin 2.7 g/dL (3.80-4.90); Albumin/Globulin Ratio 1.17 (1.60-3.17); Anion Gap 14.8 mmol/L (4.00-12.00); Carbon Dioxide 23.2 mmol/L (21.6-31.8); Globulin 2.3 g/dL (1.6-3.3); Potassium 3.7 mmol/L (3.5-5.5); Total Bilirubin 0.1 mg/dL (0.2-1.2)
[2020-09-01 13:32] LABS: Non-African American GFR(CKD) 20.8 (60.0-200.0)
[2020-09-01 14:19] VITALS: BMI 22.4
--- NOTE | 2020-09-01 14:31 | PN ---
PROGRESS NOTE Patient is seen for followup for acute kidney injury. His renal function is somewhat improved from yesterday with creatinine at 3.0 from 3.3 yesterday. BUN is 102. Overall, patient denies any significant complaints. He has been talked to regarding his underlying malignancy and poor prognosis. PHYSICAL EXAMINATION: On examination today, blood pressure was 97/68, heart rate 96 per minute, patient is afebrile. Examination of the heart S1, S2. Examination of the lungs, bilateral breath sounds are heard. Abdomen is soft, nontender. Examination of the lower extremities shows edema 3+ bilaterally. 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 LABS: Show sodium 145, potassium 3.7, BUN 102, serum creatinine 3.0, hemoglobin 8.1 g/dL. ASSESSMENT: 1. Acute kidney injury, obstructive uropathy, status post left nephrostomy tube with no plans for right nephrostomy tube as it was difficult when initially attempted and there was no evidence of hydronephrosis on repeat ultrasound. The blood pressure had been low. Therefore, midodrine was started and renal function is somewhat better today. 2. Colon cancer with extension into the bladder. No obstructive uropathy. 3. Mild metabolic acidosis. 4. Generalized debility. 5. Significant bilateral lower extremity edema. 6. Acute left lower extremity deep venous thrombosis. PLAN: Overall prognosis is guarded. Continue with midodrine. Continue to encourage increased oral intake as tolerated. MMODL / IJN: [id number] /
[2020-09-01 17:20] LABS: HCT 26.1 % (39.0-53.0); HGB 8.4 gm/dL (13.0-17.5); Hypochromasia Moderate; MCH 30.8 pg (25.0-35.0); MCHC 32.3 g/dL (31.0-37.0); MCV 95.4 fL (80.0-100.0); Platelet Count 335 k/uL (150-450); RBC 2.73 m/uL (4.30-5.90); RDW 15.1 % (11.5-15.5)
--- NOTE | 2020-09-01 19:09 | P.PN ---
Subjective Progress Note Date: 09/01/20 Principal diagnosis: Metastatic colon cancer, failure to thrive Patient is seen today in follow-up. He is slow to respond, he does seem to understand what's going on, does not seem to be clear on any sort of plan. He denies fever, nausea, unusual pain, he knows he is very weak and that he is going to need assistance when he goes home. Objective - Vital Signs Vital signs: Vital Signs Temp 97.5 F L 09/01/20 14:45 Pulse 88 09/01/20 14:45 Resp 17 09/01/20 14:45 BP 108/68 09/01/20 14:45 Pulse Ox 98 09/01/20 14:45 Intake & Output 08/31/20 09/01/20 09/01/20 18:59 06:59 18:59 Intake Total 93.427 Output Total 270 660 400 Balance -176.573 -660 -400 Weight 65 kg 65 kg Intake: Intake, IV Titration 93.427 Amount Heparin Sod,Pork in 0.45% 93.427 NaCl 25,000 unit In 0.45 % NaCl 1 250ml.bag @ 18 UNITS/KG/HR 11.7 mls/hr IV .[id number] XUAN Rx#: [id number] Output: Drainage 10 Left 10 Urine 270 650 400 Other: Voiding Method Urinal Urinal Urinal # Voids 1 2 # Bowel Movements 1 1 4 - Constitutional General appearance: Present: cooperative, no acute distress, thin - EENT Eyes: Present: anicteric sclerae, EOMI ENT: Present: hearing grossly normal - Respiratory Respiratory: bilateral: CTA, diminished - Cardiovascular Heart sounds: normal: S1, S2 - Peripheral edema foot Peripheral Edema: bilateral: 1+ - Gastrointestinal General gastrointestinal: Present: normal bowel sounds, soft - Neurologic Neurologic: Present: CNII-XII intact - Musculoskeletal Musculoskeletal: Present: generalized weakness - Psychiatric Psychiatric Comment(s): flat affect Psychiatric: Present: A&O x's 3 - Labs CBC & Chem 7: 09/01/20 16:47 09/01/20 06:49 Labs: Abnormal Lab Results - Last 24 Hours (Table) 08/31/20 08/31/20 09/01/20 Range/Units 14:44 19:18 06:49 WBC 17.5 H (3.8-10.6) k/uL RBC 2.86 L (4.30-5.90) m/uL Hgb 8.1 L (13.0-17.5) gm/dL Hct 27.1 L (39.0-53.0) % MCHC 30.1 L (31.0-37.0) g/dL Neutrophils # 16.3 H (1.3-7.7) k/uL Lymphocytes # 0.7 L (1.0-4.8) k/uL APTT 62.1 H (22.0-30.0) sec Anion Gap (4.00-12.00) mmol/L BUN (9.0-27.0) mg/dL Creatinine (0.6-1.5) mg/dL Est GFR (CKD-EPI)AfAm (60.0-200.0) Est GFR (CKD-EPI)NonAf (60.0-200.0) BUN/Creatinine Ratio (12.00-20.00) Ratio Uric Acid 10.0 H (3.7-8.7) mg/dL Calcium (8.7-10.3) mg/dL Total Bilirubin (0.2-1.2) mg/dL Alkaline Phosphatase (41-126) U/L Total Protein (6.2-8.2) g/dL Albumin (3.80-4.90) g/dL Albumin/Globulin Ratio (1.60-3.17) g/dL Vitamin B12 1131.0 H (200.0-944.0) pg/mL 09/01/20 09/01/20 Range/Units 06:49 16:47 WBC 20.0 H (3.8-10.6) k/uL RBC 2.73 L (4.30-5.90) m/uL Hgb 8.4 L (13.0-17.5) gm/dL Hct 26.1 L (39.0-53.0) % MCHC (31.0-37.0) g/dL Neutrophils # (1.3-7.7) k/uL Lymphocytes # (1.0-4.8) k/uL APTT (22.0-30.0) sec Anion Gap 14.80 H (4.00-12.00) mmol/L BUN 102.0 H* (9.0-27.0) mg/dL Creatinine 3.0 H (0.6-1.5) mg/dL Est GFR (CKD-EPI)AfAm 24.1 L (60.0-200.0) Est GFR (CKD-EPI)NonAf 20.8 L (60.0-200.0) BUN/Creatinine Ratio 34.00 H (12.00-20.00) Ratio Uric Acid (3.7-8.7) mg/dL Calcium 8.0 L (8.7-10.3) mg/dL Total Bilirubin 0.1 L (0.2-1.2) mg/dL Alkaline Phosphatase 169 H (41-126) U/L Total Protein 5.0 L (6.2-8.2) g/dL Albumin 2.70 L (3.80-4.90) g/dL Albumin/Globulin Ratio 1.17 L (1.60-3.17) g/dL Vitamin B12 (200.0-944.0) pg/mL Assessment and Plan (1) Colon adenocarcinoma Current Visit: Yes Status: Acute Priority: High Code(s): C18.9 - MALIGNANT NEOPLASM OF COLON, UNSPECIFIED SNOMED Code(s): 888831517 Plan: D/W pt sister his situation. It is known that pt needs rehabilitation and assistance until he is stronger and be able to do more for himself. Patient needs treatment of malignancy in order to be able to possibly have a chance at getting stronger. The best scenario is for patient to be in inpatient rehabilitation and receive treatment. Treatment would consist of oxaliplatin, leucovorin and fluorouracil. It is typically a very well-tolerated treatment with not too many severe side effects. Next best scenario would be for patient to go home, highly recommended palliative care services with some rehabilitation to sister, Family will have to provide care and bring pt back and forth to appointments and do treatment in the outpatient setting. The last scenario is admission to a subacute rehabilitation facility, patient cannot get treatment for cancer until he is released (at least as far as I have been told in the past). Patient's sister verbalized understanding the risks, options for placement and the challenges of each option. We also touched on hospice and the goals of that type of care. I have discussed the case with Chief Procurement Officer. They're going to work on case and see what is able to be done for this patient. Time with Patient: Greater than 30
[2020-09-01] MEDS: AMOXIC-POT CLAV 875-125MG 1 EACH TAB PO SCH (21:35)
--- NOTE | 2020-09-01 23:22 | PN ---
PROGRESS NOTE DATE OF SERVICE: 09/01/2020 REASON FOR FOLLOWUP: Complicated UTI, question of pneumonia and elevated white count. INTERVAL HISTORY: The patient is currently afebrile. The patient is breathing comfortably. Denies having any chest pain or shortness of breath or cough. No nausea, no vomiting, no abdominal pain, no diarrhea. PHYSICAL EXAMINATION: Blood pressure 126/73 with a pulse of 103, temperature 98.5. He is 97% on room air. General description is an elderly male up in the chair in no distress. RESPIRATORY SYSTEM: Unlabored breathing with decreased intensity of breath sounds. No wheeze. HEART: S1, S2. Regular rate and rhythm. ABDOMEN: Soft. No tenderness. LABS/IMAGING: White count jumped to 20,000. He did have a CT of thoracolumbar spine which showed degenerative changes with masslike density, right upper lobe, with multiple cavitation. DIAGNOSTIC IMPRESSION AND PLAN: Patient with elevated white count which is multifactorial in this patient who did have an abnormal CT with evidence of right upper lobe cavitary lesion; could have been more likely metastatic from his rectal cancer. 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 Culture has been negative for any resistant pathogen. Antibiotic was switched over to Augmentin and Diflucan; to continue and monitor his clinical course closely. MMODL / IJN: [id number] /
[2020-09-02 06:12] LABS: Basophils % (A) 0 %; Eosinophils # (A) 0.1 k/uL (0-0.7); Eosinophils % (A) 1 %; HGB 8.5 gm/dL (13.0-17.5); Hypochromasia Moderate; Lymphocytes # (A) 0.7 k/uL (1.0-4.8); Lymphocytes % (A) 4 %; MCH 28.9 pg (25.0-35.0); MCHC 30.2 g/dL (31.0-37.0); MCV 95.7 fL (80.0-100.0); Mean Platelet Volume 9.1; Monocytes # (A) 0.4 k/uL (0-1.0); Monocytes % (A) 2 %; Neutrophils # (A) 16.8 k/uL (1.3-7.7); Neutrophils % (A) 93 %; Platelet Count 391 k/uL (150-450); RBC 2.93 m/uL (4.30-5.90); RDW 15.4 % (11.5-15.5); WBC 18.1 k/uL (3.8-10.6)
--- NOTE | 2020-09-02 08:42 | P.PN ---
Subjective Principal diagnosis: Rectal mass and weakness. The patient is a 65-year-old white male essentially admitted for significant weakness. All overt rectal masses noted with left lower DVT. The patient is continued on heparin and appreciate multiple consultants input. Patient states poor sleep yesterday. He also states back pain when trying to lay flat. Computed tomography scan without contrast did not show significant metastatic disease however. The patient however has significant hydronephrosis with acute renal failure. The patient will continue to be hydrated but seemingly's seems slightly improved since yesterday. Appreciate multiple consultants input. The patient was scheduled for nephrostomy tube but this has been stopped secondary to no hydronephrosis on the right side. Pain control seems nominal. The patient had a long discussion about his multiple comorbidities. He has had rectal bleeding and we will check serial CBC today it has been trending down. I did tell him the difficulty given the fact that he has on anticoagulation related to DVT. H&H has been stable however. We are most likely waiting for planning for placement. Objective - Vital Signs Vital signs: Vital Signs Temp 97.9 F 09/02/20 07:15 Pulse 90 09/02/20 07:15 Resp 14 09/02/20 07:15 BP 129/78 09/02/20 07:15 Pulse Ox 97 09/02/20 07:15 Intake & Output 09/01/20 09/02/20 09/02/20 18:59 06:59 18:59 Output Total 400 150 Balance -400 -150 Weight 65 kg 65 kg Output: Drainage 0 Left 0 Urine 400 150 Other: Voiding Method Urinal Urinal # Bowel Movements 4 1 - Constitutional General appearance: Present: thin - EENT Eyes: Absent: abnormal pupil ENT: Absent: hard of hearing - Neck Neck: Absent: lymphadenopathy - Respiratory Respiratory: bilateral: CTA - Cardiovascular Rhythm: regular Heart sounds: normal: S1, S2 Abnormal Heart Sounds: Absent: S3 Gallop - Gastrointestinal General gastrointestinal: Present: soft. Absent: tenderness - Musculoskeletal Musculoskeletal: Present: generalized weakness - Psychiatric Psychiatric: Present: A&O x's 3 - Labs CBC & Chem 7: 09/02/20 05:43 09/01/20 06:49 Labs: Abnormal Lab Results - Last 24 Hours (Table) 09/01/20 09/01/20 09/02/20 Range/Units 06:49 16:47 05:43 WBC 20.0 H 18.1 H (3.8-10.6) k/uL RBC 2.73 L 2.93 L (4.30-5.90) m/uL Hgb 8.4 L 8.5 L (13.0-17.5) gm/dL Hct 26.1 L 28.0 L (39.0-53.0) % MCHC 30.2 L (31.0-37.0) g/dL Neutrophils # 16.8 H (1.3-7.7) k/uL Lymphocytes # 0.7 L (1.0-4.8) k/uL Anion Gap 14.80 H (4.00-12.00) mmol/L BUN 102.0 H* (9.0-27.0) mg/dL Creatinine 3.0 H (0.6-1.5) mg/dL Est GFR (CKD-EPI)AfAm 24.1 L (60.0-200.0) Est GFR (CKD-EPI)NonAf 20.8 L (60.0-200.0) BUN/Creatinine Ratio 34.00 H (12.00-20.00) Ratio Calcium 8.0 L (8.7-10.3) mg/dL Total Bilirubin 0.1 L (0.2-1.2) mg/dL Alkaline Phosphatase 169 H (41-126) U/L Total Protein 5.0 L (6.2-8.2) g/dL Albumin 2.70 L (3.80-4.90) g/dL Albumin/Globulin Ratio 1.17 L (1.60-3.17) g/dL Assessment and Plan (1) Rectal mass Current Visit: Yes Status: Acute Code(s): K62.89 - OTHER SPECIFIED DISEASES OF ANUS AND RECTUM SNOMED Code(s): 923585234 (2) ARF (acute renal failure) Current Visit: Yes Status: Acute Code(s): N17.9 - ACUTE KIDNEY FAILURE, UNSPECIFIED SNOMED Code(s): 53662563 (3) Left leg DVT Current Visit: Yes Status: Acute Code(s): I82.402 - ACUTE EMBOLISM AND THOMBOS UNSP DEEP VEINS OF L LOW EXTREM SNOMED Code(s): 814377840 (4) Weakness Current Visit: Yes Status: Acute Code(s): R53.1 - WEAKNESS SNOMED Code(s): 82568423 (5) Weight loss Current Visit: Yes Status: Acute Code(s): R63.4 - ABNORMAL WEIGHT LOSS SNOMED Code(s): 39660912 (6) Hydronephrosis Current Visit: Yes Status: Acute Code(s): N13.30 - UNSPECIFIED HYDRONEPHROSI S SNOMED Code(s): 39983576 (7) Bladder neoplasm Current Visit: Yes Status: Acute Code(s): D49.4 - NEOPLASM OF UNSPECIFIED BEHAVIOR OF BLADDER SNOMED Code(s): 012783984 Plan: Multiple comorbidities making the case quite difficult. Acute renal failure which is worsening-appreciate nephrology and neurology input. Rectal mass with metastatic disease. Concurrent pneumonia versus metastatic mass on the right lobe area. Appreciate ID and oncology input. Overall prognosis is relatively poor. Discharge planning for PLACEMENT to ECF. Anticipate discharge in next [address] Vargas's group was covering for the weekend.
[2020-09-02] MEDS: MIDODRINE 5 MG TAB PO SCH ×2 (08:57→12:50)
[2020-09-02] MEDS: PANTOPRAZOLE 40 MG TABLET PO SCH (08:58)
[2020-09-02] MEDS: SERTRALINE 50 MG TAB PO SCH (09:00)
[2020-09-02] MEDS: AMOXIC-POT CLAV 875-125MG 1 EACH TAB PO SCH (09:00)
[2020-09-02] MEDS: METOPROLOL TARTRATE 25 MG TAB PO SCH (09:01)
[2020-09-02] MEDS: SODIUM BICARBONATE TAB 650 MG TAB PO SCH (09:02)
[2020-09-02] MEDS: FLUCONAZOLE 100 MG TAB PO SCH (09:03)
[2020-09-02] MEDS: RIVAROXABAN 15 MG TAB PO SCH (09:03)
[2020-09-02] MEDS: ALBUTEROL NEBULIZED 2.5 MG/3 ML INHALATION SCH ×3 (09:15→15:43)
[2020-09-02 10:18] LABS: African American GFR (CKD) 23.2 (60.0-200.0); Anion Gap 13.3 mmol/L (4.00-12.00); BUN/Creat Ratio 33.23 Ratio (12.00-20.00); C Reactive Protein 7.9 mg/dL (0.0-0.8); Calcium 8.5 mg/dL (8.7-10.3); Carbon Dioxide 22.7 mmol/L (21.6-31.8); Potassium 3.9 mmol/L (3.5-5.5)
[2020-09-02 12:09] VITALS: BP 100/68; PULSE 96; RESP 16; TEMP 97.3
--- NOTE | 2020-09-02 13:16 | P.DS ---
Providers Date of admission: 08/19/20 12:47 Attending physician: Syed Alcala Consults: 08/16/20 10:42 Consult Physician Stat Consulting Provider: Shelia Garcia Consult Reason/Comments: acute renal failure Do you want consulting provider notified?: Yes 08/16/20 10:50 Consult Physician Stat Consulting Provider: Darryl Wiley Consult Reason/Comments: elevated troponin Do you want consulting provider notified?: Yes 08/16/20 15:25 Consult Physician Routine Consulting Provider: Luis Cavazos Consult Reason/Comments: recent colonoscopy Do you want consulting provider notified?: Yes 08/18/20 12:56 Consult Physician Routine Consulting Provider: Derek Tilley Consult Reason/Comments: bilateral hydronephrosis Do you want consulting provider notified?: Yes 08/19/20 08:39 Consult Physician Routine Consulting Provider: Denny Laird Consult Reason/Comments: rectal mass Do you want consulting provider notified?: Yes 08/21/20 17:31 Consult Physician Routine Consulting Provider: Derick Arita Consult Reason/Comments: persistent leukocytosis Do you want consulting provider notified?: Yes 08/25/20 12:06 Consult Physician Routine Consulting Provider: Joey Castorena Consult Reason/Comments: Mediport placement in anticipation chemo rufino Do you want consulting provider notified?: Yes 08/26/20 11:12 Consult Physician Routine Consulting Provider: Ke Ramos Consult Reason/Comments: eval for inpatient rehab Do you want consulting provider notified?: Yes Primary care physician: Syed Alcala - Discharge Diagnosis(es) (1) Rectal mass Current Visit: Yes Status: Acute (2) ARF (acute renal failure) Current Visit: Yes Status: Acute (3) Left leg DVT Current Visit: Yes Status: Acute (4) Weakness Current Visit: Yes Status: Acute (5) Weight loss Current Visit: Yes Status: Acute (6) Hydronephrosis Current Visit: Yes Status: Acute (7) Bladder neoplasm Current Visit: Yes Status: Acute Hospital Course: This is discharge summary on a patient admitted essentially for rectal mass and element of cancer. The patient felt unfortunately developed element of hydronephrosis requiring nephrostomy tube. 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 During this hospitalization, he has developed significant weakness and also pneumonia with possible metastatic disea se to the lung. The patient will now be discharged with appropriate rehab. The patient will not be allowed and cannot have cancer treatment while in rehabilitation at this time. We need to get his strength up so that he can withstand future treatment. Medications have been reconciled. Overall prognosis is guarded due to his multiple morbidities. Patient Condition at Discharge: Stable Plan - Discharge Summary Discharge Rx Participant: No New Discharge Prescriptions: New RX: Zolpidem [Ambien] 5 mg PO HS PRN #30 tab PRN Reason: Insomnia RX: Amoxic-Pot Clav 875-125Mg [Augmentin 875-125] 1 each PO Q12HR tab RX: Fluconazole [Diflucan] 100 mg PO DAILY tab RX: Metoprolol Tartrate [Lopressor] 25 mg PO BID tab RX: HYDROcodone/APAP 7.5-325MG [Morgan 7.5-325] 1 each PO Q6H PRN #120 tab PRN Reason: Pain RX: Midodrine [ProAmatine] 5 mg PO AC-TID tab RX: Pantoprazole [Protonix] 40 mg PO AC-BID tablet. RX: Sodium Bicarbonate Tab 650 mg PO BID #0 tab RX: Acetaminophen Tab [Tylenol] 650 mg PO Q6HR PRN tab PRN Reason: Mild Pain Or Fever > 100.5 RX: Albuterol Nebulized [Ventolin Nebulized] 2.5 mg INHALATION RT-QID ml RX: ALPRAZolam [Xanax] 0.5 mg PO QID PRN #120 tab PRN Reason: Anxiety RX: Rivaroxaban [Xarelto] 15 mg PO BID-W/MEALS tab RX: Sertraline [Zoloft] 50 mg PO DAILY #0 tab Continue RX: amLODIPine BESYLATE/BENAZEPRIL [amLODIPine BESYLATE/BENAZEPRIL 5-10 MG] 1 cap PO DAILY RX: Zolpidem [Ambien] 10 mg PO HS PRN PRN Reason: Insomnia RX: Zolpidem [Ambien] 5 mg PO HS PRN PRN Reason: Insomnia Discharge Medication List RX: Zolpidem [Ambien] 5 mg PO HS PRN 08/16/20 [History] RX: Zolpidem [Ambien] 10 mg PO HS PRN 08/16/20 [History] RX: amLODIPine BESYLATE/BENAZEPRIL [amLODIPine BESYLATE/BENAZEPRIL 5-10 MG] 1 cap PO DAILY 08/16/20 [History] RX: ALPRAZolam [Xanax] 0.5 mg PO QID PRN #120 tab 09/02/20 [Rx] RX: Acetaminophen Tab [Tylenol] 650 mg PO Q6HR PRN tab 09/02/20 [Rx] RX: Albuterol Nebulized [Ventolin Nebulized] 2.5 mg INHALATION RT-QID ml 09/02/20 [Rx] RX: Amoxic-Pot Clav 875-125Mg [Augmentin 875-125] 1 each PO Q12HR tab 09/02/20 [Rx] RX: Fluconazole [Diflucan] 100 mg PO DAILY tab 09/02/20 [Rx] RX: HYDROcodone/APAP 7.5-325MG [Morgan 7.5-325] 1 each PO Q6H PRN #120 tab 09/02/20 [Rx] RX: Metoprolol Tartrate [Lopressor] 25 mg PO BID tab 09/02/20 [Rx] RX: Midodrine [ProAmatine] 5 mg PO AC-TID tab 09/02/20 [Rx] RX: Pantoprazole [Protonix] 40 mg PO AC-BID tablet. 09/02/20 [Rx] RX: Rivaroxaban [Xarelto] 15 mg PO BID-W/MEALS tab 09/02/20 [Rx] RX: Sertraline [Zoloft] 50 mg PO DAILY #0 tab 09/02/20 [Rx] RX: Sodium Bicarbonate Tab 650 mg PO BID #0 tab 09/02/20 [Rx] RX: Zolpidem [Ambien] 5 mg PO HS PRN #30 tab 09/02/20 [Rx] Follow up Appointment(s)/Referral(s): Syed Alcala MD [Primary Care Provider] - 1-2 days
--- NOTE | 2020-09-02 16:56 | PN ---
PROGRESS NOTE DATE OF SERVICE: 09/02/2020 REASON FOR FOLLOWUP: Elevated white count, multifactorial, with a complicated UTI. INTERVAL HISTORY: The patient is currently afebrile. The patient overall is feeling better. He is breathing comfortably. He denies having any chest pain or cough. No vomiting. No abdominal pain or diarrhea. PHYSICAL EXAMINATION: Blood pressure 100/68 with a pulse of 96, temperature 97.3. He is 99% on room air. General description is an elderly male up in the chair in no distress. RESPIRATORY SYSTEM: Unlabored breathing with decreased intensity of breath sounds. No wheeze. HEART: S1, S2. Regular rate and rhythm. ABDOMEN: Soft. No tenderness. LABS: Hemoglobin 8.5, white count 18.1, creatinine 3.1, slightly up. DIAGNOSTIC IMPRESSION AND PLAN: Patient with leukocytosis which is multifactorial in this patient who did have metastatic rectal cancer invading the trigone of the bladder with hydronephrosis on the left side, status post left tube, also with a cavitary lesion in the right upper lobe, possible malignancy. Clinically not behaving as pneumonia. The patient is currently on Augmentin and Diflucan. White count is showing a downward trend. To continue for another week or 10 days with close outpatient followup. MMODL / IJN: [id number] /
--- NOTE | 2020-09-02 19:46 | PN ---
PROGRESS NOTE Patient is seen for followup for acute kidney injury which is mostly obstructive uropathy from underlying colon cancer with invasion into the bladder. Patient has a left nephrostomy tube. He could not have the right nephrostomy tube placed when it was attempted, and the plan is for placement of a ureteral stent down the road. Repeat ultrasound did not show any hydronephrosis on the right side. Therefore the right nephrostomy tube was not re-attempted. At this time patient has urine output, although it is on the lower side. This has increased over the last few days, with total output documented about at about 930 mL. PHYSICAL EXAMINATION: On examination today, blood pressure is 100/68, heart rate 96 per minute. He is afebrile. EXAMINATION OF THE HEART: S1 and S2. EXAMINATION OF LUNGS: Bilateral breath sounds are heard. ABDOMEN: Soft, non-tender. Examination of lower extremities shows edema 3+ bilaterally. ASSESSMENT DIRECTOR exam is grossly intact. LABS: Labs show hemoglobin 8.5, white cell count 18.1, sodium 144, potassium 3.9, BUN 103, serum creatinine 3.1. ASSESSMENT: 1. Acute kidney injury, obstructive uropathy, status post left nephrostomy tube placement with plan for right nephrostomy tube down the road. However, the repeat ultrasound did not show any hydronephrosis on the right side. Therefore the tube was not placed. Patient's blood pressure had been low, and that likely contributed to his recent worsening of renal function. Patient was started on midodrine and his creatinine has improved from about 3.39 to 3.0 and 3.1 mg/dL now. 2. Metabolic acidosis, maintained on sodium bicarb. 3. Left lower extremity acute deep venous thrombosis. 4. Colon cancer with invasion into the bladder and bilateral hydronephrosis, being followed by Urology. 5. Generalized debility. 6. Significant bilateral lower extremity edema with acute left lower extremity deep venous thrombosis and perhaps some mechanical obstruction related to underlying malignancy causing edema in the right leg, too. PLAN: Agree with consideration for hospice care. Patient will need close monitoring of his renal function. Continue with the sodium bicarb from now and follow up with Urology as well. MMODL / IJN: [id number] /
== END 2020-09-02 15:15 | DRG 656 ==
LOC: EC 08:10 → 3SCARD 10:24 → INTOOBSV 10:24 → 3SCARD 17:59 → OBSVTOIN 08-19 12:47 → 4SSUR 08-21 04:43 → 3SCARD 08-22 11:15 → 4SSUR 08-27 17:49
PROVIDERS: ADMIT Family Medicine; ATTEND Family Medicine
PROC: 0TJB8ZZ Inspection of Bladder, Via Natural or Artificial Opening Endoscopic (ICD-10-PCS; 2020-08-22 14:55)
PROC: 0TBB8ZX Excision of Bladder, Via Natural or Artificial Opening Endoscopic, Diagnostic (ICD-10-PCS; 2020-08-22 14:55)
PROC: 0T143JD Bypass Left Kidney Pelvis to Cutaneous with Synthetic Substitute, Percutaneous Approach (ICD-10-PCS; principal; 2020-08-23 08:35)
PROC: 02HV33Z Insertion of Infusion Device into Superior Vena Cava, Percutaneous Approach (ICD-10-PCS; 2020-08-26)
DX: C79.11 Secondary malignant neoplasm of bladder (principal); E43 Unspecified severe protein-calorie malnutrition; J18.9 Pneumonia, unspecified organism; I26.99 Other pulmonary embolism without acute cor pulmonale; C20 Malignant neoplasm of rectum; B37.0 Candidal stomatitis; Z68.1 Body mass index [BMI] 19.9 or less, adult; D68.69 Other thrombophilia; E87.2 Acidosis; I82.402 Acute embolism and thrombosis of unspecified deep veins of left lower extremity; C78.00 Secondary malignant neoplasm of unspecified lung; J44.0 Chronic obstructive pulmonary disease with (acute) lower respiratory infection; N13.6 Pyonephrosis; N17.9 Acute kidney failure, unspecified; R64 Cachexia; K92.1 Melena; Z20.828 Contact with and (suspected) exposure to other viral communicable diseases; R62.7 Adult failure to thrive; D50.9 Iron deficiency anemia, unspecified; E87.5 Hyperkalemia; E87.70 Fluid overload, unspecified; F32.9 Major depressive disorder, single episode, unspecified; F41.9 Anxiety disorder, unspecified; G62.9 Polyneuropathy, unspecified; G47.00 Insomnia, unspecified; I10 Essential (primary) hypertension; K76.9 Liver disease, unspecified; L89.152 Pressure ulcer of sacral region, stage 2; N28.89 Other specified disorders of kidney and ureter; R63.3 Feeding difficulties; Z82.49 Family history of ischemic heart disease and other diseases of the circulatory system; N20.0 Calculus of kidney; Z87.891 Personal history of nicotine dependence; Z79.899 Other long term (current) drug therapy; Z90.49 Acquired absence of other specified parts of digestive tract; T39.395A Adverse effect of other nonsteroidal anti-inflammatory drugs [NSAID], initial encounter; R00.0 Tachycardia, unspecified
CPT/HCPCS: 36415; 36573; 50432; 70450; 71045; 71046; 72128; 72131; 74176; 74420; 76705; 76770; 76942; 80048; 80053; 81001; 82272; 82378; 82607; 82668; 82728; 82746; 83540; 83550; 83605; 83735; 83880; 83921; 84132; 84145; 84484; 84550; 85025; 85027; 85045; 85379; 85610; 85730; 86140; 87040; 87086; 88307; 88341; 88342; 93005; 93306; 94640; 94760; 96361; 96365; 96366; 96368; 96375; 96376; 99285